=== PATIENT | female | born 1945 | race Caucasian/White ===

== ENCOUNTER → 2018-06-05 06:54 | Outpatient (CLI) | payer MEDICARE, SELFPAY ==
[2018-06-05 07:20] LABS: Absolute Lymphocyte Count 2.32 X10^3/ul (0.83-4.51); Basophil# 0.01 X10^3/uL; Basophil% 0.2 % (0-1); Eosinophil# 0.14 X10^3/uL; Eosinophils% 2.3 % (0-5); Hematocrit 41.7 % (37-47); Hemoglobin 14.3 g/dl (12.0-15.0); Lymphocyte # 2.32 X10^3/ul (4.0); Lymphocyte % 38.7 % (19-41); Mean Corp Hgb Conc 34.3 g/gl (32-36); Mean Corpuscular Hgb 29.9 pg (27.0-32.0); Mean Corpuscular Volume 87.2 fL (81-99); Mean Platelet Vol. 10.9 fl (6.2-12.0); Monocyte# 0.51 X10^3/uL; Monocyte% 8.5 % (0-10); Neutrophil # 3.01 X10^3/uL (2.7-7.7); Neutrophil % 50.1 % (47-70); Platelet Count 195 K/mm3 (150-450); RBC Distribution Width CV 13.2 % (11.6-14.6); RBC Distribution Width SD 41.3 fl (35.1-43.9); Red Blood Count 4.78 M/mm3 (4.2-5.4)
[2018-06-05 07:22] LABS: POSITIVE COUNT NO; POSITIVE DIFFERENTIAL NO; POSITIVE MORPHOLOGY NO
[2018-06-05 07:47] LABS: ALB/GLOB Ratio 0.9 RATIO (0.9-2.4); AST(SGOT) 20 U/L (15-37); Alanine Aminotransfer ALT/SGPT 27 U/L (13-56); Albumin, Serum 3.4 g/dL (3.2-5.0); Alkaline Phosphatase 59 U/L (45-117); Anion Gap 5 (5-15); BUN 14 mg/dL (7-18); BUN/Creat Ratio 14.8 RATIO (10-20); Calcium,Total 8.2 mg/dL (8.5-10.1); Chloride 109 mmol/L (98-107); Cholesterol 187 mg/dL (200); Creatinine, Serum 0.94 mg/dL (0.55-1.02); EST Glomerular Filtration Rate 62 mL/min (>60); Est Glom Filt Rate - Afr Amer 74 mL/min (>60); Globulin 3.6 g/dL (2.2-4.2); Glucose 89 mg/dL (74-106); High Density Lipoprotein 39 mg/dL; Sodium Level 143 mmol/L (136-145); Triglycerides 178 mg/dL; Very Low Density Lipoprotein 36 mg/dL (5-40)
== END ==
PROVIDERS: Family Provider Family Medicine; PCP Family Medicine; Visit Provider Family Medicine
DX: I10 Essential (primary) hypertension (principal); R53.83 Other fatigue; E78.1 Pure hyperglyceridemia
CPT/HCPCS: 36415; 80053; 80061; 85025

== ENCOUNTER → 2018-07-04 15:26 | Outpatient (CLI) | payer MEDICARE, SELFPAY | PROVIDERS: Family Provider Family Medicine; PCP Family Medicine; Visit Provider Urology | DX: R31.0 Gross hematuria (principal); N39.0 Urinary tract infection, site not specified | CPT/HCPCS: 74178; Q9967 ==

== ENCOUNTER → 2018-08-12 10:06 | Outpatient (CLI) | payer MEDICARE, SELFPAY ==
--- NOTE | 2018-08-12 10:08 | BI_ITS ---
MAMMOGRAPHY - BILATERAL SCREENING REASON FOR EXAM: Female, 73 years old. Routine annual screening examination. PERTINENT HISTORY: Aunt with breast cancer. TECHNIQUE: Digital bilateral breast magdalena (3D mammographic acquisition) in the CC and MLO projections. 2-D mediolateral oblique (MLO) and craniocaudad (CC) views of both breasts were obtained. CAD: Full Field Digital Mammography with Computer Added Detection was performed. COMPARISON: Comparison is made with prior study dated August 07, 2016 and August 05, 2015. FINDINGS: Breast Composition: The breasts are heterogeneously dense, which may obscure small masses. There is a 5.5 mm x 6.5 mm well-defined nodule in the slightly upper lateral portion of the left breast. Correlation with ultrasound is recommended. There is a 1.5 cm x 1 cm spiculated nodule in the deep slightly upper lateral portion of the right breast. Correlation with ultrasound is recommended. Stable bilateral benign-appearing axillary lymph nodes. No other significant abnormalities are identified. BI/SCREENING MAMM (CAD), BILAT IMPRESSION: Suspicious nodule seen in both breasts as described. Correlation with ultrasound is recommended. ASSESSMENT CATEGORY: BIRADS Category 0: Incomplete. Need additional imaging evaluation. A letter regarding these results will be sent to the patient by the facility within 30 days. Approximately 10% of breast cancers are not detected by mammography. A normal mammogram should not delay biopsy of a clinically suspicious abnormality. [id number] Electronically Signed: Anthony Tomlinson MD at 11:36 EDT Tel [phone], Service support ,
--- NOTE | 2018-08-12 10:13 | BD_ITS ---
STUDY: DUAL ENERGY X-RAY ABSORPTIOMETRY / DXA REASON FOR EXAM: Female, 73 years old. The patient is postmenopausal. Loss of height. TECHNIQUE: Bone Mineral Density (BMD) measurements of lumbar spine and bilateral hips were obtained. COMPARISON: Comparison is made with prior examination of July 22, 2014. FINDINGS: Lumbar Spine (L1-L4): g/cm2 (0.861) / T-score (-2.5) / Z-score (-0.8) Findings are suggestive of osteopenia with a moderate fracture risk. Increase in thoracic kyphosis. Left Femur Total: g/cm2 (0.915) / T-score (-0.7) / Z-score (1.0) Left Femoral Neck: g/cm2 (0.781) / T-score (-1.8) / Z-score (0.0) Right Femur Total: g/cm2 (0.889) / T-score (-0.9) / Z-score (0.7) Right Femoral Neck: g/cm2 (0.774) / T-score (-1.9) / Z-score (0.0) The T-Scores on the most recent prior examination were: Lumbar Spine (L1-L4): There has been worsening of bone density since the previous examination. Left Femur Total: which represents an improvement of 1.8%. Right Femur Total: which represents an improvement of 2.7%. BD/Dexa Bone Density Study IMPRESSION: The patient is considered osteopenic as outlined below according to World Marshall Organization (WHO) criteria with a moderate fracture risk. There has been improvement of bone density since the previous examination. Reference Information: The T-score is the number of standard deviations above or below the standard which is normal for young adults at their peak bone mineral density. The World Health Organization (WHO) interprets the T-scores as follows: Above -1 Normal bone density Between -1 and -2.5 Osteopenia Equal to / or below -2.5 Osteoporosis As a practical clinical guideline, osteopenia may be graded as follows: Mild -1 through -1.5 Moderate -1.6 through -2.0 Severe -2.1 through -2.4 The Z-score is the number of standard deviations above or below age-matched controls. A Z-score of less than -1.5 would be considered abnormal. References: 1. NIH Osteoporosis and Related Bone Diseases http://www.osteo.org 2. International Society for Clinical Densitometry http://www.iscd.org 3. National Osteoporosis Foundation http://www.nof.org Electronically Signed: Anthony Tomlinson MD at 14:55 EDT Tel [phone], Service support ,
== END ==
PROVIDERS: Family Provider Family Medicine; PCP Family Medicine; Visit Provider Family Medicine
DX: Z12.31 Encounter for screening mammogram for malignant neoplasm of breast (principal); Z78.0 Asymptomatic menopausal state
CPT/HCPCS: 77063; 77067; 77080

== ENCOUNTER → 2018-08-18 13:26 | Outpatient (CLI) | payer MEDICARE, SELFPAY ==
--- NOTE | 2018-08-18 13:28 | US_ITS ---
STUDY: ULTRASOUND BREAST - RIGHT REASON FOR EXAM: Female, 73 years old. Abnormal screening mammogram. TECHNIQUE: Axial and longitudinal images of the RIGHT breast were performed with a high resolution ultrasound transducer. COMPARISON: Comparison is made with prior mammogram dated August 12, 2018 and prior ultrasound of the left breast dated August 05, 2015. FINDINGS: RIGHT Breast: There is a 1.6 cm x 0.8 cm x 1.2 cm hypoechoic irregular hypoechoic nodule with posterior acoustical shadowing. This is at the 9:00 position of the breast at 4 cm from the nipple. A biopsy is recommended. IMPRESSION: Suspicious nodule at the 9:00 position of the breast at 4 cm from the nipple as described. A biopsy is recommended. ASSESSMENT CATEGORY: BIRADS Category 4: Suspicious - Biopsy Should Be Considered. A letter regarding these results will be sent to the patient by the facility within 30 days. Electronically Signed: Anthony Tomlinson MD at 15:42 EDT Tel [phone], Service support , STUDY: ULTRASOUND BREAST - LEFT REASON FOR EXAM: Female, 73 years old. Abnormal mammogram. TECHNIQUE: Axial and longitudinal images of the LEFT breast were performed with a high resolution ultrasound transducer. COMPARISON: Comparison is made with prior mammogram dated August 12, 2018. FINDINGS: LEFT Breast: There is a 6 mm x 5 mm x 4 mm well-defined hypoechoic nodule at the 3:00 position of the breast at 2 cm from nipple. This as the appearance of a lymph node. US/Breast Limited Unilateral IMPRESSION: The mammographic finding most likely represents a small lymph node. ASSESSMENT CATEGORY: BIRADS Category 2: Benign. A letter regarding these results will be sent to the patient by the facility within 30 days. Electronically Signed: Anthony Tomlinson MD at 15:42 EDT Tel [phone], Service support ,
== END ==
PROVIDERS: Family Provider Family Medicine; PCP Family Medicine; Visit Provider Family Medicine
DX: R92.8 Other abnormal and inconclusive findings on diagnostic imaging of breast (principal)
CPT/HCPCS: 76642

== ENCOUNTER → 2018-09-02 15:30 | Outpatient (CLI) | payer MEDICARE, SELFPAY ==
--- NOTE | 2018-09-02 | IMM_PTH ---
PATIENT: POP ALLAN LOC: [facility] U#:[id number] AGE/SX: 80/F ROOM: RE09/02/[address]: Dr. Jack Yang MD : 1945 BED: DIS: SPEC #: [id number] RECD: 09/04/18 13:05 STATUS: MACKENZIE REQ #: [id number] AB: 09/02/18 00:[address]: Jack Yang DEPT: IMMUNOHISTOCHEMISTRY RECD BY: Annamaria Ly ENTERED: 09/04/18 13:08 SP TYPE: IMMUNO OTHR DR: Dr. Aleta Quinn DO Tissues: Right breast, NOS Procedures: CALPONIN-1 (add) CK5-6 (add) CK8 (add) E-CAD (add) HER2 KJ (add) KI-67 (add) P53 (add) ME (add) IN SITU HYBRIDIZATION P40 (add) ER (initial) PHYSICIAN & INSTITUTION [address] [address] SPECIMEN INFORMATION: Tissue Source: Right breast Clinical Info: Abnormal mammogram Specimen Number: [id number] CPT code: 73073, 37991 x6, 94047 x3 METHODOLOGY: Deparaffinized sections of prefer/formalin-fixed tissue or PAP/DQ stained slides are incubated with monoclonal/polyclonal antibodies/oligonucleotide probes. Localization is made via biotin free immunoperoxidase method. Appropriate controls are performed and reacted as expected. Results on target cell population are indicated in the following table: RESULTS: ANTIBODY / CLONE RESULT E-Cad (ECH-6) positive CK8 (25ctmuN81) positive CK5-6 (D5 & 1684) negative Ki-67 (30-9) positive, low P53 (DO-7) negative P40 (BC28) negative Calponin-1 (MA045C) negative MORPHOMETRIC ANALYSIS ER (clone 6F11) >95%, strong ME (clone 16/1E2) 77%, moderate Her-2Neu (clone CB11) 2+ The prognostic test for HER2 is performed on formalin-fixed paraffin embedded tissue. A 3+ (positive) staining pattern is defined as intense, homogeneous, complete, circumferential membranous staining in >10% of contiguous tumor cells. A similar weak (2+) staining pattern is interpreted as equivocal. RIKI follow-up testing is recommended for all equivocal cases. Positivity/negativity for ER/ME is reported if > or < 1% of the tumor cells are immuno- reactive, respectively. The ASCO/CAP criteria is used for scoring. Reference: Journal of Clinical Oncology, 2013; 31:1628-3767 & 2010; 16:8307-7479. Duration of fixation: 28 Hrs; Sample Adequate: Yes. These assays have not been validated on decalcified tissues. Results should be interpreted with caution given the likelihood of false negativity on decalcified specimens. These tests were developed and their performance characteristics determined by [facility]. They may not have been cleared or approved by the U.S. Food and Drug Administration. The FDA has determined that such clearance or approval is not necessary. INTERPRETATION: Right breast, ultrasound-guided needle core biopsy: Invasive ductal carcinoma, grade 2. Positive for estrogen receptors (favorable prognostic indicator). Positive for progesterone receptors (favorable prognostic indicator). Equivocal for overexpression of ILQ1auv. SJ:yovany 09/04/18 ADDENDUM ADDENDUM ADDENDUM ADDENDUM ADDENDUM ADDENDUM ADDENDUM ADDENDUM ADDENDUM ADDENDUM ADDENDUM ADDENDUM ADDENDUM ADDENDUM ADDENDUM ADDENDUM ADDENDUM ADDENDUM ADDENDUM ADDENDUM ADDENDUM ADDENDUM ADDENDUM 09/16/2018 10:17 ADDENDUM 09/16/2018 10:17 ADDENDUM 09/16/2018 10:17 ADDENDUM 09/16/2018 10:17 ADDENDUM 09/16/2018 10:17 IN SITU HYBRIDIZATION (RIKI) FOR HER2 Interpretation: Not Amplified HER2 : CEP-17 Ratio: 1.28 Average HER2 Signal: 2.45 Average CEP-17 Signal: 1.9 Number of Tumor Cells Scanned: 50 Interpretative Information: The INFORM HER2 Dual RIKI DNA Probe Cocktail assay is performed on formalin-fixed paraffin embedded tissue and determines HER2 gene status by detecting HER2 copies via silver in situ hybridization (SISH) and Chromosome 17 copies via chromogenic red in situ hybridization on tumor cells. A minimum of 20 cells representing > 10% of contiguous and homogeneous invasive tumor cells were analyzed. HER2 gene status is classified as Non-amplified (HER2/Chr17 ratio < 2.0) or Amplified (HER2/Chr17 ratio greater than or equal to 2.0). If the resulting HER2/Chr17 ratio falls within 1.8 - 2.2 (Borderline), retesting by FISH is recommended. Reference: Latosha AC, Khurram MEJIAS, Da DG, et al: Recommendations for Human Epidermal Growth Factor Receptor 2 Testing in Breast Cancer: [place] [employer] of Clinical Oncology / [employer] [place] [employer] Clinical Practice Guideline Update. J Clin Oncol 31:0516-0513, 2013. AM:yovany 09/16/18
--- NOTE | 2018-09-02 15:30 | BRBX_PTH ---
PATIENT: POP ALLAN LOC: [facility] U#:[id number] AGE/SX: 80/F ROOM: RE09/02/[address]: Dr. Jack Yang MD : 1945 BED: DIS: SPEC #: [id number] RECD: 09/02/18 16:15 STATUS: MACKENZIE DAVID #: [id number] AB: 09/02/18 15:[address]: Jack Yang DEPT: SURGICAL PATHOLOGY RECD BY: Lauro Moreno ENTERED: 09/03/18 08:24 SP TYPE: BREAST BX OTHR DR: Dr. Aleta Quinn DO Tissues: Right breast, NOS Procedures: Surgery Specimen Level IV HEADER OPERATION: Ultrasound-guided needle core biopsy right breast PRE-OP DIAGNOSIS: Abnormal mammogram R92.8 TISSUE SUBMITTED: Right breast biopsy FIXATION TIME: 28 hours MICROSCOPIC DIAGNOSIS Right breast, ultrasound-guided needle core biopsy: Invasive ductal carcinoma, nuclear grade 2 (0.9 cm in greatest length). See comment. NATHANIEL:yovany 09/04/18 COMMENT Immunohistochemistry ([id number]) supports the above diagnosis. ER/WV/Ywt8wgq studies are being performed on sections of tumor and the results from this study will be reported separately ([id number]). MICROSCOPIC DESCRIPTION Slides are reviewed. GROSS DESCRIPTION Received in fixative is one container labeled with the patient's name and designated right breast biopsy. The specimen consists of one elongated fragment of trevino-yellow fibroadipose tissue that measures 1.2 cm in length and 0.1 cm in diameter. The specimen is totally submitted in one cassette. / NATHANIEL:yovany 09/03/18 TC:0 CPT: 40303
== END ==
PROVIDERS: Family Provider Family Medicine; PCP Family Medicine; Referring Provider Surgery; Visit Provider Surgery
DX: C50.911 Malignant neoplasm of unspecified site of right female breast (principal); R92.8 Other abnormal and inconclusive findings on diagnostic imaging of breast
CPT/HCPCS: 88305; 88341; 88342; 88368

== ENCOUNTER → 2018-09-12 12:54 | Outpatient (CLI) | payer MEDICARE, SELFPAY ==
--- NOTE | 2018-09-12 12:56 | MRI_ITS ---
STUDY: BILATERAL BREAST MR WITHOUT AND WITH CONTRAST REASON FOR EXAM: Female, 73 years old. Abnormal mammogram. Bilateral breast masses. Recent diagnosis of right breast cancer. Evaluate. TECHNIQUE: Multi-sequence multi-echo imaging of both breasts was performed with a dedicated breast coil. T1-weighted and T2-weighted images were performed before the administration of contrast. T1-weighted images were also performed after the administration of 7 mL of Gadavist contrast intravenously without complications. COMPARISON: Mammogram studies dated 08/07/2016 and 08/12/2018. Bilateral breast ultrasound dated 08/18/2018 was also reviewed. FINDINGS: RIGHT BREAST: The breast tissue is heterogeneously dense with minimal background enhancement. There is a 15 mm abnormal enhancing spiculated mass in the lateral aspect of the right breast approximately 8 cm from the nipple. This does correlate to the area that was biopsied and shown to represent a malignancy. No other abnormal enhancing or abnormal morphologically appearing masses are seen in the right breast. The right axillary lymph nodes appear grossly unremarkable. LEFT BREAST: The breast tissue is heterogeneously dense with minimal background enhancement. There are no abnormal enhancing masses or areas of non-mass enhancement in the left breast. There is a 5 mm benign appearing mass seen laterally in the left breast that was seen on the ultrasound examination. This appears to represent a probable fibrocystic mass or fibroadenoma. There are no enlarged or abnormal lymph nodes. There is no abnormality in the visualized regions of the chest or liver. MRI/Breast w/o and/or W Cont Bilat IMPRESSION: There is a known malignancy in the right breast. Surgical consultation is recommended as well as radiation oncology and medical oncology consultation. Short-term six-month follow-up mammogram is recommended to document stability the postlumpectomy site. CATEGORY: BIRADS Category 6: Known Biopsy-Proven Malignancy - Appropriate Action Should Be Taken. A letter regarding these results will be sent to the patient by the facility within 30 days. Electronically Signed: Lauren Roque DO at 15:51 EDT This has been co-signed by: Cristopher Mariano MD at 15:52 EDT Service support ,
== END ==
PROVIDERS: Family Provider Family Medicine; PCP Family Medicine; Referring Provider Surgery; Visit Provider Surgery
DX: C50.919 Malignant neoplasm of unspecified site of unspecified female breast (principal); R92.8 Other abnormal and inconclusive findings on diagnostic imaging of breast
CPT/HCPCS: 77059; A9585; A4216; C8908

== ENCOUNTER 2018-09-18 08:45 | Day surgery (SDC) | payer MEDICARE, SELFPAY ==
[2018-09-12 13:22] LABS: Hematocrit 42.5 % (37-47); Hemoglobin 14.3 g/dl (12.0-15.0); Mean Corp Hgb Conc 33.6 g/gl (32-36); Mean Corpuscular Hgb 29.5 pg (27.0-32.0); Mean Corpuscular Volume 87.6 fL (81-99); Mean Platelet Vol. 10.6 fl (6.2-12.0); Platelet Count 218 K/mm3 (150-450); RBC Distribution Width CV 13.3 % (11.6-14.6); RBC Distribution Width SD 41.7 fl (35.1-43.9); Red Blood Count 4.85 M/mm3 (4.2-5.4); Scan Indicated on CBC? Y/N NO; White Blood Count 6.8 K/mm3 (4.4-11.0)
[2018-09-12 13:34] LABS: AST(SGOT) 19 U/L (15-37); Alanine Aminotransfer ALT/SGPT 30 U/L (13-56); Albumin, Serum 3.5 g/dL (3.2-5.0); Alkaline Phosphatase 71 U/L (45-117); Anion Gap 3 (5-15); BUN 15 mg/dL (7-18); BUN/Creat Ratio 14.9 RATIO (10-20); Calcium,Total 8.8 mg/dL (8.5-10.1); Chloride 106 mmol/L (98-107); Creatinine, Serum 1.01 mg/dL (0.55-1.02); EST Glomerular Filtration Rate 57 mL/min (>60); Est Glom Filt Rate - Afr Amer 69 mL/min (>60); Globulin 3.6 g/dL (2.2-4.2); Glucose 94 mg/dL (74-106); Potassium 3.8 mmol/L (3.5-5.1); Protein, Total 7.1 g/dL (6.4-8.2); Sodium Level 140 mmol/L (136-145)
--- NOTE | 2018-09-12 14:37 | RAD_ITS ---
STUDY: X-RAY CHEST REASON FOR EXAM: Female, 73 years old. Preoperative evaluation. History of breast cancer. TECHNIQUE: PA and lateral views of the chest. COMPARISON: Comparison is made with prior examination July 17, 2017. FINDINGS: Hyperinflation. Scattered calcified granulomas. The lungs are clear. There is no demonstrated pleural abnormality. Normal size heart. Normal mediastinum and viky. Normal visualized pulmonary arteries. There is atherosclerotic calcification of the aortic arch with tortuosity. Normal visualized thoracic spine. Normal visualized ribs, clavicles, and shoulders. There is no demonstrated abnormality of the visualized soft tissue structures of the upper abdomen. RAD/Chest PA and Lateral IMPRESSION: Hyperinflation. The lungs are clear. Electronically Signed: Anthony Tomlinson MD at 15:09 EDT Tel [phone], Service support ,
--- NOTE | 2018-09-12 14:40 | EKG12_ITS ---
Test Reason : PRE OP Blood Pressure : / mmHG Vent. Rate : 056 BPM Atrial Rate : 045 BPM P-R Int : 182 ms QRS Dur : 122 ms QT Int : 456 ms P-R-T Axes : 035 014 046 degrees QTc Int : 440 ms Marked sinus bradycardia with occasional Premature ventricular complexes Right bundle branch block Abnormal ECG Confirmed by CRISTELA WHITE ([id number]), medical transcription editor OTF AMADO ([id number]) on 09/16/2018 9:09:50 AM Referred By: Jack Yang Confirmed By:CRISTELA WHITE
--- NOTE | 2018-09-18 | AXNB_PTH ---
PATIENT: POP ALLAN [place]: [facility] [place][id number] AGE/SX: 73/F ROOM: RE09/18/[address]: Dr. Jack Yang MD : 1945 BED: DIS: 09/18/2018 SPEC #: [id number] RECD: 09/18/18 12:58 STATUS: MACKENZIE DAVID #: [id number] AB: 09/18/18 00:[address]: Jack Yang DEPT: SURGICAL PATHOLOGY RECD BY: Annamaria Ly ENTERED: 09/18/18 14:01 SP TYPE: AX NODE BX OTHR DR: Dr. Aleta Quinn, DO Tissues: A - Axillary lymph node, NOS B - Right breast, NOS Procedures: Frozen Section (charge) Surgery Specimen Level IV Surgery Specimen Level V HEADER OPERATION: Breast lumpectomy, sentinel node, NL, [place] PRE-OP DIAGNOSIS: Abnormal mammogram right breast TISSUE SUBMITTED: A - [place] lymph node sent at 1243, B - Right breast lumpectomy sent to mammogram, then pathology at 1311, wire comes out lateral, short suture - anterior, long suture - superior FROZEN SECTION DIAGNOSIS A. Right axillary sentinel lymph node, biopsy: Two out of two nodes negative for carcinoma. AM:yovany 09/18/18 MICROSCOPIC DIAGNOSIS A. Right axillary sentinel lymph node, biopsy: Two out of two nodes negative for metastatic carcinoma. B. Right breast, lumpectomy: Invasive ductal carcinoma. See cancer checklist below. AM:yovany 09/23/18 COMMENT INVASIVE BREAST CANCER SUMMARY: Procedure: Excision with wire guidance Specimen: Partial breast Specimen integrity: single intact specimen Specimen size: 6.5 x 6 x 3.8 cm Specimen laterality: Right breast Invasive tumor size: 1.5 x 1.2 x 1 cm Tumor focality: Single focus of invasive carcinoma Macroscopic and Microscopic extent of tumor: Skin: Not present Nipple: Not present Skeletal muscle: Not present Histologic type of invasive carcinoma: invasive ductal carcinoma Histologic Grade (Bonita grade): Glandular/tubular differentiation score: 2 Nuclear pleomorphism score: 2 Mitotic count score: 1 Overall grade: Grade 1 (total score of 5) Margins: Uninvolved by invasive carcinoma. Distance from closest (superior) margin - 8 mm Lymph-Vascular invasion: Not identified Dermal lymph-vascular invasion: Not applicable Perineural invasion: present Ductal carcinoma in situ (DCIS): Not present Lobular carcinoma in situ (LCIS): Not present Lymph nodes: Number of sentinel lymph nodes examined - 2 (by H&E and immunohistochemistry). Total number of lymph nodes examined (sentinel and nonsentinel) - 2 No evidence of macrometastases, micrometastases or isolated tumor cells. See specimen A. Microcalcifications: Present in both carcinoma and non-neoplastic tissue (focal). Treatment effect - no known presurgical therapy. Additional pathologic findings: Fibrocystic change. Intraductal hyperplasia with focal atypical intraductal hyperplasia. Changes of previous biopsy. Ancillary studies: Previously performed on same tumor ([id number] / [id number]). ER: >95%, strong WA: 77%, moderate Her2 richard: 2+ (IHC) Her2 by dual RIKI: Not amplified (1./1) PATHOLOGIC STAGE: pT1c N0(sn) Mx The above summary is in compliance with [employer] [place] [employer] (CAP) Cancer Protocols Checklist and [place] Joint Committee on Cancer (AJCC), Staging Manual, 8th Ed. Case has been reviewed in consultation with Dr. Sorenson who concurs with the above diagnosis. IDC:SJ MICROSCOPIC DESCRIPTION Slides are reviewed. GROSS DESCRIPTION A - Received fresh for frozen section consultation labeled with the patient's name is a specimen designated sentinel lymph node right breast. The specimen consists of an irregular fragment of trevino-yellow fibrofatty tissue measuring 4.5 x 2.5 x 1 cm. Dissection reveals two nodules ranging in size from 1.5 to 1.8 cm in greatest dimension. One nodule is submitted in its entirety in block #1 for frozen section consultation. The other nodule is bisected and submitted for frozen section consultation in block 2. / AM:yovany 09/19/18 B - Received fresh for OR consultation labeled with the patient's name is a specimen designated right breast lumpectomy. The specimen consists of a wire-guided lumpectomy that has been oriented measuring 6.5 x 6 x 3.8 cm and weighing 44.5 gm. The specimen is differentially inked as follows: anterior - yellow, posterior - black, superior - blue, inferior - green, medial - red and lateral - orange. Serial sections reveal a firm, spiculated white-trevino lesion in the center of the specimen measuring 1.5 x 1.2 x 1 cm and located 0.8 cm from its closest (superior) margin of resection. The size of the lesion and proximity to the closest margin is conveyed to the surgeon intraoperatively. The remainder of the uninvolved breast parenchyma is trevino-yellow and interrupted focally by white fibrous streaks. Rope Tier sections are submitted in ten cassettes as follows: 1 & 2 - perpendicular inked margins, 37 - mass, totally submitted, 8-10 - footwear sales representative sections of uninvolved breast parenchyma adjacent to and away from lesion. / AM:yovany 09/19/18 TC:0 CPT: 40294, 92600, 25555, 81660 ADDENDUM ADDENDUM ADDENDUM ADDENDUM ADDENDUM ADDENDUM ADDENDUM ADDENDUM 10/17/2018 10:14 ADDENDUM 10/17/2018 10:14 ADDENDUM 10/17/2018 10:14 ADDENDUM 10/17/2018 10:14 ADDENDUM 10/17/2018 10:14 An order for Oncotype testing was received from Dr. Browne. This necessitated case review, block and slide selection by pathologist at [facility]. Breast Cancer Recurrence Score = 16 Results of the complete Oncotype testing ([employer] report) are viewable in EMR under: Reports - Pathology - Lab Pathology Report, Scanned.
--- NOTE | 2018-09-18 | IMM_PTH ---
PATIENT: POP ALLAN LOC: [facility] [place] U#:[id number] AGE/SX: 73/F ROOM: RE09/18/[address]: Dr. Jack Yang MD : 1945 BED: DIS: 09/18/2018 SPEC #: [id number] RECD: 09/23/18 11:16 STATUS: MACKENZIE REKatey #: [id number] AB: 09/18/18 00:[address]: Jack Yang DEPT: IMMUNOHISTOCHEMISTRY RECD BY: Annamaria Ly ENTERED: 09/23/18 11:17 SP TYPE: IMMUNO OTHR DR: Dr. Aleta Quinn, DO Tissues: A - Axillary lymph node, NOS Procedures: CK7 (add) Pankeratin (add) CK7 (initial) PHYSICIAN & INSTITUTION [place] [address] SPECIMEN INFORMATION: Tissue Source: A - Right axillary sentinel lymph node biopsy Clinical Info: Abnormal mammogram right breast Specimen Number: [id number] A1 & A2 CPT code: 28208, 13249 x3 METHODOLOGY: Deparaffinized sections of prefer/formalin-fixed tissue or PAP/DQ stained slides are incubated with monoclonal/polyclonal antibodies/oligonucleotide probes. Localization is made via biotin free immunoperoxidase method. Appropriate controls are performed and reacted as expected. Results on target cell population are indicated in the following table: RESULTS: ANTIBODY / CLONE RESULT Block A1 CK7 (OV-TL12/30) negative AE1-3 (AE1/AE3/PCK26) negative Block A2 CK7 (OV-TL12/30) negative AE1-3 (AE1/AE3/PCK26) negative These tests were developed and their performance characteristics determined by [facility]. They may not have been cleared or approved by the U.S. Food and Drug Administration. The FDA has determined that such clearance or approval is not necessary. INTERPRETATION: A. Right axillary sentinel lymph node, biopsy: Two out of two lymph nodes negative for carcinoma. AM:yovany 09/23/18
[2018-09-18 09:11] VITALS: BP 110/75; PULSE 60; RESP 14; TEMP 37.1; O2SAT 96; BMI 29.6
--- NOTE | 2018-09-18 09:25 | NM_ITS ---
PROCEDURE: NUCLEAR MEDICINE Injection [place] Node - RIGHT breast(s). REASON FOR EXAM: Female, 73 years old. Right breast cancer. TECHNIQUE: [place] node localization using radionuclide methods of the RIGHT breast(s) was performed following subcutaneous administration of 1.07 mCi of of sulfur colloid Tc-99m. FINDINGS: 1.07 mCi of technetium labeled sulfur colloid were injected in 4 equal aliquots in the lower lateral aspect of the right breast. NM/Lymph Node Injection Only IMPRESSION: Subcutaneous injection of 1.07 mCi of technetium sulfur colloid for sentinel node imaging. Electronically Signed: Anthony Tomlinson MD at 9:47 EDT Tel [phone], Service support ,
--- NOTE | 2018-09-18 12:10 | PCM.OPRPT ---
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 Wire localized outer mid right breast lumpectomy with right axillary blue dye and radioactive tracer sentinel lymph node biopsy Description of Surgical Findings:: Timeout and informed consent was obtained. 73-year-old female was taken to the stereotactic suite. She was placed on the table. The right breast was placed in a lateral medial view. The marking clip in question was rapidly identified. Stereotactic images were obtained. The breast was subsequently prepped with Betadine. 1% lidocaine was used for local anesthetic. 1 cc was used. The Kopan's needle was advanced to depth +15 mm. The wire was displaced. Follow-up CC and mediolateral views demonstrated excellent localization. Sterile dressings were applied. She was taken to the operating room for planned definitive resection. No apparent complication. Patient was taken to the operating room. She was placed on the table. She underwent general anesthesia. The right arm was carefully wrapped with soft roll and placed at right angles to the table. The right periareolar breast was prepped with alcohol. 2 cc of isosulfan blue dye was injected retroareolar Raymond. Massage was performed for 5 minutes. Then the right breast and axilla were sterilely prepped draped. The neoprobe was used there was a high count located at the tumor site. There was minimal if any in the entire axilla. At my otherwise appropriate position I made a transverse incision in the right axilla immediately identified to be tracking tie. I dissected down to blue lymph nodes. I dissected them free hemostasis attained electrocautery and hemoclips were indicated. I then performed neoprobe inspection of the 2 lymph nodes removed and there was a very small amount of nuclear tracer identified within those lymph nodes. Placed the pullback in the axilla and again essentially got 0 count. It appeared that the nuclear medicine component of this procedure failed with no tracking. The lymph nodes were sent for analysis. The axilla was inspected there was no visible or palpable disease. That wound was closed with deep layer of interrupted 3-0 Vicryl in a running septic or 4-0 Monocryl subdermal stitch. The breast was now inspected. A curvilinear incision made in the outer mid right breast at the site of the previous wire localization. Electrocautery dissection performed down to the chest wall and circumferentially around guided by the wire localization. The specimen was removed. A short suture was placed anteriorly a long suture superiorly and the wire exited laterally. The cavity was inspected was hemostatic for small hemoclips were placed at 4 corners. The jovany-incisional areas anesthetized with 0.5% Marcaine as was the axilla total 30 cc was used. The breast was closed with deep layer of interrupted 3-0 Vicryl and then a running septic or 4-0 Monocryl. Steri-Strips Telfa OpSite dressing pressure dressing applied. Sponge instrument and needle counts were reported to the surgeon be correct. Blood loss was minimal. No apparent complications. Specimens [place] lymph nodes x2 both reported negative. Right breast mass reported to be with adequate surgical margin. Blood loss minimal Jack Yang M.D., F.A.C.S. Type of Anesthesia:: General
--- NOTE | 2018-09-18 12:18 | PCM.DC.BS ---
Discharge Diet: No Restrictions Discharge Activity: May Not Drive - for 2-3 days or while taking narcotic pain meds. May shower in (days): 1 Lifting Restrictions: 10 pounds for 1 week. Call your doctor if your incision/area has: Continuous Slow Oozing, Sudden Increased Bleeding Call your doctor if you observe: Fever of 101 or Higher Suture Line Care: Avoid Pulling/Pushing, Avoid Pinching/Bending Remove Dressing in (days):: 1 - Remove bulky dressing tomorrow. May leave any opsite dressing for 3-4 days. Keep dressing in place until your follow-up appointment. Additional Dressing/Incision Instructions:: Remove bulky dressing tomorrow. May leave any opsite dressing for 3-4 days. Keep dressing in place until your follow-up appointment. Allergies/Adverse Reactions: Allergies No Known Allergies Allergy (Verified 09/18/18 09:06) Medications to take at Discharge Alendronate Sodium 70 mg PO GILBERT 05/29/17 Calcium Carbonate [Calcium] 500 mg PO DAILY 05/29/17 Cholecalciferol (Vitamin D3) [Vitamin D3] 5,000 unit PO DAILY 05/29/17 Multivitamin [Multiple Vitamins] 1 ea PO DAILY 05/29/17 [place]-3 Fatty Acids/Fish Oil [Fish Oil 1,000 mg Capsule] 1 ea PO DAILY 05/29/17 ascorbic acid (vitamin C) 500 mg tablet 500 mg PO DAILY 08/08/18 aspirin 81 mg tablet,delayed release 81 mg PO DAILY 08/08/18 cranberry 500 mg capsule 500 mg PO DAILY cap 08/08/18 hydrochlorothiazide 12.5 mg tablet 12.5 mg PO DAILY 08/08/18 metoprolol tartrate 25 mg tablet 25 mg PO BID 08/08/18 potassium chloride ER 10 mEq capsule,extended release 10 meq PO DAILY #90 cap 08/25/18 rivaroxaban 20 mg tablet 20 mg PO DAILY #90 tab 08/29/18 Sennosides/Docusate Sodium [Senna-Docusate Sodium Tablet] 1 each PO QHS 09/11/18 Hydrocodone Bitart/Apap 5-325 [[place] 5MG-325MG] 1 tablet PO Q6H PRN PRN 3 Days #8 tablet 09/18/18 The following prescriptions were given: Hydrocodone Bitart/Apap 5-325 [[place] 5MG-325MG] 1 tablet PO Q6H PRN PRN 3 Days #8 tablet PRN Reason: Pain Primary Care Physician: Aleta Quinn DO [Primary Care Provider] - Please Follow Up With: Jack Yang MD When: [phone] Appt. approximately one week please
[2018-09-18] MEDS: Isosulfan Blue 1% 5 ML Vial (12:27)
--- NOTE | 2018-09-18 12:29 | BI_ITS ---
SURGICAL BREAST SPECIMEN RADIOGRAPH CLINICAL: Document presence of tissue clip marker in biopsy specimen. FINDINGS: Specimen shows presence of tissue clip marker. Electronically Signed: Anthony Tomlinson MD at 13:36 EDT Tel [phone], Service support , BI/Breast Biopsy Specimen
[2018-09-18] MEDS: Bupivacaine Mpf 0.5% 30 ML VIAL (13:15)
[2018-09-18 13:58] VITALS: BP 110/75; BP 162/80; PULSE 83; RESP 10; TEMP 36.6; O2SAT 93
[2018-09-18 14:00] VITALS: BP 110/75; BP 163/85; PULSE 83; RESP 16; O2SAT 99
[2018-09-18 14:15] VITALS: BP 110/75; BP 159/84; PULSE 67; RESP 16; O2SAT 100
[2018-09-18 14:20] VITALS: BP 110/75; BP 174/92; PULSE 74; RESP 16; TEMP 36.2; O2SAT 100
[2018-09-18 15:40] VITALS: BP 110/75; BP 174/77; PULSE 69; RESP 16; TEMP 36.5; O2SAT 95
== END 2018-09-18 15:50 | disposition home or self-care (01) ==
LOC: SDC 08:45 → AC 08:46
PROVIDERS: Family Provider Family Medicine; PCP Family Medicine; Referring Provider Surgery; Visit Provider Surgery
PROC: (CPT 19301; principal; 2018-09-18 11:45)
DX: C50.411 Malignant neoplasm of upper-outer quadrant of right female breast (principal); I48.91 Unspecified atrial fibrillation; I10 Essential (primary) hypertension; L40.9 Psoriasis, unspecified; M81.0 Age-related osteoporosis without current pathological fracture; I27.21 Secondary pulmonary arterial hypertension; Z79.01 Long term (current) use of anticoagulants; I34.0 Nonrheumatic mitral (valve) insufficiency; Z87.891 Personal history of nicotine dependence
CPT/HCPCS: 19301; 38525; 19281; 36415; 38792; 71046; 76098; 80053; 85027; 88305; 88307; 88331; 88341; 88342; 93005; A9541; J7120; J2405; Q9968

== ENCOUNTER → 2018-10-08 12:05 | Outpatient (CLI) | payer MEDICARE, SELFPAY ==
[2018-10-02 10:03] VITALS: BMI 29.2
--- NOTE | 2018-10-08 12:06 | MRI_ITS ---
STUDY: MRI ABDOMEN WITH AND WITHOUT CONTRAST REASON FOR EXAM: Female, [address] scan showing a liver abnormality. TECHNIQUE: Standardized fat and water weighted pulse sequences were obtained in all 3 orthogonal planes post contrast administration. 8 ml of Gadavist contrast material was administered intravenously for the contrast portion of the examination. COMPARISON: CT of the abdomen and pelvis dated July 04, 2018. FINDINGS: The visualized lung bases are unremarkable. The visualized portions of the heart are within normal limits. There is a mass within the left lobe of liver. This has heterogeneous peripheral enhancement after intravenous menstruation contrast. This mass measures approximately 4.2 x 3.2 x 2.5 cm in size. This mass exhibits restricted diffusion. There are smaller cysts within the right lobe of liver. One is located in segment 8. The smaller subcapsular cyst is located probably segment 5. As well as a subcapsular location of the right lobe liver. There are multiple gallstones. Normal spleen. Normal pancreas. Normal bilateral adrenal glands. Normal right kidney. Normal left kidney. Normal visualized stomach. There is no evidence for dilated bowel or ascites. Normal colon. The appendix is visualized and appears normal. Normal abdominal aorta. The IVC is slitlike suggesting hypovolemia and/or dehydration. Normal retroperitoneum. There appears to be a loculated collection within the right breast. This is incompletely imaged on the current study and measures approximately 5.1 cm in greatest dimension. Normal abdominal wall. Normal osseous structures. MRI/MRI Abd WITH and W/O Contrast IMPRESSION: 1. Left lobe liver mass has enhancement similar to that expected of a hemangioma. However, this mass exhibits restricted diffusion and neoplastic etiologies cannot be excluded. Suggest continued follow-up of this lesion. 2. Small hepatic cysts. 3. Loculated collection in the right breast presumably related to recent biopsy. Electronically Signed: Anabel Ross MD at 6:54 EST , Service support ,
== END ==
PROVIDERS: Family Provider Family Medicine; PCP Family Medicine; Referring Provider Internal Medicine Hematology & Oncology; Visit Provider Internal Medicine Hematology & Oncology
DX: R93.89 Abnormal findings on diagnostic imaging of other specified body structures (principal)
CPT/HCPCS: 74183; A9585

== ENCOUNTER → 2019-03-11 08:21 | Outpatient (CLI) | payer MEDICARE, SELFPAY ==
[2018-10-20 11:07] VITALS: BMI 28.8
[2019-02-25 13:05] VITALS: BMI 29.1
--- NOTE | 2019-03-11 08:26 | ECHOD_ITS ---
Reason For Study: PULMONARY HYPERTENSION Procedure This was a 2D Doppler, Color Flow transthoracic echocardiogram. Exam performed in department. Left Ventricle Normal size and thickness. The estimated ejection fraction is 65 %. Stage 2 diastolic dysfunction. No regional wall motion abnormalities noted. Right Ventricle Moderately dilated right ventricle. Normal systolic function. Atria The left atrium is mildly enlarged. Normal right atrium. Normal atrial septum. Mitral Valve The mitral valve is structurally normal. No prolapse or stenosis seen. Mild (1+) mitral valve insufficiency. Tricuspid Valve Normal tricuspid valve. Trivial tricuspid valve insufficiency. Right ventricular systolic pressure estimated to be 40 mmHg. Mild pulmonary hypertension. Aortic Valve Trisinus/trileaflet aortic valve. Pulmonic Valve Normal pulmonic valve. Great Vessels Normal aortic root. Normal arch. Normal inferior vena cava. Pericardium/Pleural No pericardial effusion. MMode/2D Measurements & Calculations LVIDd: 4.5 cm IVSd: 0.95 cm Ao root diam: 2.9 cm LVIDs: 2.8 cm LVPWd: 0.92 cm RVDd: 3.9 cm FS: 38.2 % LAV(MOD-bp): 57.9 ml LVAd ap4: 23.3 cm2 SV(MOD-sp4): 39.9 ml LAV(MOD-bp) Indexed: 32.5 ml/m2 EDV(MOD-sp4): 63.4 ml LAV(MOD-sp2): 56.8 ml EDV(sp4-el): 65.8 ml LAV(MOD-sp4): 57.5 ml LVAs ap4: 12.7 cm2 ESV(MOD-sp4): 23.5 ml ESV(sp4-el): 22.2 ml EF(MOD-sp4): 62.9 % EF(sp4-el): 66.3 % SV(sp4-el): 43.6 ml LA A4 area: 20.5 cm2 LA dimension(2D): 4.5 cm RA A4 area: 19.4 cm2 Time Measurements MV dec time: 0.20 sec Doppler Measurements & Calculations MV E max talib: 121.4 cm/sec Lat Peak E' Talib: 8.9 cm/sec Med Peak E' Talib: 8.5 cm/sec MV A max talib: 68.6 cm/sec E/E' lat: 13.6 E/E' med: 14.3 MV E/A: 1.8 Ao V2 max: 167.5 cm/sec LV V1 max: 107.7 cm/sec PA V2 max: 132.8 cm/sec Ao max P.2 mmHg LV V1 max P.6 mmHg TR max talib: 288.4 cm/sec TR max P.3 mmHg Interpretation Summary The estimated ejection fraction is 65 %. Moderately dilated right ventricle. The left atrium is mildly enlarged. Mild (1+) mitral valve insufficiency. Trivial tricuspid valve insufficiency. Right ventricular systolic pressure estimated to be 40 mmHg. Mild pulmonary hypertension. Stage 2 diastolic dysfunction. Compared to echo report dated 05/30/2017, no appreciable changes noted. Pt appears to be in NSR. Ordering Physician: Rojas Henry Referring Physician: DANYELL GELLER Performed By: Christine Aguilar RDCS
== END ==
PROVIDERS: Family Provider Family Medicine; PCP Family Medicine; Referring Provider Internal Medicine Cardiovascular Disease; Visit Provider Internal Medicine Cardiovascular Disease
DX: I27.21 Secondary pulmonary arterial hypertension (principal)
CPT/HCPCS: 93306

== ENCOUNTER → 2019-03-18 09:27 | Outpatient (CLI) | payer MEDICARE, SELFPAY ==
[2018-10-20 11:07] VITALS: BMI 28.8
[2019-02-25 13:05] VITALS: BMI 29.1
--- NOTE | 2019-03-18 09:32 | STEWCON_ITS ---
Reason For Study: CHEST PAIN Stress Results Protocol: Cole Protocol WITH DEFINITY Maximum Predicted HR: 146 bpm Target HR: 124 bpm % Maximum Predicted HR: 89 % DurationHeart Rate Stage (mm:ss) (bpm) BP Comment BASELINE 61 152/821.5 CC DEFINITY STAGE 1 3:00 110 178/90 STAGE 2 3:00 130 200/921 CC DEFINITY RECOVERY 73 130/84 Stress Duration: 6:00 mm:ss Maximum Stress HR: 130 bpm Baseline Echocardiogram Findings The estimated ejection fraction is 65 %. Stress Echo Wall motion Data Resting WM Intermediate WM Stress WM Resting Wall Motion Wall Motion Stress No regional wall motion No regional wall motion abnormalities noted. abnormalities noted. EKG Data Normal intervals are noted. The baseline ECG displays normal sinus rhythm. The patient exercised according to the regular Cole protocol for a total duration of 6:01. The maximum heart rate attained was 130 beats per minute. This was 93% of maximum predicted heart rate. The patient exercised into stage 3 of the Cole protocol. During stress, there were no ST or T wave changes noted to suggest ischemia. No clinical angina was noted. Interpretation Summary The estimated ejection fraction is 65 %. Normal, adequate, treadmill echocardiogram. Negative for ischemia by EKG and echocardiographic criteria. No anginal symptoms noted. Rare PVCs noted. Hypertensive blood pressure response to exercise. Final LVEF of 75%. Test terminated due to target heart rate and dyspnea. Average exercise capacity for age. Decreased sensitivity due to poor echo windows requiring Definity agent. No complications. The study was technically difficult. Contrast injection was performed. Ordering Physician: Rojas Henry MD Referring Physician: Rojas Henry Performed By: Joanne Medina, ROSALIECS, RVT
== END ==
PROVIDERS: Family Provider Family Medicine; PCP Family Medicine; Referring Provider Internal Medicine Cardiovascular Disease; Visit Provider Internal Medicine Cardiovascular Disease
DX: I48.91 Unspecified atrial fibrillation (principal); I27.21 Secondary pulmonary arterial hypertension; I34.0 Nonrheumatic mitral (valve) insufficiency; R07.9 Chest pain, unspecified
CPT/HCPCS: 93017; 93350; Q9957; A4216; C8928

== ENCOUNTER → 2019-03-25 14:43 | Outpatient (CLI) | payer MEDICARE, SELFPAY ==
[2018-10-20 11:07] VITALS: BMI 28.8
[2019-02-25 13:05] VITALS: BMI 29.1
[2019-03-25 17:00] LABS: Absolute Lymphocyte Count 2.48 X10^3/ul (0.83-4.51); Absolute Neutrophil Count 3.4 X10^3/uL (2.0-7.7); Basophil# 0.01 X10^3/uL; Basophil% 0.2 % (0-1); Eosinophil# 0.17 X10^3/uL; Eosinophils% 2.6 % (0-5); Hematocrit 45.5 % (37-47); Hemoglobin 15.1 g/dl (12.0-15.0); Lymphocyte # 2.48 X10^3/ul (4.0); Lymphocyte % 37.5 % (19-41); Mean Corp Hgb Conc 33.2 g/gl (32-36); Mean Corpuscular Hgb 28.5 pg (27.0-32.0); Mean Corpuscular Volume 85.8 fL (81-99); Mean Platelet Vol. 12.1 fl (6.2-12.0); Monocyte# 0.58 X10^3/uL; Monocyte% 8.8 % (0-10); Neutrophil # 3.35 X10^3/uL (2.7-7.7); Neutrophil % 50.6 % (47-70); POSITIVE COUNT NO; POSITIVE DIFFERENTIAL NO; POSITIVE MORPHOLOGY NO; Platelet Count 239 K/mm3 (150-450); RBC Distribution Width CV 13.5 % (11.6-14.6); White Blood Count 6.6 K/mm3 (4.4-11.0)
[2019-03-25 17:34] LABS: Vitamin D,25 Hydroxy 31.9 ng/mL (29.95-100.01)
[2019-03-25 17:36] LABS: AST(SGOT) 24 U/L (15-37); Alanine Aminotransfer ALT/SGPT 35 U/L (13-56); Albumin, Serum 3.8 g/dL (3.2-5.0); Alkaline Phosphatase 74 U/L (45-117); Anion Gap 4 (5-15); BUN 15 mg/dL (7-18); Calcium,Total 9.2 mg/dL (8.5-10.1); Chloride 108 mmol/L (98-107); Creatinine, Serum 0.94 mg/dL (0.55-1.02); EST Glomerular Filtration Rate 62 mL/min (>60); Est Glom Filt Rate - Afr Amer 75 mL/min (>60); Globulin 3.8 g/dL (2.2-4.2); Glucose 84 mg/dL (74-106); Potassium 3.9 mmol/L (3.5-5.1); Protein, Total 7.6 g/dL (6.4-8.2); Sodium Level 141 mmol/L (136-145); Thyroid Stim Hormone (TSH) 1.49 uIU/mL (0.358-3.74)
== END ==
PROVIDERS: Visit Provider Family Medicine Geriatric Medicine
DX: E55.9 Vitamin D deficiency, unspecified (principal); R53.83 Other fatigue
CPT/HCPCS: 36415; 80053; 82306; 84443; 85025

== ENCOUNTER → 2019-09-04 14:19 | Outpatient (CLI) | payer MEDICARE, SELFPAY ==
[2018-10-20 11:07] VITALS: BMI 28.8
[2019-02-25 13:05] VITALS: BMI 29.1
[2019-06-03 14:57] VITALS: BMI 29.5
--- NOTE | 2019-09-04 14:21 | BI_ITS ---
MAMMOGRAPHY - BILATERAL SCREENING REASON FOR EXAM: Female, 74 years old. Routine annual screening examination. PERTINENT HISTORY: Personal history of breast cancer. Prior right lumpectomy. Aunts with breast cancer. TECHNIQUE: Digital bilateral breast param (3D mammographic acquisition) in the CC and MLO projections. 2-D mediolateral oblique (MLO) and craniocaudad (CC) views of both breasts were obtained. CAD: Full Field Digital Mammography with Computer Added Detection was performed. COMPARISON: Comparison is made with prior examination dated August 12, 2018 and September 18, 2018. FINDINGS: Breast Composition: The breasts are heterogeneously dense, which may obscure small masses. Since prior study, the patient underwent a lumpectomy with removal of the spiculated nodular density in the deep slightly lateral aspect of the right breast. Surgical clips are also seen in the right axillary region. Stable 5.5 mm x 6.5 mm well-defined nodule in the slightly upper lateral portion of the left breast this may represent a small lymph node. No other significant abnormalities are identified. BI/SCREEN MAMM (CAD) W/PARAM BILAT IMPRESSION: Status post lumpectomy of the left breast as described. No suspicious abnormality is seen at this time. The patient is status post right lumpectomy. Yearly follow-up mammogram recommended. (A) ASSESSMENT CATEGORY: BIRADS Category 2: Benign. A letter regarding these results will be sent to the patient by the facility within 30 days. Approximately 10% of breast cancers are not detected by mammography. A normal mammogram should not delay biopsy of a clinically suspicious abnormality. [id number] Electronically Signed: Anthony Tomlinson, at 8:40 EDT , Service support ,
== END ==
PROVIDERS: Family Provider Family Medicine; PCP Family Medicine; Referring Provider Internal Medicine Hematology & Oncology; Visit Provider Internal Medicine Hematology & Oncology
DX: C50.911 Malignant neoplasm of unspecified site of right female breast (principal); R92.8 Other abnormal and inconclusive findings on diagnostic imaging of breast; Z12.31 Encounter for screening mammogram for malignant neoplasm of breast
CPT/HCPCS: 77063; 77067

== ENCOUNTER → 2019-09-23 11:11 | Outpatient (CLI) | payer MEDICARE, SELFPAY ==
[2018-10-20 11:07] VITALS: BMI 28.8
[2019-09-14 14:40] VITALS: BMI 28.7
[2019-09-23 13:13] LABS: Absolute Lymphocyte Count 1.93 X10^3/uL (0.83-4.51); Absolute Neutrophil Count 3.6 X10^3/uL (2.0-7.7); Basophil# 0.02 X10^3/uL; Basophil% 0.3 % (0-1); Eosinophil# 0.07 X10^3/uL; Eosinophils% 1.1 % (0-5); Hematocrit 44.4 % (37-47); Hemoglobin 14.6 g/dL (12.0-15.0); Lymphocyte # 1.93 X10^3/ul (4.0); Lymphocyte % 30.6 % (19-41); Mean Corp Hgb Conc 32.9 g/dL (32-36); Mean Corpuscular Hgb 29.2 pg (27.0-32.0); Mean Corpuscular Volume 88.8 fL (81-99); Mean Platelet Vol. 11.7 fl (6.2-12.0); Monocyte# 0.64 X10^3/uL; Monocyte% 10.2 % (0-10); NRBC Flagged by Analyzer 0 % (0-5); Neutrophil # 3.62 X10^3/uL (2.7-7.7); Neutrophil % 57.5 % (47-70); Platelet Count 210 K/mm3 (150-450); RBC Distribution Width CV 12.8 % (11.6-14.6); RBC Distribution Width SD 41.4 fl (35.1-43.9); White Blood Count 6.3 K/mm3 (4.4-11.0)
[2019-09-23 13:35] LABS: Vitamin D,25 Hydroxy 44.6 ng/mL (29.95-100.01)
[2019-09-23 13:51] LABS: ALB/GLOB Ratio 0.9 RATIO (0.9-2.4); AST(SGOT) 20 U/L (15-37); Alanine Aminotransfer ALT/SGPT 28 U/L (13-56); Albumin, Serum 3.4 g/dL (3.2-5.0); Alkaline Phosphatase 60 U/L (45-117); Anion Gap 7 (5-15); BUN 14 mg/dL (7-18); BUN/Creat Ratio 13.7 RATIO (10-20); Calcium,Total 8.7 mg/dL (8.5-10.1); Chloride 107 mmol/L (98-107); Creatinine, Serum 1.02 mg/dL (0.55-1.02); EST Glomerular Filtration Rate 56 mL/min (>60); Est Glom Filt Rate - Afr Amer 68 mL/min (>60); Globulin 3.6 g/dL (2.2-4.2); Glucose 91 mg/dL (74-106); Potassium 3.6 mmol/L (3.5-5.1); Sodium Level 144 mmol/L (136-145)
== END ==
PROVIDERS: Family Provider Family Medicine; PCP Family Medicine; Visit Provider Family Medicine Geriatric Medicine
DX: E55.9 Vitamin D deficiency, unspecified (principal); R53.83 Other fatigue
CPT/HCPCS: 36415; 80053; 82306; 84443; 85025

== ENCOUNTER → 2020-03-30 | Outpatient (CLI) | payer MEDICARE, SELFPAY ==
[2018-10-20 11:07] VITALS: BMI 28.8
[2020-03-14 13:43] VITALS: BMI 29.6
[2020-03-30 12:23] LABS: Absolute Lymphocyte Count 2.23 X10^3/uL (0.83-4.51); Absolute Neutrophil Count 3.7 X10^3/uL (2.0-7.7); Basophil# 0.01 X10^3/uL; Basophil% 0.2 % (0-1); Eosinophil# 0.07 X10^3/uL; Eosinophils% 1.1 % (0-5); Hematocrit 42.7 % (37-47); Hemoglobin 14.1 g/dL (12.0-15.0); Lymphocyte # 2.23 X10^3/ul (4.0); Mean Corpuscular Hgb 29.1 pg (27.0-32.0); Mean Platelet Vol. 11.7 fl (6.2-12.0); Monocyte# 0.53 X10^3/uL; Monocyte% 8.1 % (0-10); NRBC Flagged by Analyzer 0 % (0-5); Neutrophil % 56.4 % (47-70); Platelet Count 211 K/mm3 (150-450); RBC Distribution Width CV 13.2 % (11.6-14.6); RBC Distribution Width SD 42.3 fl (35.1-43.9); Red Blood Count 4.85 M/mm3 (4.2-5.4); White Blood Count 6.6 K/mm3 (4.4-11.0)
[2020-03-30 12:44] LABS: AST(SGOT) 24 U/L (15-37); Alanine Aminotransfer ALT/SGPT 35 U/L (13-56); Albumin, Serum 3.5 g/dL (3.2-5.0); Alkaline Phosphatase 58 U/L (45-117); Anion Gap 7 (5-15); BUN 14 mg/dL (7-18); BUN/Creat Ratio 14.2 RATIO (10-20); Chloride 107 mmol/L (98-107); Creatinine, Serum 0.98 mg/dL (0.55-1.02); EST Glomerular Filtration Rate 58 mL/min (>60); Est Glom Filt Rate - Afr Amer 71 mL/min (>60); Globulin 3.5 g/dL (2.2-4.2); Glucose 86 mg/dL (74-106); Sodium Level 143 mmol/L (136-145); Thyroid Stim Hormone (TSH) 1.31 uIU/mL (0.358-3.74)
[2020-03-30 13:13] LABS: Vitamin D,25 Hydroxy 42.6 ng/mL
== END | disposition home or self-care (01) ==
LOC: POLAB3 10:23
PROVIDERS: PCP Family Medicine Geriatric Medicine; Visit Provider Family Medicine Geriatric Medicine
DX: E55.9 Vitamin D deficiency, unspecified (principal); R53.83 Other fatigue
CPT/HCPCS: 36415; 80053; 82306; 84443; 85025

== ENCOUNTER → 2020-09-06 | Outpatient (CLI) | payer MEDICARE, SELFPAY ==
[2018-10-20 11:07] VITALS: BMI 28.8
[2020-03-14 13:43] VITALS: BMI 29.6
[2020-06-27 13:59] VITALS: BMI 29.6
--- NOTE | 2020-09-06 10:30 | BI_ITS ---
MAMMOGRAPHY - BILATERAL SCREENING REASON FOR EXAM: Female, 75 years old. Routine annual screening examination. PERTINENT HISTORY: Personal history of breast cancer. Prior right lumpectomy. Aunt with breast cancer. TECHNIQUE: Digital bilateral breast param (3D mammographic acquisition) in the CC and MLO projections. 2-D mediolateral oblique (MLO) and craniocaudad (CC) views of both breasts were obtained. CAD: Full Field Digital Mammography with Computer Added Detection was performed. COMPARISON: Comparison is made with prior study dated 09/04/2019 and 09/18/2018. FINDINGS: Breast Composition: The breasts are heterogeneously dense, which may obscure small masses. The patient is status post right lumpectomy with resultant postoperative deformity in the central slightly lateral portion of the right breast. Surgical clips are seen in the axillary region. Stable 5.5 mm x 6.5 mm well-defined nodule in the slightly upper lateral portion of the left breast. This most likely represents a small lymph node. No other significant abnormalities are identified. There has been no significant change since the prior study. BI/SCREEN MAMM (CAD) W/PARAM BILAT IMPRESSION: Stable bilateral screening mammogram. Yearly follow-up mammogram recommended. (A) ASSESSMENT CATEGORY: BIRADS Category 2: Benign. A letter regarding these results will be sent to the patient by the facility within 30 days. Approximately 10% of breast cancers are not detected by mammography. A normal mammogram should not delay biopsy of a clinically suspicious abnormality. [id number] Electronically Signed: Anthony Tomlinson, at 12:15 EDT , Service support ,
--- NOTE | 2020-09-06 10:34 | BD_ITS ---
STUDY: DUAL ENERGY X-RAY ABSORPTIOMETRY / DXA REASON FOR EXAM: Female, 75 years old. 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 COMPARISON: Comparison is made with prior study dated 08/12/2018. FINDINGS: Lumbar Spine (L1-L4): g/cm2 (1.050) / T-score (-1.2) / Z-score (0.5) Findings are suggestive of osteopenia with a low fracture risk. Left Femur Total: g/cm2 (0.933) / T-score (-0.6) / Z-score (1.2) Left Femoral Neck: g/cm2 (0.832) / T-score (-1.5) / Z-score (0.5) Right Femur Total: g/cm2 (0.869) / T-score (-1.1) / Z-score (0.7) Right Femoral Neck: g/cm2 (0.786) / T-score (-1.8) / Z-score (0.2) The T-Scores on the most recent prior examination were: Lumbar Spine (L1-L4): There has been worsening of bone density since the previous examination. Left Femur Total: which represents an improvement of 2%. Right Femur Total: which represents a worsening of 2.2. BD/Dexa Bone Density Study IMPRESSION: The patient is considered osteopenic as outlined below according to World Marshall Organization (WHO) criteria with a moderate fracture risk. There has been worsening of bone density since the previous examination. Reference Information: The T-score is the number of standard deviations above or below the standard which is normal for young adults at their peak bone mineral density. The World Health Organization (WHO) interprets the T-scores as follows: Above -1 Normal bone density Between -1 and -2.5 Osteopenia Equal to / or below -2.5 Osteoporosis As a practical clinical guideline, osteopenia may be graded as follows: Mild -1 through -1.5 Moderate -1.6 through -2.0 Severe -2.1 through -2.4 The Z-score is the number of standard deviations above or below age-matched controls. A Z-score of less than -1.5 would be considered abnormal. References: 1. NIH Osteoporosis and Related Bone Diseases www osteo.org 2. International Society for Clinical Densitometry www iscd.org 3. National Osteoporosis Foundation www nof.org Electronically Signed: Anthony Tomlinson, at 15:49 EDT , Service support ,
== END | disposition home or self-care (01) ==
LOC: OPBD 10:30
PROVIDERS: PCP Family Medicine Geriatric Medicine; Referring Provider Internal Medicine Hematology & Oncology; Visit Provider Internal Medicine Hematology & Oncology
DX: M81.0 Age-related osteoporosis without current pathological fracture (principal); Z78.0 Asymptomatic menopausal state; Z12.31 Encounter for screening mammogram for malignant neoplasm of breast; C50.911 Malignant neoplasm of unspecified site of right female breast
CPT/HCPCS: 77063; 77067; 77080

== ENCOUNTER → 2020-09-28 10:35 | Outpatient (CLI) | payer MEDICARE, SELFPAY ==
[2018-10-20 11:07] VITALS: BMI 28.8
[2020-09-26 13:09] VITALS: BMI 29.8
[2020-09-28 12:34] LABS: Absolute Lymphocyte Count 2.53 X10^3/uL (0.83-4.51); Absolute Neutrophil Count 3.8 X10^3/uL (2.0-7.7); Basophil# 0.02 X10^3/uL; Basophil% 0.3 % (0-1); Eosinophils% 1.4 % (0-5); Hematocrit 44.1 % (37-47); Hemoglobin 14.7 g/dL (12.0-15.0); Lymphocyte # 2.53 X10^3/ul (4.0); Lymphocyte % 36.1 % (19-41); Mean Corp Hgb Conc 33.3 g/dL (32-36); Mean Corpuscular Hgb 29.2 pg (27.0-32.0); Mean Corpuscular Volume 87.5 fL (81-99); Mean Platelet Vol. 11.3 fl (6.2-12.0); Monocyte# 0.57 X10^3/uL; Monocyte% 8.1 % (0-10); NRBC Flagged by Analyzer 0 % (0-5); Neutrophil # 3.76 X10^3/uL (2.7-7.7); Neutrophil % 53.8 % (47-70); Platelet Count 231 K/mm3 (150-450); RBC Distribution Width CV 13.7 % (11.6-14.6); RBC Distribution Width SD 43.9 fl (35.1-43.9); Red Blood Count 5.04 M/mm3 (4.2-5.4)
[2020-09-28 12:40] LABS: Vitamin D,25 Hydroxy 45.5 ng/mL
[2020-09-28 12:56] LABS: ALB/GLOB Ratio 0.9 RATIO (0.9-2.4); AST(SGOT) 20 U/L (15-37); Alanine Aminotransfer ALT/SGPT 30 U/L (13-56); Albumin, Serum 3.5 g/dL (3.2-5.0); Alkaline Phosphatase 61 U/L (45-117); Anion Gap 7 (5-15); BUN 19 mg/dL (7-18); BUN/Creat Ratio 20.1 RATIO (10-20); Chloride 107 mmol/L (98-107); Creatinine, Serum 0.94 mg/dL (0.55-1.02); EST Glomerular Filtration Rate 61 mL/min (>60); Est Glom Filt Rate - Afr Amer 74 mL/min (>60); Globulin 3.7 g/dL (2.2-4.2); Glucose 81 mg/dL (74-106); Potassium 3.8 mmol/L (3.5-5.1); Protein, Total 7.2 g/dL (6.4-8.2); Sodium Level 140 mmol/L (136-145); Thyroid Stim Hormone (TSH) 1.45 uIU/mL (0.358-3.74)
== END ==
PROVIDERS: PCP Family Medicine; Visit Provider Family Medicine Geriatric Medicine
DX: E55.9 Vitamin D deficiency, unspecified (principal); R53.83 Other fatigue
CPT/HCPCS: 36415; 80053; 82306; 84443; 85025

== ENCOUNTER → 2021-04-05 11:47 | Outpatient (CLI) | payer MEDICARE, SELFPAY ==
[2018-10-20 11:07] VITALS: BMI 28.8
[2021-04-05 12:46] LABS: Absolute Lymphocyte Count 2.61 X10^3/uL (0.83-4.51); Absolute Neutrophil Count 4.2 X10^3/uL (2.0-7.7); Basophil# 0.02 X10^3/uL; Basophil% 0.3 % (0-1); Eosinophil# 0.08 X10^3/uL; Eosinophils% 1.1 % (0-5); Hematocrit 43.7 % (37-47); Hemoglobin 14.6 g/dL (12.0-15.0); Lymphocyte # 2.61 X10^3/ul (0.83-4.51); Lymphocyte % 34.3 % (19-41); Mean Corp Hgb Conc 33.4 g/dL (32-36); Mean Corpuscular Hgb 29.3 pg (27.0-32.0); Mean Corpuscular Volume 87.6 fL (81-99); Mean Platelet Vol. 11.6 fl (6.2-12.0); Monocyte# 0.72 X10^3/uL; Monocyte% 9.5 % (0-10); NRBC Flagged by Analyzer 0 % (0-5); Neutrophil # 4.15 X10^3/uL (2.7-7.7); Neutrophil % 54.5 % (47-70); Platelet Count 235 K/mm3 (150-450); RBC Distribution Width CV 13.4 % (11.6-14.6); RBC Distribution Width SD 42.6 fl (35.1-43.9); Red Blood Count 4.99 M/mm3 (4.2-5.4); White Blood Count 7.6 K/mm3 (4.4-11.0)
[2021-04-05 13:04] LABS: Vitamin D,25 Hydroxy 48.1 ng/mL
[2021-04-05 13:25] LABS: AST(SGOT) 28 U/L (15-37); Alanine Aminotransfer ALT/SGPT 33 U/L (13-56); Albumin, Serum 3.6 g/dL (3.2-5.0); Alkaline Phosphatase 54 U/L (45-117); Anion Gap 5 (5-15); BUN 12 mg/dL (7-18); BUN/Creat Ratio 11.3 RATIO (10-20); Calcium,Total 9.1 mg/dL (8.5-10.1); Chloride 110 mmol/L (98-107); Cholesterol 154 mg/dL (200); Creatinine, Serum 1.06 mg/dL (0.55-1.02); EST Glomerular Filtration Rate 53 mL/min (>60); Est Glom Filt Rate - Afr Amer 65 mL/min (>60); Globulin 3.6 g/dL (2.2-4.2); Glucose 88 mg/dL (74-106); High Density Lipoprotein 47 mg/dL; Protein, Total 7.2 g/dL (6.4-8.2); Sodium Level 141 mmol/L (136-145); Thyroid Stim Hormone (TSH) 1.49 uIU/mL (0.358-3.74); Triglycerides 165 mg/dL; Very Low Density Lipoprotein 33 mg/dL (5-40)
== END ==
PROVIDERS: PCP Family Medicine; Visit Provider Family Medicine Geriatric Medicine
DX: E55.9 Vitamin D deficiency, unspecified (principal); R53.83 Other fatigue; E78.5 Hyperlipidemia, unspecified
CPT/HCPCS: 36415; 80053; 80061; 82306; 84443; 85025

== ENCOUNTER → 2021-07-17 13:50 | Outpatient (CLI) | payer MEDICARE, SELFPAY ==
[2018-10-20 11:07] VITALS: BMI 28.8
--- NOTE | 2021-07-17 13:52 | ECHOD_ITS ---
Reason For Study: AFIB, TR Procedure This was a 2D Doppler, Color Flow transthoracic echocardiogram. The study was technically difficult. Exam performed in department. Left Ventricle Normal LV size. Left ventricular systolic function is normal. The estimated ejection fraction is 65 %. Unable to assess diastolic dysfunction. No regional wall motion abnormalities noted. Right Ventricle Normal RV size. Normal systolic function. Atria The left atrium is moderately enlarged. Normal right atrium. No doppler evidence for ASD. Mitral Valve There is no mitral annular calcification. Normal mitral valve. Mild-Moderate (1-2+) mitral valve insufficiency. Tricuspid Valve Normal tricuspid valve. Mild to moderate (1-2+) tricuspid valve insufficiency. Right ventricular systolic pressure estimated to be 28 mmHg. Aortic Valve The aortic valve is not well visualized. Pulmonic Valve The pulmonic valve is not well visualized. Great Vessels The aortic root is not well visualized. Pericardium/Pleural No pericardial effusion. MMode/2D Measurements & Calculations LVIDd: 3.8 cm IVSd: 1.1 cm LAV(MOD-bp): 67.2 ml LVIDs: 2.4 cm LVPWd: 1.2 cm LAV(MOD-bp) Indexed: 37.3 ml/m2 RVDd: 3.3 cm FS: 36.9 % LAV(MOD-sp2): 63.6 ml LAV(MOD-sp4): 71.9 ml LA dimension(2D): 4.2 cm LA A4 area: 23.4 cm2 RA A4 area: 15.1 cm2 Doppler Measurements & Calculations MV E max laura: 124.0 cm/sec Ao V2 max: 125.7 cm/sec LV V1 max: 78.5 cm/sec Ao max P.3 mmHg LV V1 max P.5 mmHg PA V2 max: 108.3 cm/sec TR max laura: 241.8 cm/sec TR max P.0 mmHg ECHO/Echo Complete Interpretation Summary The study was technically difficult. Left ventricular systolic function is normal. The estimated ejection fraction is 65 %. The left atrium is moderately enlarged. Mild-Moderate (1-2+) mitral valve insufficiency. Mild to moderate (1-2+) tricuspid valve insufficiency. Right ventricular systolic pressure estimated to be 28 mmHg. Unable to assess diastolic dysfunction. Ordering Physician: Alex Pardo Referring Physician: Glen Negron Chi Performed By: Africa Robb, RDCS, RVT
== END ==
PROVIDERS: PCP Family Medicine Geriatric Medicine; Referring Provider Internal Medicine Cardiovascular Disease; Visit Provider Internal Medicine Cardiovascular Disease
DX: I27.21 Secondary pulmonary arterial hypertension (principal); I34.0 Nonrheumatic mitral (valve) insufficiency; I36.1 Nonrheumatic tricuspid (valve) insufficiency; I48.0 Paroxysmal atrial fibrillation; E78.2 Mixed hyperlipidemia; I10 Essential (primary) hypertension
CPT/HCPCS: 93306

== ENCOUNTER → 2021-09-12 10:52 | Outpatient (CLI) | payer MEDICARE, SELFPAY ==
[2018-10-20 11:07] VITALS: BMI 28.8
--- NOTE | 2021-09-12 10:53 | BI_ITS ---
MAMMOGRAPHY - BILATERAL SCREENING REASON FOR EXAM: Female, 76 years old. Routine annual screening examination. PERTINENT HISTORY: Personal history of breast cancer. Prior right lumpectomy. Aunt with breast cancer. TECHNIQUE: Digital bilateral breast param (3D mammographic acquisition) in the CC and MLO projections. 2-D mediolateral oblique (MLO) and craniocaudad (CC) views of both breasts were obtained. CAD: Full Field Digital Mammography with Computer Added Detection was performed. COMPARISON: Comparison is made with prior study 09/06/2020 and 09/04/2019. FINDINGS: Breast Composition: The breasts are heterogeneously dense, which may obscure small masses. There are no dominant masses or suspicious calcifications. The patient is status post lumpectomy in the upper outer quadrant of the right breast. There is evidence of a post lumpectomy architectural distortion. A tissue clip marker is also seen in the deep upper lateral portion of the right breast. Surgical clips are also seen in the right axillary region. Stable 5.5 mm x 6 mm well-defined nodule in the slightly upper lateral portion of the left breast suggestive of a small lymph node. No other significant abnormalities are identified. There has been no significant change since the prior study. BI/SCRN MAMM (CAD)W/PARAM BILAT IMPRESSION: Stable bilateral screening mammogram. Yearly follow-up mammogram recommended. (A) ASSESSMENT CATEGORY: BIRADS Category 2: Benign. A letter regarding these results will be sent to the patient by the facility within 30 days. Approximately 10% of breast cancers are not detected by mammography. A normal mammogram should not delay biopsy of a clinically suspicious abnormality. [id number] Electronically Signed: Anthony Tomlinson MD at 9:24 EDT , Service support ,
== END ==
PROVIDERS: PCP Family Medicine Geriatric Medicine; Referring Provider Internal Medicine Hematology & Oncology; Visit Provider Internal Medicine Hematology & Oncology
DX: Z12.31 Encounter for screening mammogram for malignant neoplasm of breast (principal)
CPT/HCPCS: 77063; 77067

== ENCOUNTER → 2021-10-03 10:10 | Outpatient (CLI) | payer MEDICARE, SELFPAY ==
[2018-10-20 11:07] VITALS: BMI 28.8
[2021-10-03 12:37] LABS: Absolute Lymphocyte Count 2.88 X10^3/uL (0.83-4.51); Absolute Neutrophil Count 3.8 X10^3/uL (2.0-7.7); Basophil# 0.02 X10^3/uL; Basophil% 0.3 % (0-1); Eosinophil# 0.08 X10^3/uL; Eosinophils% 1.1 % (0-5); Hematocrit 45.7 % (37-47); Lymphocyte # 2.88 X10^3/ul (0.83-4.51); Lymphocyte % 38.7 % (19-41); Mean Corp Hgb Conc 32.8 g/dL (32-36); Mean Corpuscular Volume 88.2 fL (81-99); Mean Platelet Vol. 11.5 fl (6.2-12.0); Monocyte# 0.61 X10^3/uL; Monocyte% 8.2 % (0-10); NRBC Flagged by Analyzer 0 % (0-5); Neutrophil # 3.83 X10^3/uL (2.7-7.7); Neutrophil % 51.4 % (47-70); Platelet Count 262 K/mm3 (150-450); RBC Distribution Width CV 13.1 % (11.6-14.6); RBC Distribution Width SD 42.8 fl (35.1-43.9); Red Blood Count 5.18 M/mm3 (4.2-5.4); White Blood Count 7.4 K/mm3 (4.4-11.0)
[2021-10-03 12:47] LABS: Vitamin D,25 Hydroxy 65.9 ng/mL
[2021-10-03 12:50] LABS: ALB/GLOB Ratio 0.9 RATIO (0.9-2.4); AST(SGOT) 21 U/L (15-37); Alanine Aminotransfer ALT/SGPT 35 U/L (13-56); Albumin, Serum 3.4 g/dL (3.2-5.0); Alkaline Phosphatase 71 U/L (45-117); Anion Gap 8 (5-15); BUN 10 mg/dL (7-18); BUN/Creat Ratio 9.3 RATIO (10-20); Calcium,Total 9.2 mg/dL (8.5-10.1); Chloride 108 mmol/L (98-107); Cholesterol 216 mg/dL (200); Creatinine, Serum 1.07 mg/dL (0.55-1.02); EST Glomerular Filtration Rate 53 mL/min (>60); Est Glom Filt Rate - Afr Amer 64 mL/min (>60); Globulin 3.9 g/dL (2.2-4.2); Glucose 90 mg/dL (74-106); High Density Lipoprotein 46 mg/dL; Potassium 3.9 mmol/L (3.5-5.1); Protein, Total 7.3 g/dL (6.4-8.2); Sodium Level 144 mmol/L (136-145); Thyroid Stim Hormone (TSH) 2.02 uIU/mL (0.358-3.74); Triglycerides 166 mg/dL; Very Low Density Lipoprotein 33 mg/dL (5-40)
== END ==
PROVIDERS: PCP Family Medicine Geriatric Medicine; Visit Provider Family Medicine Geriatric Medicine
DX: E55.9 Vitamin D deficiency, unspecified (principal); E78.5 Hyperlipidemia, unspecified; R53.83 Other fatigue
CPT/HCPCS: 36415; 80053; 80061; 82306; 84443; 85025

== ENCOUNTER → 2022-04-04 | Outpatient (CLI) | payer MEDICARE, SELFPAY ==
[2018-10-20 11:07] VITALS: BMI 28.8
[2022-04-04 08:58] LABS: AST(SGOT) 27 U/L (15-37); Alanine Aminotransfer ALT/SGPT 36 U/L (13-56); Albumin, Serum 3.6 g/dL (3.2-5.0); Alkaline Phosphatase 62 U/L (45-117); Bilirubin, Direct 0.15 mg/dL (0.00-0.30); Cholesterol 161 mg/dL (200); Globulin 3.8 g/dL (2.2-4.2); High Density Lipoprotein 44 mg/dL; Protein, Total 7.4 g/dL (6.4-8.2); Triglycerides 123 mg/dL; Very Low Density Lipoprotein 25 mg/dL (5-40)
== END | disposition home or self-care (01) ==
LOC: LAB 07:42
PROVIDERS: PCP Family Medicine Geriatric Medicine; Referring Provider Nurse Practitioner Gerontology; Visit Provider Nurse Practitioner Gerontology
DX: E78.2 Mixed hyperlipidemia (principal)
CPT/HCPCS: 36415; 80061; 80076

== ENCOUNTER → 2022-04-10 | Outpatient (CLI) | payer MEDICARE, SELFPAY ==
[2018-10-20 11:07] VITALS: BMI 28.8
[2022-04-10 12:30] LABS: Absolute Lymphocyte Count 2.17 X10^3/uL (0.83-4.51); Absolute Neutrophil Count 3.2 X10^3/uL (2.0-7.7); Basophil# 0.01 X10^3/uL; Basophil% 0.2 % (0-1); Eosinophils% 1.6 % (0-5); Hematocrit 41.9 % (37-47); Lymphocyte # 2.17 X10^3/ul (0.83-4.51); Lymphocyte % 35.5 % (19-41); Mean Corp Hgb Conc 33.4 g/dL (32-36); Mean Corpuscular Hgb 29.7 pg (27.0-32.0); Mean Corpuscular Volume 88.8 fL (81-99); Mean Platelet Vol. 11.6 fl (6.2-12.0); Monocyte# 0.56 X10^3/uL; Monocyte% 9.2 % (0-10); NRBC Flagged by Analyzer 0 % (0-5); Neutrophil # 3.24 X10^3/uL (2.7-7.7); Platelet Count 232 K/mm3 (150-450); RBC Distribution Width CV 12.9 % (11.6-14.6); RBC Distribution Width SD 42.5 fl (35.1-43.9); Red Blood Count 4.72 M/mm3 (4.2-5.4); White Blood Count 6.1 K/mm3 (4.4-11.0)
[2022-04-10 13:17] LABS: AST(SGOT) 25 U/L (15-37); Alanine Aminotransfer ALT/SGPT 38 U/L (13-56); Albumin, Serum 3.3 g/dL (3.2-5.0); Alkaline Phosphatase 60 U/L (45-117); Anion Gap 3 (5-15); BUN 11 mg/dL (7-18); BUN/Creat Ratio 10.9 RATIO (10-20); Calcium,Total 9.3 mg/dL (8.5-10.1); Chloride 110 mmol/L (98-107); Creatinine, Serum 1.01 mg/dL (0.55-1.02); EST Glomerular Filtration Rate 56 mL/min (>60); Est Glom Filt Rate - Afr Amer 68 mL/min (>60); Globulin 3.4 g/dL (2.2-4.2); Glucose 100 mg/dL (74-106); Potassium 3.8 mmol/L (3.5-5.1); Protein, Total 6.7 g/dL (6.4-8.2); Sodium Level 142 mmol/L (136-145); Thyroid Stim Hormone (TSH) 1.78 uIU/mL (0.358-3.74)
== END | disposition home or self-care (01) ==
LOC: POLAB3 11:47
PROVIDERS: PCP Family Medicine Geriatric Medicine; Visit Provider Family Medicine Geriatric Medicine
DX: R53.83 Other fatigue (principal); E55.9 Vitamin D deficiency, unspecified
CPT/HCPCS: 36415; 80053; 82306; 84443; 85025

== ENCOUNTER 2022-09-13 12:54 | Outpatient (CLI) | payer MEDICARE, SELFPAY ==
[2018-10-20 11:07] VITALS: BMI 28.8
--- NOTE | 2022-09-13 13:03 | BD_ITS ---
STUDY: DUAL ENERGY X-RAY ABSORPTIOMETRY / DXA REASON FOR EXAM: Female, 77 years old. SCREENING TECHNIQUE: Bone Mineral Density (BMD) measurements of lumbar spine and bilateral hips were obtained. COMPARISON: Comparison is made with prior study 09/06/2020. FINDINGS: Lumbar Spine (L1-L4): g/cm2 (0.955) / T-score (-0.8) / Z-score (1.7) Findings are suggestive of normal bone density with a low fracture risk. Left Femur Total: g/cm2 (0.853) / T-score (-0.7) / Z-score (1.2) Left Femoral Neck: g/cm2 (0.571) / T-score (-2.5) / Z-score (-0.3) Right Femur Total: g/cm2 (0.843) / T-score (-0.8) / Z-score (1.1) Right Femoral Neck: g/cm2 (0.582) / T-score (-2.4) / Z-score (-0.2) The T-Scores on the most recent prior examination were: Lumbar Spine (L1-L4): There has been improvement of bone density since the previous examination. Left Femur Total: which represents a worsening of 1.8%. Right Femur Total: which represents an improvement of 4.5%. BD/Dexa Bone Density Study IMPRESSION: The patient is considered osteopenic as outlined below according to World Marshall Organization (WHO) criteria with a high fracture risk. There has been improvement of bone density since the previous examination. Reference Information: The T-score is the number of standard deviations above or below the standard which is normal for young adults at their peak bone mineral density. The World Health Organization (WHO) interprets the T-scores as follows: Above -1 Normal bone density Between -1 and -2.5 Osteopenia Equal to / or below -2.5 Osteoporosis As a practical clinical guideline, osteopenia may be graded as follows: Mild -1 through -1.5 Moderate -1.6 through -2.0 Severe -2.1 through -2.4 The Z-score is the number of standard deviations above or below age-matched controls. A Z-score of less than -1.5 would be considered abnormal. References: 1. NIH Osteoporosis and Related Bone Diseases www osteo.org 2. International Society for Clinical Densitometry www iscd.org 3. National Osteoporosis Foundation www nof.org Electronically Signed: Anthony Tomlinson MD at 13:05 EDT ,
--- NOTE | 2022-09-13 13:17 | BI_ITS ---
MAMMOGRAPHY - BILATERAL SCREENING REASON FOR EXAM: Female, 77 years old. Routine annual screening examination. PERTINENT HISTORY: Personal history of breast cancer. Prior right lumpectomy. Aunts with breast cancer. TECHNIQUE: Digital bilateral breast param (3D mammographic acquisition) in the CC and MLO projections. 2-D mediolateral oblique (MLO) and craniocaudad (CC) views of both breasts were obtained. CAD: Full Field Digital Mammography with Computer Added Detection was performed. COMPARISON: Comparison is made with prior study dated 09/12/2021 and 09/06/2020. FINDINGS: Breast Composition: The breasts are heterogeneously dense, which may obscure small masses. There are no dominant masses or suspicious calcifications. Once again, the patient is status post lumpectomy in the upper outer quadrant of the right breast. Postoperative scarring is once again seen. A tissue clip marker is once again seen in the deep upper lateral portion of the right breast. Surgical clips are seen in the right axilla. No other significant abnormalities are identified. There has been no significant change since the prior study. BI/SCRN MAMM (CAD)W/PARAM BILAT IMPRESSION: Stable bilateral screening mammogram. Yearly follow-up mammogram recommended. (A) ASSESSMENT CATEGORY: BIRADS Category 2: Benign. A letter regarding these results will be sent to the patient by the facility within 30 days. Approximately 10% of breast cancers are not detected by mammography. A normal mammogram should not delay biopsy of a clinically suspicious abnormality. [id number] Electronically Signed: Anthony Tomlinson MD at 14:24 EDT ,
== END 2022-09-13 23:59 | disposition home or self-care (01) ==
LOC: OPBD 12:54
PROVIDERS: PCP Family Medicine Geriatric Medicine; Visit Provider Internal Medicine Hematology & Oncology
DX: Z12.31 Encounter for screening mammogram for malignant neoplasm of breast (principal); Z85.3 Personal history of malignant neoplasm of breast; Z13.820 Encounter for screening for osteoporosis; M85.861 Other specified disorders of bone density and structure, right lower leg; M85.862 Other specified disorders of bone density and structure, left lower leg
CPT/HCPCS: 77063; 77067; 77080

== ENCOUNTER → 2022-10-23 | Outpatient (CLI) | payer MEDICARE, SELFPAY ==
[2018-10-20 11:07] VITALS: BMI 28.8
[2022-10-23 13:14] LABS: Absolute Lymphocyte Count 2.63 X10^3/uL (0.83-4.51); Absolute Neutrophil Count 4.1 X10^3/uL (2.0-7.7); Basophil# 0.03 X10^3/uL; Basophil% 0.4 % (0-1); Eosinophil# 0.12 X10^3/uL; Eosinophils% 1.6 % (0-5); Hematocrit 42.8 % (37-47); Hemoglobin 14.4 g/dL (12.0-15.0); Lymphocyte # 2.63 X10^3/ul (0.83-4.51); Lymphocyte % 34.1 % (19-41); Mean Corp Hgb Conc 33.6 g/dL (32-36); Mean Corpuscular Hgb 29.7 pg (27.0-32.0); Mean Corpuscular Volume 88.2 fL (81-99); Mean Platelet Vol. 11.1 fl (6.2-12.0); Monocyte# 0.82 X10^3/uL; Monocyte% 10.6 % (0-10); NRBC Flagged by Analyzer 0 % (0-5); Platelet Count 234 K/mm3 (150-450); RBC Distribution Width SD 42.5 fl (35.1-43.9); Red Blood Count 4.85 M/mm3 (4.2-5.4); White Blood Count 7.7 K/mm3 (4.4-11.0)
[2022-10-23 13:28] LABS: Vitamin D,25 Hydroxy 77.1 ng/mL
[2022-10-23 13:38] LABS: ALB/GLOB Ratio 0.9 RATIO (0.9-2.4); AST(SGOT) 22 U/L (15-37); Alanine Aminotransfer ALT/SGPT 33 U/L (13-56); Albumin, Serum 3.5 g/dL (3.2-5.0); Alkaline Phosphatase 61 U/L (45-117); Anion Gap 3 (5-15); BUN 13 mg/dL (7-18); BUN/Creat Ratio 14.2 RATIO (10-20); Calcium,Total 9.3 mg/dL (8.5-10.1); Chloride 109 mmol/L (98-107); Cholesterol 153 mg/dL (200); Creatinine, Serum 0.91 mg/dL (0.55-1.02); EST Glomerular Filtration Rate 63 mL/min (>60); Est Glom Filt Rate - Afr Amer 76 mL/min (>60); Globulin 3.8 g/dL (2.2-4.2); Glucose 92 mg/dL (74-106); High Density Lipoprotein 44 mg/dL; Potassium 3.8 mmol/L (3.5-5.1); Protein, Total 7.3 g/dL (6.4-8.2); Sodium Level 141 mmol/L (136-145); Thyroid Stim Hormone (TSH) 2.11 uIU/mL (0.358-3.74); Triglycerides 177 mg/dL; Very Low Density Lipoprotein 35 mg/dL (5-40)
== END | disposition home or self-care (01) ==
LOC: POLAB3 10:06
PROVIDERS: PCP Family Medicine Geriatric Medicine; Visit Provider Family Medicine Geriatric Medicine
DX: E78.5 Hyperlipidemia, unspecified (principal); E55.9 Vitamin D deficiency, unspecified; R53.83 Other fatigue
CPT/HCPCS: 36415; 80053; 80061; 82306; 84443; 85025

== ENCOUNTER → 2022-10-30 | Outpatient (CLI) | payer MEDICARE, SELFPAY ==
[2018-10-20 11:07] VITALS: BMI 28.8
--- NOTE | 2022-10-30 12:48 | US_ITS ---
EXAM: US renal. HISTORY: UTI TECHNIQUE: US Kidney(s) complete (eg, kidneys and bladder) COMPARISON: None. LIMITATIONS: None. RIGHT KIDNEY Size: 10 cm in length Echogenicity: Normal. Parenchymal thickness: Borderline cortical thinning. Hydronephrosis: None. Calculi: None. Cysts/masses: None. LEFT KIDNEY Size: 10.1 cm in length Echogenicity: Normal. Parenchymal thickness: Normal. Hydronephrosis: None. Calculi: None. Cysts/masses: None. BLADDER: Mild wall thickening could be secondary to incomplete distention. Bilateral ureteral jets are identified. OTHER: Fatty infiltration of the liver. CONCLUSION: No hydronephrosis. Electronically Signed: Rodolfo Gutierrez MD at 2:06 EST , US/Kidney and Bladder IMPRESSION: undefined
== END | disposition home or self-care (01) ==
LOC: US 12:46
PROVIDERS: PCP Family Medicine Geriatric Medicine; Visit Provider Urology
DX: N39.0 Urinary tract infection, site not specified (principal)
CPT/HCPCS: 76770

== ENCOUNTER → 2023-01-01 | Outpatient (CLI) | payer MEDICARE, SELFPAY ==
[2018-10-20 11:07] VITALS: BMI 28.8
--- NOTE | 2023-01-01 09:57 | ECHOD_ITS ---
Reason For Study: AFIB Procedure This was a 2D Doppler, Color Flow transthoracic echocardiogram. The exam was of adequate technical quality. Exam performed in department. Left Ventricle Normal LV size. Left ventricular systolic function is normal. The estimated ejection fraction is 65 %. Stage 3 diastolic dysfunction. No regional wall motion abnormalities noted. Right Ventricle Normal RV size. Normal systolic function. Atria The left atrium is moderately enlarged. Normal right atrium. No doppler evidence for ASD. Mitral Valve There is no mitral annular calcification. Mild focal mitral valve calcification of the anterior leaflet. Mild-Moderate (1-2+) mitral valve insufficiency. Tricuspid Valve Normal tricuspid valve. Mild to moderate (1-2+) tricuspid valve insufficiency. Right ventricular systolic pressure estimated to be 48 mmHg. Aortic Valve Trisinus/trileaflet aortic valve. Normal aortic valve. Trivial aortic valve insufficiency. Pulmonic Valve The pulmonic valve is not well visualized. Trivial pulmonic valve insufficiency. Great Vessels Normal sized aortic root. Pericardium/Pleural No pericardial effusion. MMode/2D Measurements & Calculations LVIDd: 4.4 cm IVSd: 1.2 cm Ao root diam: 3.2 cm LVIDs: 2.5 cm LVPWd: 1.4 cm RVDd: 2.7 cm FS: 44.6 % LAV(MOD-sp4): 83.2 ml LVAd ap4: 18.9 cm2 SV(MOD-sp4): 32.4 ml LVLd ap4: 5.9 cm EDV(MOD-sp4): 47.5 ml EDV(sp4-el): 50.9 ml LVAs ap4: 8.6 cm2 LVLs ap4: 4.5 cm ESV(MOD-sp4): 15.1 ml ESV(sp4-el): 14.1 ml EF(MOD-sp4): 68.1 % EF(sp4-el): 72.3 % SV(sp4-el): 36.8 ml LA A4 area: 26.1 cm2 LA dimension(2D): 5.2 cm RA A4 area: 14.2 cm2 Time Measurements MV dec time: 0.17 sec Doppler Measurements & Calculations MV E max talib: 107.7 cm/sec Lat Peak E' Talib: 9.4 cm/sec Med Peak E' Talib: 6.9 cm/sec MV A max talib: 46.7 cm/sec E/E' lat: 11.5 E/E' med: 15.5 MV E/A: 2.3 MV V2 max: 132.8 cm/sec Ao V2 max: 162.2 cm/sec MV max P.1 mmHg MV dec slope: 691.5 cm/sec2 Ao max P.5 mmHg MV V2 mean: 61.4 cm/sec Ao V2 mean: 108.4 cm/sec MV mean P.9 mmHg Ao mean P.5 mmHg MV V2 VTI: 40.3 cm Ao V2 VTI: 37.0 cm AV (velocity ratio): 0.72 LV V1 max: 113.4 cm/sec MR max talib: 534.9 cm/sec PA V2 max: 134.8 cm/sec LV V1 max P.2 mmHg MR max P.4 mmHg PA V2 mean: 92.6 cm/sec LV V1 mean P.1 mmHg LV V1 mean: 82.8 cm/sec LV V1 VTI: 26.8 cm TR max talib: 334.6 cm/sec TR max P.9 mmHg ECHO/Echo Complete Interpretation Summary Left ventricular systolic function is normal. The estimated ejection fraction is 65 %. The left atrium is moderately enlarged. Mild focal mitral valve calcification of the anterior leaflet. Mild-Moderate (1-2+) mitral valve insufficiency. Mild to moderate (1-2+) tricuspid valve insufficiency. Trivial aortic valve insufficiency. Trivial pulmonic valve insufficiency. Right ventricular systolic pressure estimated to be 48 mmHg. Stage 3 diastolic dysfunction. Ordering Physician: Maty Harrington Referring Physician: Glen Negron Chi Performed By: Kirsty Malave RCS
== END | disposition home or self-care (01) ==
PROVIDERS: PCP Family Medicine Geriatric Medicine; Visit Provider Physician Assistant Medical
DX: I36.1 Nonrheumatic tricuspid (valve) insufficiency (principal); I48.92 Unspecified atrial flutter
CPT/HCPCS: 93306

== ENCOUNTER → 2023-04-22 | Outpatient (CLI) | payer MEDICARE, SELFPAY ==
[2018-10-20 11:07] VITALS: BMI 28.8
[2023-04-22 12:34] LABS: Absolute Lymphocyte Count 2.76 X10^3/uL (0.83-4.51); Absolute Neutrophil Count 4.9 X10^3/uL (2.0-7.7); Basophil# 0.04 X10^3/uL; Basophil% 0.5 % (0-1); Eosinophil# 0.09 X10^3/uL; Eosinophils% 1.1 % (0-5); Hematocrit 46.3 % (37-47); Hemoglobin 15.1 g/dL (12.0-15.0); Lymphocyte # 2.76 X10^3/ul (0.83-4.51); Lymphocyte % 32.6 % (19-41); Mean Corp Hgb Conc 32.6 g/dL (32-36); Mean Corpuscular Volume 88.9 fL (81-99); Mean Platelet Vol. 10.3 fl (6.2-12.0); Monocyte# 0.69 X10^3/uL; Monocyte% 8.1 % (0-10); NRBC Flagged by Analyzer 0 % (0-5); Neutrophil # 4.85 X10^3/uL (2.7-7.7); Neutrophil % 57.2 % (47-70); Platelet Count 252 K/mm3 (150-450); RBC Distribution Width CV 13.2 % (11.6-14.6); RBC Distribution Width SD 42.6 fl (35.1-43.9); Red Blood Count 5.21 M/mm3 (4.2-5.4); White Blood Count 8.5 K/mm3 (4.4-11.0)
[2023-04-22 13:15] LABS: Vitamin D,25 Hydroxy 82.4 ng/mL
[2023-04-22 13:41] LABS: ALB/GLOB Ratio 0.9 RATIO (0.9-2.4); AST(SGOT) 26 U/L (15-37); Alanine Aminotransfer ALT/SGPT 29 U/L (13-56); Albumin, Serum 3.6 g/dL (3.2-5.0); Alkaline Phosphatase 68 U/L (45-117); Anion Gap 8 (5-15); BUN 12 mg/dL (7-18); BUN/Creat Ratio 12.1 RATIO (10-20); Calcium,Total 9.8 mg/dL (8.5-10.1); Chloride 107 mmol/L (98-107); Cholesterol 157 mg/dL (200); Creatinine, Serum 0.99 mg/dL (0.55-1.02); EST Glomerular Filtration Rate 57 mL/min (>60); Est Glom Filt Rate - Afr Amer 69 mL/min (>60); Globulin 4.1 g/dL (2.2-4.2); Glucose 84 mg/dL (74-106); High Density Lipoprotein 45 mg/dL; Potassium 4.1 mmol/L (3.5-5.1); Protein, Total 7.7 g/dL (6.4-8.2); Sodium Level 142 mmol/L (136-145); Thyroid Stim Hormone (TSH) 1.77 uIU/mL (0.358-3.74); Triglycerides 157 mg/dL; Very Low Density Lipoprotein 31 mg/dL (5-40)
== END | disposition home or self-care (01) ==
LOC: LAB 11:58
PROVIDERS: PCP Family Medicine Geriatric Medicine; Referring Provider Family Medicine Geriatric Medicine; Visit Provider Family Medicine Geriatric Medicine
DX: I10 Essential (primary) hypertension (principal); E55.9 Vitamin D deficiency, unspecified
CPT/HCPCS: 36415; 80053; 80061; 82306; 84443; 85025

== ENCOUNTER 2023-05-06 07:05 | Emergency (ER) | payer MEDICARE, SELFPAY ==
[2018-10-20 11:07] VITALS: BMI 28.8
[2023-05-06 07:06] VITALS: BP 194/107; PULSE 63; RESP 18; TEMP 36; O2SAT 100; BMI 30.1
--- NOTE | 2023-05-06 07:14 | ED.VIS.LOWEX ---
HPI History of Present Illness Chief Complaint: Lower Extremity Injury Informant: patient and family Narrative Narrative: Patient presents with a minor injury to the right lower leg. She has a who is on hospice and the nurse had called her and told her she was coming in 10 minutes and so she was in a hurry to try to clean up and make the bed, and in doing so she rushed around it and accidentally hit her right lower leg above the ankle against the side of the frame of the bed. She states it swelled right away and looked purple. She takes Xarelto for atrial fibrillation. She has been able to walk on it without any significant discomfort or difficulty and denies any other injury or bleeding out of the skin. [facility] Medical History Atrial fibrillation with rapid ventricular response (05/29/17) Breast cancer (~08/2018) Breast cancer, right Chronic anticoagulation COVID-19 virus detected Essential hypertension Left ureteral calculus Mixed hyperlipidemia Non-rheumatic tricuspid valve insufficiency Nonrheumatic mitral (valve) insufficiency Osteopenia Osteopenia due to cancer therapy Osteoporosis Paroxysmal atrial fibrillation Psoriasis Pyelonephritis due to Escherichia coli Right bundle branch block Secondary pulmonary arterial hypertension Home Medications multivitamin 1 ea PO DAILY SUPPLEMENT 05/29/17 [History Last Taken 05/27/17] sennosides 8.6 mg-docusate sodium 50 mg tablet 1 ea PO QHS 09/11/18 [History Last Taken Unknown] aspirin 81 mg tablet,delayed release 81 mg PO DAILY 09/26/20 [History Last Taken Unknown] metoprolol tartrate 25 mg tablet 25 mg PO BID 09/26/20 [History Last Taken Unknown] magnesium oxide 250 mg PO DAILY 12/26/20 [History Last Taken Unknown] calcium citrate 200 mg (950 mg) tablet 600 mg PO DAILY 04/05/22 [History Last Taken Unknown] cholecalciferol (vitamin D3) 25 mcg (1,000 unit) capsule 5,000 unit PO DAILY 04/05/22 [History Last Taken Unknown] cranberry concentrate-ascorbic acid 12,600 mg-20 mg capsule cap PO 04/05/22 [History Last Taken Unknown] omega-3 fatty acids 1,000 mg capsule 2,000 mg PO DAILY 04/05/22 [History Last Taken Unknown] potassium gluconate 595 mg (99 mg) tablet 595 mg PO DAILY 04/05/22 [History Last Taken Unknown] pravastatin 20 mg tablet 20 mg PO QHS #90 tabs 10/22/22 [Rx Last Taken Unknown] anastrozole 1 mg tablet 1 mg PO DAILY #90 tabs 11/14/22 [Rx Last Taken Unknown] ascorbate calcium (vitamin C) 500 mg tablet 500 mg PO DAILY 11/14/22 [History Last Taken Unknown] rivaroxaban 20 mg tablet (Xarelto) 20 mg PO DAILY #90 tabs 12/10/22 [Rx Last Taken Unknown] amlodipine 5 mg tablet 5 mg PO DAILY #90 tabs 01/02/23 [Rx Last Taken Unknown] Allergy/AdvReac Type Severity Reaction Status Date / Time chlorhexidine AdvReac Mild rash Verified 05/06/23 07:06 [From [facility]] Family History Mother CAD (coronary artery disease) coronary stents Myocardial infarction age 81 Hypertension CVA (cerebral vascular accident) Brother Seizures Sister Seizures Daughter Thyroid disorder Father No problems noted. Aunt Breast cancer Aunt Breast cancer Surgical History History of total abdominal hysterectomy History of tubal ligation History of vein stripping Social History Smoking Status: Former smoker how long ago did patient quit smokin second hand exposure: No alcohol intake: never substance use type: does not use caffeine: Yes what type of physical activity do you participate in: none frequency: does not exercise seatbelt use: always ROS ROS ED Constitutional Constitutional ED: Denies chills or fever(s) Musculoskeletal Musculoskeletal: Reports extremity pain; Denies neck pain Integumentary Reports as per HPI; Denies Abrasions, rash or wounds Neurologic Neurologic: Denies paresthesias or weakness EXAM Physical Exam Const Vital Signs: 05/06/23 07:06 Temperature 96.8 F L Temperature Source Temporal Pulse Rate 63 Respiratory Rate 18 Blood Pressure 194/107 H Blood Pressure Mean 136 Pulse Ox 100 Oxygen Delivery Method Room Air Positive well nourished and well developed General Appearance ED: well developed and NAD Neck full ROM and supple Back/Spine normal ROM and normal to inspection Extremity full ROM Extremity Narrative: 4 cm proximally acute hematoma lateral aspect of the right lower leg above the lateral malleolus and not involving it. It is mildly tender. There is no surrounding bony tenderness in the fibula or the tibia. Furthermore, with axial loading of the lower leg there is no pain, with forced inversion of the foot there is no pain, and with placing lateral force on the ankle mortise there is no pain. Neuro oriented x3, no focal motor deficits and no sensory deficits noted Sensorium / Orientation: alert Psych mental status grossly normal and thought process normal Skin no wounds Rashes: no rashes MDM MDM MDM Narrative Medical decision making narrative: I reassured this patient, I offered an x-ray, but I do not think she needs it. She declines and states I did not think it was broken, I was worried about a blood clot. I reassured her, there is no reason for her to have a DVT here, penetrating trauma can cause a DVT in a subacute fashion, but DVT formation acutely and blunt trauma does not generally occur. She was given an ice pack and some Tylenol and discharged, and we discussed reasons to return and she is comfortable with that plan. Discharge Plan Triage Chief Complaint: Lower Extremity Injury ED Provider: Gorge García Dx/Rx/DC Orders Clinical Impression: Traumatic hematoma of right lower leg, Anticoagulated Instructions: ED Hematoma Prescriptions: No Action cholecalciferol (vitamin D3) 1,000 unit capsule 25 mcg (1,000 unit) capsule 5,000 unit PO DAILY potassium gluconate 595 mg (99 mg) tablet 595 mg PO DAILY cranberry conc-ascorbic acid 12,600-20 mg capsule PO calcium citrate 200 mg (950 mg) tablet 600 mg PO DAILY omega-3 fatty acids 1,000 mg capsule 2,000 mg PO DAILY ascorbate calcium (vitamin C) 500 mg tablet 500 mg PO DAILY anastrozole 1 mg tablet 1 mg PO DAILY Qty: 90 1RF multivitamin 1 EACH tablet 1 ea PO DAILY sennosides-docusate sodium 1 EACH tablet 1 ea PO QHS aspirin 81 MG tablet,delayed release (DR/EC) 81 mg PO DAILY metoprolol tartrate 25 MG tablet 25 mg PO BID magnesium oxide 250 MG tablet 250 mg PO DAILY pravastatin 20 mg tablet 20 mg PO QHS Qty: 90 3RF Xarelto 20 mg tablet 20 mg PO DAILY Qty: 90 3RF Label Comments: will stop 2 days prior amlodipine 5 mg tablet 5 mg PO DAILY Qty: 90 3RF Primary Care Provider: Glen Negron Chi Referrals: Glen Negron Chi, MD [Primary Care Provider] - As Needed Disposition Disposition: Home, Self Care
[2023-05-06] MEDS: Acetaminophen 500 MG Tablet 1000 MG PO (07:30)
== END 2023-05-06 07:33 | disposition home or self-care (01) ==
PROVIDERS: Emergency Provider Emergency Medicine; PCP Family Medicine Geriatric Medicine; Visit Provider Emergency Medicine
DX: S80.11XA Contusion of right lower leg, initial encounter (principal); I48.0 Paroxysmal atrial fibrillation; E78.2 Mixed hyperlipidemia; I10 Essential (primary) hypertension; Z87.891 Personal history of nicotine dependence; Z79.01 Long term (current) use of anticoagulants; W22.03XA Walked into furniture, initial encounter
CPT/HCPCS: 99282

== ENCOUNTER → 2023-05-13 | Outpatient (CLI) | payer MEDICARE, SELFPAY ==
[2018-10-20 11:07] VITALS: BMI 28.8
--- NOTE | 2023-05-13 13:02 | VDLE_ITS ---
Reason For Study: Right leg edema RIGHT LEFT CFV is compressible, spontaneous, phasic, CFV is compressible, spontaneous, phasic, competent and demonstrates normal competent, and demonstrates normal augmentation. augmentation. FV is compressible, spontaneous, phasic, competent and demonstrates normal augmentation. POP V is compressible, spontaneous, phasic, competent and demonstrates normal augmentation. T/P Trunk is compressible. PTV is compressible. RT PerV is compressible. GSV is absent. Procedure This is a venous duplex using B-mode, color flow and spectral Doppler. Exam performed in department. A preliminary report was called and/or faxed to Dr. Negron. VL/Venous Duplex US, Unilateral Interpretation Summary Deep veins of the right lower extremity are patent and compressible segmentally . There is no evidence of right lower extremity deep vein thrombosis. Valvular competence neema ears intact within the proximal deep venous system on the right . The right great saphenous vein i s absent. The left common femoral vein is patent and compressible . Ordering Physician: Glen Negron Chi Referring Physician: Glen Negron Chi Performed By: Rand Jin RVT
== END | disposition home or self-care (01) ==
LOC: CVS 12:57
PROVIDERS: PCP Family Medicine Geriatric Medicine; Referring Provider Family Medicine Geriatric Medicine; Visit Provider Family Medicine Geriatric Medicine
DX: M79.89 Other specified soft tissue disorders (principal)
CPT/HCPCS: 93971

== ENCOUNTER → 2023-06-07 | Outpatient (CLI) | payer MEDICARE, SELFPAY ==
[2018-10-20 11:07] VITALS: BMI 28.8
--- NOTE | 2023-06-07 11:18 | CT_ITS ---
STUDY: CT BRAIN WITHOUT CONTRAST REASON FOR EXAM: Female, 78 years old. CLOSED HEAD INJURY, INITIAL ENCOUNTER FALL, YESTERDAY, BRUISE TO LT EYE RADIATION DOSAGE (If Supplied By Facility): CTDIvol = ( 44.99 ) mGy, DLP = ( 745.49 ) mGycm TECHNIQUE: Transaxial CT imaging of the brain was performed without administration of intravenous contrast material. Individualized dose optimization techniques were used for this CT. COMPARISON: None. FINDINGS: Normal soft tissue structures. Normal calvarium. No visualized skull fracture or subdural hematoma or midline shift. There is moderate cerebral atrophy with widening of the extra-axial spaces and ventricular dilatation. There are areas of decreased attenuation within the white matter tracts of the supratentorial brain, consistent with microvascular disease changes. Normal basal ganglia and thalami. Normal brainstem. Normal cerebellum. There is no intracranial hemorrhage. There are no findings of an acute ischemic infarction. Normal visualized paranasal sinuses. CT/Brain/Head without Contrast IMPRESSION: Chronic involutional changes of the brain. Electronically Signed: Berlin Montez MD at 12:43 EDT ,
== END | disposition home or self-care (01) ==
LOC: CT 11:16
PROVIDERS: PCP Family Medicine Geriatric Medicine; Referring Provider Family Medicine Geriatric Medicine; Visit Provider Family Medicine Geriatric Medicine
DX: S09.90XA Unspecified injury of head, initial encounter (principal); X58.XXXA Exposure to other specified factors, initial encounter
CPT/HCPCS: 70450

== ENCOUNTER → 2023-09-16 | Outpatient (CLI) | payer MEDICARE, SELFPAY ==
[2018-10-20 11:07] VITALS: BMI 28.8
--- NOTE | 2023-09-16 09:42 | BI_ITS ---
MAMMOGRAPHY - BILATERAL SCREENING REASON FOR EXAM: Female, 78 years old. Routine annual screening examination. PERTINENT HISTORY: Personal history of breast cancer. Prior right lumpectomy. Aunt with breast cancer. TECHNIQUE: Digital bilateral breast param (3D mammographic acquisition) in the CC and MLO projections. 2-D mediolateral oblique (MLO) and craniocaudad (CC) views of both breasts were obtained. CAD: Full Field Digital Mammography with Computer Added Detection was performed. COMPARISON: Comparison is made with prior study September 13, 2022 and September 12, 2020 FINDINGS: Breast Composition: The breasts are heterogeneously dense, which may obscure small masses. There are no dominant masses or suspicious calcifications. The patient is status post lumpectomy in the upper outer quadrant of the right breast. Scarring. A tissue clip marker is also seen in the deep slightly upper lateral aspect of the right breast. Surgical clips are also seen in the right axilla. No other significant abnormalities are identified. There has been no significant change since the prior study. BI/SCRN MAMM (CAD)W/PARAM BILAT IMPRESSION: Stable bilateral screening mammogram. Yearly follow-up mammogram recommended. (A) ASSESSMENT CATEGORY: BIRADS Category 2: Benign. A letter regarding these results will be sent to the patient by the facility within 30 days. Approximately 10% of breast cancers are not detected by mammography. A normal mammogram should not delay biopsy of a clinically suspicious abnormality. [id number] Electronically Signed: Anthony Tomlinson MD at 11:07 EDT ,
== END | disposition home or self-care (01) ==
LOC: OPBI 09:41
PROVIDERS: PCP Family Medicine Geriatric Medicine; Referring Provider Internal Medicine Hematology & Oncology; Visit Provider Internal Medicine Hematology & Oncology
DX: Z12.31 Encounter for screening mammogram for malignant neoplasm of breast (principal); Z85.3 Personal history of malignant neoplasm of breast
CPT/HCPCS: 77063; 77067

== ENCOUNTER → 2023-10-24 | Outpatient (CLI) | payer MEDICARE, SELFPAY ==
[2018-10-20 11:07] VITALS: BMI 28.8
[2023-10-24 11:21] LABS: Absolute Lymphocyte Count 1.77 X10^3/uL (0.83-4.51); Absolute Neutrophil Count 4.2 X10^3/uL (2.0-7.7); Basophil# 0.03 X10^3/uL; Basophil% 0.4 % (0-1); Eosinophil# 0.07 X10^3/uL; Hematocrit 43.9 % (37-47); Hemoglobin 14.4 g/dL (12.0-15.0); Lymphocyte # 1.77 X10^3/ul (0.83-4.51); Lymphocyte % 26.5 % (19-41); Mean Corp Hgb Conc 32.8 g/dL (32-36); Mean Corpuscular Hgb 29.4 pg (27.0-32.0); Mean Corpuscular Volume 89.8 fL (81-99); Mean Platelet Vol. 11.1 fl (6.2-12.0); Monocyte# 0.59 X10^3/uL; Monocyte% 8.8 % (0-10); NRBC Flagged by Analyzer 0 % (0-5); Neutrophil % 62.9 % (47-70); Platelet Count 236 K/mm3 (150-450); RBC Distribution Width CV 13.3 % (11.6-14.6); RBC Distribution Width SD 43.7 fl (35.1-43.9); Red Blood Count 4.89 M/mm3 (4.2-5.4); White Blood Count 6.7 K/mm3 (4.4-11.0)
[2023-10-24 11:37] LABS: Vitamin D,25 Hydroxy 73.7 ng/mL
[2023-10-24 11:44] LABS: ALB/GLOB Ratio 0.9 RATIO (0.9-2.4); AST(SGOT) 26 U/L (15-37); Alanine Aminotransfer ALT/SGPT 34 U/L (13-56); Albumin, Serum 3.3 g/dL (3.2-5.0); Alkaline Phosphatase 61 U/L (45-117); Anion Gap 5 (5-15); BUN 13 mg/dL (7-18); BUN/Creat Ratio 14.1 RATIO (10-20); Calcium,Total 8.6 mg/dL (8.5-10.1); Chloride 109 mmol/L (98-107); Cholesterol 160 mg/dL (200); Creatinine, Serum 0.92 mg/dL (0.55-1.02); EST Glomerular Filtration Rate 62 mL/min (>60); Est Glom Filt Rate - Afr Amer 75 mL/min (>60); Globulin 3.6 g/dL (2.2-4.2); Glucose 104 mg/dL (74-106); High Density Lipoprotein 44 mg/dL; Potassium 4.2 mmol/L (3.5-5.1); Protein, Total 6.9 g/dL (6.4-8.2); Sodium Level 142 mmol/L (136-145); Thyroid Stim Hormone (TSH) 1.34 uIU/mL (0.358-3.74); Triglycerides 146 mg/dL; Very Low Density Lipoprotein 29 mg/dL (5-40)
== END | disposition home or self-care (01) ==
LOC: POLAB3 09:41
PROVIDERS: PCP Family Medicine Geriatric Medicine; Visit Provider Family Medicine Geriatric Medicine
DX: I10 Essential (primary) hypertension (principal); E78.5 Hyperlipidemia, unspecified; E55.9 Vitamin D deficiency, unspecified
CPT/HCPCS: 36415; 80053; 80061; 82306; 84443; 85025

== ENCOUNTER → 2024-02-26 | Outpatient (CLI) | payer MEDICARE, SELFPAY ==
[2018-10-20 11:07] VITALS: BMI 28.8
[2024-02-26 10:10] LABS: Anion Gap 3 (5-15); BUN 12 mg/dL (7-18); BUN/Creat Ratio 13.3 RATIO (10-20); Calcium,Total 8.8 mg/dL (8.5-10.1); Chloride 106 mmol/L (98-107); EST Glomerular Filtration Rate 64 mL/min (>60); Est Glom Filt Rate - Afr Amer 77 mL/min (>60); Glucose 114 mg/dL (74-106); Potassium 3.4 mmol/L (3.5-5.1); Sodium Level 141 mmol/L (136-145)
== END | disposition home or self-care (01) ==
LOC: LAB 09:05
PROVIDERS: PCP Family Medicine Geriatric Medicine; Referring Provider Physician Assistant Medical; Visit Provider Physician Assistant Medical
DX: I10 Essential (primary) hypertension (principal)
CPT/HCPCS: 36415; 80048

== ENCOUNTER → 2024-03-27 | Outpatient (CLI) | payer MEDICARE, SELFPAY ==
[2018-10-20 11:07] VITALS: BMI 28.8
--- NOTE | 2024-03-27 12:20 | RAD_ITS ---
INDICATION: ROTATOR CUFF SYN/ OSTEOARTHRITIS OF SHOULDER shoulder pain starting today, nki EXAMINATION/TECHNIQUE: X-RAY - LEFT XR Shoulder Min 2 Views 4 VIEWS COMPARISON: None. FINDINGS: BONES: No fracture demonstrated. Degenerative changes at the acromioclavicular joint. JOINTS: No dislocation. SOFT TISSUES: Unremarkable. Cardiomegaly. RAD/Shoulder min 2 Views IMPRESSION: Degenerative changes mainly at the AC joint. No evidence of fracture. Cardiomegaly. Electronically Signed: Verena Ellis MD at 8:11 EDT ,
[2024-03-27 13:25] LABS: Absolute Lymphocyte Count 1.54 X10^3/uL (0.83-4.51); Absolute Neutrophil Count 11.3 X10^3/uL (2.0-7.7); Basophil# 0.02 X10^3/uL; Basophil% 0.1 % (0-1); Eosinophil# 0.04 X10^3/uL; Eosinophils% 0.3 % (0-5); Hematocrit 47.1 % (37-47); Hemoglobin 15.6 g/dL (12.0-15.0); Lymphocyte # 1.54 X10^3/ul (0.83-4.51); Mean Corp Hgb Conc 33.1 g/dL (32-36); Mean Corpuscular Hgb 29.9 pg (27.0-32.0); Mean Corpuscular Volume 90.4 fL (81-99); Mean Platelet Vol. 10.9 fl (6.2-12.0); Monocyte% 7.8 % (0-10); NRBC Flagged by Analyzer 0 % (0-5); Neutrophil % 80.4 % (47-70); Platelet Count 242 K/mm3 (150-450); RBC Distribution Width SD 42.9 fl (35.1-43.9); Red Blood Count 5.21 M/mm3 (4.2-5.4); White Blood Count 14.1 K/mm3 (4.4-11.0)
[2024-03-27 13:48] LABS: ALB/GLOB Ratio 0.9 RATIO (0.9-2.4); AST(SGOT) 27 U/L (15-37); Alanine Aminotransfer ALT/SGPT 30 U/L (13-56); Albumin, Serum 3.5 g/dL (3.2-5.0); Alkaline Phosphatase 72 U/L (45-117); Anion Gap 4 (5-15); BUN 15 mg/dL (7-18); BUN/Creat Ratio 14.6 RATIO (10-20); Calcium,Total 9.3 mg/dL (8.5-10.1); Chloride 107 mmol/L (98-107); Creatinine, Serum 1.03 mg/dL (0.55-1.02); EST Glomerular Filtration Rate 55 mL/min (>60); Est Glom Filt Rate - Afr Amer 66 mL/min (>60); Globulin 3.9 g/dL (2.2-4.2); Glucose 120 mg/dL (74-106); Potassium 3.4 mmol/L (3.5-5.1); Protein, Total 7.4 g/dL (6.4-8.2); Sodium Level 142 mmol/L (136-145); Troponin-I HS 6 pg/mL (3.0-54.0)
[2024-03-29 08:07] LABS: Myoglobin, Serum 51 ng/mL (25-58)
== END | disposition home or self-care (01) ==
LOC: RAD 11:52
PROVIDERS: PCP Family Medicine Geriatric Medicine; Referring Provider Family Medicine Geriatric Medicine; Visit Provider Family Medicine Geriatric Medicine
DX: M75.102 Unspecified rotator cuff tear or rupture of left shoulder, not specified as traumatic (principal); M19.012 Primary osteoarthritis, left shoulder; I10 Essential (primary) hypertension; R06.02 Shortness of breath; R07.9 Chest pain, unspecified
CPT/HCPCS: 36415; 73030; 80053; 83874; 84484; 85025

== ENCOUNTER → 2024-04-29 | Outpatient (CLI) | payer MEDICARE, SELFPAY ==
[2018-10-20 11:07] VITALS: BMI 28.8
[2024-04-29 10:53] LABS: Absolute Lymphocyte Count 1.66 X10^3/uL (0.83-4.51); Absolute Neutrophil Count 4.7 X10^3/uL (2.0-7.7); Basophil# 0.01 X10^3/uL; Basophil% 0.1 % (0-1); Eosinophil# 0.07 X10^3/uL; Hematocrit 47.1 % (37-47); Hemoglobin 15.4 g/dL (12.0-15.0); Lymphocyte # 1.66 X10^3/ul (0.83-4.51); Lymphocyte % 23.6 % (19-41); Mean Corp Hgb Conc 32.7 g/dL (32-36); Mean Corpuscular Hgb 29.3 pg (27.0-32.0); Mean Corpuscular Volume 89.7 fL (81-99); Mean Platelet Vol. 10.9 fl (6.2-12.0); Monocyte# 0.55 X10^3/uL; Monocyte% 7.8 % (0-10); NRBC Flagged by Analyzer 0 % (0-5); Neutrophil # 4.71 X10^3/uL (2.7-7.7); Neutrophil % 67.2 % (47-70); Platelet Count 228 K/mm3 (150-450); RBC Distribution Width CV 12.9 % (11.6-14.6); RBC Distribution Width SD 42.4 fl (35.1-43.9); Red Blood Count 5.25 M/mm3 (4.2-5.4)
[2024-04-29 11:46] LABS: Vitamin D,25 Hydroxy 60.4 ng/mL
[2024-04-29 12:58] LABS: ALB/GLOB Ratio 0.9 RATIO (0.9-2.4); AST(SGOT) 28 U/L (15-37); Alanine Aminotransfer ALT/SGPT 29 U/L (13-56); Albumin, Serum 3.4 g/dL (3.2-5.0); Alkaline Phosphatase 66 U/L (45-117); Anion Gap 7 (5-15); BUN 11 mg/dL (7-18); BUN/Creat Ratio 11.7 RATIO (10-20); Calcium,Total 9.2 mg/dL (8.5-10.1); Chloride 108 mmol/L (98-107); Cholesterol 146 mg/dL (200); Creatinine, Serum 0.94 mg/dL (0.55-1.02); EST Glomerular Filtration Rate 61 mL/min (>60); Est Glom Filt Rate - Afr Amer 74 mL/min (>60); Globulin 3.9 g/dL (2.2-4.2); Glucose 103 mg/dL (74-106); High Density Lipoprotein 47 mg/dL; Potassium 3.7 mmol/L (3.5-5.1); Protein, Total 7.3 g/dL (6.4-8.2); Sodium Level 142 mmol/L (136-145); Thyroid Stim Hormone (TSH) 2.01 uIU/mL (0.358-3.74); Triglycerides 168 mg/dL; Very Low Density Lipoprotein 34 mg/dL (5-40)
== END | disposition home or self-care (01) ==
LOC: LAB 09:48
PROVIDERS: PCP Family Medicine Geriatric Medicine; Referring Provider Family Medicine Geriatric Medicine; Visit Provider Family Medicine Geriatric Medicine
DX: I10 Essential (primary) hypertension (principal); E78.5 Hyperlipidemia, unspecified; E55.9 Vitamin D deficiency, unspecified
CPT/HCPCS: 36415; 80053; 80061; 82306; 84443; 85025

== ENCOUNTER → 2024-09-08 | Outpatient (CLI) | payer MEDICARE, SELFPAY ==
[2018-10-20 11:07] VITALS: BMI 28.8
--- OUTSIDE RECORDS SUMMARY | 2024-09-08 16:33 | XMS RPT_ITS | CCD ---
Author Organization [facility] Care Team Providers Care Melon Packer Name Role Phone Lizette Handy Unavailable Unavailable Lizette Handy Unavailable Unavailable Roof GUINEA PIG BREEDERRocky Unavailable Unavailable Primary Care Provider UnavailJhonatan Wayne Chi Primary Care Provider [phone] JHONATAN MADERA [facility] Primary Care Unavailable Medications Current Medications Medication Drug Class(es) Dates Sig (Normalized) Sig (Original) anastrozole 1 mg oral tablet (6 sources) Aromatase Inhibitor take 1 tablet by mouth once daily anastrozole (ARIMIDEX) 1 mg tablet Take 1 mg by mouth once daily. Active Comment on above: Take 1 mg by mouth o nce daily. Calcium Carbonate / vitamin D3 (12 sources) CALCIUM CARBONATE/VITAMIN D3 (CALCIUM 500 + D ORAL) Take by mouth. Active CALCIUM CARBONAT E/VITAMIN D3 (VITAMIN D-3 ORAL) Take by mouth. Active CALCIUM CARBONAT E/VITAMIN D3 (CALCIUM 500 + D ORAL) Take by mouth. 0 Active CALCIUM CARBONAT E/VITAMIN D3 (VITAMIN D-3 ORAL) Take by mouth. 0 Active Comment on above: Take by mouth. cephalexin 500 mg oral capsule (4 sources) Cephalosporin Antibacterial Start: 4 End: 4 take 1 capsule by mouth three times daily cephALEXin (KEFLEX) 500 mg capsule Indications: Urinary frequency Take 1 capsule by mouth three times a day for 7 days. 21 capsule 08/18/2024 08/25/2024 Active Start: 07-27-2023 End: 08-03-2023 take 1 capsule by mouth twice daily cephALEXin (KEFLEX) 500 mg capsule Take 1 capsule by mouth twice daily for 7 days. 14 capsule 0 07/27/2023 08/03/2023 Active Comment on above: Take 1 capsule by [facility] twice daily for 7 days. cranberry preparation 500 mg oral capsule (6 sources) Non-Standardized Food Allergenic Extract, Non-Standardized Plant Allergenic Extract Cranberry 500 mg cap Take by mouth. Active Cranberry 500 mg cap Take by mouth. 0 Active Comment on above: Take by mouth. doxycycline monohydrate 100 mg oral tablet (1 source) Tetracycline-cla ss Drug Start: 05-27-2023 End: 06-01-2023 take 1 tablet by mouth twice daily doxycycline monohydrate 100 mg tablet Take 1 tablet by mouth twice daily for 5 days. 10 tablet 0 05/27/2023 06/01/2023 Active Comment on above: Take 1 tablet by [facility] twice daily for 5 days. MULTIVITAMIN ORAL (6 sources) MULTIVITAMIN ORA L Take by mouth. Active MULTIVITAMIN ORA L Take by mouth. 0 Active Comment on above: Take by mouth. nitrofurantoin, macrocrystals 25 mg / nitrofurantoin, monohydrate 75 mg oral capsule (1 source) Nitrofuran Antibacterial Start: End: take 1 capsule by mouth twice daily at mealtime nitrofurantoin monohydrate and macrocrystal (MACROBID) 100 mg capsule Take 1 capsule by mouth twice daily with meals for 7 days. 14 capsule 0 03/10/2023 03/17/2023 Active Comment on above: Take 1 capsule by [facility] twice daily with meals for 7 days. phenazopyridine hydrochloride 200 mg oral tablet (1 source) Start: End: take 1 tablet by mouth three times daily phenazopyridine (PYRIDIUM) 200 mg tablet TO BE TAKEN DIRECTED BY MOUTH ONE(1) TABLET THREE TIMES DAILY X 2 DAYS 6 tablet 0 08/08/2017 03/10/2023 Discontinued (Discontinued by another Health Care Provider) Comment on above: TO BE TAKEN DIREC DIDIER BY MOUTH ONE(1) TABLET THREE TIMES DAILY X 2 DAYS Potassium Chloride (6 sources) take 1 capsule by mouth once daily POTASSIUM CHLORIDE ORAL Take 1 capsule by mouth once daily. Active take 1 capsule by mouth once anitha ly POTASSIUM CHLORIDE ORAL Take 1 capsule by mouth once daily. 0 Active Comment on above: Take 1 capsule by [facility] once daily. rivaroxaban 20 mg oral tablet (6 sources) Factor Xa Inhibitor take 1 tablet by mouth once daily at dinner rivaroxaban (XARELTO) 20 mg tablet Take 20 mg by mouth daily with dinner. Active Comment on above: Take 20 mg by mouth daily with dinner. Completed/Discontinued Medications Medication Drug Class(es) Dates Sig (Normalized) Sig (Original) alendronic acid 70 mg oral tablet (20 sources) Bisphosphonate Start: 08-06-2011 End: 03-10-2023 ALENDRONATE SODIUM 70 MG TABS ALENDRONATE SODIUM [id number] Rocky Medina NP Start: 09-28-2010 take 1 tablet by homer th every week FOSAMAX 5 MG TABS one tablet by mouth once weekly ALENDRONATE SODIUM [id number] Mattie Herzog MD Comment on above: Take by mouth. aspirin 81 mg delayed release oral tablet (8 sources) Nonsteroidal Anti-inflammatory Drug Start: 07-30-2017 take 1 tablet by mouth once daily ASPIRIN EC 81 MG TBEC One tablet by mouth daily ASPIRIN [id number] Rojas Henry MD Comment on above: Take 81 mg by mouth once daily. calcium (12 sources) Phosphate Binder, Calcium Start: 07-24-2011 take 2 tablets by mouth once daily CHELATED CALCIUM TABS Two tablets by mouth daily CALCIUM TABS [id number] Mattie Herzog MD Start: 07-24-2011 End: 02-23-2016 take 2 tablets by mouth once daily CHELATED CALCIUM TABS Two tablets by mouth daily CALCIUM TABS [id number] Iza Orantes LPN Start: 03-29-2011 take 1 tablet by homer th once daily CHELATED CALCIUM TABS One tablet by mouth daily CALCIUM TABS [id number] Mattie Herzog MD Start: 09-28-2010 CHELATED CALCI UM TABS CALCIUM TABS [id number] Gold Layton MS,PA-C calcium carbonate 500 mg chewing gum (3 sources) Start: 07-29-2017 take 1 tablet by mouth once daily CALCIUM CARBONATE TABS 500mg One tablet by mouth daily CALCIUM CARBONATE TABS [id number] oRcky Medina GUINEA PIG BREEDER CALCIUM CITRATE-VITAMIN D (6 sources) Vitamin D Start: 03-29-2011 take 1 tablet by mouth once daily CITRACAL MAXIMUM 315-250 MG-UNIT TABS One tablet by mouth daily CALCIUM CITRATE-VITAMIN D [id number] Mattie Herzog MD Start: 03-29-2011 End: 05-09-2012 take 1 tablet by mouth once daily CITRACAL MAXIMUM 315-250 MG-UNIT TABS One tablet by mouth daily CALCIUM CITRATE-VITAMIN D 51578975243 Mattie Herzog MD cholecalciferol (12 sources) Vitamin D Start: 07-24-2011 take 2 tablets by mouth once daily, then take 3 tablets by mouth RA VITAMIN D-3 CAPS Two tablets by mouth daily CHOLECALCIFEROL CAPS [id number] Mattie Herzog MD Start: 07-24-2011 End: 07-29-2017 take 2 tablets by mouth once daily, then take 3 tablets by mouth RA VITAMIN D-3 CAPS Two tablets by mouth daily CHOLECALCIFEROL CAPS [id number] Rocky Medina NP Start: 03-29-2011 take 1 tablet by homer once daily, then take 3 tablets by mouth RA VITAMIN D-3 CAPS One tablet by mouth daily CHOLECALCIFEROL CAPS [id number] Mattie Herzog MD Start: 09-28-2010 RA VITAMIN D-3 CAPS CHOLECALCIFEROL CAPS [id number] Gold Layton MS,PA-C ciprofloxacin 500 mg oral tablet (15 sources) Quinolone Antimicrobial Start: 09-25-2012 End: 10-02-2012 take 1 tablet by mouth twice daily CIPROFLOXACIN HCL 500 MG TABS One tablet by mouth twice daily CIPROFLOXACIN HCL [id number] Mattie Herzog MD Start: 03-07-2012 End: 03-14-2012 take 1 tablet by mouth twice daily CIPROFLOXACIN HCL 500 MG TABS One tablet by mouth twice daily CIPROFLOXACIN HCL 02675220813 Mattie Herzog MD Start: 07-24-2011 End: 07-31-2011 take 1 tablet by mouth twice daily CIPROFLOXACIN HCL 500 MG TABS One tablet by mouth twice daily CIPROFLOXACIN HCL [id number] Mattie Herzog MD Start: 09-28-2010 End: 03-29-2011 take 1 tablet by mouth twice daily CIPRO 250 MG TABS One tablet by mouth twice daily CIPROFLOXACIN HCL 52075110596 Gold Layton MS,PA-C ergocalciferol 47453 unt oral tablet (9 sources) Provitamin D2 Compound Start: 07-29-2017 take 1 tablet by mouth once daily VITAMIN D (ERGOCALCIFEROL) 73095 UNIT CAPS One tablet by mouth daily ERGOCALCIFEROL [id number] Rocky Medina GUINEA PIG BREEDER Start: 03-30-2011 End: 03-07-2012 take 1 tablet by mouth every week ERGOCALCIFEROL 14169 UNIT CAPS One tablet by mouth once a week ERGOCALCIFEROL 60234679895 Mattie Herzog MD fish oil (12 sources) Start: 09-13-2014 take 1 tablet by homer th once daily [facility] FISH OIL 1000 MG CAPS One tablet by mouth daily OMEGA-3 FATTY ACIDS [id number] Mattie Herzog MD Start: 09-13-2014 End: 02-23-2016 take 1 tablet by mouth once daily [facility] FISH OIL 1000 MG CAPS One tablet by mouth daily OMEGA-3 FATTY ACIDS [id number] Iza Orantes LPN Start: 03-07-2012 take 1 tablet by homer th once daily FISH OIL 1000 MG CAPS One tablet by mouth daily OMEGA-3 FATTY ACIDS 62491476626 Mattie Herzog MD Start: 03-07-2012 End: 05-13-2013 take 1 tablet by mouth once daily FISH OIL 1000 MG CAPS One tablet by mouth daily OMEGA-3 FATTY ACIDS 95001867405 Mattie Herzog MD hydroCHLOROthiazide 12.5 mg oral capsule (18 sources) Thiazide Diuretic Start: 02-23-2016 End: 07-29-2017 take 1 capsule by mouth once daily HYDROCHLOROTHIAZIDE 12.5 MG CAPS 1 po daily HYDROCHLOROTHIAZIDE 02222012032 Rocky Medina GUINEA PIG BREEDER Start: 05-13-2013 End: 02-23-2016 take 1 tablet by mouth once daily HYDROCHLOROTHIAZIDE 12.5 MG TABS One tablet by mouth daily HYDROCHLOROTHIAZIDE 43290854916 Aleta Quinn, HYDROCHLOROTHIAZ IVY ORAL Take by mouth. Active HYDROCHLOROTHIAZ IYV ORAL Take by mouth. 0 Active Comment on above: Take by mouth. lisinopril 2.5 mg oral tablet (5 sources) Angiotensin Converting Enzyme Inhibitor Start: 7 End: 7 take 1 tablet by mouth once daily LISINOPRIL 2.5 MG TABS One tablet by mouth daily LISINOPRIL [id number] Rojas Henry MD magnesium oxide 400 mg oral tablet (2 sources) Start: 7 take 1 tablet by mouth once daily MAGNESIUM OXIDE 400 MG TABS One tablet by mouth daily MAGNESIUM OXIDE [id number] Rojas Henry MD metoprolol tartrate 50 mg oral tablet (11 sources) beta-Adrenergic [place] Start: 7 take 1 tablet by mouth twice daily METOPROLOL TARTRATE 50 MG TABS One tablet by mouth twice daily METOPROLOL TARTRATE 92250477815 Rocky Medina NP Start: 07-29-2017 take 1 tablet by homer th twice daily METOPROLOL TARTRATE 25 MG TABS One tablet by mouth twice daily METOPROLOL TARTRATE [id number] Rojas Henry MD take 1 tablet by homer th once daily in the evening metoprolol succinate ER (TOPROL XL) 25 mg 24 hr tablet Take 25 mg by mouth once daily. 1 po am and 1 po pm Active Comment on above: Take 25 mg by mouth once daily. 1 po am and 1 po pm MULTIPLE VITAMIN (5 sources) Start: 03-07-2012 End: 07-30-2017 take 1 tablet by mouth once daily MULTIVITAMINS CAPS One tablet by mouth daily MULTIPLE VITAMIN [id number] Rojas Henry MD Start: 03-07-2012 take 1 tablet by homer th once daily MULTIVITAMINS CAPS One tablet by mouth daily MULTIPLE VITAMIN 08223723386 Mattie Herzog MD [id number] ETHYL ESTERS (6 sources) Start: 03-29-2011 End: 07-24-2011 take 4 tablets by mouth once daily LOVAZA 1 GM CAPS four tablets by mouth daily [id number] ETHYL ESTERS [id number] Mattie Herzog MD Start: 03-29-2011 take 4 tablets by mo [facility] once daily LOVAZA 1 GM CAPS four tablets by mouth daily [id number] ETHYL ESTERS [id number] Mattie Herzog MD OMEGA-3 FATTY ACIDS CPDR (3 sources) Start: 07-29-2017 take 1 tablet by mouth once daily OMEGA 3 CPDR One tablet by mouth daily OMEGA-3 FATTY ACIDS CPDR [id number] Rocky Medina GUINEA PIG BREEDER potassium gluconate 2.5 meq oral tablet (2 sources) Start: 07-30-2017 take 1 tablet by mouth once daily POTASSIUM GLUCONATE 595 (99 K) MG TABS One tablet by mouth daily POTASSIUM GLUCONATE 50247494470 Rojas Henry MD predniSONE 20 mg oral tablet (6 sources) Corticosteroid Start: 05-13-2013 End: 08-11-2013 PREDNISONE 20 MG TABS use as directed PREDNISONE [id number] Mattie Herzog MD ZOSTER VACCINE LIVE (6 sources) Start: 08-11-2013 End: 02-23-2016 ZOSTAVAX 70010 UNT/0.65ML SUSR one dose SC once DX: hx of chicken pox ZOSTER VACCINE LIVE [id number] Iza Orantes LPN Start: 08-11-2013 ZOSTAVAX 13880 UNT/0.65ML SUSR one dose SC once DX: hx of chicken pox ZOSTER VACCINE LIVE [id number] Mattie Herzog MD Problems Active Problems Problem Classification Problem Date Documented Da te Episodic/Chronic Cardiac dysrhythmias (3 sources) Paroxysmal atrial fibrillation; Translations: [Paroxysmal atrial fibrillation] Onset: 07-29-2017 07-29-2017 Chronic Conduction disorders (2 sources) Right bundle branch block; Translations: [Unspecified right bundle-branch block] Onset: 07-30-2017 07-30-2017 Chronic Disorders of lipid metabolism (3 sources) Hypertriglyceridemi a; Translations: [Pure hyperglyceridemia] 03-29-2011 Chronic Essential hypertension (3 sources) Benign essential hypertension; Translations: [Essential (primary) hypertension] Onset: 05-13-2013 05-13-2013 Chronic Genitourinary symptoms and ill-defined conditions (8 sources) History of urinary tract infection; Translations: [Increased frequency of urination] Onset: 02-23-2016 Resolved: 07-30-2017 02-23-2016 Episodic Heart valve disorders (2 sources) Nonrheumatic mitral (valve) insufficiency; Translations: [Nonrheumatic mitral (valve) insufficiency] Onset: 07-30-2017 07-30-2017 Chronic Nutritional deficiencies (3 sources) Vitamin D deficiency; Translations: [Vitamin D deficiency, unspecified] Onset: 03-29-2011 03-29-2011 Chronic Other inflammatory condition of skin (3 sources) Psoriasis; Translations: [Psoriasis, unspecified] Onset: 03-29-2011 03-29-2011 Chronic Other inflammatory condition of skin (1 source) Erythema; Translations: [Erythematous condition, unspecified] 05-27-2023 Episodic Other nutritional; endocrine; and metabolic disorders (3 sources) Overweight; Translations: [Overweight] Onset: 05-09-2012 05-09-2012 Chronic Pulmonary heart disease (2 sources) Other secondary pulmonary hypertension; Translations: [Other secondary pulmonary hypertension] Onset: 07-30-2017 07-30-2017 Chronic Past or Other Problems Problem Classification Problem Date Documented Date Episodic/Chronic Conditions associated with dizziness or vertigo (3 sources) Benign paroxysmal vertigo, unspecified ear; Translations: [Benign paroxysmal vertigo, unspecified ear] Onset: 3 05-13-2013 Episodic Malaise and fatigue (3 sources) Fatigue; Translations: [Other fatigue] Onset: 6 02-23-2016 Episodic Other bone disease and musculoskeletal deformities (3 sources) Osteopenia; Translations: [Other specified disorders of bone density and structure, unspecified site] Onset: 1 03-29-2011 Episodic Other circulatory disease (2 sources) Electrocardiogram abnormal; Translations: [Abnormal electrocardiogram [ECG] [EKG]] Onset: 7 07-30-2017 Episodic Other skin disorders (5 sources) Disorder of nail; Translations: [Nail disorder, unspecified] Onset: 5 Resolved: 7 07-30-2017 Episodic Unclassified (5 sources) General examination of patient ; Translations: [Encounter for other general examination] Onset: 2 Resolved: 7 05-09-2012 Unclassified (5 sources) Specialized medical examination ; Translations: [Encounter for screening, unspecified] Onset: 1 Resolved: 7 03-29-2011 Unclassified (5 sources) Screening mammography ; Translations: [Encounter for other screening for malignant neoplasm of breast] Onset: 1 Resolved: 7 07-30-2017 Urinary tract infections (15 sources) Urinary tract infectious disease; Translations: [Urinary tract infection, site not specified] Onset: 0 Resolved: 4 03-07-2012 Episodic Results Test Name Value Interpretation Reference Range Facility [facility]ARY PIN[facility] ([id number]) 1945 F Date Time Provider Department 08/19/24 REED GRANADOS [facility] During your visit today, we recorded the following information about you: Reed Granados APRN.CNP 08/19/2024 2:06 PM Signed Please inform patient that no significant bacterial infection was noted on urine culture. If symptoms progressively are improving continue antibiotics. Follow-up with PCP for reevaluation. Reed Granados APRN.Azra Victoria MA 08/19/2024 3:10 PM Signed Unable to reach patient. Left VM to return call to office. Please read below and advise. GERMÁN Talavera Sherrie, RN 08/20/2024 2:03 PM Signed Patient returned call and given provider's message below and patient verbalized understanding. Brooklynn Henson RN Allergies As of Date: 08/19/2024 (No Known Allergies) Date Reviewed: 08/18/2024 Reviewed by: Ro Luz LPN - Fully Assessed Reason for Visit: Results [95] Prescriptions as of 08/20/2024 - cephALEXin (KEFLEX) 500 mg capsule Take 1 capsule by mouth three times a day for 7 days. - anastrozole (ARIMIDEX) 1 mg tablet Take 1 mg by mouth once daily. - aspirin, enteric coated (ASPIRIN, ENTERIC COATED) 81 mg EC tablet Take 81 mg by mouth once daily. - Cranberry 500 mg cap Take by mouth. - rivaroxaban (XARELTO) 20 mg tablet Take 20 mg by mouth daily with dinner. - CALCIUM CARBONATE/VITAMIN D3 (VITAMIN D-3 ORAL) Take by mouth. - metoprolol succinate ER (TOPROL XL) 25 mg 24 hr tablet Take 25 mg by mouth once daily. 1 po am and 1 po pm - POTASSIUM CHLORIDE ORAL Take 1 capsule by mouth once daily. - HYDROCHLOROTHIAZIDE ORAL Take by mouth. - CALCIUM CARBONATE/VITAMIN D3 (CALCIUM 500 + D ORAL) Take by mouth. - MULTIVITAMIN ORAL Take by mouth. Problem List As Of Date: 08/19/2024 (None) Encounter Status:Closed by LAUREN HENSON on 08/20/24 Normal [facility] Bacteria Ur Culton 4 Bacteria identified Cx Nom (U) ORGANISM ID: 1 10,000 -<50,000 CFU/ml Mixed microbiota No further workup. Mixed microbiota can be due to???urine???contaminat ion with skin bacteria at time of collection or presence of a long-term urinary catheter. If a new culture is needed, please consider re-education of the patient on proper midstream collection technique or straight catheterization for???urine???collectio n. Normal [facility] Comment on above: Performed By: #### 6 30-4 #### [facility] CLIA [id number] [address] [place] [address] OF [facility] CNOVon 08-18-2024 CNOV Office Visit (UCWSTR ) MARY PINEDA ([id number]) 1945 F Date Time Provider Department 08/18/24 11:30 AM LAINEY ZEPEDA [facility] During your visit today, we recorded the following information about you: Temperature Pulse Respiration Blood pressure 98.1 degrees 64/minute 18/minute 142/84 Weight 76 kg Lainey Zepeda APRN.COMMERCIAL SERVICE TECHNICIAN 08/18/2024 12:58 PM Addendum Subjective HPI Mary Pineda is a 79 year old female who presents with possible UTI. Review of Systems Constitutional: Negative for chills and fever. Respiratory: Negative. Cardiovascular: Negative. Gastrointestinal: Negative for abdominal pain, nausea and vomiting. Genitourinary: Positive for dysuria, frequency and urgency. Musculoskeletal: Negative for back pain. BP 142/84 Pulse 64 Temp 36.7 ?C (98.1 ?F) (Tympanic) Resp 18 Wt 76 kg (167 lb 8.8 oz) SpO2 96% History reviewed. No pertinent past medical history. No past surgical history on file. ALLERGIES Patient has no known allergies. MEDICATIONS - anastrozole (ARIMIDEX) 1 mg tablet Take 1 mg by mouth once daily. - aspirin, enteric coated (ASPIRIN, ENTERIC COATED) 81 mg EC tablet Take 81 mg by mouth once daily. - Cranberry 500 mg cap Take by mouth. - rivaroxaban (XARELTO) 20 mg tablet Take 20 mg by mouth daily with dinner. - CALCIUM CARBONATE/VITAMIN D3 (VITAMIN D-3 ORAL) Take by mouth. - metoprolol succinate ER (TOPROL XL) 25 mg 24 hr tablet Take 25 mg by mouth once daily. 1 po am and 1 po pm - POTASSIUM CHLORIDE ORAL Take 1 capsule by mouth once daily. - HYDROCHLOROTHIAZIDE ORAL Take by mouth. - CALCIUM CARBONATE/VITAMIN D3 (CALCIUM 500 + D ORAL) Take by mouth. - MULTIVITAMIN ORAL Take by mouth. No family history on file. Social History Tobacco Use - Smoking status: Former Current packs/day: 0.00 Average packs/day: 1 pack/day for 16.0 years (16.0 ttl pk-yrs) Types: Cigarettes Start date: 11/19/1969 Quit date: 11/19/1985 Years since quittin.7 - Smokeless tobacco: Never Objective Physical Exam Vitals and nursing note reviewed. Constitutional: General: She is not in acute distress. Appearance: Normal appearance. She is not ill-appearing. Cardiovascular: Rate and Rhythm: Normal rate and regular rhythm. Heart sounds: Normal heart sounds. Pulmonary: Effort: Pulmonary effort is normal. No respiratory distress. Breath sounds: Normal breath sounds. No wheezing or rales. Abdominal: General: There is no distension. Palpations: Abdomen is soft. There is no mass. Tenderness: There is no abdominal tenderness. There is no right CVA tenderness, left CVA tenderness or guarding. Skin: General: Skin is warm and dry. Neurological: Mental Status: She is alert. Patient sees Dr. Madera for PCP- no labs in system. Patient states she has had no concerns regarding kidney function in recent labwork ordered by Dr. Madera. ASSESSMENT/PLAN: 1. Urinary frequency - ICD9: 788.41, ICD10: R35.0 acute - UA positive for dieudonne esterase, hematuria, proteinuria, and nitrates and trace ketones- patient has been taking AZO. - Send urine for culture - Begin treatment with cephalexin for 7 days - Patient education for prevention given - UA DIP, URINE (POC) - URINE CULTURE - CEPHALEXIN 500 MG CAPSULE - Follow-up with your PCP in 3-5 days if symptoms have not improved or sooner if symptoms worsen - Discussed red flags and need for immediate medical evaluation if any occur. - Discussed supportive care treatment with fluids, rest and analgesia. - Discussed expected course of illness Lainey Zepeda APRN.Lainey Davidson APRN.CNP 08/18/2024 11:51 AM Signed ASSESSMENT/PLAN: 1. Urinary frequency - ICD9: 788.41, ICD10: R35.0 acute - UA positive for dieudonne esterase, hematuria, proteinuria, and nitrates and trace ketones- patient has been taking AZO. - Send urine for culture - Begin treatment with cephalexin for 7 days - Patient education for prevention given - UA DIP, URINE (POC) - URINE CULTURE - CEPHALEXIN 500 MG CAPSULE - Follow-up with your PCP in 3-5 days if symptoms have not improved or sooner if symptoms worsen - Discussed red flags and need for immediate medical evaluation if any occur. - Discussed supportive care treatment with fluids, rest and analgesia. - Discussed expected course of illness Lainey Zepeda APRN.COMMERCIAL SERVICE TECHNICIAN [facility] PATIENT INFO BLADDER INFECTION OVERVIEW Bladder infections are one of the most common infections, causing symptoms of burning with urination and needing to urinate frequently. A bladder infection is a type of urinary tract infection (UTI). Bladder infections are more common is women than men. Most women have an uncomplicated bladder infection that is easily treated with a short course of antibiotics. In men, bladder infections may also affect the prostate gland, and a longer course of (more content not included)... Normal [facility] UA DIP, URINE (POC)on 2023 BILIRUBIN UA (POCT) Moderate Abnormal Negative [facility] CLARITY UA (POCT) [facility] COLOR UA (POCT) Red [facility] GLUCOSE UA (POCT) Negative Negative mg/dL [facility] Hemoglobin Ql (U) Large Abnormal Negative [facility] Interpretation and review of laboratory results Abnormal [facility] KETONE UA (POCT) Trace Negative mg/dL [facility] LEUKOCYTES UA (POCT) Trace Abnormal Negative [facility] NITRITE UA (POCT) Positive Abnormal Negative [facility] PH UA (POCT) 7.0 4.5 - 8.0 [facility] Protein Ql (U) >=300 Abnormal Negative mg/dL [facility] SPECIFIC GRAVITY UA (POCT) 1.025 1.005 - 1.030 [facility] UROBILINOGEN UA (POCT) 1.0 Normal E.U./dL [facility] Location:[address], [place], [place], [id number] [place] [address] POINT OF CARE [facility] UA DIP, URINE (POC)on 2022 BILIRUBIN UA (POCT) Large Abnormal Negative [facility] CLARITY UA (POCT) Cloudy [facility] COLOR UA (POCT) Red [facility] GLUCOSE UA (POCT) Negative Negative mg/dL [facility] Hemoglobin Ql (U) Large Abnormal Negative [facility] KETONE UA (POCT) 15 mg/dL Abnormal Negative mg/dL [facility] LEUKOCYTES UA (POCT) Large Abnormal Negative [facility] NITRITE UA (POCT) Positive Abnormal Negative [facility] PH UA (POCT) 5.0 4.5 - 8.0 [facility] Protein Ql (U) >=300 Abnormal Negative mg/dL [facility] SPECIFIC GRAVITY UA (POCT) 1.020 1.005 - 1.030 [facility] UROBILINOGEN UA (POCT) 2.0 E.U./dL Abnormal Normal E.U./dL [facility] UA DIP, URINE (POC)on 2022 BILIRUBIN UA (POCT) Negative Negative [facility] CLARITY UA (POCT) Cloudy [facility] COLOR UA (POCT) Yellow [facility] GLUCOSE UA (POCT) Negative Negative mg/dL [facility] HEMOGLOBIN/BLOOD UA (POCT) Trace-lysed Abnormal Negative [facility] KETONE UA (POCT) Trace Negative mg/dL [facility] LEUKOCYTES UA (POCT) Moderate Abnormal Negative [facility] NITRITE UA (POCT) Negative Negative [facility] PH UA (POCT) 5.5 4.5 - 8.0 [facility] Protein Ql (U) Negative Negative mg/dL [facility] SPECIFIC GRAVITY UA (POCT) 1.020 1.005 - 1.030 [facility] UROBILINOGEN UA (POCT) 0.2 E.U./dL Normal E.U./dL [facility] Office Visiton 07-30-2017 Documentation of current medications (procedure) Done Invalid Interpretation Code [facility] Work Phone: [phone] Fall risk assessment No Invalid Interpretation Code [facility] Work Phone: [phone] Tobacco use CPHS Former smoker Invalid Interpretation Code [facility] Work Phone: [phone] Replaced Document: Sammiosiel Villarreal Observationson 07-30-2017 BUN (urea nitrogen) Sinus Rhythm -Right bundle branch block. ABNORMAL Invalid Interpretation Code [facility] Work Phone: [phone] GE use only - for [employer] import when terms are not otherwise specified 439 ms Invalid Interpretation Code [facility] Work Phone: [phone] P wave axis, electrocardiogram 52 deg Invalid Interpretation Code [facility] Work Phone: [phone] MS interval, electrocardiogram 166 ms Invalid Interpretation Code [facility] Work Phone: [phone] Pulse (Heart Rate) 64 /min Invalid Interpretation Code [facility] Work Phone: [phone] QRS axis, electrocardiogram 11 deg Invalid Interpretation Code [facility] Work Phone: [phone] QRS duration, electrocardiogram 128 ms Invalid Interpretation Code [facility] Work Phone: [phone] QT interval, electrocardiogram new path ms Invalid Interpretation Code [facility] Work Phone: [phone] T wave axis, electrocardiogram 58 deg Invalid Interpretation Code [facility] Phone: [phone] Clinical 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 Left ventricular Ejection fraction 65 % Invalid Interpretation Code [facility] Phone: [phone] Lab Report: Cytology, Body F luid / CSFon 05-02-2016 GE use only - for [employer] import when terms are not otherwise specified SEE PATHOLOGY REPORT Invalid Interpretation Code [facility] Phone: [phone] Office Visit: Est PCPon 04-0 blood in urine (hemoglobin) by dipstick 2+ Invalid Interpretation Code [facility] Phone: [phone] Documentation of current medications (procedure) Done Invalid Interpretation Code [facility] Phone: [phone] specific gravity, urine 1.030 Invalid Interpretation Code [facility] Phone: [phone] Tobacco use CPHS Former smoker Invalid Interpretation Code [facility] Work Phone: [phone] Urine, appearance cloudy Invalid Interpretation Code [facility] Work Phone: [phone] Urine, bilirubin presence Negative Invalid Interpretation Code [facility] Work Phone: [phone] Urine, color yellow Invalid Interpretation Code [facility] Work Phone: [phone] Urine, glucose presence Negative Invalid Interpretation Code [facility] Work Phone: [phone] Urine, ketones presence Negative Invalid Interpretation Code [facility] Phone: [phone] Urine, leukocyte esterase presence 2+ Invalid Interpretation Code [facility] Work Phone: [phone] Urine, nitrite presence Negative Invalid Interpretation Code [facility] Phone: [phone] Urine, pH 6.0 [pH] Invalid Interpretation Code [facility] Work Phone: [phone] Urine, protein Negative Invalid Interpretation Code [facility] Work Phone: [phone] Urine, urobilinogen presence Negative Invalid Interpretation Code [facility] Work Phone: [phone] Lab Report: CBC-Complete Blo od Cnt No Diffon 08-29-2015 Erythrocytes (RBC) 5.06 10*6/uL Invalid Interpretation Code 4.2-5.4 [facility] Work Phone: [phone] Hematocrit (HCT) 44.1 % Invalid Interpretation Code 37-47 [facility] Work Phone: [phone] Hemoglobin (HGB) 15.3 g/dL High 12.0-15.0 [facility] Work Phone: [phone] MCH 30.2 pg Invalid Interpretation Code 27.0-32.0 [facility] Work Phone: [phone] MCHC 34.7 G/GL Invalid Interpretation Code 32-36 [facility] Phone: [phone] MCV 87.2 fL Invalid Interpretation Code 81-99 [facility] Work Phone: [phone] Platelets 206 10*3/mm3 Invalid Interpretation Code 150-450 [facility] Work Phone: [phone] PMV by Kamron 11.0 fL Invalid Interpretation Code 6.2-12.0 [facility] Work Phone: [phone] RDW-CA 13.3 % Invalid Interpretation Code 11.6-14.6 [facility] Phone: [phone] red blood cell distribution width, size density 41.4 fL Invalid Interpretation Code 35.1-43.9 [facility] Work Phone: [phone] WBC (Leukocytes) 6.1 10*3/uL Invalid Interpretation Code 4.4-11.0 [facility] Work Phone: [phone] Lab Report: Comprehensive Me tabolic Profilon 08-29-2015 Alanine aminotransferase (ALT) 31 U/L Invalid Interpretation Code 12-78 [facility] Work Phone: [phone] Albumin 3.5 g/dL Invalid Interpretation Code 3.4-5.0 [facility] Work Phone: [phone] Albumin/Globulin Ratio 1.1 {ratio} Invalid Interpretation Code 0.9-2.4 [facility] Work Phone: [phone] Alkaline phosphatase (ALP) 78 U/L Invalid Interpretation Code 50-136 [facility] Work Phone: [phone] Anion gap 5 mmol/L Invalid Interpretation Code 5-15 [facility] Work Phone: [phone] Aspartate aminotransferase (AST) 20 U/L Invalid Interpretation Code 15-37 [facility] Work Phone: [phone] Bilirubin (total) 0.40 mg/dL Invalid Interpretation Code 0.20-1.00 [facility] Work Phone: [phone] BUN/Creatinine Ratio 10.1 RATIO Invalid Interpretation Code 10-20 [facility] Work Phone: [phone] Calcium 8.9 mg/dL Invalid Interpretation Code 8.5-10.1 [facility] Work Phone: [phone] Chloride 107 mmol/L Invalid Interpretation Code 98-107 [facility] Work Phone: [phone] CO2 30.0 mmol/L Invalid Interpretation Code 21.0-32.0 [facility] Work Phone: [phone] Creatinine 0.89 mg/dL Invalid Interpretation Code 0.55-1.20 [facility] Work Phone: [phone] eGFR (non-black) 66 mL/min/{1.73_m2} Invalid Interpretation Code >60 [facility] Work Phone: [phone] eGFR (non-black) 80 mL/min/{1.73_m2} Invalid Interpretation Code >60 [facility] Work Phone: [phone] Globulin 3.3 g/dL Invalid Interpretation Code 2.3-3.5 [facility] Work Phone: [phone] Glucose 90 mg/dL Invalid Interpretation Code 70-110 [facility] Work Phone: [phone] Potassium 4.0 mmol/L Invalid Interpretation Code 3.5-5.1 [facility] Work Phone: [phone] Protein 6.8 g/dL Invalid Interpretation Code 6.4-8.2 [facility] Work Phone: [phone] Sodium 142 mmol/L Invalid Interpretation Code 136-145 [facility] Work Phone: [phone] Urea nitrogen 9 mg/dL Invalid Interpretation Code 7-18 [facility] Work Phone: [phone] Lab Report: Lipid Profileon 08-29-2015 Cholesterol 177 mg/dL Invalid Interpretation Code 200 [facility] Work Phone: [phone] HDL Cholesterol 39 mg/dL Low [facility] Work Phone: [phone] LDL Cholesterol 94 mg/dL Invalid Interpretation Code 0-130 [facility] Work Phone: [phone] Triglyceride 222 mg/dL High [facility] Work Phone: [phone] very low density lipoproteins 44 mg/dL High 5-40 [facility] Work Phone: [phone] Lab Report: Urinalysis, Rout ine (Dipstick)on 08-29-2015 Nitrite Urine Negative Invalid Interpretation Code Negative [facility] Phone: [phone] Occult Blood, urine 25 High Negative [facility] [employer] [facility] Work Phone: [phone] Urine, clarity Sl. Cloudy Invalid Interpretation Code Clear [facility] Work Phone: [phone] Urine, glucose presence Normal mg/dl Invalid Interpretation Code Normal [facility] Work Phone: [phone] urobilinogen, urine, by dipstick Normal mg/dl Invalid Interpretation Code Normal [facility] Phone: [phone] Office Visiton 07-22-2014 Breast Mammogram screening Normal Bilateral Invalid Interpretation Code [facility] Phone: [phone] Lab Report: VITDon 4 vitamin D 25-hydroxy, serum [id number] ng/mL Normal Units converted. See lab report for original value. [facility] Work Phone: [phone] Office Visiton 05-09-2012 General categories [Interpretation] of Cervical or vaginal smear or scraping by Cyto stain Normal Invalid Interpretation Code [facility] Phone: [phone] Office Visiton 11-18-2007 Colonoscopy (procedure) Colonoscopy (procedure) Invalid Interpretation Code [facility] Phone: Vital Signs Date Time Vital Sign Value Performing Clinician Facility 08-18-2024 11:41-0400 Body temperature 98.1 [degF] Lainey Praisler-Wood 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 SERVICE TECHNICIAN Work Phone: [facility] 08-18-2024 11:41-0400 Body weight 76 kg Lainey Praisler-Wood 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 SERVICE TECHNICIAN Work Phone: [facility] 08-18-2024 11:41-0400 Diastolic blood pressure 84 mm[Hg] Lainey Praisler-Wood 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 SERVICE TECHNICIAN Work Phone: [facility] 08-18-2024 11:41-0400 Heart rate 64 /min Lainey Praisler-Wood 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 SERVICE TECHNICIAN Work Phone: [facility] 08-18-2024 11:41-0400 Respiratory rate 18 /min Lainey Praisler-Wood 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 SERVICE TECHNICIAN Work Phone: [facility] 08-18-2024 11:41-0400 SaO2% (BldA) [Mass fraction] 96 % Lainey Praisler-Wood 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 SERVICE TECHNICIAN Work Phone: [facility] 08-18-2024 11:41-0400 Systolic blood pressure 142 mm[Hg] Lainey Praisler-Wood 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 SERVICE TECHNICIAN Work Phone: [facility] 07-27-2023 09:34-0400 Body temperature 98.01 [degF] Parul Elizabeth 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 SERVICE TECHNICIAN Work Phone: [facility] 07-27-2023 09:34-0400 Body weight 73.03 kg Parul Elizabeth 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 SERVICE TECHNICIAN Work Phone: [facility] 07-27-2023 09:34-0400 Diastolic blood pressure 80 mm[Hg] Parul Elizabeth 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 SERVICE TECHNICIAN Work Phone: [facility] 07-27-2023 09:34-0400 Heart rate 65 /min Parul Elizabeth 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 SERVICE TECHNICIAN Work Phone: [facility] 07-27-2023 09:34-0400 Respiratory rate 19 /min Parul Elizabeth 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 SERVICE TECHNICIAN Work Phone: [facility] 07-27-2023 09:34-0400 SaO2% (BldA) [Mass fraction] 98 % Parul Elizabeth 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 SERVICE TECHNICIAN Work Phone: [facility] 07-27-2023 09:34-0400 Systolic blood pressure 138 mm[Hg] Parul Elizabeth 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 SERVICE TECHNICIAN Work Phone: [facility] 05-27-2023 15:38-0400 Body temperature 98.01 [degF] Chantale Cahva 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 SERVICE TECHNICIAN Work Phone: [facility] 05-27-2023 15:38-0400 Body weight 76.66 kg Chantale Chava 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 SERVICE TECHNICIAN Work Phone: [facility] 05-27-2023 15:38-0400 Diastolic blood pressure 78 mm[Hg] Chantale Chava 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 SERVICE TECHNICIAN Work Phone: [facility] 05-27-2023 15:38-0400 Heart rate 67 /min Chantale Chava 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 SERVICE TECHNICIAN Work Phone: [facility] 05-27-2023 15:38-0400 Respiratory rate 20 /min Chantale Chava 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 SERVICE TECHNICIAN Work Phone: [facility] 05-27-2023 15:38-0400 SaO2% (BldA) [Mass fraction] 96 % Chantale Chava 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 SERVICE TECHNICIAN Work Phone: [facility] 05-27-2023 15:38-0400 Systolic blood pressure 142 mm[Hg] Chantale Chava 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 SERVICE TECHNICIAN Work Phone: [facility] 03-10-2023 09:05-0400 Body temperature 97.7 [degF] Abril Older 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 SERVICE TECHNICIAN Work Phone: [facility] 03-10-2023 09:05-0400 Body weight 77.75 kg Abril Older 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 SERVICE TECHNICIAN Work Phone: [facility] 04-23-2023 09:05-0400 Diastolic blood pressure 88 mm[Hg] Abril Older 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 SERVICE TECHNICIAN Work Phone: [facility] 03-10-2023 09:05-0400 Heart rate 60 /min Abril Older 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 SERVICE TECHNICIAN Work Phone: [facility] 03-10-2023 09:05-0400 Respiratory rate 21 /min Abril Older 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 SERVICE TECHNICIAN Work Phone: [facility] 03-10-2023 09:05-0400 SaO2% (BldA) [Mass fraction] 97 % Abril Older 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 SERVICE TECHNICIAN Work Phone: [facility] 03-10-2023 09:05-0400 Systolic blood pressure 140 mm[Hg] Abril Older 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 SERVICE TECHNICIAN Work Phone: [facility] 07-30-2017 12:34-0400 BMI (Body Mass Index) 28.87 kg/m2 [facility] Work Phone: 07-30-2017 12:34-0400 BP Diastolic 78 mm[Hg] Lizette Ole [facility] Work Phone: 07-30-2017 12:34-0400 BP Systolic 124 mm[Hg] [facility] Work Phone: 07-30-2017 12:34-0400 Height 160.02 cm Lizette Handy [facility] Work Phone: 07-30-2017 12:34-0400 Pulse (Heart Rate) 60 /min Lizette Ole [facility] Work Phone: 07-30-2017 12:34-0400 Respiratory Rate 18 /min [facility] Work Phone: 07-30-2017 12:34-0400 Weight 73.94 kg Lizettepolly Handy [facility] Work Phone: 02-23-2016 10:45-0400 BMI (Body Mass Index) 29.4 kg/m2 Rocky Medina NP [facility] Work Phone: 02-23-2016 10:45-0400 Body Temperature 98.6 [degF] Rocky Medina [employer] [facility] Work Phone: 02-23-2016 10:45-0400 BP Diastolic 82 mm[Hg] Rocky Medina [employer] [facility] Work Phone: 02-23-2016 10:45-0400 BP Systolic 138 mm[Hg] Rocky Medina [employer] [facility] Work Phone: 02-23-2016 10:45-0400 BSA (Body Surface Area) 1.79 m2 Rocky Medina [employer] [facility] Work Phone: 02-23-2016 10:45-0400 Pulse (Heart Rate) 64 /min Rocky Medina [employer] [facility] Work Phone: 02-23-2016 10:45-0400 Respiratory Rate 16 /min Rocky Medina [employer] [facility] Work Phone: 02-23-2016 10:45-0400 Weight 75.3 kg Rocky Medina [employer] [facility] Work Phone: 07-24-2011 09:50-0400 BP Diastolic 86 mm[Hg] Rocky Medina [employer] [facility] Work Phone: 07-24-2011 09:50-0400 BP Systolic 125 mm[Hg] Rocky Medina [employer] [facility] Work Phone: 09-28-2010 12:37-0500 Height 160.02 cm Rocky Medina [employer] [facility] Work Phone: Encounters Encounter Date Encounter Type Care Provider Facility Start: 08-19-2024 End: 08-20-2024 Telephone encounter Reed Granados APRN.COMMERCIAL SERVICE TECHNICIAN Work Phone: [facility] Comment on above: Results Start: 08-18-2024 End: 08-18-2024 ambulatory JHONATAN CHI SANTY Facility:[facility] Start: 08-18-2024 End: 08-18-2024 Patient encounter procedure Lainey Zepeda APRN.COMMERCIAL SERVICE TECHNICIAN Work Phone: [facility] Comment on above: Urinary frequency (P rimary Dx) Start: 07-28-2023 Telephone encounter Lainey Napoles 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 SERVICE TECHNICIAN Work Phone: [facility] Comment on above: Results Start: 07-27-2023 End: 07-27-2023 Patient encounter procedure Parul Elizabeth 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 SERVICE TECHNICIAN Work Phone: [facility] Comment on above: Dysuria (Primary Dx) Start: 05-27-2023 End: 05-27-2023 Patient encounter procedure Chantale Altmank 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 SERVICE TECHNICIAN Work Phone: [facility] Comment on above: Redness of skin (Ayde sarah Dx) Start: 03-10-2023 End: 03-10-2023 Patient encounter procedure Abril Jackman 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 SERVICE TECHNICIAN Work Phone: [facility] Comment on above: Urinary frequency (P rimary Dx) Procedures Date Procedure Procedure Detail Performing Clinician Start: 08-18-2024 Urnls dip stick/tabl et rgnt auto w/o microscopy Jennifer Deutsch 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 SERVICE TECHNICIAN Work Phone: Start: 07-27-2023 Urnls dip stick/tabl et rgnt auto w/o microscopy Lainey Zepeda 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 SERVICE TECHNICIAN Work Phone: Start: 03-10-2023 Urnls dip stick/tabl et rgnt auto w/o microscopy Parul Smithgs 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 SERVICE TECHNICIAN Work Phone: Start: 07-30-2017 End: 07-30-2017 DJN Rojas Henry MD Work Phone: Start: 07-30-2017 End: 07-30-2017 Follow Up Appt 6 months Rojas Henry MD Work Phone: Start: 02-23-2016 End: 07-25-2017 *CBC with Differential Aleta Quinn DO Work Phone: Start: 02-23-2016 End: 07-25-2017 *CMP Complete Metabolic Panel Aleta Quinn DO Work Phone: Start: 02-23-2016 End: 07-25-2017 25-Hydroxyvitamin D2+25-Hydroxyvitamin D3 [Mass/volume] in Serum or Plasma Aleta Quinn DO Work Phone: Start: 02-23-2016 End: 07-25-2017 DEXA scan Aleta Quinn DO Work Phone: Start: 02-23-2016 End: 07-25-2017 Lipid panel [AGGREGATE] Aleta Quinn DO Work Phone: Start: 02-23-2016 End: 07-25-2017 Mammogram, screening Aleta Quinn DO Work Phone: Start: 02-23-2016 End: 02-23-2016 Urinalysis nonauto w/o scope Aleta Quinn DO Work Phone: Start: 07-22-2015 End: 08-29-2015 *CMP Complete Metabolic Panel Mattie Herzog MD Start: 07-22-2015 End: 08-29-2015 *UA - Urinalysis w/o Micro Mattie Herzog MD Start: 07-22-2015 End: 08-29-2015 CBC W Auto Differential panel - Blood Mattie Herzog MD Start: 07-22-2015 End: 08-31-2015 Lipid panel [AGGREGATE] Mattie Herzog MD Start: 07-22-2015 End: 07-25-2017 Mammogram, Screening, both breasts Mattie Herzog MD Start: 09-13-2014 End: 09-13-2014 *BMP Mattie Herzog MD Start: 03-22-2014 End: 03-22-2014 25-Hydroxyvitamin D2+25-Hydroxyvitamin D3 [Mass/volume] in Serum or Plasma Mattie Herzog MD Start: 03-22-2014 End: 07-30-2014 Bone density scan Mattie Herzog MD Start: 03-22-2014 End: 03-22-2014 Lipid panel [AGGREGATE] Mattie Herzog MD Start: 03-22-2014 End: 07-29-2014 Mammogram, Screening, both breasts Mattie Herzog MD Start: 08-11-2013 End: 08-11-2013 *BMP Mattie Herzog MD Start: 05-13-2013 End: 07-22-2013 Mammogram, Screening, both breasts Mattie Herzog MD Start: 04-03-2013 End: 05-13-2013 *CMP Complete Metabolic Panel Mattie Herzog MD Start: 04-03-2013 End: 05-13-2013 *UA - Urinalysis w/o Micro Mattie Herzog MD Start: 04-03-2013 End: 05-13-2013 CBC W Auto Differential panel - Blood Mattie Herzog MD Start: 04-03-2013 End: 05-13-2013 Lipid panel [AGGREGATE] Mattie Herzog MD Start: 05-09-2012 End: 07-18-2012 Mammogram, Screening, both breasts Mattie Herzog MD Start: 03-07-2012 End: 05-12-2012 *CMP Complete Metabolic Panel Mattie Herzog MD Start: 03-07-2012 End: 05-12-2012 25-Hydroxyvitamin D2+25-Hydroxyvitamin D3 [Mass/volume] in Serum or Plasma Mattie Herzog MD Start: 03-07-2012 End: 03-12-2012 Follow Up Appt 2 months Mattie Herzog MD Start: 03-07-2012 End: 05-12-2012 Lipid panel [AGGREGATE] Mattie Herzog MD Start: 07-24-2011 End: 07-26-2011 Assay of vitamin D Mattie Herzog MD Start: 07-24-2011 End: 07-24-2011 Follow-up visit Mattie Herzog MD Start: 07-24-2011 End: 07-24-2011 Urinalysis nonauto w/o scope Mattie Herzog MD Start: 03-29-2011 End: 03-30-2011 Assay of vitamin D Mattie Herzog MD Start: 03-29-2011 End: 07-26-2011 Bone density scan Mattie Herzog MD Start: 03-29-2011 End: 03-29-2011 Complete cbc, automated Mattie Herzog MD Start: 03-29-2011 End: 03-29-2011 Comprehen metabolic panel Mattie Kessler Start: 03-29-2011 End: 03-12-2012 Follow Up Appt 1 year Mattie Herzog MD Start: 03-29-2011 End: 03-29-2011 Follow-up visit Mattie Herzog MD Start: 03-29-2011 End: 03-29-2011 Lipid panel Mattie Herzog MD Start: 03-29-2011 End: 07-26-2011 Mammogram, Screening, both breasts Mattie Herzog MD Start: 03-29-2011 End: 03-29-2011 Urinalysis, nonauto w/scope Mattie Herzog MD Plan of Treatment Date Care Activity Detail Author Start: 07-19-2024 Covid-19 Vaccine ( season) Covid-19 Vaccine ( season) [facility] Start: 07-19-2024 Influenza vaccination Influenza Vacc ine (#1) [facility] Start: 11-18-2023 Advance Directive Discussion Advance Directive Discussion [facility] Start: 07-19-2023 Influenza vaccination INFLUENZA (#1) [facility] Start: 01-20-2023 COVID-19 VACCINE (6 - Pfizer series) COVID-19 VACCINE (6 - Pfizer series) [facility] Start: 11-18-2022 ADVANCE DIRECTIVE DISCUSSION ADVANCE DIRECTIVE DISCUSSION [facility] Start: 11-18-2022 DEPRESSION ASSESSMENT DEPRESSION ASS ESSMENT [facility] Start: 2019 RSV Vaccine (1 - 1-d ose 75+ series) RSV Vaccine (1 - 1-dose 75+ series) [facility] Start: 03-03-2018 End: 03-03-2018 Appointment Appointment [facility] Work Phone: Start: 07-30-2017 End: 07-30-2017 Appointment Appointment [facility] Work Phone: Start: 07-30-2017 End: 07-30-2017 ANDREW MORALES [facility] Work Phone: Start: 07-30-2017 End: 07-30-2017 Follow Up Appt 6 months Follow Up Appt 6 months [employer] [facility] Work Phone: Start: 09-09-2016 Pneumococcal Vaccine : 65+ (2 of 2 - PPSV23 or PCV20) Pneumococcal Vaccine: 65+ (2 of 2 - PPSV23 or PCV20) [facility] Start: 02-23-2016 End: 07-25-2017 *CBC with Differential *CBC with Differential [facility] Work Phone: Start: 02-23-2016 End: 07-25-2017 *CMP Complete Metabolic Panel *CMP Complete Metabolic Panel [facility] Work Phone: Start: 02-23-2016 End: 07-25-2017 25-Hydroxyvitamin D2+25-Hydroxyvitamin D3 [Mass/volume] in Serum or Plasma *Vitamin D (Calciferol) [facility] Work Phone: Start: 02-23-2016 End: 07-25-2017 DEXA scan DEXA scan [facility] Work Phone: Start: 02-23-2016 End: 07-25-2017 Lipid panel [AGGREGATE] *Lipid Profile [facility] Work Phone: Start: 02-23-2016 End: 07-25-2017 Mammogram, screening Mammogram, Screening, both breasts [facility] Work Phone: Start: 07-22-2015 End: 08-29-2015 *CMP Complete Metabolic Panel *CMP Complete Metabolic Panel [facility] Work Phone: Start: 07-22-2015 End: 08-29-2015 *UA - Urinalysis w/o Micro *UA - Urinalysis w/o Micro [facility] Work Phone: Start: 07-22-2015 End: 08-29-2015 CBC W Auto Differential panel - Blood *CBC without Diff [facility] Work Phone: Start: 07-22-2015 End: 08-31-2015 Lipid panel [AGGREGATE] *Lipid Profile [facility] [facility] Work Phone: Start: 07-22-2015 End: 07-25-2017 Mammogram, Screening, both breasts Mammogram, Screening, both breasts [facility] Work Phone: Start: 09-13-2014 End: 09-13-2014 *BMP *BMP [facility] Work Phone: Start: 03-22-2014 End: 03-22-2014 25-Hydroxyvitamin D2+25-Hydroxyvitamin D3 [Mass/volume] in Serum or Plasma *Vitamin D (Calciferol) [facility] Work Phone: Start: 03-22-2014 End: 03-22-2014 Bone density scan Bone Density Study [facility] Work Phone: Start: 03-22-2014 End: 03-22-2014 Lipid panel [AGGREGATE] *Lipid Profile [employer] Work Phone: Start: 03-22-2014 End: 07-29-2014 Mammogram, Screening, both breasts Mammogram, Screening, both breasts [facility] Work Phone: Start: 08-11-2013 End: 08-11-2013 *BMP *BMP [facility] Work Phone: Start: 05-13-2013 End: 07-22-2013 Mammogram, Screening, both breasts Mammogram, Screening, both breasts [facility] Work Phone: Start: 04-03-2013 End: 05-13-2013 *CMP Complete Metabolic Panel *CMP Complete Metabolic Panel [facility] Work Phone: Start: 04-03-2013 End: 05-13-2013 *UA - Urinalysis w/o Micro *UA - Urinalysis w/o Micro [facility] Work Phone: Start: 04-03-2013 End: 05-13-2013 CBC W Auto Differential panel - Blood *CBC without Diff [facility] Work Phone: Start: 04-03-2013 End: 05-13-2013 Lipid panel [AGGREGATE] *Lipid Profile [facility] Work Phone: Start: 05-09-2012 End: 07-18-2012 Mammogram, Screening, both breasts Mammogram, Screening, both breasts [facility] Work Phone: Start: 03-07-2012 End: 05-12-2012 *CMP Complete Metabolic Panel *CMP Complete Metabolic Panel [facility] Work Phone: Start: 03-07-2012 End: 05-12-2012 25-Hydroxyvitamin D2+25-Hydroxyvitamin D3 [Mass/volume] in Serum or Plasma *Vitamin D (Calciferol) [facility] Work Phone: Start: 03-07-2012 End: 03-12-2012 Follow Up Appt 2 months Follow Up Appt 2 months [facility] Work Phone: Start: 03-07-2012 End: 05-12-2012 Lipid panel [AGGREGATE] *Lipid Profile [facility] Work Phone: Start: 07-24-2011 End: 07-26-2011 Assay of vitamin D *Vitamin D (Calciferol) [facility] Work Phone: Start: 07-24-2011 End: 07-24-2011 Follow-up visit Follow Up as needed [facility] Work Phone: Start: 07-24-2011 End: 07-24-2011 Urinalysis nonauto w/o scope UA Dipstick (Office) [facility] Work Phone: Start: 03-29-2011 End: 03-30-2011 Assay of vitamin D *Vitamin D (Calciferol) [facility] [employer] [facility] [employer] Work Phone: Start: 03-29-2011 End: 07-26-2011 Bone density scan Bone Density Study [facility] Work Phone: Start: 03-29-2011 End: 03-29-2011 Complete cbc, automated *CBC without Diff [facility] Work Phone: Start: 03-29-2011 End: 03-29-2011 Comprehen metabolic panel *CMP Complete Metabolic Panel [facility] Phone: Start: 03-29-2011 End: 03-12-2012 Follow Up Appt 1 year Follow Up Appt 1 year [facility] Work Phone: Start: 03-29-2011 End: 03-29-2011 Follow-up visit Follow Up as needed [facility] Phone: Start: 03-29-2011 End: 03-29-2011 Lipid panel *Lipid Profile [facility] Phone: Start: 03-29-2011 End: 07-26-2011 Mammogram, Screening, both breasts Mammogram, Screening, both breasts [facility] Phone: Start: 03-29-2011 End: 03-29-2011 Urinalysis, nonauto w/scope *Urinalysis [facility] Phone: Start: 2009 BONE DENSITY BONE DENSITY [facility] Start: 2009 PNEUMOCOCCAL: 65+ (1 - PCV) PNEUMOCOCCAL: 65+ (1 - PCV) [facility] Start: 2009 Screening for osteoporosis Bone Density Screening [facility] Start: 1994 SHINGRIX VACCINE (1 of 2) SHINGRIX VACCINE (1 of 2) [facility] Start: 1989 DIABETES SCREEN DIABETES SCREEN [facility] Start: 1989 Diabetes Screening Diabetes Screenin g [facility] Start: 1963 Urine microalbumin profile [facility] Start: 1962 Anxiety Screening Anxiety Screening [facility] Start: 1962 Depression Screening Depression Scre ening [facility] Start: 1962 HEPATITIS C SCREENING HEPATITIS C SC HAILEY [facility] Bacteria identified in Urine by Culture URINE CULTURE Microbiology Routine Urinary frequency Ordered: 03/10/2023 [facility] Work Phone: Comment on above: Ordered: 03/10/2023 Bacteria identified in Urine by Culture URINE CULTURE Microbiology Routine Dysuria Ordered: 07/27/2023 [facility] Work Phone: Comment on above: Ordered: 07/27/2023 Bacteria identified in Urine by Culture URINE CULTURE Microbiology Routine Urinary frequency 08/18/2024 11:54 AM EDT [facility] Work Phone: Immunizations Immunization Date Immunization Notes Care Provider Kj davis 09-09-2023 influenza virus vacc ine, unspecified formulation Lainey Zepeda 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 SERVICE 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 Work Phone: [facility] 09-17-2016 influenza, high dose seasonal, preservative-free Abril Older 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 SERVICE TECHNICIAN Work Phone: [facility] Payers Date Payer Category Payer Medicare [employer]NA MEDICARE [employer] GOLD PLUS [id number] 2023-Present [phone] [id number] [place] [id number] HMO [id number] 2023 Private Health Insurance [id number] Social History Date Type Detail Facility Start: 03-10-2023 End: 08-18-2024 Tobacco smoking status NHIS Ex-smoker [facility] Start: 11-19-1969 End: 11-19-1985 History of tobacco use Current smoker [facility] Start: 11-19-1969 End: 11-19-1985 History of tobacco use Cigarette Smoker [facility] Start: 10-26-2020 End: 03-10-2023 Cigarettes smoked current (pack per day) - Reported 1 [facility] Start: 03-10-2023 End: 08-18-2024 Tobacco use and exposure Smokeless tobacco non-user [facility] Start: 03-10-2023 End: 08-18-2024 Alcohol intake Not Asked [facility] Start: 1945 Sex Assigned At Not on file [facility] Start: 10-26-2020 End: 05-27-2023 Tobacco use panel [facility] National Score (1-10 0), lower number is lower risk Not on file [facility] Clinical Notes 03-10-2023 to 08-20-2024 Telephone Encounter - Lauren Henson RN - 08/20/2024 2:03 PM EDTTelephone Encounter - Lauren Henson RN - 08/20/2024 2:03 PM EDTPatient Parul Herron APRN.CNP - 07/27/2023 9:32 AM EDT Note Date & Type Note Facility 08-20-2024 Telephone encounter Note Patient returned call and given provider's message below and patient verbalized understanding. Brooklynn Henson RN [facility] 08-20-2024 Miscellaneous Notes Patient returned call and given provider's message below and patient verbalized understanding. Brooklynn Henson RN Unable to reach patient. Left VM to return call to office. Please read below and advise. Azra Donaldson MA Please inform patient that no significant bacterial infection was noted on urine culture. If symptoms progressively are improving continue antibiotics. Follow-up with PCP for reevaluation. Reed Granados APRN.CNP documented in this encounter [facility] 08-19-2024 Telephone encounter Note Unable to reach patient. Left VM to return call to office. Please read below and advise. Azra Donaldson MA [facility] 08-19-2024 Telephone encounter Note Please inform patient that no significant bacterial infection was noted on urine culture. If symptoms progressively are improving continue antibiotics. Follow-up with PCP for reevaluation. Reed Granados APRN.CNP [facility] Work Phone: 08-18-2024 Instructions Lainey Zepeda APRN.CNP - 08/18/2024 11:51 AM EDT ASSESSMENT/PLAN: 1. Urinary frequency - ICD9: 788.41, ICD10: R35.0 acute - UA positive for dieudonne esterase, hematuria, proteinuria, and nitrates and trace ketones- patient has been taking AZO. - Send urine for culture - Begin treatment with cephalexin for 7 days - Patient education for prevention given - UA DIP, URINE (POC) - URINE CULTURE - CEPHALEXIN 500 MG CAPSULE - Follow-up with your PCP in 3-5 days if symptoms have not improved or sooner if symptoms worsen - Discussed red flags and need for immediate medical evaluation if any occur. - Discussed supportive care treatment with fluids, rest and analgesia. - Discussed expected course of illness Lainey Zepeda APRN.CNP [facility] PATIENT INFO BLADDER INFECTION OVERVIEW Bladder infections are one of the most common infections, causing symptoms of burning with urination and needing to urinate frequently. A bladder infection is a type of urinary tract infection (UTI). Bladder infections are more common is women than men. Most women have an uncomplicated bladder infection that is easily treated with a short course of antibiotics. In men, bladder infections may also affect the prostate gland, and a longer course of treatment may be needed. BLADDER INFECTION CAUSES The urinary tract includes the kidneys (which filter urine), ureters (the tube that carries urine from the kidneys to the bladder), the bladder (which stores urine), and urethra (the tube that carries urine out of the bladder). Bacteria do not normally live in these areas. However, bacteria normally live close to the urethra in women and men who are not circumcised. Bladder infections occur when bacteria travel up the urethra into the bladder. Factors that increase the risk of developing a bladder infection include: Vaginal sex Use of spermicides History of past bladder infections Diabetes In men, not being circumcised or having anal sex increase the risk of bladder infections. BLADDER INFECTION SYMPTOMS The typical symptoms of a bladder infection include: Pain or burning when urinating Frequent need to urinate Urgent need to urinate Blood in the urine Fever, back pain, nausea, or vomiting are not common symptoms of a bladder infection, but can occur in people with a kidney infection (pyelonephritis). If you have these symptoms, you should call your doctor or nurse immediately. Is it a bladder infection or something else? -- Burning with urination can also occur in people with vaginitis (eg, yeast infection) or urethritis (inflammation of the urethra). For this reason, it is important to call your healthcare provider before assuming you have a bladder infection. BLADDER INFECTION DIAGNOSIS Simple bladder infections are usually diagnosed based upon your symptoms alone. However, most patients, especially those who have bladder infection symptoms for the first time, should see a healthcare provider for urine testing. Urine culture -- A urine culture is a test that uses a sample of urine to try and grow bacteria in a laboratory. It usually requires about 48 hours to get results. However, a urine culture is not always required to diagnose a bladder infection. Urine culture is often recommended if: You have never had a bladder infection before You have symptoms that are not typical for bladder infection You have had resistant bladder infections before You have frequent bladder infections You do not begin to feel better within 24 to 48 hours after starting antibiotics You are BLADDER INFECTION TREATMENT Bladder infection -- In young, healthy adolescents and adults with a bladder infection, the usual treatment includes a three to seven day course of antibiotics. The typical drugs chosen are: trimethoprim-sulfamethoxazole (Bactrim ), nitrofurantoin (Macrobid ), ciprofloxacin (Cipro ) or levofloxacin (Levaquin ). In men, the infection may involve your prostate gland and treatment is usually given for at least 7 days. Your symptoms should begin to resolve within one day after starting treatment. It is important to take the full course of antibiotics to completely eliminate the infection. If your symptoms persist for more than two or three days after starting treatment, call your healthcare provider. If needed, you can take a prescription medication that numbs the bladder and urethra (phenazopyridine [Pyridium ]) to reduce the burning pain of some UTIs. A similar medication is available without a prescription (eg, Uristat). Both medications change the color of the urine (usually blue or orange) and can interfere with laboratory testing. You should not take these medications for more than 48 hours due to the risk of side effects. These medications do not treat the infection and must be taken along with an antibiotic. Some providers recommend drinking more fluids while treating bladder infections to help flush bacteria from the bladder. Others believe that drinking more fluids may dilute the antibiotic in the bladder and make the medication less effective. No studies have been performed to address this issue. There are also no good studies on the effectiveness of cranberry juice for treating a bladder infection; we do not recommend using cranberry juice to treat bladder infections. Follow-up care -- Follow-up testing is not needed in healthy, young men or women with a bladder infection if symptoms resolve. women are usually asked to have a repeat urine culture one to two weeks after treatment has ended to make sure the bacteria are no longer in the urine. RECURRENT BLADDER INFECTIONS Bladder infections versus other causes -- Some adults, especially women, develop bladder infections frequently. In this case, it is important to confirm that your symptoms (eg, pain or burning, frequency, and urgency) are caused by a bladder infection. Symptoms are usually similar from one infection to another. The best way to confirm an infection is to have a urine culture. If your urine culture is negative for infection, other causes of pain, burning, and frequency should be investigated. There is no reason to take antibiotics if your urine culture is negative. Need for further testing -- If you continue to develop bladder infections, you may require further testing. If you continue to notice blood in your urine after your bladder infection has cleared, you should have further testing. Preventing recurrent UTIs -- Women with recurrent urinary tract infections may be advised to take steps to prevent bladder infections, including one or more of the following: Changes in control -- Women who develop frequent bladder infections and use spermicides, particularly those who also use a diaphragm, may be encouraged to use an alternate method of control. Cranberry products -- Taking cranberry juice or cranberry tablets has been promoted as one way to help prevent frequent bladder infections. However, this has not been proven. Drinking more fluid and urinating after intercourse -- Although studies have not proven that drinking more fluids or urinating soon after intercourse can prevent infection, some healthcare providers recommend these measures since they are not harmful. Drinking more fluid may help to wash out bacteria that enter the bladder. Postmenopausal women -- Postmenopausal women who develop recurrent bladder infections may benefit from using vaginal estrogen. Vaginal estrogen is available in a flexible ring that is worn in the vagina for three months (eg, Estring ), a small tablet (Vagifem ), or a cream (eg, Premarin or Estrace ). Vaginal estrogen is discussed in more detail in a separate topic review. Antibiotics -- A preventive antibiotic treatment may be recommended if you repeatedly develop bladder infections and have not responded to other preventive measures. Antibiotics are highly effective in preventing recurrent bladder infections and can be taken in several different ways. Preventive antibiotic -- You can take a low dose of an antibiotic once per day or three times per week for six months to several years. Antibiotics following intercourse -- In women who develop urinary tract infections after sex, taking a single low dose antibiotic after intercourse can help to prevent bladder infections. Self-treatment -- A plan to begin antibiotics at the first sign of a bladder infection may be recommended in some situations. Before starting this regimen, it is important that you have had testing (urine cultures) to confirm that your symptoms are caused by a bladder infection; some people have symptoms of a bladder infection but do not actually have an infection. documented in this encounter [facility] 08-18-2024 Note HNO ID: [id number] Author: LAINEY ZEPEDA APRN.CASSANDRA Service: ? Author Type: Nurse Practitioner Type: Progress Notes Filed: 08/18/2024 12:58 Note Text: Subjective HPI Mary Pineda is a 79 year old female who presents with possible UTI. Review of Systems Constitutional: Negative for chills and fever. Respiratory: Negative. Cardiovascular: Negative. Gastrointestinal: Negative for abdominal pain, nausea and vomiting. Genitourinary: Positive for dysuria, frequency and urgency. Musculoskeletal: Negative for back pain. BP 142/84 Pulse 64 Temp 36.7 ?C (98.1 ?F) (Tympanic) Resp 18 Wt 76 kg (167 lb 8.8 oz) SpO2 96% History reviewed. No pertinent past medical history. No past surgical history on file. ALLERGIES Patient has no known allergies. MEDICATIONS - anastrozole (ARIMIDEX) 1 mg tablet Take 1 mg by mouth once daily. - aspirin, enteric coated (ASPIRIN, ENTERIC COATED) 81 mg EC tablet Take 81 mg by mouth once daily. - Cranberry 500 mg cap Take by mouth. - rivaroxaban (XARELTO) 20 mg tablet Take 20 mg by mouth daily with dinner. - CALCIUM CARBONATE/VITAMIN D3 (VITAMIN D-3 ORAL) Take by mouth. - metoprolol succinate ER (TOPROL XL) 25 mg 24 hr tablet Take 25 mg by mouth once daily. 1 po am and 1 po pm - POTASSIUM CHLORIDE ORAL Take 1 capsule by mouth once daily. - HYDROCHLOROTHIAZIDE ORAL Take by mouth. - CALCIUM CARBONATE/VITAMIN D3 (CALCIUM 500 + D ORAL) Take by mouth. - MULTIVITAMIN ORAL Take by mouth. No family history on file. Social History Tobacco Use - Smoking status: Former Current packs/day: 0.00 Average packs/day: 1 pack/day for 16.0 years (16.0 ttl pk-yrs) Types: Cigarettes Start date: 11/19/1969 Quit date: 11/19/1985 Years since quittin.7 - Smokeless tobacco: Never Objective Physical Exam Vitals and nursing note reviewed. Constitutional: General: She is not in acute distress. Appearance: Normal appearance. She is not ill-appearing. Cardiovascular: Rate and Rhythm: Normal rate and regular rhythm. Heart sounds: Normal heart sounds. Pulmonary: Effort: Pulmonary effort is normal. No respiratory distress. Breath sounds: Normal breath sounds. No wheezing or rales. Abdominal: General: There is no distension. Palpations: Abdomen is soft. There is no mass. Tenderness: There is no abdominal tenderness. There is no right CVA tenderness, left CVA tenderness or guarding. Skin: General: Skin is warm and dry. Neurological: Mental Status: She is alert. Patient sees Dr. Madera for PCP- no labs in system. Patient states she has had no concerns regarding kidney function in recent labwork ordered by Dr. Madera. ASSESSMENT/PLAN: 1. Urinary frequency - ICD9: 788.41, ICD10: R35.0 acute - UA positive for dieudonne esterase, hematuria, proteinuria, and nitrates and trace ketones- patient has been taking AZO. - Send urine for culture - Begin treatment with cephalexin for 7 days - Patient education for prevention given - UA DIP, URINE (POC) - URINE CULTURE - CEPHALEXIN 500 MG CAPSULE - Follow-up with your PCP in 3-5 days if symptoms have not improved or sooner if symptoms worsen - Discussed red flags and need for immediate medical evaluation if any occur. - Discussed supportive care treatment with fluids, rest and analgesia. - Discussed expected course of illness Lainey Zepeda APRN.[facility] 08-18-2024 History of Present illness Narrative Subjective HPI Mary Pineda is a 79 year old female who presents with possible UTI. Review of Systems Constitutional: Negative for chills and fever. Respiratory: Negative. Cardiovascular: Negative. Gastrointestinal: Negative for abdominal pain, nausea and vomiting. Genitourinary: Positive for dysuria, frequency and urgency. Musculoskeletal: Negative for back pain. BP 142/84 Pulse 64 Temp 36.7 C (98.1 F) (Tympanic) Resp 18 Wt 76 kg (167 lb 8.8 oz) SpO2 96% History reviewed. No pertinent past medical history. No past surgical history on file. ALLERGIES Patient has no known allergies. MEDICATIONS anastrozole (ARIMIDEX) 1 mg tablet Take 1 mg by mouth once daily. aspirin, enteric coated (ASPIRIN, ENTERIC COATED) 81 mg EC tablet Take 81 mg by mouth once daily. Cranberry 500 mg cap Take by mouth. rivaroxaban (XARELTO) 20 mg tablet Take 20 mg by mouth daily with dinner. CALCIUM CARBONATE/VITAMIN D3 (VITAMIN D-3 ORAL) Take by mouth. metoprolol succinate ER (TOPROL XL) 25 mg 24 hr tablet Take 25 mg by mouth once daily. 1 po am and 1 po pm POTASSIUM CHLORIDE ORAL Take 1 capsule by mouth once daily. HYDROCHLOROTHIAZIDE ORAL Take by mouth. CALCIUM CARBONATE/VITAMIN D3 (CALCIUM 500 + D ORAL) Take by mouth. MULTIVITAMIN ORAL Take by mouth. No family history on file. Social History Tobacco Use Smoking status: Former Current packs/day: 0.00 Average packs/day: 1 pack/day for 16.0 years (16.0 ttl pk-yrs) Types: Cigarettes Start date: 11/19/1969 Quit date: 11/19/1985 Years since quittin.7 Smokeless tobacco: Never Objective Physical Exam Vitals and nursing note reviewed. Constitutional: General: She is not in acute distress. Appearance: Normal appearance. She is not ill-appearing. Cardiovascular: Rate and Rhythm: Normal rate and regular rhythm. Heart sounds: Normal heart sounds. Pulmonary: Effort: Pulmonary effort is normal. No respiratory distress. Breath sounds: Normal breath sounds. No wheezing or rales. Abdominal: General: There is no distension. Palpations: Abdomen is soft. There is no mass. Tenderness: There is no abdominal tenderness. There is no right CVA tenderness, left CVA tenderness or guarding. Skin: General: Skin is warm and dry. Neurological: Mental Status: She is alert. Patient sees Dr. Madera for PCP- no labs in system. Patient states she has had no concerns regarding kidney function in recent labwork ordered by Dr. Madera. ASSESSMENT/PLAN: 1. Urinary frequency - ICD9: 788.41, ICD10: R35.0 acute - UA positive for dieudonne esterase, hematuria, proteinuria, and nitrates and trace ketones- patient has been taking AZO. - Send urine for culture - Begin treatment with cephalexin for 7 days - Patient education for prevention given - UA DIP, URINE (POC) - URINE CULTURE - CEPHALEXIN 500 MG CAPSULE - Follow-up with your PCP in 3-5 days if symptoms have not improved or sooner if symptoms worsen - Discussed red flags and need for immediate medical evaluation if any occur. - Discussed supportive care treatment with fluids, rest and analgesia. - Discussed expected course of illness Lainey Zepeda APRN.CASSANDRA documented in this encounter [facility] 07-28-2023 Miscellaneous Notes Patient given results and verbalized understanding of instructions given. Eveline Nunes ----- Message from Lainey Zepeda APRN.CASSANDRA sent at 07/28/2023 1:20 PM EDT ----- Urine culture did not show clear evidence of infection. She may continue to take antibiotic if it has been helpful. Recommend follow up with PCP to ensure hematuria has resolved. Lainey Zepeda CNP documented in this encounter [facility] 07-27-2023 History of Present illness Narrative This note was created using [employer]. Subjective Mary Pineda is a 78 year old female. 78 year old female with PMH HTN, right breast CA, afib (on Xarelto) presents with complaints of UTI Acute onset this morning. +dysuria +urinary frequency +urgency +hematuria Denies vaginal bleeding or vaginal discharge. Denies fever or chills Denies abdominal pain Denies back pain that is worse than her baseline. Denies using homeopathic or OTC medications [employer]. The history is provided by the patient. No venetian blind tape cutter was used. UTI This is a new problem. The current episode started 3 to 5 hours ago. The problem occurs every urination. The problem has been gradually worsening. The quality of the pain is described as burning. The pain is at a severity of 5/10. There has been no fever. She is Not sexually active. Associated symptoms include chills, frequency, hematuria and urgency. Pertinent negatives include no sweats, no nausea, no vomiting, no discharge, no hesitancy, no possible and no flank pain. She has tried nothing for the symptoms. Her past medical history does not include kidney stones, single kidney, urological procedure, recurrent UTIs, urinary stasis or catheterization. No past medical history on file. No past surgical history on file. ALLERGIES Patient has no known allergies. MEDICATIONS anastrozole (ARIMIDEX) 1 mg tablet Take 1 mg by mouth once daily. aspirin, enteric coated (ASPIRIN, ENTERIC COATED) 81 mg EC tablet Take 81 mg by mouth once daily. Cranberry 500 mg cap Take by mouth. rivaroxaban (XARELTO) 20 mg tablet Take 20 mg by mouth daily with dinner. CALCIUM CARBONATE/VITAMIN D3 (VITAMIN D-3 ORAL) Take by mouth. metoprolol succinate ER (TOPROL XL) 25 mg 24 hr tablet Take 25 mg by mouth once daily. 1 po am and 1 po pm POTASSIUM CHLORIDE ORAL Take 1 capsule by mouth once daily. HYDROCHLOROTHIAZIDE ORAL Take by mouth. CALCIUM CARBONATE/VITAMIN D3 (CALCIUM 500 + D ORAL) Take by mouth. MULTIVITAMIN ORAL Take by mouth. No family history on file. Social History Tobacco Use Smoking status: Former Packs/day: 1.00 Years: 16.00 Additional pack years: 0.00 Total pack years: 16.00 Types: Cigarettes Quit date: 11/19/1985 Years since quittin.7 Smokeless tobacco: Never Review of Systems Constitutional: Positive for chills. Eyes: Negative for pain, discharge and itching. Respiratory: Negative for apnea, choking and chest tightness. Cardiovascular: Negative for chest pain, palpitations and leg swelling. Gastrointestinal: Negative for abdominal pain, diarrhea, nausea and vomiting. Genitourinary: Positive for dysuria, frequency, hematuria and urgency. Negative for flank pain and hesitancy. Musculoskeletal: Positive for back pain (chronic, denies worsening). Skin: Negative for color change, pallor, rash and wound. Allergic/Immunologic: Negative for environmental allergies, food allergies and immunocompromised state. Hematological: Negative for adenopathy. Does not bruise/bleed easily. Psychiatric/Behavioral: Negative for agitation and behavioral problems. Objective BP 138/80 Pulse 65 Temp 36.7 C (98 F) Resp 19 Wt 73 kg (161 lb) SpO2 98% Physical Exam Vitals and nursing note reviewed. Constitutional: General: She is not in acute distress. Appearance: Normal appearance. She is normal weight. She is not ill-appearing, toxic-appearing or diaphoretic. HENT: Head: Normocephalic and atraumatic. Right Ear: Ear canal and external ear normal. Left Ear: Ear canal and external ear normal. Nose: Nose normal. No congestion or rhinorrhea. Mouth/Throat: Mouth: Mucous membranes are moist. Pharynx: No oropharyngeal exudate or posterior oropharyngeal erythema. Eyes: General: Right eye: No discharge. Left eye: No discharge. Extraocular Movements: Extraocular movements intact. Conjunctiva/sclera: Conjunctivae normal. Pupils: Pupils are equal, round, and reactive to light. Cardiovascular: Rate and Rhythm: Normal rate and regular rhythm. Pulses: Normal pulses. Heart sounds: Normal heart sounds. No murmur heard. No friction rub. Pulmonary: Effort: Pulmonary effort is normal. No respiratory distress. Breath sounds: Normal breath sounds. No stridor. No wheezing, rhonchi or rales. Chest: Chest wall: No tenderness. Abdominal: General: Abdomen is flat. There is no distension. Palpations: Abdomen is soft. There is no mass. Tenderness: There is no abdominal tenderness. There is no right CVA tenderness, left CVA tenderness, guarding or rebound. Hernia: No hernia is present. Musculoskeletal: General: No swelling, tenderness, deformity or signs of injury. Normal range of motion. Cervical back: Normal range of motion and neck supple. No rigidity. Right lower leg: No edema. Left lower leg: No edema. Lymphadenopathy: Cervical: No cervical adenopathy. Skin: General: Skin is warm and dry. Coloration: Skin is not jaundiced or pale. Findings: No bruising, erythema, lesion or rash. Neurological: General: No focal deficit present. Mental Status: She is alert and oriented to person, place, and time. Cranial Nerves: No cranial nerve deficit. Sensory: No sensory deficit. Motor: No weakness. Coordination: Coordination normal. Gait: Gait normal. Psychiatric: Mood and Affect: Mood normal. Behavior: Behavior normal. Thought Content: Thought content normal. Judgment: Judgment normal. Assessment and Plan ASSESSMENT/PLAN: 1. Dysuria - ICD9: 788.1, ICD10: R30.0 Acute onset this morning +david blood Patient is on Xarelto, I always pee blood with infections Hemodynamically stable and non toxic otherwise acute - UA positive for dieudonne esterase, hematuria, proteinuria, and nitrates - Send urine for culture - Begin treatment with Keflex - Patient education for prevention given - UA DIP, URINE (POC) - URINE CULTURE Parul Elizabeth APRN.CASSANDRA documented in this encounter [facility] 05-27-2023 History of Present illness Narrative Images from the original note were not included. Subjective The history is provided by the patient. No venetian blind tape cutter was used. HPI Mary Pineda is a 78 year old female who presents today for CC of swelling and redness of lower right leg. This started 3 weeks ago with bruising when she ran into the corner of a bed. She was seen by her pcp and r/o blood clot, at that time she was placed on keflex and doxycycline. She denies any fever. BP 142/78 Pulse 67 Temp 36.7 C (98 F) Resp 20 Wt 76.7 kg (169 lb) SpO2 96% Social History Tobacco Use Smoking status: Former Packs/day: 1.00 Years: 16.00 Total pack years: 16.00 Types: Cigarettes Quit date: 11/19/1985 Years since quittin.5 Smokeless tobacco: Never No past medical history on file. I have confirmed and edited as necessary, the [facility] Review of Systems Constitutional: Negative for chills and fever. Musculoskeletal: Negative for joint pain and myalgias. Skin: Negative for itching and rash. Redness and swelling of skin All other systems reviewed and are negative. Objective Physical Exam Vitals and nursing note reviewed. Pulmonary: Effort: Pulmonary effort is normal. Skin: General: Skin is warm and dry. Findings: Erythema present. Comments: Area marked, red, swelling, tender to touch Neurological: Mental Status: She is alert and oriented to person, place, and time. Psychiatric: Mood and Affect: Affect normal. ASSESSMENT/PLAN: 1. Redness of skin - ICD9: 695.9, ICD10: L53.9 Appears to be infection, possible abscess Start doxycycline as ordered, discuss sun sensitivity Advise need to have recheck in 1-2 days with pcp, possible referral to gen surgeon for I & D Patient will call PCP Diagnosis and treatment plan were discussed and questions were answered to the patient's satisfaction. Pt acknowledged understanding of concepts and follow up plan. Specific signs and symptoms that would indicate the need for higher level of care were discussed in detail warranting prompt ER evaluation. Chantale Larsen APRN.CASSANDRA documented in this encounter [facility] 05-27-2023 Instructions Chantale Larsen APRN.CNP - 05/27/2023 4:07 PM EDT Warm compresses to area Need to see PCP in next 24-48 hours To ER for further treatment or medication documented in this encounter [facility] 03-10-2023 History of Present illness Narrative CC: Patient presents with: UTI: Frequency, burning, pressure x 1 week HPI Mary Pineda is a 77 year old female who presents with complaint of possible UTI. These symptoms have been present for 7 days. Associated symptoms: burning, urgency, frequency, and pressure Denies: backpain, hematuria, fever, and chills Treatments: increasing her fluids The ROS was otherwise negative. PMH, Medications, labs, allergies, and recent past visits with PCP were reviewed and updated as able. PHYSICAL EXAM: BP 140/88 Pulse 60 Temp 36.5 C (97.7 F) Resp 21 Wt 77.7 kg (171 lb 6.4 oz) SpO2 97% General: Well appearing and alert CV: Regular rate and rhythm without obvious murmur Lungs: clear to auscultation bilaterally Back: no CVA tenderness Abdomen: soft, nontender, nondistended ASSESSMENT/PLAN: 1. Urinary frequency - ICD9: 788.41, ICD10: R35.0 - UA DIP, URINE (POC) positive for trace ketone, trace blood, moderate leuks - send URINE CULTURE - start treatment with Macrobid - follow-up with PCP in 2-3 days if no improvement or sooner if worsening Prescription instructions reviewed with patient as applicable. Potential red flag symptoms discussed with the patient. Reviewed appropriate action plan to take if red flag symptoms occur. Patient agreeable to treatment plan. Abril Jackman APRN.CNP documented in this encounter [facility] 03-10-2023 Instructions Abril Jackman APRN.CNP - 03/10/2023 9:17 AM EDT URINARY TRACT INFECTION GENERAL INFORMATION: A urinary tract infection (UTI) is an infection of the bladder or kidneys. A bladder infection, called cystitis, is the more common type. If the infection travels up to the kidneys, it is called pyelonephritis. This can be more serious. UTIs are a common problem in women. Having sexual relations can leave a woman more susceptible to developing a UTI, but it is not sexually transmitted like gonorrhea. Some women have a problem with recurrent UTIs. INSTRUCTIONS: 1. Take antibiotic exactly as directed. Be sure to take all the medication prescribed, even if your symptoms disappear. If you stop treatment early, the infection may not be fully treated and the symptoms could come back again. 2. Get plenty of rest. You may take acetaminophen for fever and aches. 3. Drink 6 to 8 glasses of fluids, especially water, every day. This helps wash out germs from your urinary tract. Cranberry juice or other sources of vitamin C are also good for you. 4. Urinate often, as soon as you feel the urge. Empty your bladder completely. Urinate before and after you have sex. 5. Always wipe from front to back after going to the bathroom. This pushes germs away from your bladder, rather than towards it. 6. Showers are better than baths, and you should wash the genital area daily. Avoid bubble bath or bath oils if you do take a bath. 7. Wear underwear and pantyhose with a cotton crotch. CALL OFFICE IF: 1. You have a temperature over 102F (38.8C) after 48 hours on medication. 2. You notice blood in your urine. 3. Your symptoms don't improve in 2 days. 4. You develop nausea, vomiting, diarrhea, or a rash. 5. You develop new or unexplained symptoms. These may be related to the medication you are taking. 6. Your symptoms return after you finish treatment. documented in this encounter [facility] Evaluation note Diagnosis Ur[facility]- [facility] Redness of skin- Primary Unspecified erythematous condition [facility] Dysuria- Primary [facility] Urinary frequency- Primary documented in this encounter [facility] Summary Purpose Family History No Family History Records Found Advance Directives No Advanced Directives Records Found Additional Source Comments Source Comments (unrecognize d section and content) In the event this informatio n is protected by the Federal Confidentiality of Alcohol and Drug Abuse Patient Records regulations: The Federal rules restrict any use of the information to criminally investigate or prosecute any alcohol or drug abuse patient.[facility] the event this information is protected by the Federal Confidentiality of Alcohol and Drug Abuse Patient Records regulations: The Federal rules restrict any use of the information to criminally investigate or prosecute any alcohol or drug abuse patient.[facility] the event this information is protected by the Federal Confidentiality of Alcohol and Drug Abuse Patient Records regulations: The Federal rules restrict any use of the information to criminally investigate or prosecute any alcohol or drug abuse patient.[facility] the event this information is protected by the Federal Confidentiality of Alcohol and Drug Abuse Patient Records regulations: The Federal rules restrict any use of the information to criminally investigate or prosecute any alcohol or drug abuse patient.[facility] the event this information is protected by the Federal Confidentiality of Alcohol and Drug Abuse Patient Records regulations: The Federal rules restrict any use of the information to criminally investigate or prosecute any alcohol or drug abuse patient.[facility] the event this information is protected by the Federal Confidentiality of Alcohol and Drug Abuse Patient Records regulations: The Federal rules restrict any use of the information to criminally investigate or prosecute any alcohol or drug abuse patient.[facility] Reason for Visit (unrecogniz ed section and content) Reason Comments UTI Frequency, burning, pressure x 1 week Reason Comments Trauma Bruised right pat x 3 weeks Reason Comments UTI Hematuria, painful u rination started this morning Reason Comments Results Reason Comments Urinary Frequency Frequency, urgency a nd burning x 1 day Care Teams (unrecognized sec tion and content) Melon Packer Relationship Specialty Start Date End Date Jhonatan Madera Chi [address] [place] [address] PCP - General Gerontology 08/18/24 Melon Packer Relationship Specialty Start Date End Date Jhonatan Madera Chi [address] [place] [address] PCP - General Gerontology 08/18/24 INFORMATION SOURCE (unrecogn ized section and content) DATE CREATED AUTHOR 08/22/2024 [facility] FOR RECORDS PERTAINING TO PATIENTS WHO ARE OR HAVE BEEN ENROLLED IN A CHEMICAL DEPENDENCY/SUBSTANCEABUSE PROGRAM, SOME INFORMATION MAY BE OMITTED. This clinical summary was aggregated from multiple sources. Caution should be exercised in using it in the provision of clinical care. This summary normalizes information from multiple sources, and as a consequence, information in this document may materially change the coding, format and clinical context of patient data. In addition, data may be omitted in some cases. CLINICAL DECISIONS SHOULD BE BASED ON THE PRIMARY CLINICAL RECORDS. [facility] [employer] [facility]. provides no warranty or guarantee of the accuracy or completeness of information in this document.
[2024-09-08 17:23] LABS: Color, Urine Red (Yellow); Glucose, Dipstick Normal (Normal); Ketone-Dipstick Negative (Negative); Leukocyte Esterase-Dipstick 500 /ul (Negative); Nitrite-Dipstick Negative (Negative); Occult Blood-Urine 250 /ul (Negative); Protein-Dipstick 500 mg/dl (Negative); Urine Bilirubin Dipstick Negative (Negative); Urine Clarity Turbid (Clear); Urine Urobilinogen Normal (Normal); Urine pH 6.5 (5.0 - 8.0)
== END | disposition home or self-care (01) ==
LOC: LAB 15:01
PROVIDERS: PCP Family Medicine Geriatric Medicine; Referring Provider Family Medicine Geriatric Medicine; Visit Provider Family Medicine Geriatric Medicine
DX: N39.0 Urinary tract infection, site not specified (principal)
CPT/HCPCS: 81002; 87086; 87088

== ENCOUNTER → 2024-09-17 | Outpatient (CLI) | payer MEDICARE, SELFPAY ==
[2018-10-20 11:07] VITALS: BMI 28.8
--- NOTE | 2024-09-17 09:52 | BD_ITS ---
STUDY: DUAL ENERGY X-RAY ABSORPTIOMETRY / DXA REASON FOR EXAM: Female, 79 years old. OSTEOPENIA TECHNIQUE: Bone Mineral Density (BMD) measurements of lumbar spine and bilateral hips were obtained. COMPARISON: Comparison is made with prior study September 13, 2022. FINDINGS: Lumbar Spine (L1-L4): g/cm2 (0.982) / T-score (-0.6) / Z-score (2.1) Findings are suggestive of normal bone density with a low fracture risk. Left Femur Total: g/cm2 (0.842) / T-score (-0.8) / Z-score (1.3) Left Femoral Neck: g/cm2 (0.572) / T-score (-2.5) / Z-score (-0.2) Right Femur Total: g/cm2 (0.851) / T-score (-0.7) / Z-score (1.3) Right Femoral Neck: g/cm2 (0.596) / T-score (-2.3) / Z-score (0.0) The T-Scores on the most recent prior examination were: Lumbar Spine (L1-L4): There has been improvement of bone density since the previous examination. Left Femur Total: which represents a worsening of 1.3%. Right Femur Total: which represents an improvement of 1.1%. BD/Dexa Bone Density Study IMPRESSION: The patient is considered osteopenic as outlined below according to World Marshall Organization (WHO) criteria with a high fracture risk. There has been improvement of bone density since the previous examination. Reference Information: The T-score is the number of standard deviations above or below the standard which is normal for young adults at their peak bone mineral density. The World Health Organization (WHO) interprets the T-scores as follows: Above -1 Normal bone density Between -1 and -2.5 Osteopenia Equal to / or below -2.5 Osteoporosis As a practical clinical guideline, osteopenia may be graded as follows: Mild -1 through -1.5 Moderate -1.6 through -2.0 Severe -2.1 through -2.4 The Z-score is the number of standard deviations above or below age-matched controls. A Z-score of less than -1.5 would be considered abnormal. References: 1. NIH Osteoporosis and Related Bone Diseases www osteo.org 2. International Society for Clinical Densitometry www iscd.org 3. National Osteoporosis Foundation www nof.org Electronically Signed: Anthony Tomlinson MD at 12:58 EST ,
--- NOTE | 2024-09-17 09:52 | BI_ITS ---
MAMMOGRAPHY - BILATERAL SCREENING REASON FOR EXAM: Female, 79 years old. Routine annual screening examination. PERTINENT HISTORY: Personal history of breast cancer. History of prior right lumpectomy. Aunts with breast cancer. TECHNIQUE: Digital bilateral breast param (3D mammographic acquisition) in the CC and MLO projections. 2-D mediolateral oblique (MLO) and craniocaudad (CC) views of both breasts were obtained. CAD: Full Field Digital Mammography with Computer Added Detection was performed. COMPARISON: Comparison is made with prior study dated September 16, 2023 and September 13, 2022. FINDINGS: Breast Composition: The breasts are heterogeneously dense, which may obscure small masses. There are no dominant masses or suspicious calcifications. Once again, the patient is status post lumpectomy in the upper outer quadrant of the right breast. Postoperative scarring is seen. A tissue clip marker seen in the slightly upper lateral aspect of right breast. Surgical clips are seen in the right axilla. No other significant abnormalities are identified. There has been no significant change since the prior study. BI/SCRN MAMM (CAD)W/PARAM BILAT IMPRESSION: Stable bilateral screening mammogram. Yearly follow-up mammogram recommended. (A) ASSESSMENT CATEGORY: BIRADS Category 2: Benign. A letter regarding these results will be sent to the patient by the facility within 30 days. Approximately 10% of breast cancers are not detected by mammography. A normal mammogram should not delay biopsy of a clinically suspicious abnormality. [id number] Electronically Signed: Anthony Tomlinson MD at 11:00 EDT ,
== END | disposition home or self-care (01) ==
LOC: OPBD 09:52
PROVIDERS: PCP Family Medicine Geriatric Medicine; Referring Provider Internal Medicine Hematology & Oncology; Visit Provider Internal Medicine Hematology & Oncology
DX: Z12.31 Encounter for screening mammogram for malignant neoplasm of breast (principal); Z78.0 Asymptomatic menopausal state; Z85.3 Personal history of malignant neoplasm of breast
CPT/HCPCS: 77063; 77067; 77080

== ENCOUNTER → 2024-10-26 | Outpatient (CLI) | payer MEDICARE, SELFPAY ==
[2018-10-20 11:07] VITALS: BMI 28.8
[2024-10-26 10:58] LABS: Absolute Lymphocyte Count 2.02 X10^3/uL (0.83-4.51); Absolute Neutrophil Count 3.5 X10^3/uL (2.0-7.7); Basophil# 0.02 X10^3/uL; Basophil% 0.3 % (0-1); Eosinophil# 0.06 X10^3/uL; Hematocrit 45.4 % (37-47); Hemoglobin 15.1 g/dL (12.0-15.0); Lymphocyte # 2.02 X10^3/ul (0.83-4.51); Lymphocyte % 32.6 % (19-41); Mean Corp Hgb Conc 33.3 g/dL (32-36); Mean Corpuscular Hgb 29.4 pg (27.0-32.0); Mean Corpuscular Volume 88.5 fL (81-99); Monocyte# 0.58 X10^3/uL; Monocyte% 9.4 % (0-10); NRBC Flagged by Analyzer 0 % (0-5); Neutrophil % 56.4 % (47-70); Platelet Count 226 K/mm3 (150-450); RBC Distribution Width CV 13.3 % (11.6-14.6); Red Blood Count 5.13 M/mm3 (4.2-5.4); White Blood Count 6.2 K/mm3 (4.4-11.0)
[2024-10-26 11:24] LABS: Vitamin D,25 Hydroxy 60.6 ng/mL
[2024-10-26 11:25] LABS: AST(SGOT) 21 U/L (15-37); Alanine Aminotransfer ALT/SGPT 28 U/L (13-56); Albumin, Serum 3.3 g/dL (3.2-5.0); Alkaline Phosphatase 69 U/L (45-117); Anion Gap 4 (5-15); BUN 17 mg/dL (7-18); BUN/Creat Ratio 17.6 RATIO (10-20); Calcium,Total 9.1 mg/dL (8.5-10.1); Chloride 109 mmol/L (98-107); Creatinine, Serum 0.97 mg/dL (0.55-1.02); EST Glomerular Filtration Rate 59 mL/min (>60); Est Glom Filt Rate - Afr Amer 71 mL/min (>60); Globulin 3.4 g/dL (2.2-4.2); Glucose 115 mg/dL (74-106); Potassium 3.4 mmol/L (3.5-5.1); Protein, Total 6.7 g/dL (6.4-8.2); Sodium Level 142 mmol/L (136-145)
[2024-10-26 11:39] LABS: Cholesterol 142 mg/dL (200); High Density Lipoprotein 39 mg/dL; Triglycerides 246 mg/dL; Very Low Density Lipoprotein 49 mg/dL (5-40)
[2024-10-26 18:33] LABS: Xtra CC BBK (Onc ONLY) EXTRA TUBE
== END | disposition home or self-care (01) ==
LOC: POLAB3 10:30
PROVIDERS: Internal Medicine Hematology & Oncology; PCP Family Medicine Geriatric Medicine; Visit Provider Family Medicine Geriatric Medicine
DX: I10 Essential (primary) hypertension (principal); E78.5 Hyperlipidemia, unspecified; E55.9 Vitamin D deficiency, unspecified
CPT/HCPCS: 36415; 80053; 80061; 82306; 84443; 85025

== ENCOUNTER → 2025-04-30 | Outpatient (CLI) | payer MEDICARE, SELFPAY ==
[2018-10-20 11:07] VITALS: BMI 28.8
--- NOTE | 2025-04-30 11:20 | VDLE_ITS ---
Reason For Study Reason For Study: other specified soft tissue disorder, left foot/leg swelling RIGHT LEFT CFV is compressible, spontaneous, phasic, competent GSV is normal. and demonstrates normal augmentation. CFV is compressible, spontaneous, phasic, competent, Procedure and demonstrates normal augmentation. This is a venous duplex using B-mode, color flow and FV is compressible, spontaneous, phasic, competent spectral Doppler. and demonstrates normal augmentation. Exam performed in department. POP V is compressible, spontaneous, phasic, competent A preliminary report was called and/or faxed to and demonstrates normal augmentation. Jamil @[phone] @ 12:00pm. T/P Trunk is compressible. PTV is compressible. LT PerV is compressible. VL/Venous Duplex US, Unilateral Interpretation Summary Deep veins of the left lower extremity are patent and compressible segmentally. There is no evidence of left lower extremity deep vein thrombosis. Valvular competence appears intact within the p roximal deep venous system on the left . The left great saphenous vein appears patent and compressible segmentally. The right common femoral vein is patent and compressible . Ordering Physician: Glen Negron Chi Referring Physician: Glen Negron Chi Performed By: Africa Robb, KALPESH, RVT
[2025-04-30 13:58] LABS: Cholesterol 137 mg/dL (<=200); High Density Lipoprotein 38 mg/dL; Low Density Lipoprotein Calc. 67 mg/dL; Triglycerides 163 mg/dL; Very Low Density Lipoprotein 33 mg/dL (5-40); Vitamin D,25 Hydroxy 69.4 ng/mL (30-100); cholesterol:hdl ratio screen 3.64
== END | disposition home or self-care (01) ==
LOC: CVS 11:18
PROVIDERS: PCP Family Medicine Geriatric Medicine; Referring Provider Family Medicine Geriatric Medicine; Visit Provider Family Medicine Geriatric Medicine
DX: L03.116 Cellulitis of left lower limb (principal); M79.89 Other specified soft tissue disorders; I10 Essential (primary) hypertension; E55.9 Vitamin D deficiency, unspecified; E78.5 Hyperlipidemia, unspecified
CPT/HCPCS: 36415; 80061; 82306; 84443; 93971

== ENCOUNTER → 2025-09-20 | Outpatient (CLI) | payer MEDICARE, SELFPAY ==
[2018-10-20 11:07] VITALS: BMI 28.8
--- NOTE | 2025-09-20 09:58 | BI_ITS ---
EXAM: BI/SCRN MAMM (CAD)W/PARAM BILAT
== END | disposition home or self-care (01) ==
PROVIDERS: PCP Family Medicine Geriatric Medicine; Referring Provider Internal Medicine Hematology & Oncology; Visit Provider Internal Medicine Hematology & Oncology
DX: Z12.31 Encounter for screening mammogram for malignant neoplasm of breast (principal)
CPT/HCPCS: 77063; 77067

== ENCOUNTER → 2025-10-26 | Outpatient (CLI) | payer MEDICARE, SELFPAY ==
[2018-10-20 11:07] VITALS: BMI 28.8
[2025-10-26 12:17] LABS: Hematocrit 46.3 % (37-47); Hemoglobin 15.6 g/dL (12.0-15.0); Immature Granulocytes Count 0.040 X10^3/uL (0.0-0.0); Mean Corp Hgb Conc 33.7 g/dL (32-36); Mean Corpuscular Volume 88.0 fL (81-99); Mean Platelet Vol. 11.1 fl (6.2-12.0); NRBC Flagged by Analyzer 0 % (0-5); Platelet Count 215 K/mm3 (150-450); RBC Distribution Width CV 13.2 % (11.6-14.6); RBC Distribution Width SD 42.6 fl (35.1-43.9); Red Blood Count 5.26 M/mm3 (4.2-5.4); White Blood Count 10.3 K/mm3 (4.4-11.0)
[2025-10-26 13:21] LABS: AST(SGOT) 29 U/L (<=31); Alanine Aminotransfer ALT/SGPT 29 U/L (<=34); Albumin, Serum 4.3 g/dL (3.4-4.8); Alkaline Phosphatase 74 U/L (35-104); Anion Gap 10 (5-15); BUN 12 mg/dL (4-19); BUN/Creat Ratio 14.0 RATIO (10-20); Calcium,Total 9.8 mg/dL (7.6-11.0); Carbon Dioxide 28.5 mmol/L (21.0-32.0); Chloride 106 mmol/L (98-108); Cholesterol 154 mg/dL (<=200); Globulin 3.3 g/dL (2.2-4.2); Glucose 85 mg/dL (70-99); Low Density Lipoprotein Calc. 79 mg/dL; Potassium 4.2 mmol/L (3.3-5.1); Triglycerides 194 mg/dL; Very Low Density Lipoprotein 39 mg/dL (5-40); Vitamin D,25 Hydroxy 88.7 ng/mL (30-100); cholesterol:hdl ratio screen 3.62
--- OUTSIDE RECORDS SUMMARY | 2025-10-26 14:39 | XMS RPT_ITS | CCD ---
Author Organization [facility] Care Team Providers Care Ceramic Tiler Name Role Phone Lizette Handy Unavailable Unavailable Lizette Handy Unavailable Unavailable Roof PUMPER HELPER, Rocky Cardoza Unavailable Dr. Aleta Quinn Referring Provider Kenn PUMPER HELPER, PUMPER HELPER-C Karyna Attending Provider Dr. Glen Negron Chi Primary Care Provider 1([facility])[phone] Jamil, Dr. Glen Valencia Referring Provider 1([facility])[phone] Glen Negron Chi Primary Care Provider 1([facility])[phone] Jamil, Dr. Glen Valencia Referring Provider [phone] Sarabjit PUMPER HELPER, PUMPER HELPER-Leela Wayne Attending Provider NISA Jacob Attending Provider Dr. Alex Pardo Attending Provider [phone] Unavailable Primary Care Provider UnavailDr. Glen Wayne Chi Primary Care Provider 1([facility])[phone] Jamil, Dr. Glen Valencia Referring Provider NISA Jacob Attending Provider Dr. Louis Browne Attending Provider Jamil, Dr. Glen Valencia Primary Care Provider Jamil, Dr. Glen Valencia Referring Provider Dr. Louis Browne Attending Provider Jamil, Dr. Glen Valencia Primary Care Provider Jamil, Dr. Glen Valencia Referring Provider 1([facility])[phone] NISA Jacob Attending Provider Jamil, Glen Chi Primary Care Provider JAMIL, GLEN CHI Primary Care Unavailable JAMIL, GLEN CHI Primary Care Unavailable PEDRO ARNDT Attending Unavailable PEDRO ARNDT Referring Unavailable JAMIL, GLEN CHI Primary Care Unavailable JAMIL NGUYỄN, DR TANG Primary Care Physician Cheyenne PETTY, Dr. River Family Provider Cheyenne PETTY, Dr. River Referring Provider Hollie NGUYỄN, Dr. Myres Attending Provider Jamil NGUYỄN, Dr. Glen Valencia Primary Care Provider Jamil NGUYỄN, Dr. Glen Valencia Attending Provider Jamli NGUYỄN, Dr. Glen Valencia Referring Provider JAMIL NGUYỄN, DR TANG Primary Care Unavailable ISHMAEL PAK DO Attending Unavailable Mindy NGUYỄN, Dr. Adams Attending Provider Sarabjit PUMPER HELPER, Rosana Attending Unavailable Jamil, Glen Chi Referring Unavailable Jamil, Glen Chi Primary Care Unavailable Jamil, Glen Chi Primary Care Unavailable Jamil, Glen Chi Referring Unavailable Bryan Guillen Attending Unavailable Jamil, Glen Chi Primary Care Unavailable Jamil, Glen Chi Referring Unavailable Jamil, Glen Chi Attending Unavailable Jamil, Glen Chi Primary Care Unavailable Louis Browne Referring Unavailable Louis Browne Attending Unavailable Jamil, Glen Chi Attending Unavailable Jamil, Glen Chi Primary Care Unavailable Jamil, Glen Chi Primary Care Unavailable Louis Browne Attending Unavailable Aleta Quinn Referring Unavailable Allergies Allergy Classification Reported Allergen(s) Allergy Type Date of Onset Reaction(s) Facility (16 sources) Chlorhexidine; Translations: [CHLORHEXIDINE] Drug Allergy 09-14-2019 Rash [facility] (1 source) Chlorhexidine Drug Allergy 05-18-2025 [facility] Repository Medications Current Medications Medication Drug Class(es) Dates Sig (Normalized) Sig (Original) Calcium Carbonate / vitamin D3 (18 sources) CALCIUM CARBONATE/VITAMIN D3 (CALCIUM 500 + D ORAL) Take by mouth. Active CALCIUM CARBONAT E/VITAMIN D3 (VITAMIN D-3 ORAL) Take by mouth. Active CALCIUM CARBONAT E/VITAMIN D3 (CALCIUM 500 + D ORAL) Take by mouth. 0 Active CALCIUM CARBONAT E/VITAMIN D3 (VITAMIN D-3 ORAL) Take by mouth. 0 Active Comment on above: Take by mouth. calcium citrate 950 mg oral tablet (12 sources) Start: 2 take 1 tablet by mouth once daily Calcium Citrate 200 mg (950 mg) tablet Active 600 mg PO DAILY April 05, 2022 12:00am cephalexin 500 mg oral capsule (4 sources) [...] Comment on above: Take 1 capsule by mo [facility] twice daily for 7 days. cholecalciferol 0.025 mg oral capsule (20 sources) Vitamin D Start: 04-05-20 22 take 1 capsule by mouth once daily Cholecalciferol (Vitamin D3) 25 mcg (1,000 unit) capsule Active 5000 U PO DAILY April 05, 2022 1:42pm Start: 04-05-2022 take 5 capsules by m out once daily cholecalciferol (vitamin D3) 1,000 unit capsule Active 5000 UNIT PO DAILY April 05, 2022 1:42pm Start: 02-23-2019 End: 04-05-2022 take 1 capsule by mouth once daily Cholecalciferol (Vitamin D3) 1,000 unit capsule Discontinued 1000 U PO DAILY February 23, 2019 12:00am April 05, 2022 1:44pm Start: 05-29-2017 End: 02-23-2019 take 1 capsule by mouth once daily Cholecalciferol (Vitamin D3) 5,000 UNIT capsule Discontinued 5000 U PO DAILY May 29, 2017 12:00am February 23, 2019 2:23pm SUPPLEMENT Start: 07-24-2011 take 2 tablets by mo ut once daily, then take 3 tablets by mouth RA VITAMIN D-3 CAPS Two tablets by mouth daily CHOLECALCIFEROL CAPS [id number] Mattie Herzog MD Start: 07-24-2011 End: 07-29-2017 take 2 tablets by mouth once daily, then take 3 tablets by mouth RA VITAMIN D-3 CAPS Two tablets by mouth daily CHOLECALCIFEROL CAPS [id number] Rocky Cardoza Adam MANNING Start: 03-29-2011 take 1 tablet by homer th once daily, then take 3 tablets by mouth RA VITAMIN D-3 CAPS One tablet by mouth daily CHOLECALCIFEROL CAPS [id number] Mattie Herzog MD Start: 09-28-2010 RA VITAMIN D-3 CAPS CHOLECALCIFEROL CAPS [id number] Gold Layton MS,PA-C Cranberry Conc-Ascorbic Acid (10 sources) Start: 04-05-2022 Cranberry Conc -Ascorbic Acid Active CAP PO April 05, 2022 1:40pm Start: 04-05-2022 End: 02-19-2024 Cranberry Conc-Ascorbic Acid Discontinued 1 CAP PO April 05, 2022 12:00am February 19, 2024 2:52pm Start: 04-05-2022 Cranberry Conc -Ascorbic Acid Active CAP PO April 04, 2022 11:00pm Start: 04-05-2022 Cranberry Conc -Ascorbic Acid Active CAP PO April 05, 2022 12:00am doxycycline hyclate 100 mg oral capsule (2 sources) Tetracycline-class Drug Start: 04-28-2025 End: 05-05-2025 doxycycline hyclate 100 mg oral capsule Dose : 100 mg = 1 cap(s), Oral, BID, X 7 day(s), # 14 cap(s), 0 Refill(s), 05/05/25 8:00:00 AM EDT Start Date: 04/28/25 Stop Date: 05/05/25 Status: Ordered Quantity: 14.0 Unit: cap(s) Repeat number: 1 Start: 05-27-2023 End: 06-01-2023 take 1 tablet by mouth twice daily doxycycline monohydrate 100 mg tablet Take 1 tablet by mouth twice daily for 5 days. 10 tablet 0 05/27/2023 06/01/2023 Active Comment on above: Take 1 tablet by homer th twice daily for 5 days. hydroCHLOROthiazide 25 mg oral tablet (20 sources) Thiazide Diuretic Start: End: take 1 tablet by mouth once daily Hydrochlorothiazide 25 mg tablet Active 25 mg PO DAILY 90 April 21, 2024 4:59pm Start: 05-29-2017 End: 05-31-2017 take 1 tablet by mouth once daily Hydrochlorothiazide 12.5 MG tablet Discontinued 12.5 mg PO DAILY May 29, 2017 12:00am May 31, 2017 11:54am BLOOD PRESSURE Start: 02-23-2016 End: 07-29-2017 take 1 capsule by mouth once daily HYDROCHLOROTHIAZIDE 12.5 MG CAPS 1 po daily HYDROCHLOROTHIAZIDE [id number] Rocky Medina NP Start: 05-13-2013 End: 02-23-2016 take 1 tablet by mouth once daily HYDROCHLOROTHIAZIDE 12.5 MG TABS One tablet by mouth daily HYDROCHLOROTHIAZIDE [id number] Aleta Quinn, HYDROCHLOROTHIAZ IVY ORAL Take by mouth. Active HYDROCHLOROTHIAZ IVY ORAL Take by mouth. 0 Active Comment on above: Take by mouth. magnesium oxide 250 mg oral tablet (20 sources) Start: 12-26-2020 take 1 tablet by mouth once daily Magnesium Oxide 250 MG tablet Active 250 mg PO DAILY December 26, 2020 1:00am Start: 03-01-2018 End: 08-04-2018 take 1 tablet by mouth once daily Magnesium Oxide 400 mg tablet Discontinued 400 mg PO daily March 01, 2018 12:00am August 04, 2018 9:48am Start: 07-30-2017 take 1 tablet by homer th once daily MAGNESIUM OXIDE 400 MG TABS One tablet by mouth daily MAGNESIUM OXIDE [id number] Rojas Henry MD metoprolol tartrate 25 mg oral tablet (20 sources) beta-Adrenergic [place] Start: 09-26-2020 take 1 tablet by mouth twice daily Metoprolol Tartrate 25 MG tablet Active 25 mg PO TWICE A DAY September 26, 2020 1:00am Start: 08-04-2018 End: 08-08-2018 take 1 tablet by mouth twice daily Metoprolol Tartrate 50 mg tablet Discontinued 50 mg PO TWICE A DAY August 04, 2018 12:00am August 08, 2018 10:13am Start: 03-01-2018 End: 08-04-2018 take 1 tablet by mouth twice daily Metoprolol Tartrate 25 mg tablet Discontinued 25 mg PO TWICE A DAY March 01, 2018 12:00am August 04, 2018 9:48am Start: 07-29-2017 take 1 tablet by homer th twice daily METOPROLOL TARTRATE 25 MG TABS One tablet by mouth twice daily METOPROLOL TARTRATE [id number] Rojas Henry MD Start: 05-31-2017 End: 03-01-2018 take 1 tablet by mouth twice daily Metoprolol Tartrate 50 MG tablet Discontinued 50 mg PO TWICE A DAY 60 0 May 31, 2017 12:00am March 01, 2018 12:19pm take 1 tablet by homer th once daily in the evening metoprolol succinate ER (TOPROL XL) 25 mg 24 hr tablet Take 25 mg by mouth once daily. 1 po am and 1 po pm Active Comment on above: Take 25 mg by mouth once daily. 1 po am and 1 po pm Multivitamin 1 EACH tablet (2 sources) Start: 05-29-2017 Multivitamin 1 EACH tablet Active 1 NMA PO DAILY May 29, 2017 12:00am SUPPLEMENT Start: 05-29-2017 Multivitamin 1 EACH tablet Active 1 NMA PO DAILY May 29, 2017 12:00am MULTIVITAMIN ORAL (9 sources) MULTIVITAMIN ORA L Take by mouth. Active MULTIVITAMIN ORA L Take by mouth. 0 Active Comment on above: Take by mouth. Multivitamin preparation (10 sources) Start: 05-29-2017 Multivitamin Active 1 EACH PO DAILY May 29, 2017 2:29pm Start: 05-29-2017 Multivitamin A ctive 1 EACH PO DAILY May 28, 2017 11:00pm Start: 05-29-2017 Multivitamin A ctive 1 EACH PO DAILY May 29, 2017 12:00am nitrofurantoin, macrocrystals 25 mg / nitrofurantoin, monohydrate 75 mg oral capsule (1 source) Nitrofuran Antibacterial Start: 03-10-2023 End: 03-17-2023 take 1 capsule by mouth twice daily at mealtime nitrofurantoin monohydrate and macrocrystal (MACROBID) 100 mg capsule Take 1 capsule by mouth twice daily with meals for 7 days. 14 capsule 0 03/10/2023 03/17/2023 Active Comment on above: Take 1 capsule by mo uth twice daily with meals for 7 days. [place]-3 Fatty Acids (10 sources) Start: 04-05-2022 take 2000 mg by mouth once daily Columbia-3 Fatty Acids Active 2000 MG PO DAILY April 05, 2022 1:43pm Start: 04-05-2022 take 2000 mg by mouth once anitha ly [place]-3 Fatty Acids Active 2000 MG PO DAILY April 04, 2022 11:00pm Start: 04-05-2022 take 2000 mg by mouth once anitha ly [place]-3 Fatty Acids Active 2000 MG PO DAILY April 05, 2022 12:00am Columbia-3 Fatty Acids 1,000 mg capsule (2 sources) Start: 04-05-2022 take 1 capsule by mouth once daily [place]-3 Fatty Acids 1,000 mg capsule Active 2000 mg PO DAILY April 05, 2022 12:00am phenazopyridine hydrochloride 200 mg oral tablet (1 source) Start: 08-08-2017 End: 03-10-2023 take 1 tablet by mouth three times daily phenazopyridine (PYRIDIUM) 200 mg tablet TO BE TAKEN DIRECTED BY MOUTH ONE(1) TABLET THREE TIMES DAILY X 2 DAYS 6 tablet 0 08/08/2017 03/10/2023 Discontinued (Discontinued by another Health Care Provider) Comment on above: TO BE TAKEN DIREC DIDIER BY MOUTH ONE(1) TABLET THREE TIMES DAILY X 2 DAYS potassium chloride 10 meq extended release oral capsule (20 sources) Start: 02-26-2024 take 1 capsule by mouth once daily Potassium Chloride 10 mEq capsule, extended release Active 10 meq PO DAILY 90 3 February 26, 2024 12:00am Start: 08-08-2018 End: 04-05-2022 take 1 capsule by mouth once daily Potassium Chloride 10 mEq capsule, extended release Discontinued 10 meq PO DAILY 90 3 August 25, 2018 8:51am April 05, 2022 1:39pm Start: 06-02-2017 End: 03-01-2018 take 1 tablet by mouth once daily Potassium Chloride 20 MEQ tablet Discontinued 20 meq PO DAILY 5 0 June 02, 2017 12:00am March 01, 2018 12:19pm take 1 capsule by mo uth once daily POTASSIUM CHLORIDE ORAL Take 1 capsule by mouth once daily. Active take 1 capsule by mo uth once daily POTASSIUM CHLORIDE ORAL Take 1 capsule by mouth once daily. 0 Active Comment on above: Take 1 capsule by mo [facility] once daily. Completed/Discontinued Medications Medication Drug Class(es) Dates Sig (Normalized) Sig (Original) acetaminophen 325 mg / HYDROcodone bitartrate 5 mg oral tablet (12 sources) Opioid Agonist Start: 09-18-2018 End: 09-21-2018 Hydrocodone-Acetamino phen 1 TABLET tablet Discontinued 1 {tbl} PO EVERY 6 HOURS NEEDED as needed for Pain 8 3 September 18, 2018 12:00am September 20, 2018 12:00am September 21, 2018 12:14am Postoperative pain Other acute postprocedural pain Start: 09-18-2018 End: 09-21-2018 take 1 tablet by mouth every six hours as needed Hydrocodone-Acetaminophen Discontinued 1 TABLET PO EVERY 6 HOURS NEEDED 8 September 18, 2018 12:00am September 21, 2018 12:14am alendronic acid 70 mg oral tablet (20 sources) Bisphosphonate Start: 08-06-2011 End: 03-10-2023 ALENDRONATE SODIUM 70 MG TABS ALENDRONATE SODIUM [id number] Rocky Medina PUMPER HELPER Start: 09-28-2010 take 1 tablet by homer every week FOSAMAX 5 MG TABS one tablet by mouth once weekly ALENDRONATE SODIUM [id number] Mattie Herzog MD Comment on above: Take by mouth. amLODIPine 5 mg oral tablet (20 sources) Dihydropyridine Calcium Channel [place] Start: 01-02-20 End: 04-27-20 take 1 tablet by mouth once daily Amlodipine 5 mg tablet Discontinued 5 mg PO DAILY 90 January 02, 2023 5:52pm April 27, 2025 1:58pm Start: 07-05-2021 End: 01-02-2023 take 1 tablet by mouth once daily Amlodipine 2.5 mg tablet Discontinued 2.5 mg PO DAILY 90 June 25, 2022 8:23am January 02, 2023 5:52pm anastrozole 1 mg oral tablet (20 sources) Aromatase Inhibitor Start: 09-22-2020 End: 02-19-2024 Anastrozole 1 mg tablet Discontinued 0 .ROUTE .COMPLEX 90 July 29, 2023 8:25am February 19, 2024 2:52pm TAKE 1 TABLET EVERY DAY Start: 10-16-2018 End: 10-15-2019 take 1 tablet by mouth once daily Anastrozole 1 MG tablet Discontinued 1 mg PO DAILY 30 30 0 October 23, 2018 1:00am November 21, 2018 1:00am November 22, 2018 1:07am 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 ascorbic acid 500 mg oral tablet (12 sources) Vitamin C Start: 8 End: 2 take 1 tablet by mouth once daily Ascorbic Acid (Vitamin C) 500 mg tablet Discontinued 500 mg PO DAILY August 08, 2018 12:00am April 05, 2022 1:43pm aspirin 81 mg delayed release oral tablet (20 sources) Nonsteroidal Anti-inflammatory Drug Start: 7 End: 4 take 1 tablet by mouth once daily Aspirin 81 MG tablet,delayed release (DR/EC) Discontinued 81 mg PO DAILY September 26, 2020 1:00am February 19, 2024 2:52pm Comment on above: Take 81 mg by mouth once daily. calcium (12 sources) Phosphate Binder, Calcium Start: 1 take 2 tablets by mouth once daily CHELATED CALCIUM TABS Two tablets by mouth daily CALCIUM TABS [id number] Mattie Herzog MD Start: 07-24-2011 End: 02-23-2016 take 2 tablets by mouth once daily CHELATED CALCIUM TABS Two tablets by mouth daily CALCIUM TABS [id number] Iza Orantes LPN Start: 03-29-2011 take 1 tablet by homer th once daily CHELATED CALCIUM TABS One tablet by mouth daily CALCIUM TABS [id number] Mattie Herzog MD Start: 09-28-2010 CHELATED CALCI UM TABS CALCIUM TABS [id number] Gold Layton MS,PA-C calcium ascorbate 500 mg oral tablet (8 sources) Start: 11-14-2022 End: 05-18-2025 take 1 tablet by mouth once daily Ascorbate Calcium (Vitamin C) 500 mg tablet Discontinued 500 mg PO DAILY November 14, 2022 1:00am May 18, 2025 10:34am calcium carbonate 500 mg chewing gum (15 sources) Start: 07-29-2017 take 1 tablet by mouth once daily CALCIUM CARBONATE TABS 500mg One tablet by mouth daily CALCIUM CARBONATE TABS [id number] Rocky Cardoza Adam MANNING Start: 05-29-2017 End: 04-05-2022 take 1 tablet by mouth once daily Calcium Carbonate 500 MG tablet Discontinued 500 mg PO DAILY May 29, 2017 12:00am April 05, 2022 1:42pm SUPPLEMENT CALCIUM CITRATE-VITAMIN D (6 sources) Vitamin D Start: 03-29-2011 take 1 tablet by mouth once daily CITRACAL MAXIMUM 315-250 MG-UNIT TABS One tablet by mouth daily CALCIUM CITRATE-VITAMIN D [id number] Mattie Herzog MD Start: 03-29-2011 End: 05-09-2012 take 1 tablet by mouth once daily CITRACAL MAXIMUM 315-250 MG-UNIT TABS One tablet by mouth daily CALCIUM CITRATE-VITAMIN D [id number] Mattie Herzog MD ciprofloxacin 500 mg oral tablet (20 sources) Quinolone Antimicrobial Start: 05-31-2017 End: 03-01-2018 take 1 tablet by mouth twice daily Ciprofloxacin Hcl 500 MG tablet Discontinued 500 mg PO TWICE A DAY May 31, 2017 12:00am March 01, 2018 12:18pm Start: 09-25-2012 End: 10-02-2012 take 1 tablet by mouth twice daily CIPROFLOXACIN HCL 500 MG TABS One tablet by mouth twice daily CIPROFLOXACIN HCL [id number] Mattie Herzog MD Start: 03-07-2012 End: 03-14-2012 take 1 tablet by mouth twice daily CIPROFLOXACIN HCL 500 MG TABS One tablet by mouth twice daily CIPROFLOXACIN HCL [id number] Mattie Herzog MD Start: 07-24-2011 End: 07-31-2011 take 1 tablet by mouth twice daily CIPROFLOXACIN HCL 500 MG TABS One tablet by mouth twice daily CIPROFLOXACIN HCL [id number] Mattie Herzog MD Start: 09-28-2010 End: 03-29-2011 take 1 tablet by mouth twice daily CIPRO 250 MG TABS One tablet by mouth twice daily CIPROFLOXACIN HCL [id number] Gold Layton MS,PA-C Cranberry Conc-Ascorbic Acid 12,600-20 mg capsule (2 sources) Start: 04-05-2022 End: 02-19-2024 Cranberry Conc-Ascorbic Acid 12,600-20 mg capsule Discontinued 1 NMA PO April 05, 2022 12:00am February 19, 2024 2:52pm Cranberry (20 sources) Non-Standardized Food Allergenic Extract, Non-Standardized Plant Allergenic Extract Start: 08-08-2018 End: 04-05-2022 take 500 mg by mouth once daily Cranberry Discontinued 500 MG PO DAILY August 08, 2018 10:14am April 05, 2022 1:43pm Start: 08-08-2018 End: 04-05-2022 take 1 capsule by mouth once daily Cranberry 500 mg capsule Discontinued 500 mg PO DAILY August 08, 2018 12:00am April 05, 2022 1:43pm Start: 08-08-2018 End: 04-05-2022 take 500 mg by mouth once daily Cranberry Discontinued 500 MG PO DAILY August 07, 2018 11:00pm April 05, 2022 12:43pm Start: 08-08-2018 End: 04-05-2022 take 500 mg by mouth once daily Cranberry Discontinued 500 MG PO DAILY August 08, 2018 12:00am April 05, 2022 1:43pm Cranberry 500 mg cap Take by mouth. Active Cranberry 500 mg cap Take by mouth. 0 Active Comment on above: Take by mouth. docusate sodium 50 mg / sennosides, jail 8.6 mg oral tablet (12 sources) Start: 09-11-2018 End: 02-19-2024 Sennosides-Docusate Sodium 1 EACH tablet Discontinued 1 NMA PO AT BEDTIME September 11, 2018 12:00am February 19, 2024 2:52pm Start: 09-11-2018 End: 02-19-2024 Sennosides-Docusate Sodium D iscontinued 1 EACH PO AT BEDTIME September 11, 2018 12:00am February 19, 2024 2:52pm ergocalciferol 53070 unt oral tablet (9 sources) Provitamin D2 Compound Start: 07-29-2017 take 1 tablet by mouth once daily VITAMIN D (ERGOCALCIFEROL) 16908 UNIT CAPS One tablet by mouth daily ERGOCALCIFEROL [id number] Rocky Medina PUMPER HELPER Start: 03-30-2011 End: 03-07-2012 take 1 tablet by mouth every week ERGOCALCIFEROL 96584 UNIT CAPS One tablet by mouth once a week ERGOCALCIFEROL [id number] Mattie Herzog MD fish oil (12 sources) Start: 09-13-2014 take 1 tablet by homer th once daily [facility] FISH OIL 1000 MG CAPS One tablet by mouth daily OMEGA-3 FATTY ACIDS [id number] Mattie Herzog MD Start: 09-13-2014 End: 02-23-2016 take 1 tablet by mouth once daily [facility] FISH OIL 1000 MG CAPS One tablet by mouth daily OMEGA-3 FATTY ACIDS [id number] Iza Orantes LPN Start: 03-07-2012 take 1 tablet by homer th once daily FISH OIL 1000 MG CAPS One tablet by mouth daily OMEGA-3 FATTY ACIDS [id number] Mattie Herzog MD Start: 03-07-2012 End: 05-13-2013 take 1 tablet by mouth once daily FISH OIL 1000 MG CAPS One tablet by mouth daily OMEGA-3 FATTY ACIDS [id number] Mattie Herzog MD furosemide 40 mg oral tablet (12 sources) Loop Diuretic Start: 06-02-2017 End: 03-01-2018 take 1 tablet by mouth once daily Furosemide 40 MG tablet Discontinued 40 mg PO DAILY 5 0 June 02, 2017 12:00am March 01, 2018 12:18pm lisinopril 2.5 mg oral tablet (20 sources) Angiotensin Converting Enzyme Inhibitor Start: 08-04-2018 End: 08-08-2018 take 1 tablet by mouth once daily Lisinopril 2.5 mg tablet Discontinued 2.5 mg PO DAILY August 04, 2018 12:00am August 08, 2018 10:13am Start: 05-31-2017 End: 03-01-2018 take 1 tablet by mouth once daily Lisinopril 2.5 MG tablet Discontinued 2.5 mg PO DAILY 30 0 May 31, 2017 12:00am March 01, 2018 12:19pm MULTIPLE VITAMIN (5 sources) Start: 03-07-2012 End: 07-30-2017 take 1 tablet by mouth once daily MULTIVITAMINS CAPS One tablet by mouth daily MULTIPLE VITAMIN [id number] Rojas Henry MD Start: 03-07-2012 [facility] MULTIVITAMINS CAPS One tablet by mouth daily MULTIPLE VITAMIN [id number] Mattie Herzog MD [id number] ETHYL ESTERS (6 sources) Start: 03-29-2011 End: 07-24-2011 take 4 tablets by mouth once daily LOVAZA 1 GM CAPS four tablets by mouth daily [id number] ETHYL ESTERS [id number] Mattie Herzog MD Start: 03-29-2011 take 4 tablets by mo [facility] once daily LOVAZA 1 GM CAPS four tablets by mouth daily [id number] ETHYL ESTERS [id number] Mattie Herzog MD OMEGA-3 FATTY ACIDS CPDR (3 sources) Start: 07-29-2017 take 1 tablet by mouth once daily OMEGA 3 CPDR One tablet by mouth daily OMEGA-3 FATTY ACIDS CPDR [id number] Rocky Medina NP [place]-3 Fatty Acids-Fish Oil (10 sources) Start: 05-29-2017 End: 04-05-2022 Columbia-3 Fatty Acids-Fish Oil Discontinued 1 EACH PO DAILY May 29, 2017 3:34pm April 05, 2022 1:43pm Start: 05-29-2017 End: 04-05-2022 Columbia-3 Fatty Acids-Fish Oil Discontinued 1 EACH PO DAILY May 28, 2017 11:00pm April 05, 2022 12:43pm Start: 05-29-2017 End: 04-05-2022 Columbia-3 Fatty Acids-Fish Oil Discontinued 1 EACH PO DAILY May 29, 2017 12:00am April 05, 2022 1:43pm [place]-3 Fatty Acids-Fish Oil 1 EACH capsule (2 sources) Start: 05-29-2017 End: 04-05-2022 [place]-3 Fatty Acids-Fish Oil 1 EACH capsule Discontinued 1 NMA PO DAILY May 29, 2017 12:00am April 05, 2022 1:43pm SUPPLEMENT Start: 05-29-2017 End: 04-05-2022 Columbia-3 Fatty Acids-Fish Oil 1 EACH capsule Discontinued 1 NMA PO DAILY May 29, 2017 12:00am April 05, 2022 1:43pm potassium gluconate 2.5 meq oral tablet (20 sources) Start: 04-05-2022 End: 02-26-2024 take 1 tablet by mouth once daily Potassium Gluconate 595 mg (99 mg) tablet Discontinued 595 mg PO DAILY April 05, 2022 12:00am February 26, 2024 1:10pm Start: 03-01-2018 End: 08-04-2018 take 1 tablet by mouth once daily Potassium Gluconate 595 mg (99 mg) tablet Discontinued 10 meq PO daily March 01, 2018 12:00am August 04, 2018 9:48am Start: 07-30-2017 take 1 tablet by homer th once daily POTASSIUM GLUCONATE 595 (99 K) MG TABS One tablet by mouth daily POTASSIUM GLUCONATE [id number] Rojas Henry MD pravastatin sodium 20 mg oral tablet (20 sources) HMG-CoA Reductase Inhibitor Start: 12-28-2021 End: 08-12-2024 take 1 tablet by mouth at bedtime Pravastatin 20 mg tablet Discontinued 20 mg PO AT BEDTIME 90 October 24, 2023 9:08am August 12, 2024 11:53am Start: 09-22-2020 End: 07-05-2021 take 1 tablet by mouth at bedtime Pravastatin 40 mg tablet Discontinued 40 mg PO AT BEDTIME 90 September 22, 2020 12:16pm July 05, 2021 11:40am predniSONE 20 mg oral tablet (6 sources) Corticosteroid Start: 05-13-2013 End: 08-11-2013 PREDNISONE 20 MG TABS use as directed PREDNISONE [id number] Mattie Herzog MD rivaroxaban 20 mg oral tablet (20 sources) Factor Xa Inhibitor Start: 08-08-2018 End: 05-18-2025 take 1 tablet by mouth once daily at dinner Rivaroxaban (Xarelto) 20 mg tablet Discontinued 20 mg PO daily 10 November 05, 2024 1:00am December 10, 2024 3:15pm must administer with evening meal Comment on above: Take 20 mg by mouth daily with dinner. ZOSTER VACCINE LIVE (6 sources) Start: 08-11-2013 End: 02-23-2016 ZOSTAVAX 03437 UNT/0.65ML SUSR one dose SC once DX: hx of chicken pox ZOSTER VACCINE LIVE [id number] Iza Orantes PSYCHIATRIC ASSISTANT Start: 08-11-2013 ZOSTAVAX 55686 UNT/0.65ML SUSR one dose SC once DX: hx of chicken pox ZOSTER VACCINE LIVE [id number] Mattie Herzog MD Problems Active Problems Problem Classification Problem Date Documented Da te Episodic/Chronic Administrative/social admission (18 sources) Education and/or schooling finding; Translations: [Problems related to education and literacy, unspecified] 09-26-2020 Episodic Calculus of urinary tract (12 sources) Ureteric stone; Translations: [Calculus of ureter] 02-25-2019 Episodic Cancer of breast (20 sources) Malignant tumor of breast ; Translations: [Malignant neoplasm of unspecified site of right female breast] Onset: 10-26-2024 04-05-2021 Chronic Cardiac dysrhythmias (20 sources) Paroxysmal atrial fibrillation; Translations: [Paroxysmal atrial fibrillation] Onset: 05-29-2017 07-29-2017 Chronic Comment on above: d/t sepsis 05/2017 Conduction disorders (14 sources) Right bundle branch block; Translations: [Unspecified right bundle-branch block] Onset: 07-30-2017 07-30-2017 Chronic Disorders of lipid metabolism (20 sources) Hypertriglyceridemia ; Translations: [Mixed hyperlipidemia] 03-29-2011 Chronic Essential hypertension (20 sources) Benign essential hypertension; Translations: [Essential hypertension] Onset: 05-13-2013 05-13-2013 Chronic Genitourinary symptoms and ill-defined conditions (8 sources) History of urinary tract infection; Translations: [Increased frequency of urination] Onset: 02-23-2016 Resolved: 07-30-2017 02-23-2016 Episodic Heart valve disorders (20 sources) Nonrheumatic mitral (valve) insufficiency; Translations: [Tricuspid incompetence, non-rheumatic ] Onset: 07-30-2017 07-30-2017 Chronic Comment on above: Mild (1+) per echo mild-mod (1-2+) per echo 05/30/2017 Maintenance chemotherapy; radiotherapy (1 source) Encounter for antineoplastic chemotherapy; Translations: [Encounter for antineoplastic chemotherapy] Onset: 04-27-2025 Chronic Nutritional deficiencies (3 sources) Vitamin D deficiency; Translations: [Vitamin D deficiency, unspecified] Onset: 03-29-2011 03-29-2011 Chronic Other aftercare (12 sources) Long-term current use of anticoagulant; Translations: [MCC (current) use of anticoagulants] 02-25-2019 Episodic Other aftercare (7 sources) Drug therapy finding; Translations: [MCC (current) use of anticoagulants] 05-06-2023 Episodic Other bone disease and musculoskeletal deformities (20 sources) Osteopenia; Translations: [Other specified disorders of bone density and structure, unspecified site] Onset: 03-29-2011 03-29-2011 Episodic Other hematologic conditions (2 sources) Erythrocytosis; Translations: [Secondary polycythemia] 10-26-2024 Episodic Other inflammatory condition of skin (3 sources) Psoriasis; Translations: [Psoriasis, unspecified] Onset: 03-29-2011 03-29-2011 Chronic Other inflammatory condition of skin (1 source) Erythema; Translations: [Erythematous condition, unspecified] 05-27-2023 Episodic Other liver diseases (12 sources) Lesion of liver; Translations: [Liver disease, unspecified] 02-25-2019 Chronic Comment on above: Radiologic, first no 2016 Other nutritional; endocrine; and metabolic disorders (3 sources) Overweight; Translations: [Overweight] Onset: 05-09-2012 05-09-2012 Chronic Other screening for suspected conditions (not mental disorders or infectious disease) (4 sources) Patient encounter status; Translations: [Encounter for other screening for malignant neoplasm of breast] Onset: 10-26-2024 10-26-2024 Episodic Pulmonary heart disease (14 sources) Other secondary pulmonary hypertension; Translations: [Pulmonary arterial hypertension] Onset: 07-30-2017 07-30-2017 Chronic Residual codes; unclassified (12 sources) Edema of foot; Translations: [Localized edema] 12-28-2021 Episodic Residual codes; unclassified (1 source) Localized edema; Translations: [Edema] Episodic Residual codes; unclassified (6 sources) Pain; Translations: [Pain, unspecified] 04-25-2025 Episodic Residual codes; unclassified (1 source) Pain, unspecified; Translations: [Pain] Onset: 04-25-2025 Episodic Residual codes; unclassified (2 sources) Estrogen receptor positive tumor; Translations: [Estrogen receptor positive status [ER+]] 04-27-2025 Episodic Superficial injury; contusion (7 sources) Hematoma of right lower leg; Translations: [Contusion of right lower leg, initial encounter] 05-06-2023 Episodic Urinary tract infections (20 sources) Urinary tract infectious disease; Translations: [Pyelonephritis] Onset: 09-28-2010 Resolved: 09-13-2014 03-07-2012 Episodic Comment on above: had been in the offi ce, Cx came back postive and Rx sent in.pt not feeling well so went to ER, admitted for infectinCt scan done. question of stone. on my review no clear stone, only minimal hydrono intervention needed, feeling better on antibiotics. Past or Other Problems Problem Classification Problem Date Documented Date Episodic/Chronic Cancer of breast (3 sources) History of malignant neoplasm of breast; Translations: [Personal history of malignant neoplasm of breast] Onset: 4 10-26-2024 Episodic Conditions associated with dizziness or vertigo (3 sources) Benign paroxysmal vertigo, unspecified ear; Translations: [Benign paroxysmal vertigo, unspecified ear] Onset: 3 05-13-2013 Episodic Malaise and fatigue (3 sources) Fatigue; Translations: [Other fatigue] Onset: 6 02-23-2016 Episodic Other bone disease and musculoskeletal deformities (13 sources) Other specified disorders of bone density and structure, unspecified site; Translations: [Disorder of bone and cartilage, unspecified] Onset: 4 11-14-2022 Episodic Other circulatory disease (2 sources) Electrocardiogram abnormal; Translations: [Abnormal electrocardiogram [ECG] [EKG]] Onset: 7 07-30-2017 Episodic Other hematologic conditions (1 source) Secondary polycythemia; Translations: [Secondary polycythemia] Onset: 4 Episodic Other skin disorders (5 sources) Disorder of nail; Translations: [Nail disorder, unspecified] Onset: 5 Resolved: 7 07-30-2017 Episodic Residual codes; unclassified (1 source) Estrogen receptor positive status [ER+]; Translations: [Estrogen receptor positive status [ER+]] Onset: 4 Episodic Skin and subcutaneous tissue infections (3 sources) Cellulitis; Translations: [Cellulitis, unspecified] Onset: 5 Episodic Unclassified (5 sources) General examination of patient ; Translations: [Encounter for other general examination] Onset: 2 Resolved: 7 05-09-2012 Unclassified (5 sources) Specialized medical examination ; Translations: [Encounter for screening, unspecified] Onset: 1 Resolved: 7 03-29-2011 Unclassified (5 sources) Screening mammography ; Translations: [Encounter for other screening for malignant neoplasm of breast] Onset: 1 Resolved: 7 07-30-2017 Results Test Name Value Interpretation Reference Range Facility SCRN MAMM (CAD)W/PARAM BILATo n 09-20-2025 SCRN MAMM (CAD)W/PARAM BILAT [facility] Imaging Services [address] [place] [address] [id number] SCRN MAMM (CAD)W/PARAM BILAT MR#: [id number] Acct: [id number] Name: POP PINEDA Rep #: [id number] : 1945 F 80 From: Lauren Eden PCP: Dr. 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 She had a lumpectomy. TECHNIQUE: Procedure Code: [id number] Modality: MG Procedure: SCRN MAMM (CAD)W/PARAM BILAT COMPARISON: Prior exam(s) dated 09/17/2024 and 09/16/2023. FINDINGS: TISSUE DENSITY: There are scattered areas of fibroglandular density. Bilateral Breast Mammographic Findings: No significant masses, calcifications or other abnormalities are identified. Partially obscured stable isodense masses are seen in both breasts. Benign round calcifications and vascular calcifications are seen in both breasts. Subtle architectural distortion is seen in the right breast from her prior lumpectomy. This is a stable finding. A radiopaque clip is seen in the superior outer, far posterior aspect of the right breast. The biopsy site appears stable. Surgical clips are seen in the axillary region. There is no mammographic abnormality in the right breast to suggest new or recurrent malignancy. BI/SCRN MAMM (CAD)W/PARAM BILAT IMPRESSION: Benign screening mammogram. OVERALL FINAL ASSESSMENT BI-RADS 2: BENIGN RECOMMENDATION: Routine annual follow-up in 1 Year Additional Recommendation none A letter with findings and recommendations will be mailed to the patient. Reading Location: [id number] CC: SHIVANI Whipple; Dr. Glen Negron MD Swine Extension Field Specialist: Signed Normal [facility] Cardiology Visit Reporton Cardiology Visit Report [facility] Heart [place] [id number] [place] [address] OFFICE VISIT Date of Service: 05/18/25 MR#: [id number] Acct: [id number] Name: POP PINEDA Rep #: [id number] : 1945 Provider: Dr. Bryan jimenez MD Age/Sex: 79/F Location: [facility] Status: Signed HPI HPI History of Present Illness Details: Patient is 79-year-old white female in today for monitoring of her cardiovascular status. Patient carries a history of paroxysmal atrial fibrillation that is persistent. ECG done in office today shows atrial fibrillation with a heart rate of 67 bpm borderline low voltage QRS and a right bundle branch block. The patient denies any syncope or near syncope reports that her activities are about the same as they were 6 months ago. She denies any significant PND orthopnea. The patient does report that occasionally she will be sitting down and have discomfort along her lower sternal area that last for 1 minute and resolve spontaneously. She denies any shortness of breath diaphoresis or lightheadedness with these events they occur sporadically. The patient is able to do her actives of daily living without any assistance she actually takes care of most of the housework herself. Patient denies any signs of progression of her mitral regurgitation which was documented at 1???2+ on echocardiogram December 2022. Her blood pressure is well-controlled at 124/76 and her lipids are well-controlled as of April 30, 2025. 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: No Accompanied by: Self Is patient in pain?: No Allergies chlorhexidine (From [employer]) Adverse Reaction (Mild, Verified 05/18/25 10:33) rash Medications ???Medication ???Instructions ???Recorded ???Confirmed ???Type multivitamin 1 ea PO DAILY SUPPLEMENT 05/29/17 05/18/25 History metoprolol tartrate 25 mg tablet 25 mg PO BID 09/26/20 05/18/25 His tory magnesium oxide 250 mg PO DAILY 12/26/20 05/18/25 History calcium citrate 600 mg PO DAILY 04/05/22 05/18/25 History cholecalciferol (vitamin D3) 25 5,000 unit PO DAILY 04/05/2205/18 History mcg (1,000 unit) capsule omega-3 fatty acids 1,000 mg 2,000 mg PO DAILY 04/05/22 5 History capsule potassium chloride 10 mEq 10 meq PO DAILY #90 caps 02/26/24 05/18/25 Rx capsule,extended release hydrochlorothiazide 25 mg tablet 25 mg PO DAILY #90 tabs 04/21/24 0 05/18/25 Rx pravastatin 20 mg tablet 20 mg PO QHS #90 tabs 08/12/2412/12 Rx rivaroxaban 20 mg tablet (Xarelto) 20 mg PO QDAY #30 tabs 12/10/24 05/18/25 Rx Ejection fraction %: 65 Have you fallen in the past year?: No PFSH Medical History History of breast cancer Screening for breast cancer Polycythemia Mixed hyperlipidemia Paroxysmal atrial fibrillation Essential hypertension Osteopenia due to cancer therapy COVID-19 virus detected Osteopenia Breast cancer, right Breast cancer ( 08/2018) Chronic anticoagulation Atrial fibrillation with rapid ventricular response (05/29/17) Psoriasis Right bundle branch block Secondary pulmonary arterial hypertension Nonrheumatic mitral (valve) insufficiency Non-rheumatic tricuspid valve insufficiency Osteoporosis Left ureteral calculus Pyelonephritis due to Escherichia coli Surgical History History of tubal ligation History of vein stripping History of total abdominal hysterectomy Family History Mother CAD (coronary artery disease) coronary stents Myocardial infarction age 81 Hypertension CVA (cerebral vascular accident) Brother Seizures Sister Seizures Daughter Thyroid disorder Father No problems noted. Aunt Breast cancer Aunt Breast cancer Social History Smoking Status: Former smoker how long ago did patient quit smokin second hand exposure: No alcohol intake: never substance use type: does not use caffeine: Yes what type of physical activity do you participate in: none frequency: does not exercise seatbelt use: always ROS Const Const: Positive for fatigue; Negative for weakness ENT ENT: Negative for dizziness or balance problems Cardio Chest Pain: Yes Palpitations: No Edema: Bilateral Muscle aches with walking: None Resp Respiratory: Po (more content not included)... Normal [facility] Calculated very low density lipoprotein (VLDL) cholesterol measurementOrdered By: Glen Negron on 04-30-2025 Calculated very low density lipoprotein (VLDL) cholesterol measurement 33 mg/dL 5-40 [facility] LDL calc ser/plasOrdered By: Glen Negron on 04-30-2025 Cholesterol in LDL [Mass/Vol] 67 mg/dL [facility] Comment on above: Takpukyshm=343-789 m g/dL & Higher Fflk=190 mg/dL or greater Lipid Profileon 04-30-2025 CHOL:HDL 3.64 Normal [facility] Comment on above: Performed By: #### L 501.9553, L506.1001, L500.4100 #### [facility] Laboratory [facility] [place], [address] Cholesterol [Mass/Vol] 137 mg/dL Normal <=[address] [facility] Comment on above: Result Comment: Chol esterol level, Desirable <200 mg/dL Borderline high cholesterol 200-239 mg/dL High cholesterol >=240 mg/dL Recommendations of the NCEP Adult Treatment Panel for the following risk-cutoff thresholds for the [place] population. Performed By: #### L 501.9520, L506.1001, L500.4100 #### [facility] Laboratory [address] [place], [address] Cholesterol in HDL [Mass/Vol] 38 mg/dL Low [facility] Comment on above: Result Comment: Svitlana onal Cholesterol Education Program (NCEP) guidelines: <40 mg/dL: Low HDL-cholesterol (major risk factor for CHD) >= 60 mg/dL: High HDL-cholesterol (negative risk factor for CHD) HDL-cholesterol is affected by a number of factors, e.g. smoking, exercise, hormones, sex and age. Performed By: #### L 501.9520, L506.1001, L500.4100 #### [facility] [address] [place], [address] Cholesterol in LDL [Mass/Vol] 67 mg/dL Normal [facility] Comment on above: Result Comment: Bord iqqlfu=289-108 mg/dL Higher Fdea=614 mg/dL or greater Performed By: #### L 501.9520, L506.1001, L500.4100 #### [facility] Laboratory [address] [place], [address] Cholesterol in VLDL [Mass/Vol] 33 mg/dL Normal 5-40 [facility] Comment on above: Performed By: #### L 501.9520, L506.1001, L500.4100 #### [facility] [address] [place], [address] Triglyceride [Mass/Vol] 163 mg/dL Normal [facility] Comment on above: Result Comment: The drugs N-Acetylcysteine and Metamizole may falsely depress this assay. Normal range: <150 mg/dL Borderline High: 150-199 mg/dL High: 200-499 mg/dL Very High: >500 mg/dL Performed By: #### L 501.9520, L506.1001, L500.4100 #### [facility] [address] [place], [place], [address] Screening total cholesterol/ high density lipoprotein (HDL) cholesterol ratioOrdered By: Glen Negron on 04-30-2025 Cholesterol.total/Chol esterol in HDL [Mass ratio] 3.64 {ratio} [facility] Serum or plasma cholesterol in HDL measurement (mass/volume)Ordered By: Glen Negron on 04-30-2025 Cholesterol in HDL [Mass/Vol] 38 mg/dL Low >40 [facility] Comment on above: National Cholesterol Education Program (NCEP) guidelines:<40 mg/dL: Low HDL-cholesterol (major risk factor for CHD)>= 60 mg/dL: High HDL-cholesterol (negative risk factor for CHD)HDL-cholesterol is affected by a number of factors, e.g. smoking, exercise, hormones, sex and age. Serum or plasma cholesterol measurement (mass/volume)Ordered By: Glen Negron on 04-30-2025 Cholesterol [Mass/Vol] 137 mg/dL <[address] [facility] Comment on above: Cholesterol level, D esirable <200 mg/dLBorderline high cholesterol 200-239 mg/dLHigh cholesterol >=240 mg/dLRecommendations of the NCEP Adult Treatment Panel for the following risk-cutoff thresholds for the [place] population. TSH DL <= 0.005 mIU/L QnOrde red By: Glen Negron on 04-30-2025 TSH Qn 2.610 uIU/mL 0.300-4.200 [facility] Thyroid Stim Hormone (TSH)on 04-30-2025 TSH 2.610 uIU/mL Normal 0.300-4.200 [facility] Comment on above: Performed By: #### L 501.9520, L506.1001, L500.4100 #### [facility] Laboratory [address] [place], [place], [id number] Triglycerides measurementOrd ered By: Glen Negron on 04-30-2025 Triglyceride [Mass/Vol] 163 mg/dL <199 [facility] Comment on above: The drugs N-Acetylcy steine and Metamizole may falsely depress this assay. Normal range: <150 mg/dLBorderline High: 150-199 mg/dLHigh: 200-499 mg/dLVery High: >500 mg/dL Venous Duplex US, Unilateral on 04-30-2025 Venous Duplex US, Unilateral [facility] Cardiovascular Services [address] [place] [address] Venous Duplex US, Unilateral 04/30/25 1125 MR#: [id number] Acct: [id number] Name: POP PINEDA Rep #: [id number] : 1945 79 From: Car Magdaleno MD Attending Dr: Dr. Glen Negron MD Status: REG CLI Ordering Dr: Glen Negron MD Date: 04/30/25 Location: CVS Sex: F C Admitted: Reason For Study Reason For Study: other specified soft tissue disorder, left foot/leg swelling RIGHT LEFT CFV is compressible, spontaneous, phasic, competent GSV is normal. and demonstrates normal augmentation. CFV is compressible, spontaneous, phasic, competent, Procedure and demonstrates normal augmentation. This is a venous duplex using B-mode, color flow and FV is compressible, spontaneous, phasic, competent spectral Doppler. and demonstrates normal augmentation. Exam performed in department. POP V is compressible, spontaneous, phasic, competent A preliminary report was called and/or faxed to and demonstrates normal augmentation. Jamil @[phone] @ 12:00pm. T/P Trunk is compressible. PTV is compressible. LT PerV is compressible. VL/Venous Duplex US, Unilateral Interpretation Summary Deep veins of the left lower extremity are patent and compressible segmentally. There is no evidence of left lower extremity deep vein thrombosis. Valvular competence appears intact within the proximal deep venous system on the left . The left great saphenous vein appears patent and compressible segmentally. The right common femoral vein is patent and compressible . Ordering Physician: Glen Negron Chi Referring Physician: Glen Negron Chi Performed By: Africa Robb, KALPESH, RVT 04/30/251854 Date Car Magdaleno MD CC: Dr. Glen Negron MD Date Dictated: 04/30/251124 Date Transcribed: 04/30/251854 Swine Extension Field Specialist: Signed Normal [facility] Venous duplex ultrasound rep ortOrdered By: Car Magdaleno on 04-30-2025 US Vein [facility] Cardiovascular Services [address] [place] [address] Venous Duplex US, Unilateral 04/30/251124 MR#: [id number] Acct: [id number] Name: POP PINEDA Rep #:[id number] : 1945 79 From: Car Magdaleno MD Attending Dr: Dr. Glen Negron MD Status: REG CLI Ordering Dr: Glen Negron MD Date: Location: CVS Sex: F C Admitted: Reason For Study Reason For Study: other specified soft tissue disorder, left foot/leg swelling RIGHT LEFT CFV is compressible, spontaneous, phasic, competent GSV is normal. and demonstrates normal augmentation. CFV is compressible, spontaneous, phasic, competent, Procedure and demonstrates normal augmentation. This is a venous duplex using B-mode, color flow and FV is compressible, spontaneous, phasic, competent spectral Doppler. and demonstrates normal augmentation. Exam performed in department. POP V is compressible, spontaneous, phasic, competent A preliminary report was called and/or faxed to and demonstrates normal augmentation. Jamil @[phone] @ 12:00pm. T/P Trunk is compressible. PTV is compressible. LT PerV is compressible. VL/Venous Duplex US, Unilateral Interpretation Summary Deep veins of the left lower extremity are patent and compressible segmentally. There is no evidence of left lower extremity deep vein thrombosis. Valvular competence appears intact within the proximal deep venous system on the left . The left great saphenous vein appears patent and compressible segmentally. The right common femoral vein is patent and compressible . Ordering Physician: Glen Negron Chi Referring Physician: Glen Negron Chi Performed By: Africa Robb, RDCS, RVT 04/30/251854 Date _ Car Magdaleno MD CC: Dr. Glen Negron MD ~ Date Dictated: 04/30/251124 Date Transcribed: 04/30/251854 Swine Extension Field Specialist: Signed [facility] Other Phone: Vitamin D,25 Hydroxyon 04-30 Vitamin D 25-OH 69.4 ng/mL Normal 30-100 [facility] Comment on above: Result Comment: Nicole min D Status Deficiency: <20 ng/mL (50nmol/L) Insufficiency: 20-30 ng/mL (50-75 nmol/L) Sufficiency: 30-100 ng/mL (75-250 nmol/L) Toxicity: >100 ng/mL (>250 nmol/L) Performed By: #### L 501.9520, L506.1001, L500.4104 #### [facility] Laboratory [address] [place], [address] .Auto Diffon 04-28-2025 Basophil, Absolute 0.0 10 3/mcL Normal 0.0-0.3 [facility] Comment on above: Performed By: #### C BC, ADIFF, ANEU, MDW, BMP, GFR #### [address] [address] Basophils/100 WBC (Bld) 0.3 % Normal 0.0-2.5 [facility] Comment on above: Performed By: #### C BC, ADIFF, ANEU, MDW, BMP, GFR #### [address] [address] Eosinophil, Absolute 0.1 10 3/mcL Normal 0.0-0.7 [facility] Comment on above: Performed By: #### C BC, ADIFF, ANEU, MDW, BMP, GFR #### [address] [address] Eosinophils/100 WBC (Bld) 1.7 % Normal 0.0-6.0 [facility] Comment on above: Performed By: #### C BC, ADIFF, ANEU, MDW, BMP, GFR #### [address] [address] Lymphocyte, Absolute 2.6 10 3/mcL Normal 0.9-4.3 [facility] Comment on above: Performed By: #### C BC, ADIFF, ANEU, MDW, BMP, GFR #### [address] [address] Lymphocytes/100 WBC (Bld) 39.7 % Normal 20.0-40.0 [facility] Comment on above: Performed By: #### C BC, ADIFF, ANEU, MDW, BMP, GFR #### [address] [address] Monocyte, Absolute 0.6 10 3/mcL Normal 0.1-1.4 [facility] Comment on above: Performed By: #### C BC, ADIFF, ANEU, MDW, BMP, GFR #### [address] [address] Monocytes/100 WBC (Bld) 9.3 % Normal 2.0-13.0 [facility] Comment on above: Performed By: #### C SANDRA QUINTANA ANEU, W, BMP, GFR #### [address] [place], [place] [address] Neutrophils/100 WBC (Bld) 49.0 % Low 50.0-75.0 [facility] Comment on above: Performed By: #### C SANDRA QUINTANA ANEU, MDW, BMP, GFR #### [id number] [place], [place] [address] .GFRon 04-28-2025 Estimated Glomerular Filtration Rate 62 ml/min/1.73sqm Normal [facility] Comment on above: Result Comment: Stages of Chronic Kidney Disease (CKD) Stage Description eGFR(ml/min/1.73 sq.m.) CKD 1 Normal kidney function or >=90 normal kindney function with possible kidney damage (ex. Proteinuria) CKD 2 Kidney damage with mild loss 60-89 of kidney function CKD 3a Mild to moderate loss of kidney 45-59 function CKD 3b Moderate to severe loss of 30-44 of kindey function CKD 4 Severe loss of kidney function 15-29 CKD 5 Kidney failure <15 Note: (go live 2024) the eGFR calculation was updated to the 2020 CKD-EPI creatinine equation without a race factor to calculate the eGFR results. Performed By: #### C SANDRA QUITNANA ANEU, W, BMP, GFR #### [address] [address] .MDWon 04-28-2025 Monocyte Distribution Width 18.49 Normal 0.00-20.00 [facility] Comment on above: Result Comment: For ED adult patients suspected of sepsis, MDW<=20.0 does not rule out sepsis or risk of sepsis Performed By: #### C SANDRA QUINTANA ANEU, W, BMP, GFR #### [address] [address] .NEUABSon 04-28-2025 Neutrophil, Absolute 3.2 10 3/mcL Normal 2.3-8.1 [facility] Comment on above: Performed By: #### C BC, GREGG FLORES, MDW, BMP, GFR #### [address] [address] BMPon 04-28-2025 BUN/Creatinine Ratio 18 ratio Normal 7-27 [facility] Comment on above: Performed By: #### C BC, SANDRA, GREGG, MDW, BMP, GFR #### [place] [address] Calcium [Mass/Vol] 9.2 mg/dL Normal 8.4-10.2 [facility] Comment on above: Performed By: #### C BC, SANDAR, GREGG, MDW, BMP, GFR #### [place] [address] Chloride [Moles/Vol] 106 mmol/L Normal 98-107 [facility] Comment on above: Performed By: #### C BC, SANDRA, GREGG, MDW, BMP, GFR #### [place] [address] CO2 [Moles/Vol] 32 mmol/L High 23-31 [facility] Comment on above: Performed By: #### C BC, SANDRA, GREGG, MDW, BMP, GFR #### [place] [address] Creatinine [Mass/Vol] 0.93 mg/dL Normal 0.51-0.95 [facility] Comment on above: Performed By: #### C BC, SANDRA, GREGG, MDW, BMP, GFR #### [address] [address] Electrolyte Balance 5.0 mEq/L Normal 4.0-15.0 [facility] Comment on above: Performed By: #### C BC, SANDRA, GREGG, MDW, BMP, GFR #### [place] [address] Glucose [Mass/Vol] 107 mg/dL Normal 83-110 [facility] Comment on above: Performed By: #### C BC, SANDRA, GREGG, MDW, BMP, GFR #### [address] [address] Potassium [Moles/Vol] 3.6 mmol/L Normal 3.5-5.1 [facility] Comment on above: Performed By: #### C BC, ADIFF, ANEU, MDW, BMP, GFR #### [place] [address] Sodium [Moles/Vol] 143 mmol/L Normal 136-145 [facility] Comment on above: Performed By: #### C BC, ADIFF, ANEU, MDW, BMP, GFR #### [place] [address] Urea nitrogen [Mass/Vol] 17 mg/dL Normal 7-18 [facility] Comment on above: Performed By: #### C BC, ADIFF, ANEU, MDW, BMP, GFR #### [place] [address] CBCon 04-28-2025 Erythrocyte distribution width (RBC) [Ratio] 13.5 % Normal 11.5-15.5 [facility] Comment on above: Performed By: #### C BC, ADIFF, ANEU, MDW, BMP, GFR #### [place] [address] Hematocrit (Bld) [Volume fraction] 45.0 % Normal 34.0-46.0 [facility] Comment on above: Performed By: #### C BC, ADIFF, ANEU, MDW, BMP, GFR #### [address] [address] Hgb 15.5 G/dL Normal 12.0-16.0 [facility] Comment on above: Performed By: #### C BC, ADIFF, ANEU, MDW, BMP, GFR #### [address] [address] MCH (RBC) [Entitic mass] 30.3 pg Normal 27.0-33.0 [facility] Comment on above: Performed By: #### C BC, ADIFF, ANEU, MDW, BMP, GFR #### [place] [address] MCHC 34.5 G/dL Normal 32.0-36.0 [facility] Comment on above: Performed By: #### C BC, SANDRA, ANEU, MDW, BMP, GFR #### [address] [address] MCV (RBC) [Entitic vol] 87.6 fL Normal 80.0-99.0 [facility] Comment on above: Performed By: #### C BC, SANDRA, ANEU, MDW, BMP, GFR #### [place] [address] Platelet 187 10 3/mcL Normal 150-450 [facility] Comment on above: Performed By: #### C MARIANO, SANDRA, ANEU, MDW, BMP, GFR #### [place] [address] Platelet mean volume (Bld) [Entitic vol] 8.7 fL Normal 6.6-10.5 [facility] Comment on above: Performed By: #### C MARIANO, SANDRA, ANEU, MDW, BMP, GFR #### [place] [address] RBC 5.14 10 6/mcL Normal 4.10-5.30 [facility] Comment on above: Performed By: #### C MARIANO, SANDRA, ANEU, MDW, BMP, GFR #### [place] [address] WBC 6.6 10 3/mcL Normal 4.5-10.8 [facility] Comment on above: Performed By: #### C BC, SANDRA, ANEU, MDW, BMP, GFR #### [place] [address] LABORATORYOrdered By: SYSTEM SYSTEM on 04-28-2025 Basophils (Bld) [#/Vol] 0.0 103/mcL Normal 0.0 - 0.3 10^3/mcL AO Workflow SS Basophils/100 WBC (Bld) 0.3 % Normal 0.0 - 2.5 % AO Workflow SS Calcium [Mass/Vol] 9.2 mg/dL Normal 8.4 - 10. 2 mg/dL AO ADM SS Chloride [Moles/Vol] 106 mmol/L Normal 98 - 10 7 mmol/L AO ADM SS CO2 [Moles/Vol] 32 mmol/L High 23 - 31 mmol/L AO ADM SS Creatinine [Mass/Vol] 0.93 mg/dL Normal 0.51 - 0.95 mg/dL AO ADM SS Electrolyte Balance 5.0 mEq/L Normal 4.0 - 15 .0 mEq/L AO ADM SS Eosinophil, Absolute 0.1 103/mcL Normal 0.0 - 0 .7 10^3/mcL AO Workflow SS Eosinophils/100 WBC (Bld) 1.7 % Normal 0.0 - 6.0 % AO Workflow SS Erythrocyte distribution width (RBC) [Ratio] 13.5 % Normal 11.5 - 15.5 % AO Workflow SS Estimated Glomerular Filtration Rate 62 ml/min/1.73sqm Invalid Interpretation Code AO Chemistry S Comment on above: Interpretive Data: Stages of Chronic Kidney Disease (CKD) Stage Description eGFR(ml/min/1.73 sq.m.) CKD 1 Normal kidney function or >=90 normal kindney function with possible kidney damage (ex. Proteinuria) CKD 2 Kidney damage with mild loss 60-89 of kidney function CKD 3a Mild to moderate loss of kidney 45-59 function CKD 3b Moderate to severe loss of 30-44 of kindey function CKD 4 Severe loss of kidney function 15-29 CKD 5 Kidney failure <15 Note: (go live 2024) the eGFR calculation was updated to the 2020 CKD-EPI creatinine equation without a race factor to calculate the eGFR results. Glucose [Mass/Vol] 107 mg/dL Normal 83 - 110 mg/dL AO ADM SS Hematocrit (Bld) [Volume fraction] 45.0 % Normal 34.0 - 46.0 % AO Workflow SS Hemoglobin (Bld) [Mass/Vol] 15.5 G/dL Normal 12.0 - 16.0 G/dL AO Workflow SS Lymphocytes (Bld) [#/Vol] 2.6 103/mcL Normal 0.9 - 4.3 10^3/mcL AO Workflow SS Lymphocytes/100 WBC (Bld) 39.7 % Normal 20.0 - 40.0 % AO Workflow SS MCH (RBC) [Entitic mass] 30.3 pg Normal 27.0 - 33.0 pg AO Workflow SS MCHC 34.5 G/dL Normal 32.0 - 36.0 G/dL AO Workflow SS MCV (RBC) [Entitic vol] 87.6 fL Normal 80.0 - 99.0 fL AO Workflow SS Monocyte distribution width Auto (Bld) [Entitic vol] 18.49 1 Normal 0.00 - 20.00 AO Workflow SS Comment on above: Result Comment: For ED adult patients suspected of sepsis, MDW<=20.0 does not rule out sepsis or risk of sepsis Monocytes (Bld) [#/Vol] 0.6 103/mcL Normal 0.1 - 1.4 10^3/mcL AO Workflow SS Monocytes/100 WBC (Bld) 9.3 % Normal 2.0 - 13.0 % AO Workflow SS Neutrophils (Bld) [#/Vol] 3.2 103/mcL Normal 2.3 - 8.1 10^3/mcL AO Workflow SS Neutrophils/100 WBC (Bld) 49.0 % Low 50.0 - 75.0 % AO Workflow SS Platelet mean volume (Bld) [Entitic vol] 8.7 fL Normal 6.6 - 10.5 fL AO Workflow SS Platelets (Bld) [#/Vol] 187 103/mcL Normal 150 - 450 10^3/mcL AO Workflow SS Potassium [Moles/Vol] 3.6 mmol/L Normal 3.5 - 5.1 mmol/L AO ADM SS RBC (Bld) [#/Vol] 5.14 106/mcL Normal 4.10 - 5.3 0 10^6/mcL AO Workflow SS Sodium [Moles/Vol] 143 mmol/L Normal 136 - 145 mmol/L AO ADM SS Urea nitrogen [Mass/Vol] 17 mg/dL Normal 7 - 18 mg/dL AO ADM SS Urea nitrogen/Creatinine [Mass ratio] 18 ratio Normal 7 - 27 ratio AO ADM SS WBC (Bld) [#/Vol] 6.6 103/mcL Normal 4.5 - 10.8 10^3/mcL AO Workflow SS XR FOOT MINIMUM 3 VIEWS LEFT on 04-28-2025 XR FOOT MINIMUM 3 VIEWS LEFT ORIGINAL EXAMINATION: THREE XRAY VIEWS OF THE LEFT FOOT 04/28/2025 9:50 pm COMPARISON: None. HISTORY: ORDERING SYSTEM PROVIDED HISTORY: Reason for Exam: L foot pain, swelling and redness. states started last week, urgent care did xray. states worse today has pcp appointment Saturday. pain, redness FINDINGS: No acute fracture or dislocation. The visualized joint spaces are maintained. [id number] diffuse soft tissue swelling is noted throughout the foot most pronounced dorsally. Plantar calcaneal enthesopathy. IMPRESSION: No acute osseous abnormality. I have personally reviewed the images of this examination and agree with the resident's findings and interpretation. Interpreted by: Rojas Peacock Preliminary Report By: Henry Wiseman Electronically signed By Rojas Peacock Dictated Date: 04/28/2025 10:24:11 PM Prelim Date: 04/28/2025 10:28:45 PM Sign Date: 04/28/2025 10:36:28 PM Ordering Provider: ISHMAEL PAK [facility] Anion gap in Serum or Plasma Ordered By: Rosana Whipple on 04-27-2025 Anion gap [Moles/Vol] 12 mmol/L 04-01 [facility] BUN/creatinine ratioOrdered By: Rosana Whipple on 04-27-2025 Urea nitrogen/Creatinine [Mass ratio] 17.5 mg/mg 09-06 [facility] Basic Metabolic Profile (BMP )on 04-27-2025 BUN/CRE 17.5 RATIO Normal 09-06 [facility] Comment on above: Performed By: #### L 500.2500 #### [facility] [address] [place], [address] Calcium [Mass/Vol] 9.4 mg/dL Normal 7.6-11.0 [facility] Comment on above: Performed By: #### L 500.2500 #### [facility] [address] [place], [address] Chloride [Moles/Vol] 104 mmol/L Normal 98-108 [facility] Comment on above: Performed By: #### L 500.2500 #### [facility] [address] [place], [address] CO2 [Moles/Vol] 25.3 mmol/L Normal 21.0-32.0 [facility] Comment on above: Performed By: #### L 500.2500 #### [facility] [address] [place], [address] Creatinine [Mass/Vol] 0.89 mg/dL Normal 0.70-1.20 [facility] Comment on above: Performed By: #### L 500.2500 #### [facility] [address] [place], [address] ECRCL 51.30 ml/min Normal 50-250 [facility] Comment on above: Performed By: #### L 500.2500 #### [facility] [address] [place], [address] GAP 12 Normal 5-15 [facility] Comment on above: Performed By: #### L 500.2500 #### [facility] [address] [place], [address] GFR/1.73 sq M.predicted among non-blacks MDRD (S/P/Bld) [Vol rate/Area] 66 mL/min/{1.73_m2} Normal >60 [facility] Comment on above: Result Comment: mL/m in/1.73m2 CKD-EPI Creatinine Equation (2020) Performed By: #### L 500.2500 #### [facility] [address] [place], [address] Glucose [Mass/Vol] 89 mg/dL Normal 70-99 [facility] Comment on above: Performed By: #### L 500.2500 #### [facility] [address] [place], [address] Potassium [Moles/Vol] 3.8 mmol/L Normal 3.3-5.1 [facility] Comment on above: Performed By: #### L 500.2500 #### [facility] [address] [place], [address] Sodium [Moles/Vol] 141 mmol/L Normal 133-145 [facility] Comment on above: Performed By: #### L 500.2500 #### [facility] [address] [place], [place], [address] Urea nitrogen [Mass/Vol] 16 mg/dL Normal 4-19 [facility] Comment on above: Performed By: #### L 500.2500 #### [facility] [address] [place], [address] Carbon dioxide, total [Moles /volume] in Central venous bloodOrdered By: Rosana Whipple on 04-27-2025 CO2 [Moles/Vol] 25.3 mmol/L 21.0-32.0 [facility] Chloride assayOrdered By: Asa Whipple on 04-27-2025 Chloride [Moles/Vol] 104 mmol/L 98-108 [facility] Glomerular filtration rate ( GFR) estimation/1.73 sq m using serum, plasma, or whole bOrdered By: Rosana Whipple on 04-27-2025 GFR/1.73 sq M.predicted among non-blacks MDRD (S/P/Bld) [Vol rate/Area] 66 mL/min/{1.73_m2} >60 [facility] Comment on above: mL/min/1.73m2 CKD-EP I Creatinine Equation (2020) Potassium measurement (mass/ volume)Ordered By: Rosana Whipple on 04-27-2025 Potassium (Unsp spec) [Mass/Vol] 3.8 mmol/L 3.3-5.1 [facility] Serum creatinine measurement (mass/volume)Ordered By: Rosana Whipple on 04-27-2025 Creatinine [Mass/Vol] 0.89 mg/dL 0.70-1.20 [facility] Serum glucose measurement (m ass/volume)Ordered By: Rosana Whipple on 04-27-2025 Glucose [Mass/Vol] 89 mg/dL 70-99 [facility] Serum or plasma calcium graciela urement (mass/volume)Ordered By: Rosana Whipple on 04-27-2025 Calcium [Mass/Vol] 9.4 mg/dL 7.6-11.0 [facility] Serum or plasma urea nitroge n measurement (mass/volume)Ordered By: Rosana Whipple on 04-27-2025 Urea nitrogen [Mass/Vol] 16 mg/dL 4-19 [facility] Sodium levelOrdered By: Rosana Whipple on 04-27-2025 Sodium [Moles/Vol] 141 mmol/L 133-145 [facility] No Panel Informationon 04-26 IMPRESSION: Small amount soft tissue swelling over the ankle. Otherwise unremarkable Swine Extension Field Specialist: PSCB Transcribe Date/Time: Apr 26 2025 8:31A Dictated by : STU BERMAN DO This examination was interpreted and the report reviewed and electronically signed by: STU BERMAN DO on Apr 26 2025 8:32AM EST DIVISION OF RADIOLOGY Radiology Study observation (narrative) [facility] No Panel InformationOrdered By: Ccf Provider on 04-26-2025 [facility] XR ANKLE 3V AP/LAT/OBL LTon 04-26-2025 XR ANKLE 3V AP/LAT/OBL LT * * *Final Report* * * DATE OF EXAM: Apr 26 2025 8:29AM WOX 5298 - XR ANKLE 3V AP/LAT/OBL LT / PROCEDURE REASON: Pain * * * * Physician Interpretation * * * * LEFT Ankle and foot HISTORY: 79 years old Clinical information: Pain TECHNIQUE: Images: XR FOOT 3V AP/LAT/OBL LT, XR ANKLE 3V AP/LAT/OBL LT Comparison: None. RESULT: Findings: Ankle: Some soft tissue swelling over the ankle is noted. No fractures or dislocations are seen. Foot: Small anterior heel spur No fractures or dislocations are seen. IMPRESSION: Small amount soft tissue swelling over the ankle. Otherwise unremarkable Swine Extension Field Specialist: PSCB Transcribe Date/Time: Apr 26 2025 8:31A Dictated by : STU BERMAN DO This examination was interpreted and the report reviewed and electronically signed by: STU BERMAN DO on Apr 26 2025 8:32AM EST [id number] Normal [facility] XR Ankle - left AP and Later al and obliqueon 04-26-2025 * * *Final Report* * * DATE OF EXAM: Apr 26 2025 8:29AM WOX 5298 - XR ANKLE 3V AP/LAT/OBL LT / PROCEDURE REASON: Pain * * * * Physician Interpretation * * * * LEFT Ankle and foot HISTORY: 79 years old Clinical information: Pain TECHNIQUE: Images: XR FOOT 3V AP/LAT/OBL LT, XR ANKLE 3V AP/LAT/OBL LT Comparison: None. RESULT: Findings: Ankle: Some soft tissue swelling over the ankle is noted. No fractures or dislocations are seen. Foot: Small anterior heel spur No fractures or dislocations are seen. DIVISION OF RADIOLOGY Provider, [facility] - 04/26/2025 * * *Final Report* * * DATE OF EXAM: Apr 26 2025 8:29AM WOX 5298 - XR ANKLE 3V AP/LAT/OBL LT / PROCEDURE REASON: Pain * * * * Physician Interpretation * * * * LEFT Ankle and foot HISTORY: 79 years old Clinical information: Pain TECHNIQUE: Images: XR FOOT 3V AP/LAT/OBL LT, XR ANKLE 3V AP/LAT/OBL LT Comparison: None. RESULT: Findings: Ankle: Some soft tissue swelling over the ankle is noted. No fractures or dislocations are seen. Foot: Small anterior heel spur No fractures or dislocations are seen. IMPRESSION IMPRESSION: Small amount soft tissue swelling over the ankle. Otherwise unremarkable Swine Extension Field Specialist: HIEN Transcribe Date/Time: Apr 26 2025 8:31A Dictated by : STU BERMAN DO This examination was interpreted and the report reviewed and electronically signed by: STU BERMAN DO on Apr 26 2025 8:32AM [facility] XR FOOT 3V AP/LAT/OBL LTon 0 04-26-2025 XR FOOT 3V AP/LAT/OBL LT * * *Final Report* * * DATE OF EXAM: Apr 26 2025 8:29AM WOX 5336 - XR FOOT 3V AP/LAT/OBL LT / PROCEDURE REASON: Pain * * * * Physician Interpretation * * * * LEFT Ankle and foot HISTORY: 79 years old Clinical information: Pain TECHNIQUE: Images: XR FOOT 3V AP/LAT/OBL LT, XR ANKLE 3V AP/LAT/OBL LT Comparison: None. RESULT: Findings: Ankle: Some soft tissue swelling over the ankle is noted. No fractures or dislocations are seen. Foot: Small anterior heel spur No fractures or dislocations are seen. IMPRESSION: Small amount soft tissue swelling over the ankle. Otherwise unremarkable Swine Extension Field Specialist: HIEN Transcribe Date/Time: Apr 26 2025 8:31A Dictated by : STU BERMAN DO This examination was interpreted and the report reviewed and electronically signed by: STU BERMAN DO on Apr 26 2025 8:32AM EST [id number] Normal [facility] XR Foot - left AP and Latera l and obliqueon 04-26-2025 * * *Final Report* * * DATE OF EXAM: Apr 26 2025 8:29AM WOX 5336 - XR FOOT 3V AP/LAT/OBL LT / PROCEDURE REASON: Pain * * * * Physician Interpretation * * * * LEFT Ankle and foot HISTORY: 79 years old Clinical information: Pain TECHNIQUE: Images: XR FOOT 3V AP/LAT/OBL LT, XR ANKLE 3V AP/LAT/OBL LT Comparison: None. RESULT: Findings: Ankle: Some soft tissue swelling over the ankle is noted. No fractures or dislocations are seen. Foot: Small anterior heel spur No fractures or dislocations are seen. DIVISION OF RADIOLOGY Provider, [facility] - 04/26/2025 * * *Final Report* * * DATE OF EXAM: Apr 26 2025 8:29AM WOX 5336 - XR FOOT 3V AP/LAT/OBL LT / PROCEDURE REASON: Pain * * * * Physician Interpretation * * * * LEFT Ankle and foot HISTORY: 79 years old Clinical information: Pain TECHNIQUE: Images: XR FOOT 3V AP/LAT/OBL LT, XR ANKLE 3V AP/LAT/OBL LT Comparison: None. RESULT: Findings: Ankle: Some soft tissue swelling over the ankle is noted. No fractures or dislocations are seen. Foot: Small anterior heel spur No fractures or dislocations are seen. IMPRESSION IMPRESSION: Small amount soft tissue swelling over the ankle. Otherwise unremarkable Swine Extension Field Specialist: HIEN Transcribe Date/Time: Apr 26 2025 8:31A Dictated by : STU BERMAN DO This examination was interpreted and the report reviewed and electronically signed by: STU BERMAN DO on Apr 26 2025 8:32AM EST [facility] CNOVon 04-25-2025 CNOV Office Visit (UCWSTR ) POP PINEDA ([id number]) 1945 F Date Time Provider Department 04/25/25 8:15 AM [facility] AR[facility] During your visit today, we recorded the following information about you: Temperature Pulse Respiration Blood pressure 97.4 degrees 62/minute 20/minute 130/84 Weight 82.2 kg Pedro Arndt APRN.MARKETING DIRECTOR 04/25/2025 8:55 AM Signed [facility] Subjective Pop Pineda is a 79 year old female. Patient presents with: Edema: BLAIR swollen feet and some bruising x 3 days Patient came in with swelling of her left ankle and foot. Patient stated that symptoms started 3 days ago. Patient reports that right foot had some swelling yesterday but this has improved. Patient does not recall any injury to her ankle or feet and has never had these symptoms before. Patient does have a-fib and takes a blood thinner. Patient can bare weight on left foot and denies numbness, tingling or changes in sensation. Patient denies new medication, shortness of breath, or fluid retention concerns. The history is provided by the patient. No fashion intern was used. Edema Pertinent negatives include no chest pain, headaches, numbness or weakness. Review of Systems Constitutional: Negative. Respiratory: Negative for shortness of breath. Cardiovascular: Positive for leg swelling. Negative for chest pain. Neurological: Negative for weakness, numbness and headaches. No past medical history on file. No past surgical history on file. ALLERGIES Chlorhexidine MEDICATIONS pravastatin (PRAVACHOL) 20 mg tablet potassium chloride SR (MICRO-K) 10 mEq CR capsule anastrozole (ARIMIDEX) 1 mg tablet Take 1 [...] date: 11/19/1969 Quit date: 11/19/1985 Years since quittin.4 Smokeless tobacco: Never Objective BP 130/84 Pulse 62 Temp 36.3 ?C (97.4 ?F) Resp 20 Wt 82.2 kg (181 lb 3.5 oz) SpO2 95% Physical Exam HENT: Head: Normocephalic and atraumatic. Cardiovascular: Rate and Rhythm: Normal rate and regular rhythm. Heart sounds: Normal heart sounds. Pulmonary: Effort: Pulmonary effort is normal. Breath sounds: Normal breath sounds. Musculoskeletal: General: Swelling and tenderness present. Left ankle: Swelling and ecchymosis present. Tenderness present. Comments: +1 pitting edema around the left ankle Skin: General: Skin is warm and dry. Findings: Bruising present. Comments: Bruising along the left ankle and toes Neurological: Mental Status: She is alert and oriented to person, place, and time. Motor: No weakness. {ASSESSMENT/PLAN: 1. Pain - ICD9: 780.96, ICD10: R52 - Patient educated to return for x-ray tomorrow - Patient denied boot for her leg at this time - Patient educated to rest, ice, and elevate left leg - Patient educated to follow up if symptoms worsen - Will also follow up with PCP to get earlier appointment - Patient agreeable to care plan with no questions at this time - XR ANKLE GENERAL 3V AP/LAT/OBL LEFT - XR FOOT GENERAL 3V AP/LAT/OBL LEFT Jad Harkins History and Record Review External record(s) reviewed: no prior records. TEACHING PROVIDER (Physician/PA/CLINICAL LAB CLERK) NOTE OF PERSONAL INVOLVEMENT IN CARE: I have personally seen and examined the patient and performed the medical decision-making components. I have reviewed the Advanced Practice Registered Nurse (CLINICAL LAB CLERK) Student's documentation and verified the findings in the note as written. Any additions or changes are noted in bold/italics. Signature: Pedro Arndt Date: 04/25/2025 Time: 8:54 AM Procedures Allergies As of Date: 04/25/2025 Noted Allergy Reaction CHLORHEXIDINE 09/14/2019 2 - Rash Date Reviewed: 04/25/2025 Reviewed by: Ashley Cotter MA - Fully Assessed Reason for Visit: Edema [39] Cmt: BLAIR swollen feet and some bruising x 3 days Primary Visit Diagnosis:Pain [R52] Order(s):XR ANKLE GENERAL 3V AP/LAT/OBL LEFT [[id number]] Order #: [id number] FUTURE XR FOOT GENERAL 3V AP/LAT/OBL LEFT [[id number]] Order #: [id number] FUTURE Prescriptions as of 04/25/2025 - pravastatin (more content not included)... Normal [facility] CBC W/Diff, Automatedon 12-0 Absolute Lymph 2.02 X10 3/uL Normal 0.83-4.51 [facility] Comment on above: Order Comment: CC CM P AND CBC TO DR. NEGRON Performed By: #### L 500.4050, L100.0100 #### [facility] [address] [place], [address] Absolute Neut 3.5 X10 3/uL Normal 2.0-7.7 [facility] Comment on above: Order Comment: CC CM P AND CBC TO DR. NEGRON Performed By: #### L 500.4050, L100.0100 #### [facility] [address] [place], [address] Basophils/100 WBC (Bld) 0.3 % Normal 0-1 [facility] Comment on above: Order Comment: CC CM P AND CBC TO DR. NEGRON Performed By: #### L 500.4050, L100.0100 #### [facility] [address] [place], [address] Eosinophils/100 WBC (Bld) 1.0 % Normal 0-5 [facility] Comment on above: Order Comment: CC CM P AND CBC TO DR. NEGRON Performed By: #### L 500.4050, L100.0100 #### [facility] [address] [place], [address] Erythrocyte distribution width (RBC) [Ratio] 13.3 % Normal 11.6-14.6 [facility] Comment on above: Order Comment: CC CM P AND CBC TO DR. NEGRON Performed By: #### L 500.4050, L100.0100 #### [facility] [address] [place], [address] Hematocrit (Bld) [Volume fraction] 45.4 % Normal 37-47 [facility] Comment on above: Order Comment: CC CM P AND CBC TO DR. NEGRON Performed By: #### L 500.4050, L100.0100 #### [facility] [address] [place], [address] Hemoglobin (Bld) [Mass/Vol] 15.1 g/dL High 12.0-15.0 [facility] Comment on above: Order Comment: CC CM P AND CBC TO DR. NEGRON Performed By: #### L 500.4050, L100.0100 #### [facility] [address] [place], [address] IG% 0.300 Normal 0.0-0.9 [facility] Comment on above: Order Comment: CC CM P AND CBC TO DR. NEGRON Result Comment: IG% - Immature Granulocytes (promyelocytes, myelocytes and metamyelocytes) > 1% indicates that a LEFT SHIFT is Present. Performed By: #### L 500.4050, L100.0100 #### [facility] [address] [place], [address] Lymphocytes/100 WBC (Bld) 32.6 % Normal 19-41 [facility] Comment on above: Order Comment: CC CM P AND CBC TO DR. NEGRON Performed By: #### L 500.4050, L100.0100 #### [facility] [address] [place], [address] MCH (RBC) [Entitic mass] 29.4 pg Normal 27.0-32.0 [facility] Comment on above: Order Comment: CC CM P AND CBC TO DR. NEGRON Performed By: #### L 500.4050, L100.0100 #### [facility] [address] [place], [address] MCHC (RBC) [Mass/Vol] 33.3 g/dL Normal 32-36 [facility] Comment on above: Order Comment: CC CM P AND CBC TO DR. NEGRON Performed By: #### L 500.4050, L100.0100 #### [facility] [address] [place], [address] MCV (RBC) [Entitic vol] 88.5 fL Normal 81-99 [facility] Comment on above: Order Comment: CC CM P AND CBC TO DR. NEGRON Performed By: #### L 500.4050, L100.0100 #### [facility] [address] [place], [address] Monocytes/100 WBC (Bld) 9.4 % Normal 0-10 [facility] Comment on above: Order Comment: CC CM P AND CBC TO DR. NEGRON Performed By: #### L 500.4050, L100.0100 #### [facility] [address] [place], [address] Neutrophils/100 WBC (Bld) 56.4 % Normal 47-70 [facility] Comment on above: Order Comment: CC CM P AND CBC TO DR. NEGRON Performed By: #### L 500.4050, L100.0100 #### [facility] [address] [place], [address] Nucleated RBC (Bld) [#/Vol] 0 10*3/uL Normal 0-5 [facility] Comment on above: Order Comment: CC CM P AND CBC TO DR. NEGRON Performed By: #### L 500.4050, L100.0100 #### [facility] [address] [place], [address] Platelet mean volume (Bld) [Entitic vol] 11.0 fL Normal 6.2-12.0 [facility] Comment on above: Order Comment: CC CM P AND CBC TO DR. NEGRON Performed By: #### L 500.4050, L100.0100 #### [facility] [address] [place], [address] Platelets (Bld) [#/Vol] 226 10*3/uL Normal 150-450 [facility] Comment on above: Order Comment: CC CM P AND CBC TO DR. NEGRON Performed By: #### L 500.4050, L100.0100 #### [facility] [address] [place], [address] RBC (Bld) [#/Vol] 5.13 10*6/uL Normal 4.2-5.4 [facility] Comment on above: Order Comment: CC CM P AND CBC TO DR. NEGRON Performed By: #### L 500.4050, L100.0100 #### [facility] [address] [place], [address] RDW SD 43.0 fl Normal 35.1-43.9 [facility] Comment on above: Order Comment: CC CM P AND CBC TO DR. NEGRON Performed By: #### L 500.4050, L100.0100 #### [facility] [address] [place], [address] WBC (Bld) [#/Vol] 6.2 10*3/uL Normal 4.4-11.0 [facility] Comment on above: Order Comment: CC CM P AND CBC TO DR. NEGRON Performed By: #### L 500.4050, L100.0100 #### [facility] [address] [place], [address] Comprehensive Metabolic Prof ilon 10-26-2024 Albumin [Mass/Vol] 3.3 g/dL Normal 3.2-5.0 [facility] Comment on above: Order Comment: CC CM P ND CBC TO DR. NEGRON Performed By: #### L 500.4050, L100.0100 #### [facility] [address] [place], [address] Albumin/Globulin [Mass ratio] 1.0 {ratio} Normal 0.9-2.4 [facility] Comment on above: Order Comment: CC CM P ND CBC TO DR. NEGRON Performed By: #### L 500.4050, L100.0100 #### [facility] [address] [place], [address] ALK P 69 U/L Normal 45-117 [facility] Comment on above: Order Comment: CC CM P ND CBC TO DR. NEGRON Performed By: #### L 500.4050, L100.0100 #### [facility] [address] [place], [address] ALT [Catalytic activity/Vol] 28 U/L Normal 13-56 [facility] Comment on above: Order Comment: CC CM P ND CBC TO DR. NEGRON Performed By: #### L 500.4050, L100.0100 #### [facility] [address] [place], [address] AST [Catalytic activity/Vol] 21 U/L Normal 15-37 [facility] Comment on above: Order Comment: CC CM P ND CBC TO DR. NEGRON Performed By: #### L 500.4050, L100.0100 #### [facility] [address] [place], [address] Bilirubin [Mass/Vol] 0.60 mg/dL Normal 0.20-1.00 [facility] Comment on above: Order Comment: CC CM P ND CBC TO DR. NEGRON Result Comment: For patients on eltrombopag therapy, use of Dimension Sturdivant TBIL is not recommended. Performed By: #### L 500.4050, L100.0100 #### [facility] [address] [place], [address] BUN/CRE 17.6 RATIO Normal 10-20 [facility] Comment on above: Order Comment: CC CM P ND CBC TO DR. NEGRON Performed By: #### L 500.4050, L100.0100 #### [facility] [address] [place], [address] CA,Total 9.1 mg/dL Normal 8.5-10.1 [facility] Comment on above: Order Comment: CC CM P ND CBC TO DR. NEGRON Performed By: #### L 500.4050, L100.0100 #### [facility] [address] [place], [address] Chloride [Moles/Vol] 109 mmol/L High 98-107 [facility] Comment on above: Order Comment: CC CM P ND CBC TO DR. NEGRON Performed By: #### L 500.4050, L100.0100 #### [facility] [address] [place], [address] CO2 [Moles/Vol] 30.0 mmol/L Normal 21.0-32.0 [facility] Comment on above: Order Comment: CC CM P ND CBC TO DR. NEGRON Performed By: #### L 500.4050, L100.0100 #### [facility] [address] [place], [address] Creatinine [Mass/Vol] 0.97 mg/dL Normal 0.55-1.02 [facility] Comment on above: Order Comment: CC CM P ND CBC TO DR. NEGRON Result Comment: The validity of the calculated GFR GFRAA in patients over 70 years has not been determined. Clinical correlation is essential. Performed By: #### L 500.4050, L100.0100 #### [facility] [address] [place], [address] EST GFR - AA 71 mL/min Normal >60 [facility] Comment on above: Order Comment: CC CM P ND CBC TO DR. NEGRON Result Comment: Afri can Algerian GFR Calc Performed By: #### L 500.4050, L100.0100 #### [facility] [address] [place], [address] GAP 4 Low 5-15 [facility] Comment on above: Order Comment: CC CM P ND CBC TO DR. NEGRON Performed By: #### L 500.4050, L100.0100 #### [facility] [address] [place], [address] GFR/1.73 sq M.predicted among non-blacks MDRD (S/P/Bld) [Vol rate/Area] 59 mL/min/{1.73_m2} Low >60 [facility] Comment on above: Order Comment: CC CM P ND CBC TO DR. NEGRON Result Comment: Non- GFR Calc Performed By: #### L 500.4050, L100.0100 #### [facility] [address] [place], [address] Globulin (S) [Mass/Vol] 3.4 g/dL Normal 2.2-4.2 [facility] Comment on above: Order Comment: CC CM P ND CBC TO DR. NEGRON Performed By: #### L 500.4050, L100.0100 #### [facility] [address] [place], [address] Glucose [Mass/Vol] 115 mg/dL High 74-106 [facility] Comment on above: Order Comment: CC CM P ND CBC TO DR. NEGRON Result Comment: Fast ing Glucose result from 100 to 125 mg/dL suggests IMPAIRED HOMEOSTASIS per A.D.A. criteria. Performed By: #### L 500.4050, L100.0100 #### [facility] [address] [place], [address] Potassium [Moles/Vol] 3.4 mmol/L Low 3.5-5.1 [facility] Comment on above: Order Comment: CC CM P ND CBC TO DR. NEGRON Performed By: #### L 500.4050, L100.0100 #### [facility] [address] [place], [address] Sodium [Moles/Vol] 142 mmol/L Normal 136-145 [facility] Comment on above: Order Comment: CC CM P ND CBC TO DR. NEGRON Performed By: #### L 500.4050, L100.0100 #### [facility] [address] [place], [address] T PROT 6.7 g/dL Normal 6.4-8.2 [facility] Comment on above: Order Comment: CC CM P ND CBC TO DR. NEGRON Performed By: #### L 500.4050, L100.0100 #### [facility] [address] [place], [address] Urea nitrogen [Mass/Vol] 17 mg/dL Normal 7-18 [facility] Comment on above: Order Comment: CC CM P ND CBC TO DR. NEGRON Performed By: #### L 500.4050, L100.0100 #### [facility] [address] [place], [address] Lipid Profileon 10-26-2024 Cholesterol [Mass/Vol] 142 mg/dL Normal [address] [facility] Comment on above: Result Comment: <200 mg/dL Desirable 200-240 mg/dL Borderline >240 mg/dL High Risk Performed By: #### L 500.4100, L501.9520, L506.1000 ####[facility] [address] [place], [address] Cholesterol in HDL [Mass/Vol] 39 mg/dL Low [facility] Comment on above: Result Comment: The drugs N-Acetylcysteine and Metamizole may falsely depress this assay. Reference Range HDL <40 mg/dL Low HDL Cholesterol HDL >or= 60 mg/dL High HDL Cholesterol Performed By: #### L 500.4100, L501.9520, L506.1000 ####[facility] [address] [place], [address] Cholesterol in LDL [Mass/Vol] 54 mg/dL Normal 0-130 [facility] Comment on above: Performed By: #### L 500.4100, L501.9520, L506.1000 ####[facility] [address] [place], [address] Cholesterol in VLDL [Mass/Vol] 49 mg/dL High 5-40 [facility] Comment on above: Performed By: #### L 500.4100, L501.9520, L506.1000 ####[facility] [address] [place], [address] Triglyceride [Mass/Vol] 246 mg/dL High [facility] Comment on above: Result Comment: The drugs N-Acetylcysteine and Metamizole may falsely depress this assay. Serum Triglycerides Reference Interval Normal <150 mg/dL Borderline high 150 - 199 mg/dL High 200 - 499 mg/dL Very High > or = 500 mg/dL Performed By: #### L 500.4100, L501.9520, L506.1000 ####[facility] [address] [place], [address] Oncology Visit Reporton Oncology Visit Report [facility] [address] [place] [address] OFFICE VISIT Date of Service: 10/26/24 1526 MR#: [id number] Acct: [id number] Name: POP PINEDA Rep #: [id number] : 1945 From: Rosana Jose Age/Sex: 79/F Location: [facility] Status: Signed HPI Subjective Date of Service 10/26/24 Chief Complaint Breast cancer on treatment History of Present Illness Patient is a 79-year-old female who presented after an abnormal screening mammogram and a biopsy confirming an invasive ductal cancer. September 02, 2018:Right breast, ultrasound-guided needle core biopsy: Invasive ductal carcinoma, nuclear grade 2 (0.9 cm in greatest length). September 18, 2018 right breast partial mastectomy with sentinel lymph node biopsy: MICROSCOPIC DIAGNOSIS A. Right axillary sentinel lymph node, biopsy: Two out of two nodes negative for metastatic carcinoma. B. Right breast, lumpectomy: Invasive ductal carcinoma. See cancer checklist below. AM:yovany 09/23/18 COMMENT INVASIVE BREAST CANCER SUMMARY: Procedure: Excision with wire guidance Specimen: Partial breast Specimen integrity: single intact specimen Specimen size: 6.5 x 6 x 3.8 cm Specimen laterality: Right breast Invasive tumor size: 1.5 x 1.2 x 1 cm Tumor focality: Single focus of invasive carcinoma Macroscopic and Microscopic extent of tumor: Skin: Not present Nipple: Not present Skeletal muscle: Not present Histologic type of invasive carcinoma: invasive ductal carcinoma Histologic Grade (Winn grade): Glandular/tubular differentiation score: 2 Nuclear pleomorphism score: 2 Mitotic count score: 1 Overall grade: Grade 1 (total score of 5) Margins: Uninvolved by invasive carcinoma. Distance from closest (superior) margin 8 mm Lymph-Vascular invasion: Not identified Dermal lymph-vascular invasion: Not applicable Perineural invasion: present Ductal carcinoma in situ (DCIS): Not present Lobular carcinoma in situ (LCIS): Not present Lymph nodes: Number of sentinel lymph nodes examined 2 (by H E and immunohistochemistry). Total number of lymph nodes examined (sentinel and nonsentinel) - 2 No evidence of macrometastases, micrometastases or isolated tumor cells. See specimen A. Microcalcifications: Present in both carcinoma and non-neoplastic tissue (focal). Treatment effect - no known presurgical therapy. Additional pathologic findings: Fibrocystic change. Intraductal hyperplasia with focal atypical intraductal hyperplasia. Changes of previous biopsy. Ancillary studies: Previously performed on same tumor ([id number] / [id number]). ER: >95%, strong KY: 77%, moderate Her2 richard: 2+ (IHC) Her2 by dual RIKI: Not amplified (1.28/1) PATHOLOGIC STAGE: pT1c N0(sn) Mx Oncotype DX score of 16 (low risk) Treatment: September 18, 2018 right breast partial mastectomy with sentinel lymph node biopsy Arimidex September 2018-September 2023 Bone supportive therapy with Prolia September 2020, will switch to zoledronic acid end 2022 (high co-pay with denosumab) Interval History The patient is presenting to clinic for a routine 12 month follow up, to review today's labs and dexa scan from 09/17/24. She denies any concerns r/t today's visit. Specifically denies weight loss, headaches, CP, palpitations, cough, abd pain, bone/joint pain (aside from chronic bilat knee pain), swelling of her extremities. Does not perform BSE, but denies any palpable masses, skin abnormalities she may have noticed while dressing/bathing. Confirms she is taking calcium and vitamin D as advised. No jaw pain. [facility] Medical History (Updated 10/26/24 @ 16:15 by Rosana Whipple NP, PUMPER HELPER-C) History of breast cancer Screening for breast cancer Polycythemia Mixed hyperlipidemia Paroxysmal atrial fibrillation Essential hypertension Osteopenia due to cancer therapy COVID-19 virus detected Osteopenia Breast cancer, right Breast cancer ( 08/2018) Chronic anticoagulation Atrial fibrillation with rapid ventricular response (05/29/17) Psoriasis Right bundle branch block Secondary pulmonary arterial hypertension Nonrheumatic mitral (valve) insufficiency Non-rheumatic tricuspid valve insufficiency Osteoporosis Left ureteral calculus Pyelonephritis due to Escherichia coli Surgical History History of tubal ligation History of vein stripping History of total abdominal hysterectomy Family History Mother CAD (coronary artery disease) coronary stents Myocardial infarction age 81 Hypertension CVA (cerebral vascular accident) Brother Seizures Sister Seizures Daughter Thyroid disorder Father No problems noted. Aunt Breast cancer Aunt Breast cancer Social History ... Normal [facility] Thyroid Stim Hormone (TSH)on 10-26-2024 TSH 1.150 uIU/mL Normal 0.358-3.740 [facility] Comment on above: Performed By: #### L 500.4100, L501.9520, L506.1000 ####[facility] [address] [place], [place], [address] Vitamin D,25 Hydroxyon 10-26 Vitamin D 25-OH 60.6 ng/mL Normal [facility] Comment on above: Result Comment: Nicole min D 25(OH) Status Range Deficiency <20 ng/mL (50nmol/L) Insufficiency 20 - 30 ng/mL (50 - 75 nmol/L) Sufficiency 30 - 100 ng/mL (75 - 250 nmol/L) Toxicity >100 ng/mL (>250 nmol/L) Performed By: #### L 500.4100, L501.9520, L506.1000 ####[facility] [address] [place], [place], [address] CNPCrystal 08-19-2024 [facility]A ([id number]) 1945 F Date Time Provider Department 08/19/24 NIMA GRANADOS [facility] During your visit today, we recorded the following information about you: Nima Granados APRN.CNP 08/19/2024 2:06 PM Signed Please inform patient that no significant bacterial infection was noted on urine culture. If symptoms progressively are improving continue antibiotics. Follow-up with PCP for reevaluation. GIO Floyd Brittany L, MA 08/19/2024 3:10 PM Signed Unable to [...] Encounter Status:Closed by LAUREN HENSON on 08/20/24 [facility] Bacteria Ur Culton 4 Bacteria identified Cx Nom (U) ORGANISM ID: 1 10,000 -<50,000 CFU/ml Mixed microbiota No further workup. Mixed microbiota can be due to???urine???contamina tion with skin bacteria at time of collection or presence of a long-term urinary catheter. If a new culture is needed, please consider re-education of the patient on proper midstream collection technique or straight catheterization for???urine???collecti on. Normal [facility] Comment on above: Performed By: #### 6 30-4 #### [facility] CLIA [id number] [address] [id number] [place] [facility] CNOVon 08-18-2024 [facility] Office Visit ([facility] ) POP PINEDA ([id number]) 1945 F Date Time Provider Department 08/18/24 11:30 AM LAINEY ZEPEDA [facility] During your visit today, we recorded the following information about you: Temperature Pulse Respiration Blood pressure 98.1 degrees 64/minute 18/minute 142/84 Weight 76 kg Lainey Zepeda APRN.MARKETING DIRECTOR 08/18/2024 12:58 PM Addendum Subjective HPI Pop Pineda is a 79 year old female [...] Status: She is alert. Patient sees Dr. Negron for PCP- no labs in system. Patient states she has had no concerns regarding kidney function in recent labwork ordered by Dr. Negron. ASSESSMENT/PLAN: 1. Urinary frequency - ICD9: 788.41, [...] - Discussed expected course of illness Lainey Zepeda, ALONZO.MARKETING DIRECTOR [facility] PATIENT INFO BLADDER INFECTION OVERVIEW [...] course of (more content not included)... Normal [facility] UA DIP, URINE (POC)on 2023 BILIRUBIN UA (POCT) Moderate Abnormal Negative [facility] CLARITY UA (POCT) Clear [facility] COLOR UA (POCT) Red [facility] GLUCOSE UA (POCT) Negative Negative mg/dL [facility] Hemoglobin Ql (U) Large Abnormal Negative [facility] Interpretation and review of laboratory results Abnormal [facility] KETONE UA (POCT) Trace Negative mg/dL [facility] LEUKOCYTES UA (POCT) Trace Abnormal Negative [facility] NITRITE UA (POCT) Positive Abnormal Negative [facility] PH UA (POCT) 7.0 4.5 - 8.0 [facility] Protein Ql (U) >=300 Abnormal Negative mg/dL [facility] SPECIFIC GRAVITY UA (POCT) 1.025 1.005 - 1.030 [facility] UROBILINOGEN UA (POCT) 1.0 Christine l E.U./dL [facility] Location:[facility], [address] [place] [address], [place], [address] [facility] POINT OF CARE [facility] Basophil percentageOrdered B y: Maty Harrington on 02-26-2024 Chloride [Moles/Vol] 106 mmol/L 98-107 [facility] Glucose [Mass/Vol] 114 mg/dL 74-106 [facility] Comment on above: Fasting Glucose resu lt from 100 to 125 mg/dL suggests IMPAIRED HOMEOSTASIS per A.D.A. criteria. Potassium [Moles/Vol] 3.4 mmol/L 3.5-5.1 [facility] Sodium [Moles/Vol] 141 mmol/L 136-145 [facility] - Chemistry and C hemistry - challengeOrdered By: Maty Harrington on 02-26-2024 CO2 [Moles/Vol] 32.0 mmol/L 21.0-32.0 [facility] Urea nitrogen/Creatinine [Mass ratio] 13.3 mg/mg 10-20 [facility] No Panel InformationOrdered By: Maty Harrington on 02-26-2024 Estimated GFR (MDRD) Amer 77 mL/min >60 [facility] Comment on above: GFR Calc Estimated GFR (MDRD) Non-Af Amer 64 mL/min >60 [facility] Comment on above: Non- GFR Calc Serum or plasma calcium graciela urement (mass/volume)Ordered By: Maty Harrington on 02-26-2024 Calcium [Mass/Vol] 8.8 mg/dL 8.5-10.1 [facility] Serum or plasma creatinine m easurement (mass/volume)Ordered By: Maty Harrington on 02-26-2024 Creatinine [Mass/Vol] 0.90 mg/dL 0.55-1.02 [facility] Comment on above: The validity of the calculated GFR & GFRAA in patients over 70 years has not been determined. Clinical correlation is essential. Serum or plasma urea nitroge n measurement (mass/volume)Ordered By: Maty Harrington on 02-26-2024 Urea nitrogen [Mass/Vol] 12 mg/dL 7-18 [facility] Thin prep Papanicolaou smear with manual screeningOrdered By: Maty Harrington on 02-26-2024 Thin prep Papanicolaou smear with manual screening 3 5-15 [facility] Absolute lymphocyte countOrd ered By: Glen Negron on 10-24-2023 Lymphocytes Auto (Unsp spec) [#/Vol] 1.77 10*3/uL 0.83-4.51 [facility] Basophil percentageOrdered B y: Glen Negron on 10-24-2023 Basophils/100 WBC (Bld) 0.4 % 0-1 [facility] Bilirubin [Mass/Vol] 0.70 mg/dL 0.20-1.00 [facility] Comment on above: For patients on eltr ombopag therapy, use of Dimension Sturdivant TBIL is not recommended. Chloride [Moles/Vol] 109 mmol/L 98-107 [facility] Cholesterol [Mass/Vol] 160 mg/dL <[address] [facility] Comment on above: <200 mg/dL Desirable 200-240 mg/dL Borderline >240 mg/dL High Risk Eosinophils/100 WBC (Bld) 1.0 % 0-5 [facility] Glucose [Mass/Vol] 104 mg/dL 74-106 [facility] Comment on above: Fasting Glucose resu lt from 100 to 125 mg/dL suggests IMPAIRED HOMEOSTASIS per A.D.A. criteria. Neutrophils (Bld) [#/Vol] 4.2 10*3/uL 2.0-7.7 [facility] Neutrophils/100 WBC (Bld) 62.9 % 47-70 [facility] Potassium [Moles/Vol] 4.2 mmol/L 3.5-5.1 [facility] Protein [Mass/Vol] 6.9 g/dL 6.4-8.2 [facility] Sodium [Moles/Vol] 142 mmol/L 136-145 [facility] Triglyceride [Mass/Vol] 146 mg/dL <199 [facility] Comment on above: The drugs N-Acetylcy steine and Metamizole may falsely depress this assay.Serum Triglycerides Reference Interval Normal <150 mg/dL Borderline high 150 - 199 mg/dL High 200 - 499 mg/dL Very High > or = 500 mg/dL WBC (Bld) [#/Vol] 6.7 10*3/uL 4.4-11.0 [facility] Blood erythrocytes count (nu mber/volume)Ordered By: Glen Negron on 10-24-2023 RBC (Bld) [#/Vol] 4.89 10*6/uL 4.2-5.4 [facility] Blood hemoglobin measurement (mass/volume)Ordered By: Glen Negron on 10-24-2023 Hemoglobin (Bld) [Mass/Vol] 14.4 g/dL 12.0-15.0 [facility] Blood lymphocytes/100 leukoc ytesOrdered By: [facility] Jamil on 10-24-2023 Lymphocytes/100 WBC (Bld) 26.5 % 19-41 [facility] Blood monocytes/100 leukocyt esOrdered By: [facility] on 10-24-2023 Monocytes/100 WBC (Bld) 8.8 % 0-10 [facility] Blood platelet mean volumeOr dered By: [facility] on 10-24-2023 Platelet mean volume (Bld) [Entitic vol] 11.1 fL 6.2-12.0 [facility] Determination of erythrocyte mean corpuscular volume (MCV)Ordered By: Glen Negron on 10-24-2023 MCV (RBC) [Entitic vol] 89.8 fL 81-99 [facility] Hematocrit Auto (Bld) [Volum e fraction]Ordered By: [facility] on 10-24-2023 Hematocrit (Bld) [Volume fraction] 43.9 % 37-47 [facility] Laboratory - Chemistry and C hemistry - challengeOrdered By: [facility] 10-24-2023 ALP [Catalytic activity/Vol] 61 U/L 45-117 [facility] ALT [Catalytic activity/Vol] 34 U/L 13-56 [facility] CO2 [Moles/Vol] 28.0 mmol/L 21.0-32.0 [facility] Globulin (S) [Mass/Vol] 3.6 g/dL 2.2-4.2 [facility] Urea nitrogen/Creatinine [Mass ratio] 14.1 mg/mg 10-20 [facility] Laboratory - Hematology and Cell countsOrdered By: [facility] on 10-24-2023 Erythrocyte distribution width (RBC) [Entitic vol] 43.7 fL 35.1-43.9 [facility] Erythrocyte distribution width (RBC) [Ratio] 13.3 % 11.6-14.6 [facility] Immature granulocytes/100 WBC (Bld) 0.400 % 0.0-0.9 [facility] Comment on above: IG% - Immature Granu locytes (promyelocytes, myelocytes and metamyelocytes) > 1% indicates that a LEFT SHIFT is Present. MCH (RBC) [Entitic mass] 29.4 pg 27.0-32.0 [facility] Nucleated RBC/100 WBC (Bld) [Ratio] 0 % 0-5 [facility] MCHC Auto (RBC) [Mass/Vol]Or dered By: Glen Negron on 10-24-2023 MCHC (RBC) [Mass/Vol] 32.8 g/dL 32-36 [facility] No Panel InformationOrdered By: Glen Negron on 10-24-2023 Estimated GFR (MDRD) Amer 75 mL/min >60 [facility] Comment on above: GFR Calc Estimated GFR (MDRD) Non-Af Amer 62 mL/min >60 [facility] Comment on above: Non- GFR Calc Thyroid Stimulating Hormone (TSH) 1.34 uIU/mL 0.358-3.74 [facility] Vitamin D 25-Hydroxy 73.7 ng/mL [facility] Comment on above: Vitamin D 25(OH) Sta tus Range Deficiency <20 ng/mL (50nmol/L) Insufficiency 20 - 30 ng/mL (50 - 75 nmol/L) Sufficiency 30 - 100 ng/mL (75 - 250 nmol/L) Toxicity >100 ng/mL (>250 nmol/L) Platelets bldOrdered By: Glen Negron on 10-24-2023 Platelets (Bld) [#/Vol] 236 10*3/uL 150-450 [facility] Serum or plasma albumin graciela urement (mass/volume)Ordered By: Glen Negron on 10-24-2023 Albumin [Mass/Vol] 3.3 g/dL 3.2-5.0 [facility] Serum or plasma albumin/glob ulin mass ratioOrdered By: Glen Negron 10-24-2023 Albumin/Globulin [Mass ratio] 0.9 {ratio} 0.9-2.4 [facility] Serum or plasma calcium graciela urement (mass/volume)Ordered By: Glen Negron on 10-24-2023 Calcium [Mass/Vol] 8.6 mg/dL 8.5-10.1 [facility] Serum or plasma cholesterol in HDL measurement (mass/volume)Ordered By: Glen Negron on 10-24-2023 Cholesterol in HDL [Mass/Vol] 44 mg/dL >40 [facility] Comment on above: The drugs N-Acetylcy steine and Metamizole may falsely depress this assay. Reference Range HDL <40 mg/dL Low HDL Cholesterol HDL >or= 60 mg/dL High HDL Cholesterol Serum or plasma cholesterol in VLDL measurement (mass/volume)Ordered By: Glen Negron on 10-24-2023 Cholesterol in VLDL [Mass/Vol] 29 mg/dL 5-40 [facility] Serum or plasma creatinine m easurement (mass/volume)Ordered By: Glen Negron on 10-24-2023 Creatinine [Mass/Vol] 0.92 mg/dL 0.55-1.02 [facility] Comment on above: The validity of the calculated GFR & GFRAA in patients over 70 years has not been determined. Clinical correlation is essential. Serum or plasma low density lipoprotein (LDL) cholesterol measurement (mass/volume)Ordered By: Glen Negron on 10-24-2023 Cholesterol in LDL [Mass/Vol] 87 mg/dL 0-130 [facility] Serum or plasma urea nitroge n measurement (mass/volume)Ordered By: Glen Negron on 10-24-2023 Urea nitrogen [Mass/Vol] 13 mg/dL 7-18 [facility] Thin prep Papanicolaou smear with manual screeningOrdered By: Glen Negron on 10-24-2023 Thin prep Papanicolaou smear with manual screening 26 U/L 15-37 [facility] Thin prep Papanicolaou smear with manual screening 5 5-15 [facility] UA DIP, URINE (POC)on 2022 BILIRUBIN UA (POCT) Large Abnormal Negative [facility] CLARITY UA (POCT) Cloudy [facility] COLOR UA (POCT) Red [facility] GLUCOSE UA (POCT) Negative Negative mg/dL [facility] Hemoglobin Ql (U) Large Abnormal Negative [facility] KETONE UA (POCT) 15 mg/dL Abnormal Negative mg/dL [facility] LEUKOCYTES UA (POCT) Large Abnormal Negative [facility] NITRITE UA (POCT) Positive Abnormal Negative [facility] PH UA (POCT) 5.0 4.5 - 8.0 [facility] Protein Ql (U) >=300 Abnormal Negative mg/dL [facility] SPECIFIC GRAVITY UA (POCT) 1.020 1.005 - 1.030 [facility] UROBILINOGEN UA (POCT) 2.0 E.U./dL Abnormal Christine l E.U./dL [facility] Absolute lymphocyte countOrd ered By: Dr. Negron on 04-22-2023 Lymphocytes Auto (Unsp spec) [#/Vol] 2.76 10*3/uL 0.83-4.51 [facility] Basophil percentageOrdered B y: Dr. Negron on 04-22-2023 Basophils/100 WBC (Bld) 0.5 % 0-1 [facility] Bilirubin [Mass/Vol] 0.60 mg/dL 0.20-1.00 [facility] Comment on above: For patients on eltr ombopag therapy, use of Dimension [place] TBIL is not recommended. Chloride [Moles/Vol] 107 mmol/L 98-107 [facility] Cholesterol [Mass/Vol] 157 mg/dL <[address] [facility] Comment on above: <200 mg/dL Desirable 200-240 mg/dL Borderline >240 mg/dL High Risk Eosinophils/100 WBC (Bld) 1.1 % 0-5 [facility] Glucose [Mass/Vol] 84 mg/dL 74-106 [facility] Neutrophils (Bld) [#/Vol] 4.9 10*3/uL 2.0-7.7 [facility] Neutrophils/100 WBC (Bld) 57.2 % 47-70 [facility] Potassium [Moles/Vol] 4.1 mmol/L 3.5-5.1 [facility] Protein [Mass/Vol] 7.7 g/dL 6.4-8.2 [facility] Sodium [Moles/Vol] 142 mmol/L 136-145 [facility] Triglyceride [Mass/Vol] 157 mg/dL <199 [facility] Comment on above: The drugs N-Acetylcy steine and Metamizole may falsely depress this assay.Serum Triglycerides Reference Interval Normal <150 mg/dL Borderline high 150 - 199 mg/dL High 200 - 499 mg/dL Very High > or = 500 mg/dL WBC (Bld) [#/Vol] 8.5 10*3/uL 4.4-11.0 [facility] Blood erythrocytes count (nu mber/volume)Ordered By: Dr. Negron on 04-22-2023 RBC (Bld) [#/Vol] 5.21 10*6/uL 4.2-5.4 [facility] Blood hemoglobin measurement (mass/volume)Ordered By: Dr. Negron on 04-22-2023 Hemoglobin (Bld) [Mass/Vol] 15.1 g/dL 12.0-15.0 [facility] Blood lymphocytes/100 leukoc ytesOrdered By: Dr. Negron on 04-22-2023 Lymphocytes/100 WBC (Bld) 32.6 % 19-41 [facility] Blood monocytes/100 leukocyt esOrdered By: Dr. Negron on 04-22-2023 Monocytes/100 WBC (Bld) 8.1 % 0-10 [facility] Blood platelet mean volumeOr dered By: Dr. Negron on 04-22-2023 Platelet mean volume (Bld) [Entitic vol] 10.3 fL 6.2-12.0 [facility] Determination of erythrocyte mean corpuscular volume (MCV)Ordered By: Dr. Negron on 04-22-2023 MCV (RBC) [Entitic vol] 88.9 fL 81-99 [facility] Hematocrit Auto (Bld) [Volum e fraction]Ordered By: Dr. Negron on 04-22-2023 Hematocrit (Bld) [Volume fraction] 46.3 % 37-47 [facility] Laboratory - Chemistry and C hemistry - challengeOrdered By: Dr. Negron on 04-22-2023 ALP [Catalytic activity/Vol] 68 U/L 45-117 [facility] ALT [Catalytic activity/Vol] 29 U/L 13-56 [facility] CO2 [Moles/Vol] 27.0 mmol/L 21.0-32.0 [facility] Globulin (S) [Mass/Vol] 4.1 g/dL 2.2-4.2 [facility] Urea nitrogen/Creatinine [Mass ratio] 12.1 mg/mg 10-20 [facility] Laboratory - Hematology and Cell countsOrdered By: Dr. Negron on 04-22-2023 Erythrocyte distribution width (RBC) [Entitic vol] 42.6 fL 35.1-43.9 [facility] Erythrocyte distribution width (RBC) [Ratio] 13.2 % 11.6-14.6 [facility] Immature granulocytes/100 WBC (Bld) 0.500 % 0.0-0.9 [facility] Comment on above: IG% - Immature Granu locytes (promyelocytes, myelocytes and metamyelocytes) > 1% indicates that a LEFT SHIFT is Present. MCH (RBC) [Entitic mass] 29.0 pg 27.0-32.0 [facility] Nucleated RBC/100 WBC (Bld) [Ratio] 0 % 0-5 [facility] MCHC Auto (RBC) [Mass/Vol]Or dered By: Dr. Negron on 04-22-2023 MCHC (RBC) [Mass/Vol] 32.6 g/dL 32-36 [facility] No Panel InformationOrdered By: Dr. Negron on 04-22-2023 Estimated GFR (MDRD) Amer 69 mL/min >60 [facility] Comment on above: GFR Calc Estimated GFR (MDRD) Non-Af Amer 57 mL/min >60 [facility] Comment on above: Non- GFR Calc Thyroid Stimulating Hormone (TSH) 1.77 uIU/mL 0.358-3.74 [facility] Vitamin D 25-Hydroxy 82.4 ng/mL [facility] Comment on above: Vitamin D 25(OH) Sta tus Range Deficiency <20 ng/mL (50nmol/L) Insufficiency 20 - 30 ng/mL (50 - 75 nmol/L) Sufficiency 30 - 100 ng/mL (75 - 250 nmol/L) Toxicity >100 ng/mL (>250 nmol/L) Platelets bldOrdered By: Dr. Negron on 04-22-2023 Platelets (Bld) [#/Vol] 252 10*3/uL 150-450 [facility] Serum or plasma albumin graciela urement (mass/volume)Ordered By: Dr. Negron on 04-22-2023 Albumin [Mass/Vol] 3.6 g/dL 3.2-5.0 [facility] Serum or plasma albumin/glob ulin mass ratioOrdered By: Dr. Negron on 04-22-2023 Albumin/Globulin [Mass ratio] 0.9 {ratio} 0.9-2.4 [facility] Serum or plasma calcium graciela urement (mass/volume)Ordered By: Dr. Negron on 04-22-2023 Calcium [Mass/Vol] 9.8 mg/dL 8.5-10.1 [facility] Serum or plasma cholesterol in HDL measurement (mass/volume)Ordered By: Dr. Negron on 04-22-2023 Cholesterol in HDL [Mass/Vol] 45 mg/dL >40 [facility] Comment on above: The drugs N-Acetylcy steine and Metamizole may falsely depress this assay. Reference Range HDL <40 mg/dL Low HDL Cholesterol HDL >or= 60 mg/dL High HDL Cholesterol Serum or plasma cholesterol in VLDL measurement (mass/volume)Ordered By: Dr. Negron on 04-22-2023 Cholesterol in VLDL [Mass/Vol] 31 mg/dL 5-40 [facility] Serum or plasma creatinine m easurement (mass/volume)Ordered By: Dr. Negron on 04-22-2023 Creatinine [Mass/Vol] 0.99 mg/dL 0.55-1.02 [facility] Comment on above: The validity of the calculated GFR & GFRAA in patients over 70 years has not been determined. Clinical correlation is essential. Serum or plasma low density lipoprotein (LDL) cholesterol measurement (mass/volume)Ordered By: Dr. Negron on 04-22-2023 Cholesterol in LDL [Mass/Vol] 81 mg/dL 0-130 [facility] Serum or plasma urea nitroge n measurement (mass/volume)Ordered By: Dr. Negron on 04-22-2023 Urea nitrogen [Mass/Vol] 12 mg/dL 7-18 [facility] Thin prep Papanicolaou smear with manual screeningOrdered By: Dr. Negron on 04-22-2023 Thin prep Papanicolaou smear with manual screening 26 U/L 15-37 [facility] Thin prep Papanicolaou smear with manual screening 8 5-15 [facility] UA DIP, URINE (POC)on 2022 BILIRUBIN UA (POCT) Negative Negative [facility] CLARITY UA (POCT) Cloudy [facility] COLOR UA (POCT) Yellow [facility] GLUCOSE UA (POCT) Negative Negative mg/dL [facility] HEMOGLOBIN/BLOOD UA (POCT) Trace-lysed Abnormal Negative [facility] KETONE UA (POCT) Trace Negative mg/dL [facility] LEUKOCYTES UA (POCT) Moderate Abnormal Negative [facility] NITRITE UA (POCT) Negative Negative [facility] PH UA (POCT) 5.5 4.5 - 8.0 [facility] Protein Ql (U) Negative Negative mg/dL [facility] SPECIFIC GRAVITY UA (POCT) 1.020 1.005 - 1.030 [facility] UROBILINOGEN UA (POCT) 0.2 E.U./dL Christine l E.U./dL [facility] Absolute lymphocyte countOrd ered By: Dr. Negorn on 10-23-2022 Lymphocytes Auto (Unsp spec) [#/Vol] 2.63 10*3/uL 0.83-4.51 [facility] Basophil percentageOrdered B y: Dr. Negron on 10-23-2022 Basophils/100 WBC (Bld) 0.4 % 0-1 [facility] Bilirubin [Mass/Vol] 0.60 mg/dL 0.20-1.00 [facility] [place] Comment on above: For patients on eltr ombopag therapy, use of Dimension [place] TBIL is not recommended. Chloride [Moles/Vol] 109 mmol/L 98-107 [facility] Cholesterol [Mass/Vol] 153 mg/dL <[address] [facility] Comment on above: <200 mg/dL Desirable 200-240 mg/dL Borderline >240 mg/dL High Risk Eosinophils/100 WBC (Bld) 1.6 % 0-5 [facility] Glucose [Mass/Vol] 92 mg/dL 74-106 [facility] Neutrophils (Bld) [#/Vol] 4.1 10*3/uL 2.0-7.7 [facility] Neutrophils/100 WBC (Bld) 53.0 % 47-70 [facility] Potassium [Moles/Vol] 3.8 mmol/L 3.5-5.1 [facility] Protein [Mass/Vol] 7.3 g/dL 6.4-8.2 [facility] Sodium [Moles/Vol] 141 mmol/L 136-145 [facility] Triglyceride [Mass/Vol] 177 mg/dL <199 [facility] Comment on above: The drugs N-Acetylcy steine and Metamizole may falsely depress this assay.Serum Triglycerides Reference Interval Normal <150 mg/dL Borderline high 150 - 199 mg/dL High 200 - 499 mg/dL Very High > or = 500 mg/dL WBC (Bld) [#/Vol] 7.7 10*3/uL 4.4-11.0 [facility] Blood erythrocytes count (nu mber/volume)Ordered By: Dr. Negron on 10-23-2022 RBC (Bld) [#/Vol] 4.85 10*6/uL 4.2-5.4 [facility] Blood hemoglobin measurement (mass/volume)Ordered By: Dr. Negron on 10-23-2022 Hemoglobin (Bld) [Mass/Vol] 14.4 g/dL 12.0-15.0 [facility] Blood lymphocytes/100 leukoc ytesOrdered By: Dr. Negron on 10-23-2022 Lymphocytes/100 WBC (Bld) 34.1 % 19-41 [facility] Blood monocytes/100 leukocyt esOrdered By: Dr. Negron on 10-23-2022 Monocytes/100 WBC (Bld) 10.6 % 0-10 [facility] Blood platelet mean volumeOr dered By: Dr. Negron on 10-23-2022 Platelet mean volume (Bld) [Entitic vol] 11.1 fL 6.2-12.0 [facility] Determination of erythrocyte mean corpuscular volume (MCV)Ordered By: Dr. Negron on 10-23-2022 MCV (RBC) [Entitic vol] 88.2 fL 81-99 [facility] Hematocrit Auto (Bld) [Volum e fraction]Ordered By: Dr. Negron on 10-23-2022 Hematocrit (Bld) [Volume fraction] 42.8 % 37-47 [facility] Laboratory - Chemistry and C hemistry - challengeOrdered By: Dr. Negron on 10-23-2022 ALP [Catalytic activity/Vol] 61 U/L 45-117 [facility] ALT [Catalytic activity/Vol] 33 U/L 13-56 [facility] CO2 [Moles/Vol] 29.0 mmol/L 21.0-32.0 [facility] Globulin (S) [Mass/Vol] 3.8 g/dL 2.2-4.2 [facility] Urea nitrogen/Creatinine [Mass ratio] 14.2 mg/mg 10-20 [facility] Laboratory - Hematology and Cell countsOrdered By: Dr. Negron on 10-23-2022 Erythrocyte distribution width (RBC) [Entitic vol] 42.5 fL 35.1-43.9 [facility] Erythrocyte distribution width (RBC) [Ratio] 13.0 % 11.6-14.6 [facility] Immature granulocytes/100 WBC (Bld) 0.300 % 0.0-0.9 [facility] Comment on above: IG% - Immature Granu locytes (promyelocytes, myelocytes and metamyelocytes) > 1% indicates that a LEFT SHIFT is Present. MCH (RBC) [Entitic mass] 29.7 pg 27.0-32.0 [facility] Nucleated RBC/100 WBC (Bld) [Ratio] 0 % 0-5 [facility] MCHC Auto (RBC) [Mass/Vol]Or dered By: Dr. Negron on 10-23-2022 MCHC (RBC) [Mass/Vol] 33.6 g/dL 32-36 [facility] No Panel InformationOrdered By: Dr. Negron on 10-23-2022 Estimated GFR (MDRD) Amer 76 mL/min >60 [facility] Comment on above: GFR Calc Estimated GFR (MDRD) Non-Af Amer 63 mL/min >60 [facility] Comment on above: Non- GFR Calc Thyroid Stimulating Hormone (TSH) 2.11 uIU/mL 0.358-3.74 [facility] Vitamin D 25-Hydroxy 77.1 ng/mL [facility] Comment on above: Vitamin D 25(OH) Sta tus Range Deficiency <20 ng/mL (50nmol/L) Insufficiency 20 - 30 ng/mL (50 - 75 nmol/L) Sufficiency 30 - 100 ng/mL (75 - 250 nmol/L) Toxicity >100 ng/mL (>250 nmol/L) Platelets bldOrdered By: Dr. Negron on 10-23-2022 Platelets (Bld) [#/Vol] 234 10*3/uL 150-450 [facility] Serum or plasma albumin graciela urement (mass/volume)Ordered By: Dr. Negron on 10-23-2022 Albumin [Mass/Vol] 3.5 g/dL 3.2-5.0 [facility] Serum or plasma albumin/glob ulin mass ratioOrdered By: Dr. Negron on 10-23-2022 Albumin/Globulin [Mass ratio] 0.9 {ratio} 0.9-2.4 [facility] Serum or plasma calcium graciela urement (mass/volume)Ordered By: Dr. Negron on 10-23-2022 Calcium [Mass/Vol] 9.3 mg/dL 8.5-10.1 [facility] Serum or plasma cholesterol in HDL measurement (mass/volume)Ordered By: Dr. Negron on 10-23-2022 Cholesterol in HDL [Mass/Vol] 44 mg/dL >40 [facility] Comment on above: The drugs N-Acetylcy steine and Metamizole may falsely depress this assay. Reference Range HDL <40 mg/dL Low HDL Cholesterol HDL >or= 60 mg/dL High HDL Cholesterol Serum or plasma cholesterol in VLDL measurement (mass/volume)Ordered By: Dr. Negron on 10-23-2022 Cholesterol in VLDL [Mass/Vol] 35 mg/dL 5-40 [facility] Serum or plasma creatinine m easurement (mass/volume)Ordered By: Dr. Negron on 10-23-2022 Creatinine [Mass/Vol] 0.91 mg/dL 0.55-1.02 [facility] Comment on above: The validity of the calculated GFR & GFRAA in patients over 70 years has not been determined. Clinical correlation is essential. Serum or plasma low density lipoprotein (LDL) cholesterol measurement (mass/volume)Ordered By: Dr. Negron on 10-23-2022 Cholesterol in LDL [Mass/Vol] 74 mg/dL 0-130 [facility] Serum or plasma urea nitroge n measurement (mass/volume)Ordered By: Dr. Negron on 10-23-2022 Urea nitrogen [Mass/Vol] 13 mg/dL 7-18 [facility] Thin prep Papanicolaou smear with manual screeningOrdered By: Dr. Negron on 10-23-2022 Thin prep Papanicolaou smear with manual screening 22 U/L 15-37 [facility] Thin prep Papanicolaou smear with manual screening 3 5-15 [facility] Absolute lymphocyte counton 04-10-2022 Lymphocytes Auto (Unsp spec) [#/Vol] 2.17 10*3/uL 0.83-4.51 [facility] Work Phone: Basophil percentageon 2021 Basophils/100 WBC (Bld) 0.2 % 0-1 [facility] Work Phone: Bilirubin [Mass/Vol] 0.60 mg/dL 0.20-1.00 [facility] Work Phone: Comment on above: For patients on eltr ombopag therapy, use of Dimension [place] TBIL is not recommended. Chloride [Moles/Vol] 110 mmol/L 98-107 [facility] [place] Work Phone: Eosinophils/100 WBC (Bld) 1.6 % 0-5 [facility] Work Phone: Glucose [Mass/Vol] 100 mg/dL 74-106 [facility] Work Phone: Comment on above: Fasting Glucose resu lt from 100 to 125 mg/dL suggests IMPAIRED HOMEOSTASIS per A.D.A. criteria. Neutrophils (Bld) [#/Vol] 3.2 10*3/uL 2.0-7.7 [facility] Work Phone: Neutrophils/100 WBC (Bld) 53.0 % 47-70 [facility] Work Phone: Potassium [Moles/Vol] 3.8 mmol/L 3.5-5.1 [facility] Work Phone: Protein [Mass/Vol] 6.7 g/dL 6.4-8.2 [facility] Work Phone: Sodium [Moles/Vol] 142 mmol/L 136-145 [facility] Work Phone: WBC (Bld) [#/Vol] 6.1 10*3/uL 4.4-11.0 [facility] Work Phone: Blood erythrocytes count (nu mber/volume)on 04-10-2022 RBC (Bld) [#/Vol] 4.72 10*6/uL 4.2-5.4 [facility] Work Phone: [phone] Blood hemoglobin measurement (mass/volume)on 04-10-2022 Hemoglobin (Bld) [Mass/Vol] 14.0 g/dL 12.0-15.0 [facility] Work Phone: [phone] Blood lymphocytes/100 leukoc yteson 04-10-2022 Lymphocytes/100 WBC (Bld) 35.5 % 19-41 [facility] Work Phone: [phone] Blood monocytes/100 leukocyt eson 04-10-2022 Monocytes/100 WBC (Bld) 9.2 % 0-10 [facility] Work Phone: [phone] Blood platelet mean volumeon 04-10-2022 Platelet mean volume (Bld) [Entitic vol] 11.6 fL 6.2-12.0 [facility] Work Phone: [phone] Determination of erythrocyte mean corpuscular volume (MCV)on 04-10-2022 MCV (RBC) [Entitic vol] 88.8 fL 81-99 [facility] Work Phone: [phone] Hematocrit Auto (Bld) [Volum e fraction]on 04-10-2022 Hematocrit (Bld) [Volume fraction] 41.9 % 37-47 [facility] Work Phone: [phone] Laboratory - Chemistry and C hemistry - challengeon 04-10-2022 ALP [Catalytic activity/Vol] 60 U/L 45-117 [facility] Work Phone: [phone] ALT [Catalytic activity/Vol] 38 U/L 13-56 [facility] Work Phone: [phone] CO2 [Moles/Vol] 29.0 mmol/L 21.0-32.0 [facility] Work Phone: [phone] Globulin (S) [Mass/Vol] 3.4 g/dL 2.2-4.2 [facility] Work Phone: [phone] Urea nitrogen/Creatinine [Mass ratio] 10.9 mg/mg 10-20 [facility] Work Phone: [phone] Laboratory - Hematology and Cell countson 04-10-2022 Erythrocyte distribution width (RBC) [Entitic vol] 42.5 fL 35.1-43.9 [facility] Work Phone: [phone] Erythrocyte distribution width (RBC) [Ratio] 12.9 % 11.6-14.6 [facility] Work Phone: [phone] Immature granulocytes/100 WBC (Bld) 0.500 % 0.0-0.9 [facility] Work Phone: [phone] Comment on above: IG% - Immature Granu locytes (promyelocytes, myelocytes and metamyelocytes) > 1% indicates that a LEFT SHIFT is Present. MCH (RBC) [Entitic mass] 29.7 pg 27.0-32.0 [facility] Work Phone: [phone] Nucleated RBC/100 WBC (Bld) [Ratio] 0 % 0-5 [facility] Work Phone: [phone] MCHC Auto (RBC) [Mass/Vol]on 04-10-2022 MCHC (RBC) [Mass/Vol] 33.4 g/dL 32-36 [facility] Work Phone: [phone] Panel Informationon 04-10 Estimated GFR (MDRD) Amer 68 mL/min >60 [facility] Work Phone: [phone] Comment on above: GFR Calc Estimated GFR (MDRD) Non-Af Amer 56 mL/min >60 [facility] Work Phone: [phone] Comment on above: Non- GFR Calc Thyroid Stimulating Hormone (TSH) 1.78 uIU/mL 0.358-3.74 [facility] Work Phone: [phone] Vitamin D 25-Hydroxy 86.0 ng/mL [facility] Work Phone: [phone] Comment on above: Vitamin D 25(OH) Sta tus Range Deficiency <20 ng/mL (50nmol/L) Insufficiency 20 - 30 ng/mL (50 - 75 nmol/L) Sufficiency 30 - 100 ng/mL (75 - 250 nmol/L) Toxicity >100 ng/mL (>250 nmol/L) Platelets bldon 04-10-2022 Platelets (Bld) [#/Vol] 232 10*3/uL 150-450 [facility] Work Phone: Serum or plasma albumin graciela urement (mass/volume)on 04-10-2022 Albumin [Mass/Vol] 3.3 g/dL 3.2-5.0 [facility] Work Phone: [phone] Serum or plasma albumin/glob ulin mass ratioon 04-10-2022 Albumin/Globulin [Mass ratio] 1.0 {ratio} 0.9-2.4 [facility] Work Phone: [phone] Serum or plasma calcium graciela urement (mass/volume)on 04-10-2022 Calcium [Mass/Vol] 9.3 mg/dL 8.5-10.1 [facility] Work Phone: [phone] Serum or plasma creatinine m easurement (mass/volume)on 04-10-2022 Creatinine [Mass/Vol] 1.01 mg/dL 0.55-1.02 [facility] Work Phone: Comment on above: The validity of the calculated GFR & GFRAA in patients over 70 years has not been determined. Clinical correlation is essential. Serum or plasma urea nitroge n measurement (mass/volume)on 04-10-2022 Urea nitrogen [Mass/Vol] 11 mg/dL 7-18 [facility] Work Phone: [phone] Thin prep Papanicolaou smear with manual screeningon 04-10-2022 Thin prep Papanicolaou smear with manual screening 25 U/L 15-37 [facility] Work Phone: [phone] Thin prep Papanicolaou smear with manual screening 3 5-15 [facility] Work Phone: Basophil percentageon 2021 Bilirubin [Mass/Vol] 0.60 mg/dL 0.20-1.00 [facility] Work Phone: Comment on above: For patients on eltr ombopag therapy, use of Dimension [place] TBIL is not recommended. Cholesterol [Mass/Vol] 161 mg/dL <[address] [facility] Work Phone: [phone] Comment on above: <200 mg/dL Desirable 200-240 mg/dL Borderline >240 mg/dL High Risk Protein [Mass/Vol] 7.4 g/dL 6.4-8.2 [facility] Work Phone: [phone] Triglyceride [Mass/Vol] 123 mg/dL [facility] Work Phone: [phone] Comment on above: The drugs N-Acetylcy steine and Metamizole may falsely depress this assay.Serum Triglycerides Reference Interval Normal <150 mg/dL Borderline high 150 - 199 mg/dL High 200 - 499 mg/dL Very High > or = 500 mg/dL Direct bilirubinon Bilirubin.direct [Mass/Vol] 0.15 mg/dL 0.00-0.30 [facility] Work Phone: [phone] Laboratory - Chemistry and C hemistry - challengeon 04-04-2022 ALP [Catalytic activity/Vol] 62 U/L 45-117 [facility] Work Phone: [phone] ALT [Catalytic activity/Vol] 36 U/L 13-56 [facility] Work Phone: [phone] Globulin (S) [Mass/Vol] 3.8 g/dL 2.2-4.2 [facility] Work Phone: [phone] Serum or plasma albumin graciela urement (mass/volume)on 04-04-2022 Albumin [Mass/Vol] 3.6 g/dL 3.2-5.0 [facility] Work Phone: [phone] Serum or plasma cholesterol in HDL measurement (mass/volume)on 04-04-2022 Cholesterol in HDL [Mass/Vol] 44 mg/dL [facility] Work Phone: [phone] Comment on above: The drugs N-Acetylcy steine and Metamizole may falsely depress this assay. Reference Range HDL <40 mg/dL Low HDL Cholesterol HDL >or= 60 mg/dL High HDL Cholesterol Serum or plasma cholesterol in VLDL measurement (mass/volume)on 04-04-2022 Cholesterol in VLDL [Mass/Vol] 25 mg/dL 5-40 [facility] Work Phone: Serum or plasma low density lipoprotein (LDL) cholesterol measurement (mass/volume)on 04-04-2022 Cholesterol in LDL [Mass/Vol] 92 mg/dL 0-130 [facility] Work Phone: Thin prep Papanicolaou smear with manual screeningon 04-04-2022 Thin prep Papanicolaou smear with manual screening 27 U/L 15-37 [facility] Work Phone: Absolute lymphocyte counton 06-03-2019 Lymphocytes Auto (Unsp spec) [#/Vol] 2.17 10*3/uL 0.83-4.51 [facility] Absolute reticulocyte counto n 06-03-2019 Reticulocytes (Bld) [#/Vol] 0.00 10*3/uL 0-5 [facility] Basophil percentageon 2018 Bilirubin [Mass/Vol] 0.30 mg/dL 0.20-1.00 [facility] [place] Chloride [Moles/Vol] 105 mmol/L 98-107 [facility] [place] Glucose [Mass/Vol] 118 mg/dL 74-106 [facility] Comment on above: Fasting Glucose resu lt from 100 to 125 mg/dL suggests IMPAIRED HOMEOSTASIS per A.D.A. criteria.Please note revised GLUCOSE reference range effective 2017. Neutrophils (Bld) [#/Vol] 3.7 10*3/uL 2.0-7.7 [facility] Potassium [Moles/Vol] 3.9 mmol/L 3.5-5.1 [facility] Protein [Mass/Vol] 7.2 g/dL 6.4-8.2 [facility] Sodium [Moles/Vol] 139 mmol/L 136-145 [facility] WBC (Bld) [#/Vol] 6.6 10*3/uL 4.4-11.0 [facility] Blood erythrocytes count (nu mber/volume)on 06-03-2019 RBC (Bld) [#/Vol] 5.00 10*6/uL 4.2-5.4 [facility] Blood hemoglobin measurement (mass/volume)on 06-03-2019 Hemoglobin (Bld) [Mass/Vol] 14.6 g/dL 12.0-15.0 [facility] Blood lymphocytes/100 leukoc yteson 06-03-2019 Lymphocytes/100 WBC (Bld) 32.8 % 19-41 [facility] Blood monocytes/100 leukocyt eson 06-03-2019 Monocytes/100 WBC (Bld) 7.7 % 0-10 [facility] Blood platelet mean volumeon 06-03-2019 Platelet mean volume (Bld) [Entitic vol] 10.3 fL 6.2-12.0 [facility] Determination of erythrocyte mean corpuscular volume (MCV)on 06-03-2019 MCV (RBC) [Entitic vol] 87.8 fL 81-99 [facility] Eosinophils/100 WBC Auto (Bl d)on 06-03-2019 Eosinophils/100 WBC (Bld) 2.4 % 0-5 [facility] General Foods mix RAST testo n 06-03-2019 AST [Catalytic activity/Vol] 22 U/L 15-37 [facility] Hematocrit Auto (Bld) [Volum e fraction]on 06-03-2019 Hematocrit (Bld) [Volume fraction] 43.9 % 37-47 [facility] Laboratory - Chemistry and C hemistry - challengeon 06-03-2019 ALP [Catalytic activity/Vol] 75 U/L 45-117 [facility] ALT [Catalytic activity/Vol] 29 U/L 13-56 [facility] CO2 [Moles/Vol] 31.0 mmol/L 21.0-32.0 [facility] Globulin (S) [Mass/Vol] 3.6 g/dL 2.2-4.2 [facility] Urea nitrogen/Creatinine [Mass ratio] 13.7 mg/mg 10-20 [facility] Laboratory - Hematology and Cell countson 06-03-2019 Basophils/100 WBC (Unsp spec) 0.3 % 0-1 [facility] Erythrocyte distribution width (RBC) [Entitic vol] 40.8 fL 35.1-43.9 [facility] Erythrocyte distribution width (RBC) [Ratio] 12.7 % 11.6-14.6 [facility] Immature granulocytes/100 WBC (Bld) 0.300 % 0.0-0.9 [facility] Comment on above: IG% - Immature Granu locytes (promyelocytes, myelocytes and metamyelocytes) > 1% indicates that a LEFT SHIFT is Present. Neutrophils/100 WBC (Bld) 56.5 % 47-70 [facility] Nucleated RBC/100 WBC (Bld) [Ratio] 0 % 0-5 [facility] MCHC Auto (RBC) [Mass/Vol]on 06-03-2019 MCHC (RBC) [Mass/Vol] 33.3 g/dL 32-36 [facility] Mean corpuscular hemoglobin (MCH) determination (mass/erythrocyte)on 06-03-2019 MCH (RBC) [Entitic mass] 29.2 pg 27.0-32.0 [facility] No Panel Informationon 06-03 Estimated Creatinine Clearance Calc 39.42 ml/min [facility] Estimated GFR (MDRD) Amer 68 mL/min >60 [facility] Comment on above: GFR Calc Estimated GFR (MDRD) Non-Af Amer 56 mL/min >60 [facility] Comment on above: Non- GFR Calc Platelets bldon 06-03-2019 Platelets (Bld) [#/Vol] 226 10*3/uL 150-450 [facility] Serum or plasma albumin graciela urement (mass/volume)on 06-03-2019 Albumin [Mass/Vol] 3.6 g/dL 3.2-5.0 [facility] Serum or plasma albumin/glob ulin mass ratioon 06-03-2019 Albumin/Globulin [Mass ratio] 1.0 {ratio} 0.9-2.4 [facility] Serum or plasma calcium graciela urement (mass/volume)on 06-03-2019 Calcium [Mass/Vol] 9.2 mg/dL 8.5-10.1 [facility] Serum or plasma creatinine m easurement (mass/volume)on 06-03-2019 Creatinine [Mass/Vol] 1.02 mg/dL 0.55-1.02 [facility] Comment on above: The validity of the calculated GFR & GFRAA in patients over 70 years has not been determined. Clinical correlation is essential. Serum or plasma urea nitroge n measurement (mass/volume)on 06-03-2019 Urea nitrogen [Mass/Vol] 14 mg/dL 7-18 [facility] Thin prep Papanicolaou smear with manual screeningon 06-03-2019 Thin prep Papanicolaou smear with manual screening 22 U/L 15-37 [facility] Thin prep Papanicolaou smear with manual screening 3 5-15 [facility] Office Visiton 07-30-2017 Documentation of current medications (procedure) Done Invalid Interpretation Code [employer] Phone: [phone] Fall risk assessment No Invalid Interpretation Code [employer] Phone: [phone] Tobacco use CPHS Former smoker Invalid Interpretation Code [employer] Phone: [phone] Replaced Document: [employer] E CG Observationson 07-30-2017 BUN (urea nitrogen) Sinus Rhythm -Right bundle branch block. ABNORMAL Invalid Interpretation Code [employer] Phone: [phone] GE use only - for [employer] import when terms are not otherwise specified 439 ms Invalid Interpretation Code [employer] Phone: [phone] P wave axis, electrocardiogram 52 deg Invalid Interpretation Code [employer] Phone: [phone] [place] interval, electrocardiogram 166 ms Invalid Interpretation Code [employer] Phone: [phone] Pulse (Heart Rate) 64 /min Invalid Interpretation Code [employer] Phone: [phone] QRS axis, electrocardiogram 11 deg Invalid Interpretation Code [employer] Phone: [phone] QRS duration, electrocardiogram 128 ms Invalid Interpretation Code [employer] Phone: [phone] QT interval, electrocardiogram new path ms Invalid Interpretation Code [employer] Work Phone: [phone] T wave axis, electrocardiogram 58 deg Invalid Interpretation Code [employer] Phone: [phone] 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 Left ventricular Ejection fraction 65 % Invalid Interpretation Code [employer] Phone: [phone] Lab Report: Cytology, Body F luid / CSFon 05-02-2016 GE use only - for [employer] import when terms are not otherwise specified SEE PATHOLOGY REPORT Invalid Interpretation Code [employer] Phone: [phone] Office Visit: Est PCPon blood in urine (hemoglobin) by dipstick 2+ Invalid Interpretation Code [employer] Work Phone: [phone] Documentation of current medications (procedure) Done Invalid Interpretation Code [employer] Work Phone: [phone] specific gravity, urine 1.030 Invalid Interpretation Code [employer] Work Phone: [phone] Tobacco use CPHS Former smoker Invalid Interpretation Code [employer] Work Phone: [phone] Urine, appearance cloudy Invalid Interpretation Code [employer] Work Phone: [phone] Urine, bilirubin presence Negative Invalid Interpretation Code [employer] Work Phone: [phone] Urine, color yellow Invalid Interpretation Code [employer] Work Phone: [phone] Urine, glucose presence Negative Invalid Interpretation Code [employer] Work Phone: [phone] Urine, ketones presence Negative Invalid Interpretation Code [employer] Work Phone: [phone] Urine, leukocyte esterase presence 2+ Invalid Interpretation Code [employer] Work Phone: [phone] Urine, nitrite presence Negative Invalid Interpretation Code [employer] Work Phone: [phone] Urine, pH 6.0 [pH] Invalid Interpretation Code [employer] Work Phone: [phone] Urine, protein Negative Invalid Interpretation Code [employer] Work Phone: [phone] Urine, urobilinogen presence Negative Invalid Interpretation Code [employer] Work Phone: [phone] Lab Report: CBC-Complete Blo od Cnt No Diffon 08-29-2015 Erythrocytes (RBC) 5.06 10*6/uL Invalid Interpretation Code 4.2-5.4 [employer] Work Phone: [phone] Hematocrit (HCT) 44.1 % Invalid Interpretation Code 37-47 [employer] Phone: [phone] Hemoglobin (HGB) 15.3 g/dL High 12.0-15.0 [employer] Work Phone: [phone] MCH 30.2 pg Invalid Interpretation Code 27.0-32.0 [employer] Work Phone: [phone] MCHC 34.7 G/GL Invalid Interpretation Code 32-36 [employer] Work Phone: [phone] MCV 87.2 fL Invalid Interpretation Code 81-99 [employer] Work Phone: [phone] Platelets 206 10*3/mm3 Invalid Interpretation Code 150-450 [employer] Work Phone: [phone] PMV by Kamron 11.0 fL Invalid Interpretation Code 6.2-12.0 [employer] Work Phone: [phone] RDW-CA 13.3 % Invalid Interpretation Code 11.6-14.6 [employer] Work Phone: [phone] red blood cell distribution width, size density 41.4 fL Invalid Interpretation Code 35.1-43.9 [employer] Work Phone: [phone] WBC (Leukocytes) 6.1 10*3/uL Invalid Interpretation Code 4.4-11.0 [employer] Work Phone: [phone] Lab Report: [facility] 08-29-2015 Alanine aminotransferase (ALT) 31 U/L Invalid Interpretation Code 12-78 [employer] Work Phone: [phone] Albumin 3.5 g/dL Invalid Interpretation Code 3.4-5.0 [employer] Work Phone: [phone] Albumin/Globulin Ratio 1.1 {ratio} Invalid Interpretation Code 0.9-2.4 [employer] Work Phone: [phone] Alkaline phosphatase (ALP) 78 U/L Invalid Interpretation Code 50-136 [employer] Work Phone: [phone] Anion gap 5 mmol/L Invalid Interpretation Code 5-15 [employer] Work Phone: [phone] Aspartate aminotransferase (AST) 20 U/L Invalid Interpretation Code 15-37 [employer] Work Phone: [phone] Bilirubin (total) 0.40 mg/dL Invalid Interpretation Code 0.20-1.00 [employer] Work Phone: [phone] BUN/Creatinine Ratio 10.1 RATIO Invalid Interpretation Code 10-20 [employer] Work Phone: [phone] Calcium 8.9 mg/dL Invalid Interpretation Code 8.5-10.1 [employer] Work Phone: [phone] Chloride 107 mmol/L Invalid Interpretation Code 98-107 [employer] Work Phone: [phone] CO2 30.0 mmol/L Invalid Interpretation Code 21.0-32.0 [employer] Work Phone: [phone] Creatinine 0.89 mg/dL Invalid Interpretation Code 0.55-1.20 [employer] Work Phone: [phone] eGFR (non-black) 66 mL/min/{1.73_m2} Invalid Interpretation Code >60 [employer] Work Phone: [phone] eGFR (non-black) 80 mL/min/{1.73_m2} Invalid Interpretation Code >60 [employer] Work Phone: [phone] Globulin 3.3 g/dL Invalid Interpretation Code 2.3-3.5 [employer] Work Phone: [phone] Glucose 90 mg/dL Invalid Interpretation Code 70-110 [employer] Work Phone: [phone] Potassium 4.0 mmol/L Invalid Interpretation Code 3.5-5.1 [employer] Work Phone: [phone] Protein 6.8 g/dL Invalid Interpretation Code 6.4-8.2 [employer] Work Phone: [phone] Sodium 142 mmol/L Invalid Interpretation Code 136-145 [employer] Work Phone: [phone] Urea nitrogen 9 mg/dL Invalid Interpretation Code 7-18 [employer] Work Phone: [phone] Lab Report: Lipid Profileon 08-29-2015 Cholesterol 177 mg/dL Invalid Interpretation Code 200 [employer] Work Phone: [phone] HDL Cholesterol 39 mg/dL Low [employer] Work Phone: [phone] LDL Cholesterol 94 mg/dL Invalid Interpretation Code 0-130 [employer] Work Phone: [phone] Triglyceride 222 mg/dL High [employer] Work Phone: [phone] very low density lipoproteins 44 mg/dL High 5-40 [employer] Work Phone: [phone] Lab Report: Urinalysis, Rout ine (Dipstick)on 08-29-2015 Nitrite Urine Negative Invalid Interpretation Code Negative [facility] Phone: [phone] Occult Blood, urine 25 High Negative [facility] [employer] Work Phone: [phone] Urine, clarity Sl. Cloudy Invalid Interpretation Code Clear [employer] Phone: [phone] Urine, glucose presence Normal mg/dl Invalid Interpretation Code Normal [facility] Work Phone: [phone] urobilinogen, urine, by dipstick Normal mg/dl Invalid Interpretation Code Normal [employer] Phone: [phone] Office Visiton 07-22-2014 Breast Mammogram screening Normal Bilateral Invalid Interpretation Code [employer] Phone: [phone] Lab Report: [employer]Don 4 vitamin D 25-hydroxy, serum [id number] ng/mL Normal Units converted. See lab report for original value. [employer] Work Phone: [phone] Office Visiton 05-09-2012 General categories [Interpretation] of Cervical or vaginal smear or scraping by Cyto stain Normal Invalid Interpretation Code [employer] Phone: [phone] Office Visiton 11-18-2007 Colonoscopy (procedure) Colonoscopy (procedure) Invalid Interpretation Code [employer] Phone: [phone] Vital Signs Date Time Vital Sign Value Performing Clinician Facility 05-18-2025 10:33-0400 Body height 160.[address] Aleta Quinn DO Work Phone: [facility] 05-18-2025 10:33-0400 Body mass index (BMI) [Ratio] 31.6 kg/m2 Dr. Aleta Quinn DO Work Phone: [facility] 05-18-2025 10:33-0400 Body weight 81.[address] Aleta Quinn DO Work Phone: [facility] 05-18-2025 10:33-0400 Diastolic blood pressure 76 mm[Hg] Dr. Aleta Quinn DO Work Phone: [facility] 05-18-2025 10:33-0400 Heart rate 68 /min Dr. Aleta Quinn DO Work Phone: [facility] 05-18-2025 10:33-0400 Respiratory rate 18 /min Dr. Aleta Quinn DO Work Phone: [facility] 05-18-2025 10:33-0400 SaO2% (BldA) [Mass fraction] 95 % Dr. Aleta Quinn DO Work Phone: [facility] 05-18-2025 10:33-0400 Systolic blood pressure 124 mm[Hg] Dr. Aleta Quinn DO Work Phone: [facility] 04-27-2025 15:57-0400 Body temperature 96.8 [degF] Dr. Aleta Quinn DO Work Phone: [facility] 04-27-2025 15:57-0400 Diastolic blood pressure 80 mm[Hg] Dr. Aleta Quinn DO Work Phone: [facility] 04-27-2025 15:57-0400 Heart rate 70 /min Dr. Aleta Quinn DO Work Phone: [facility] 04-27-2025 15:57-0400 Respiratory rate 16 /min Dr. Aleta Quinn DO Work Phone: [facility] 04-27-2025 15:57-0400 SaO2% (BldA) [Mass fraction] 98 % Dr. Aleta Quinn DO Work Phone: [facility] 04-27-2025 15:57-0400 Systolic blood pressure 178 mm[Hg] Dr. Aleta Quinn DO Work Phone: [facility] 04-27-2025 14:09-0400 Body height 160.[address] Aleta Quinn DO Work Phone: [facility] 04-27-2025 14:09-0400 Body mass index (BMI) [Ratio] 32.2 kg/m2 Dr. Aleta Quinn DO Work Phone: [facility] 04-27-2025 14:09-0400 Body weight 82.[address] Aleta Quinn DO Work Phone: [facility] 04-25-2025 08:17-0400 Body temperature 97.39 [degF] Pedro Arndt APRN.MARKETING DIRECTOR Work Phone: [facility] 04-25-2025 08:17-0400 Body weight 82.2 kg Pedro Arndt APRN.MARKETING DIRECTOR Work Phone: [facility] 04-25-2025 08:17-0400 Diastolic blood pressure 84 mm[Hg] Pedro Arndt APRN.MARKETING DIRECTOR Work Phone: [facility] 04-25-2025 08:17-0400 Heart rate 62 /min Pedro Arndt APRN.MARKETING DIRECTOR Work Phone: [facility] 04-25-2025 08:17-0400 Respiratory rate 20 /min Pedro Arndt APRN.MARKETING DIRECTOR Work Phone: [facility] 04-25-2025 08:17-0400 SaO2% (BldA) [Mass fraction] 95 % Pedro Arndt APRN.MARKETING DIRECTOR Work Phone: [facility] 04-25-2025 08:17-0400 Systolic blood pressure 130 mm[Hg] Pedro Arndt APRN.MARKETING DIRECTOR Work Phone: [facility] 08-18-2024 11:41-0400 Body temperature 98.1 [degF] Lainey Boyce-Zacarias CLINICAL LAB CLERK.MARKETING DIRECTOR Work Phone: [facility] 08-18-2024 11:41-0400 Body weight 76 kg Lainey Prasandraler-Zacarias CLINICAL LAB CLERK.MARKETING DIRECTOR Work Phone: [facility] 08-18-2024 11:41-0400 Diastolic blood pressure 84 mm[Hg] Lainey Praisler-Zacarias CLINICAL LAB CLERK.MARKETING DIRECTOR Work Phone: [facility] 08-18-2024 11:41-0400 Heart rate 64 /min Lainey Stewartler-Zacarias CLINICAL LAB CLERK.MARKETING DIRECTOR Work Phone: [facility] 08-18-2024 11:41-0400 Respiratory rate 18 /min Lainey Duane CLINICAL LAB CLERK.MARKETING DIRECTOR Work Phone: [facility] 08-18-2024 11:41-0400 SaO2% (BldA) [Mass fraction] 96 % Lainey Boyce-Zacarias CLINICAL LAB CLERK.MARKETING DIRECTOR Work Phone: [facility] 08-18-2024 11:41-0400 Systolic blood pressure 142 mm[Hg] Lainey Duane CLINICAL LAB CLERK.MARKETING DIRECTOR Work Phone: [facility] 02-19-2024 08:12-0400 Body height 160.[address] Glen Negron Work Phone: [facility] 02-19-2024 08:12-0400 Body mass index (BMI) [Ratio] 29 kg/m2 Dr. Glen Negron Work Phone: [facility] 02-19-2024 08:12-0400 Body weight 74.[address] Glen Negron Work Phone: [facility] 02-19-2024 08:12-0400 Diastolic blood pressure 82 mm[Hg] Dr. Glen Negron Work Phone: [facility] 02-19-2024 08:12-0400 Heart rate 63 /min Dr. Glen Negron Work Phone: [facility] 02-19-2024 08:12-0400 Respiratory rate 18 /min Dr. Glen Negron Work Phone: [facility] 02-19-2024 08:12-0400 SaO2% (BldA) [Mass fraction] 96 % Dr. Glen Negron Work Phone: [facility] 02-19-2024 08:12-0400 Systolic blood pressure 150 mm[Hg] Dr. Glen Negron Work Phone: [facility] 11-15-2023 15:48-0500 Body temperature 97.1 [degF] Dr. Glen Negron Work Phone: [facility] 11-15-2023 15:48-0500 Diastolic blood pressure 59 mm[Hg] Dr. Glen Negron Work Phone: [facility] 11-15-2023 15:48-0500 Heart rate 52 /min Dr. Glen Negron Work Phone: [facility] 11-15-2023 15:48-0500 Respiratory rate 16 /min Dr. Glen Negron Work Phone: 2(804)298-345339 [place] [address] 11-15-2023 15:48-0500 SaO2% (BldA) [Mass fraction] 98 % Dr. Glen Negron Work Phone: 4(463)468-666739 [place] [address] 11-15-2023 15:48-0500 Systolic blood pressure 135 mm[Hg] Dr. Glen Negron Work Phone: 8(221)406-597739 [place] [address] 11-15-2023 15:12-0500 Body mass index (BMI) [Ratio] 28.8 kg/m2 Dr. Glen Negron Work Phone: 8(304)686-480739 [place] [address] 11-15-2023 15:12-0500 Body weight 73.[address] Glen Negron Work Phone: 6(830)477-583825 [place] [address] 09-23-2023 14:01-0500 Body height 160.[address] Glen Negron Work Phone: 6(269)128-773439 [place] [address] 09-23-2023 14:01-0500 Body mass index (BMI) [Ratio] 28.8 kg/m2 Dr. Glen Negron Work Phone: [facility] 09-23-2023 14:01-0500 Body temperature 97.9 [degF] Dr. Glen Negron Work Phone: 0(841)842-941139 [place] [address] 09-23-2023 14:01-0500 Body weight 73.[address] Glen Negron Work Phone: 9(372)597-720739 [place] [address] 09-23-2023 14:01-0500 Diastolic blood pressure 79 mm[Hg] Dr. Glen Negron Work Phone: 3(451)897-953639 [place] [address] 09-23-2023 14:01-0500 Heart rate 46 /min Dr. Glen Negron Work Phone: [facility] 09-23-2023 14:01-0500 Respiratory rate 18 /min Dr. Glen Negron Work Phone: [facility] 09-23-2023 14:01-0500 Systolic blood pressure 136 mm[Hg] Dr. Glen Negron Work Phone: [facility] 07-27-2023 09:34-0400 Body temperature 98.01 [degF] Parul Elizabeth CLINICAL LAB CLERK.MARKETING DIRECTOR Work Phone: [facility] 07-27-2023 09:34-0400 Body weight 73.03 kg Parul Elizabeth CLINICAL LAB CLERK.MARKETING DIRECTOR Work Phone: [facility] 07-27-2023 09:34-0400 Diastolic blood pressure 80 mm[Hg] Parul Elizabeth CLINICAL LAB CLERK.MARKETING DIRECTOR Work Phone: [facility] 07-27-2023 09:34-0400 Heart rate 65 /min Parul Elizabeth CLINICAL LAB CLERK.MARKETING DIRECTOR Work Phone: [facility] 07-27-2023 09:34-0400 Respiratory rate 19 /min Parul Elizabeth CLINICAL LAB CLERK.MARKETING DIRECTOR Work Phone: [facility] 07-27-2023 09:34-0400 SaO2% (BldA) [Mass fraction] 98 % Parul Elizabeth CLINICAL LAB CLERK.MARKETING DIRECTOR Work Phone: [facility] 07-27-2023 09:34-0400 Systolic blood pressure 138 mm[Hg] Parul Elizabeth CLINICAL LAB CLERK.MARKETING DIRECTOR Work Phone: [facility] 05-27-2023 15:38-0400 Body temperature 98.01 [degF] Chantale Chava CLINICAL LAB CLERK.MARKETING DIRECTOR Work Phone: [facility] 05-27-2023 15:38-0400 Body weight 76.66 kg Chantale Chava CLINICAL LAB CLERK.MARKETING DIRECTOR Work Phone: [facility] 05-27-2023 15:38-0400 Diastolic blood pressure 78 mm[Hg] Chantale Chava CLINICAL LAB CLERK.MARKETING DIRECTOR Work Phone: [facility] 05-27-2023 15:38-0400 Heart rate 67 /min Chantale Chava CLINICAL LAB CLERK.MARKETING DIRECTOR Work Phone: [facility] 05-27-2023 15:38-0400 Respiratory rate 20 /min Chantale Chava CLINICAL LAB CLERK.MARKETING DIRECTOR Work Phone: [facility] 05-27-2023 15:38-0400 SaO2% (BldA) [Mass fraction] 96 % Chantale Chava CLINICAL LAB CLERK.MARKETING DIRECTOR Work Phone: [facility] 05-27-2023 15:38-0400 Systolic blood pressure 142 mm[Hg] Chantale Chava CLINICAL LAB CLERK.MARKETING DIRECTOR Work Phone: [facility] 05-15-2023 14:15-0400 Body height 160.[address] Glen Negron Work Phone: [facility] 05-15-2023 14:15-0400 Body mass index (BMI) [Ratio] 30.3 kg/m2 Dr. Glen Negron Work Phone: [facility] 05-15-2023 14:15-0400 Body weight 77.[address] Glen Negron Work Phone: [facility] 05-15-2023 13:34-0400 Body mass index (BMI) [Ratio] 30.3 kg/m2 Dr. Glen Negron Work Phone: [facility] 05-15-2023 13:34-0400 Body temperature 96.8 [degF] Dr. Glen Negron Work Phone: [facility] 05-15-2023 13:34-0400 Body weight 77.[address] Glen Negron Work Phone: [facility] 05-15-2023 13:34-0400 Diastolic blood pressure 79 mm[Hg] Dr. Glen Negron Work Phone: [facility] 05-15-2023 13:34-0400 Heart rate 52 /min Dr. Glen Negron Work Phone: [facility] 05-15-2023 13:34-0400 Respiratory rate 16 /min Dr. Glen Negron Work Phone: [facility] 05-15-2023 13:34-0400 SaO2% (BldA) [Mass fraction] 97 % Dr. Glen Negron Work Phone: [facility] 05-15-2023 13:34-0400 Systolic blood pressure 133 mm[Hg] Dr. Glen Negron Work Phone: 0(422)994-618439 [place] [address] 05-06-2023 07:06-0400 Body height 160.[address] Glen Negron Work Phone: 1(542)971-369525 [place] [address] 05-06-2023 07:06-0400 Body mass index (BMI) [Ratio] 30.1 kg/m2 Dr. Glen Negron Work Phone: 6(051)447-745237 [address] 05-06-2023 07:06-0400 Body temperature 96.8 [degF] Dr. Glen Negron Work Phone: 6(482)111-950937 [address] 05-06-2023 07:06-0400 Body weight 77.[address] Glen Negron Work Phone: 5(863)986-875825 [place] [address] 05-06-2023 07:06-0400 Diastolic blood pressure 107 mm[Hg] Dr. Glen Negron Work Phone: 1(981)422-260737 [address] 05-06-2023 07:06-0400 Heart rate 63 /min Dr. Glen Negron Work Phone: [facility] 05-06-2023 07:06-0400 Respiratory rate 18 /min Dr. Glen Negron Work Phone: 0(901)533-877739 [place] [address] 05-06-2023 07:06-0400 SaO2% (BldA) [Mass fraction] 100 % Dr. Glen Negron Work Phone: [facility] 05-06-2023 07:06-0400 Systolic blood pressure 194 mm[Hg] Dr. Glen Negron Work Phone: [facility] 05-01-2023 13:18-0400 Body mass index (BMI) [Ratio] 29.9 kg/m2 Dr. Glen Negron Work Phone: [facility] 05-01-2023 13:18-0400 Body weight 76.[address] Glen Negron Work Phone: [facility] 05-01-2023 13:18-0400 Diastolic blood pressure 84 mm[Hg] Dr. Glen Negron Work Phone: [facility] 05-01-2023 13:18-0400 Heart rate 63 /min Dr. Glen Negron Work Phone: [facility] 05-01-2023 13:18-0400 Respiratory rate 18 /min Dr. Glen Negron Work Phone: [facility] 05-01-2023 13:18-0400 SaO2% (BldA) [Mass fraction] 97 % Dr. Glen Negron Work Phone: [facility] 05-01-2023 13:18-0400 Systolic blood pressure 128 mm[Hg] Dr. Glen Negron Work Phone: [facility] 03-10-2023 09:05-0400 Body temperature 97.7 [degF] Baril Older CLINICAL LAB CLERK.MARKETING DIRECTOR Work Phone: [facility] 03-10-2023 09:05-0400 Body weight 77.75 kg Abril Older CLINICAL LAB CLERK.MARKETING DIRECTOR Work Phone: [facility] 03-10-2023 09:05-0400 Diastolic blood pressure 88 mm[Hg] Abril Older CLINICAL LAB CLERK.MARKETING DIRECTOR Work Phone: [facility] 03-10-2023 09:05-0400 Heart rate 60 /min Abril Older CLINICAL LAB CLERK.MARKETING DIRECTOR Work Phone: [facility] 03-10-2023 09:05-0400 Respiratory rate 21 /min Abril Older CLINICAL LAB CLERK.MARKETING DIRECTOR Work Phone: [facility] 03-10-2023 09:05-0400 SaO2% (BldA) [Mass fraction] 97 % Abril Older CLINICAL LAB CLERK.MARKETING DIRECTOR Work Phone: [facility] 03-10-2023 09:05-0400 Systolic blood pressure 140 mm[Hg] Abril Older CLINICAL LAB CLERK.MARKETING DIRECTOR Work Phone: [facility] 12-04-2022 07:50-0500 Body height 160.[address] Glen Negron Work Phone: [facility] 12-04-2022 07:50-0500 Body mass index (BMI) [Ratio] 29.5 kg/m2 Dr. Glen Negron Work Phone: [facility] 12-04-2022 07:50-0500 Body weight 75.[address] Glen Negron Work Phone: [facility] 12-04-2022 07:50-0500 Diastolic blood pressure 68 mm[Hg] Dr. Glen Negron Work Phone: [facility] 12-04-2022 07:50-0500 Heart rate 55 /min Dr. Glen Negron Work Phone: [facility] 12-04-2022 07:50-0500 Respiratory rate 18 /min Dr. Glen Negron Work Phone: [facility] 12-04-2022 07:50-0500 SaO2% (BldA) [Mass fraction] 92 % Dr. Glen Negron Work Phone: [facility] 12-04-2022 07:50-0500 Systolic blood pressure 134 mm[Hg] Dr. Glen Negron Work Phone: [facility] 11-14-2022 13:30-0500 Body mass index (BMI) [Ratio] 29.5 kg/m2 Dr. Glen Negron Work Phone: [facility] 11-14-2022 13:30-0500 Body temperature 98.6 [degF] Dr. Glen Negron Work Phone: [facility] 11-14-2022 13:30-0500 Body weight 75.[address] Glen Negron Work Phone: [facility] 11-14-2022 13:30-0500 Diastolic blood pressure 75 mm[Hg] Dr. Glen Negron Work Phone: [facility] 11-14-2022 13:30-0500 Heart rate 63 /min Dr. Glen Negron Work Phone: [facility] 11-14-2022 13:30-0500 Respiratory rate 16 /min Dr. Glen Negron Work Phone: [facility] 11-14-2022 13:30-0500 SaO2% (BldA) [Mass fraction] 95 % Dr. Glen Negron Work Phone: [facility] 11-14-2022 13:30-0500 Systolic blood pressure 123 mm[Hg] Dr. Glen Negron Work Phone: [facility] 09-13-2022 12:57-0400 Body height 160.02 cm [facility] Work Phone: 05-17-2022 15:40-0400 Body mass index (BMI) [Ratio] 30 kg/m2 Dr. Glen Negron Work Phone: [facility] 04-05-2022 13:37-0400 Body height 160.[address] Aleta Quinn Work Phone: [facility] Work Phone: 04-05-2022 13:37-0400 Body mass index (BMI) [Ratio] 29.2 kg/m2 Dr. Aleta Quinn Work Phone: [facility] Work Phone: 04-05-2022 13:37-0400 Body weight 74.[address] Aleta Quinn Work Phone: [facility] Work Phone: 04-05-2022 13:37-0400 Diastolic blood pressure 68 mm[Hg] Dr. Aleta Quinn Work Phone: [facility] Work Phone: 04-05-2022 13:37-0400 Heart rate 50 /min Dr. Aleta Quinn Work Phone: [facility] Work Phone: 04-05-2022 13:37-0400 Respiratory rate 16 /min Dr. Aleta Quinn Work Phone: [facility] Work Phone: 04-05-2022 13:37-0400 Systolic blood pressure 131 mm[Hg] Dr. Aleta Quinn Work Phone: [facility] Work Phone: 12-28-2021 09:24-0500 Body mass index (BMI) [Ratio] 30.1 kg/m2 Dr. Aleta Quinn Work Phone: [facility] Work Phone: 12-28-2021 09:24-0500 Body weight 77.[address] Aleta Quinn Work Phone: [facility] Work Phone: 12-28-2021 09:24-0500 Diastolic blood pressure 81 mm[Hg] Dr. Aleta Quinn Work Phone: [facility] Work Phone: 12-28-2021 09:24-0500 Heart rate 63 /min Dr. Aleta Quinn Work Phone: [facility] Work Phone: 12-28-2021 09:24-0500 Respiratory rate 18 /min Dr. Aleta Quinn Work Phone: [facility] Work Phone: 12-28-2021 09:24-0500 SaO2% (BldA) [Mass fraction] 96 % Dr. Aleta Quinn Work Phone: [facility] Work Phone: 12-28-2021 09:24-0500 Systolic blood pressure 126 mm[Hg] Dr. Aleta Quinn Work Phone: [facility] Work Phone: 04-05-2021 14:53-0400 Body weight 78.[address] Glen Negron Work Phone: [facility] 12-26-2020 13:16-0500 Body temperature 97.3 [degF] Dr. Glen Negron Work Phone: [facility] 12-26-2020 13:16-0500 Diastolic blood pressure 88 mm[Hg] Dr. Glen Negron Work Phone: [facility] 12-26-2020 13:16-0500 Heart rate 77 /min Dr. Glen Negron Work Phone: [facility] 12-26-2020 13:16-0500 Respiratory rate 16 /min Dr. Glen Negron Work Phone: [facility] 12-26-2020 13:16-0500 SaO2% (BldA) [Mass fraction] 95 % Dr. Glen Negron Work Phone: [facility] 12-26-2020 13:16-0500 Systolic blood pressure 141 mm[Hg] Dr. Glen Negron Work Phone: [facility] 07-30-2017 12:34-0400 BMI (Body Mass Index) 28.87 kg/m2 [facility] Work Phone: 07-30-2017 12:34-0400 BP Diastolic 78 mm[Hg] [facility] Work Phone: 07-30-2017 12:34-0400 BP Systolic 124 mm[Hg] [facility] Work Phone: 07-30-2017 12:34-0400 Height 160.02 cm [facility] Work Phone: 07-30-2017 12:34-0400 Pulse (Heart Rate) 60 /min Lizette Handy [facility] Work Phone: 07-30-2017 12:34-0400 Respiratory Rate 18 /min [facility] Work Phone: 07-30-2017 12:34-0400 Weight 73.94 kg Lizette Handy [facility] Work Phone: 02-23-2016 10:45-0400 BMI (Body Mass Index) 29.4 kg/m2 Rocky Adam PUMPER HELPER [facility] Work Phone: 02-23-2016 10:45-0400 Body Temperature 98.6 [degF] Rocky Adam PUMPER HELPER [facility] Work Phone: 02-23-2016 10:45-0400 BP Diastolic 82 mm[Hg] Rokcy Adam PUMPER HELPER [facility] Work Phone: 02-23-2016 10:45-0400 BP Systolic 138 mm[Hg] Rocky Adam PUMPER HELPER [facility] Work Phone: 02-23-2016 10:45-0400 BSA (Body Surface Area) 1.79 m2 Rocky Adam PUMPER HELPER [facility] Work Phone: 02-23-2016 10:45-0400 Pulse (Heart Rate) 64 /min Rocky Adam PUMPER HELPER [facility] Work Phone: 02-23-2016 10:45-0400 Respiratory Rate 16 /min Rocky Adam PUMPER HELPER [facility] Work Phone: 02-23-2016 10:45-0400 Weight 75.3 kg Rocky Adam PUMPER HELPER [facility] Work Phone: 07-24-2011 09:50-0400 BP Diastolic 86 mm[Hg] Rocky Adam PUMPER HELPER [facility] Work Phone: 07-24-2011 09:50-0400 BP Systolic 125 mm[Hg] Rocky Adam PUMPER HELPER [facility] Work Phone: 09-28-2010 12:37-0500 Height 160.02 cm Rocky Medina PUMPER HELPER [facility] Work Phone: Encounters Encounter Date Encounter Type Care Provider Facility Start: 09-20-2025 End: 09-20-2025 ambulatory Glen Chi Jamil Facility:[facility] Start: 05-18-2025 End: 05-18-[address] Bryan Guillen MD -[facility] Work Phone: Start: 05-18-2025 End: 05-18-[address] Aleta Quinn DO Work Phone: -[facility] Start: 04-30-2025 End: 04-30-[address] Aleta Quinn DO Work Phone: [facility] Work Phone: Start: 04-30-2025 End: 04-30-[address] Glen Negron MD -Cardiovascular Services Work Phone: Start: 04-30-2025 End: 04-30-2025 ambulatory Glen Chi Jamil Facility:[facility] Start: 04-28-2025 End: 04-28-2025 Emergency department patient visit ISHMAEL PAK DO [facility] Start: 04-27-2025 ambulatory Glen Chi [facility] Facility:[facility] Start: 04-27-[address] Will Browne MD -[facility] Start: 04-26-2025 End: 04-26-2025 Follow-up encounter Pedro Arndt APRN.MARKETING DIRECTOR Work Phone: [facility] Comment on above: Results Start: 04-26-2025 ambulatory PEDRO ARNDT Facilit y:[facility] Start: 04-26-2025 End: 04-26-2025 Subsequent hospital visit by physician [facility] Work Phone: Radiology Comment on above: Pain [R52] Start: 04-25-2025 End: 04-25-2025 Patient encounter procedure Pedro Arndt APRN.MARKETING DIRECTOR Work Phone: [facility] Comment on above: Pain (Primary Dx) Start: 04-25-2025 End: 04-25-2025 ambulatory GLEN CHI JAMIL Facility:[facility] Start: 10-26-2024 End: 10-26-2024 ambulatory Rosana Sarabjit PUMPER HELPER Facility[facility] Start: 10-26-2024 End: 10-26-2024 [facility] Facility[facility] Start: 08-19-2024 End: 08-20-2024 Telephone encounter Nima Granados APRN.MARKETING DIRECTOR Work Phone: [facility] Comment on above: Results Start: 08-18-2024 End: 08-18-[facility] Start: 08-18-2024 End: 08-18-2024 Patient encounter procedure Lainey Zepeda APRN.MARKETING DIRECTOR Work Phone: [facility] Comment on above: Urinary frequency (P rimary Dx) Start: 02-26-2024 End: 02-26-[address] Glen Negron Work Phone: [facility] Work Phone: Start: 02-26-2024 End: 02-26-[address] Glen Negron Work Phone: [facility]-Laboratory Work Phone: Start: 02-19-2024 End: 02-19-[address] Glen Negron Work Phone: [facility] Work Phone: Start: 11-15-[address] Glen estevez Work Phone: [facility] Start: 10-24-2023 End: 10-24-[address] Glen Negron Work Phone: [facility] Work Phone: Start: 10-24-2023 End: 10-24-[address] Glen Negron Work Phone: [facility]-Laboratory, Phy Office 3rd Flr Start: 09-23-2023 End: 09-23-[address] Glen Negron Work Phone: [facility] Work Phone: Start: 09-16-2023 End: 09-16-[address] Glen Negron Work Phone: [facility]-Outpatient Breast Imaging Work Phone: Start: 07-28-2023 Telephone encounter Lainey Napoles CLINICAL LAB CLERK.MARKETING DIRECTOR Work Phone: [facility] Comment on above: Results Start: 07-27-2023 End: 07-27-2023 Patient encounter procedure Parul Clara CLINICAL LAB CLERK.MARKETING DIRECTOR Work Phone: [facility] Comment on above: Dysuria (Primary Dx) Start: 06-07-2023 End: 06-07-[address] Glen Negron Work Phone: [facility] Work Phone: Start: 06-07-2023 End: 06-07-[address] Glen Negron Work Phone: [facility] Work Phone: Start: 05-27-2023 End: 05-27-2023 Patient encounter procedure Chantale Larsen CLINICAL LAB CLERK.MARKETING DIRECTOR Work Phone: [facility] Comment on above: Redness of skin (Ayde sarah Dx) Start: 05-15-[address] Glen estevez Work Phone: [facility] Start: 05-15-2023 End: 05-15-[address] Glen Negron Work Phone: [facility] Work Phone: Start: 05-13-2023 End: 05-13-[address] Glen Negron Work Phone: [facility] Work Phone: Start: 05-13-2023 End: 05-13-[address] [facility] Start: 05-06-2023 End: 05-06-2023 Emergency department patient visit Dr. Glen Negron Work Phone: [facility]-Emergency Department Start: 05-01-2023 End: 05-01-[address] Glen Negron Work Phone: [facility] Start: 04-22-2023 End: 04-22-[address] 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 Glen Negron Work Phone: [facility] Start: 01-01-2023 End: 01-01-[address] Glen Negron Work Phone: [facility] Work Phone: Start: 01-01-2023 End: 01-01-[address] [facility] Start: 12-04-2022 End: 12-04-[address] Glen Negron Work Phone: [facility] Start: 11-14-[address] Glen estevez Work Phone: [facility] Start: 11-14-2022 End: 11-14-[address] Glen Negron Work Phone: [facility] Start: 10-30-2022 End: 10-30-2022 ambulatory [facility] Work Phone: Start: 10-30-2022 End: 10-30-2022 Patient encounter procedure [facility]-Ultrasound, [facility] Start: 10-23-2022 End: 10-23-2022 ambulatory [facility] Work Phone: Start: 10-23-2022 End: 10-23-2022 Patient encounter procedure [facility]-Laboratory, Phy Office 3rd Flr Start: 09-13-2022 End: 09-13-2022 ambulatory [facility] Work Phone: Start: 09-13-2022 End: 09-13-2022 Patient encounter procedure [facility]-Outpatient Bone Densitometry Start: 04-10-2022 End: 04-10-[address] Aleta Quinn Work Phone: [facility]-Laboratory, Phy Office 3rd Flr Start: 04-05-2022 End: 04-05-[address] Aleta Quinn Work Phone: [facility] Start: 04-04-2022 End: 04-04-[address] Aleta Quinn Work Phone: [facility]-Laboratory Start: 12-28-2021 End: 12-28-[address] Aleta Quinn Work Phone: [facility] Procedures Date Procedure Procedure Detail Performing Clinician Start: 04-30-2025 Vitamin D, 25-hydrox y measurement Dr. Aleta Quinn DO Work Phone: Comment on above: Vitamin D StatusDefi ciency: <20 ng/mL (50nmol/L)Insufficiency: 20-30 ng/mL (50-75 nmol/L)Sufficiency: 30-100 ng/mL (75-250 nmol/L)Toxicity: >100 ng/mL (>250 nmol/L) Start: 04-27-[address] Aleta Quinn DO Work Phone: Start: 04-26-2025 Radex ankle complete minimum 3 views Pedro Arndt APRN.MARKETING DIRECTOR Work Phone: Start: 08-18-2024 Urnls dip stick/tabl et rgnt auto w/o microscopy Pedro Arndt CLINICAL LAB CLERK.MARKETING DIRECTOR Work Phone: Start: 05-12-2024 Measurement of renal function Dr. Aleta Quinn DO Work Phone: Comment on above: GFR Calc Start: 09-16-2023 Screening mammography Checo Negron Work Phone: Start: 07-27-2023 Urnls dip stick/tabl et rgnt auto w/o microscopy Lainey Zepeda CLINICAL LAB CLERK.MARKETING DIRECTOR Work Phone: Start: 06-07-2023 CT of head without contrast Dr. Glen Negron Work Phone: Start: 03-10-2023 Urnls dip stick/tabl et rgnt auto w/o microscopy Parul Elizabeth CLINICAL LAB CLERK.MARKETING DIRECTOR Work Phone: Start: 10-30-2022 US urinary tract Start: 09-13-2022 Screening mammography Start: 09-13-2022 Dual energy X-ray absorptiometry Start: 07-30-2017 End: 07-30-2017 DJN Rojas Henry [...] Treatment Date Care Activity Detail Author Start: 11-18-2024 Advance Directive Discussion Advance Directive Discussion [facility] Start: 07-19-2024 Covid-19 Vaccine ( season) Covid-19 Vaccine ( season) [facility] Start: 07-19-2024 Influenza vaccination Influenza Vacc ine (#1) [facility] Start: 11-18-2023 Advance Directive Discussion Advance Directive Discussion [facility] Start: 07-19-2023 Influenza vaccination INFLUENZA (#1) [facility] Start: 01-20-2023 COVID-19 VACCINE (6 - Pfizer series) COVID-19 VACCINE (6 - Pfizer series) [facility] Start: 11-18-2022 ADVANCE DIRECTIVE DISCUSSION ADVANCE DIRECTIVE DISCUSSION [facility] Start: 11-18-2022 DEPRESSION ASSESSMENT DEPRESSION ASS ESSMENT [facility] Start: 2019 RSV Vaccine (1 - 1-d ose 75+ series) RSV Vaccine (1 - 1-dose 75+ series) [facility] Start: 03-03-2018 End: 03-03-2018 Appointment Appointment [employer] Work Phone: Start: 07-30-2017 End: 07-30-2017 Appointment Appointment [employer] Work Phone: Start: 07-30-2017 End: 07-30-2017 DJN DJN [employer] Work Phone: Start: 07-30-2017 End: 07-30-2017 Follow Up Appt 6 months Follow Up Appt 6 months [employer] Work Phone: Start: 09-09-2016 Pneumococcal Vaccine : 65+ (2 of 2 - PPSV23 or PCV20) Pneumococcal Vaccine: 65+ (2 of 2 - PPSV23 or PCV20) [facility] Start: 02-23-2016 End: 07-25-2017 *CBC with Differential *CBC with Differential [employer] Work Phone: Start: 02-23-2016 End: 07-25-2017 *CMP Complete Metabolic Panel *CMP Complete Metabolic Panel [facility] Work Phone: Start: 02-23-2016 End: 07-25-2017 25-Hydroxyvitamin D2+25-Hydroxyvitamin D3 [Mass/volume] in Serum or Plasma *Vitamin D (Calciferol) [employer] Work Phone: Start: 02-23-2016 End: 07-25-2017 DEXA scan DEXA scan [employer] Work Phone: Start: 02-23-2016 End: 07-25-2017 Lipid panel [AGGREGATE] *Lipid Profile [employer] [facility] Work Phone: Start: 02-23-2016 End: 07-25-2017 Mammogram, screening Mammogram, Screening, both breasts [employer] Work Phone: Start: 07-22-2015 End: 08-29-2015 *CMP Complete Metabolic Panel *CMP Complete Metabolic Panel [employer] Work Phone: Start: 07-22-2015 End: 08-29-2015 *UA - Urinalysis w/o Micro *UA - Urinalysis w/o Micro [employer] Work Phone: Start: 07-22-2015 End: 08-29-2015 CBC W Auto Differential panel - Blood *CBC without Diff [employer] Work Phone: Start: 07-22-2015 End: 08-31-2015 Lipid panel [AGGREGATE] *Lipid Profile [employer] Work Phone: Start: 07-22-2015 End: 07-25-2017 Mammogram, Screening, both breasts Mammogram, Screening, both breasts [employer] Work Phone: Start: 09-13-2014 End: 09-13-2014 *BMP *BMP [employer] Work Phone: Start: 03-22-2014 End: 03-22-2014 25-Hydroxyvitamin D2+25-Hydroxyvitamin D3 [Mass/volume] in Serum or Plasma *Vitamin D (Calciferol) [facility] Phone: Start: 03-22-2014 End: 03-22-2014 Bone density scan Bone Density Study [employer] Work Phone: Start: 03-22-2014 End: 03-22-2014 Lipid panel [AGGREGATE] *Lipid Profile [employer] Work Phone: Start: 03-22-2014 End: 07-29-2014 Mammogram, Screening, both breasts Mammogram, Screening, both breasts [employer] Work Phone: Start: 08-11-2013 End: 08-11-2013 *BMP *BMP [employer] Work Phone: Start: 05-13-2013 End: 07-22-2013 Mammogram, Screening, both breasts Mammogram, Screening, both breasts [employer] Work Phone: Start: 04-03-2013 End: 05-13-2013 *CMP Complete Metabolic Panel *CMP Complete Metabolic Panel [employer] Work Phone: Start: 04-03-2013 End: 05-13-2013 *UA - Urinalysis w/o Micro *UA - Urinalysis w/o Micro [facility] Work Phone: Start: 04-03-2013 End: 05-13-2013 CBC W Auto Differential panel - Blood *CBC without Diff [facility] Work Phone: Start: 04-03-2013 End: 05-13-2013 Lipid panel [AGGREGATE] *Lipid Profile [employer] [facility] Work Phone: Start: 05-09-2012 End: 07-18-2012 Mammogram, Screening, both breasts Mammogram, Screening, both breasts [employer] Work Phone: Start: 03-07-2012 End: 05-12-2012 *CMP Complete Metabolic Panel *CMP Complete Metabolic Panel [facility] Work Phone: Start: 03-07-2012 End: 05-12-2012 25-Hydroxyvitamin D2+25-Hydroxyvitamin D3 [Mass/volume] in Serum or Plasma *Vitamin D (Calciferol) [facility] Work Phone: Start: 03-07-2012 End: 03-12-2012 Follow Up Appt 2 months Follow Up Appt 2 months [facility] Work Phone: Start: 03-07-2012 End: 05-12-2012 Lipid panel [AGGREGATE] *Lipid Profile [facility] Work Phone: Start: 07-24-2011 End: 07-26-2011 Assay of vitamin D *Vitamin D (Calciferol) [facility] Work Phone: Start: 07-24-2011 End: 07-24-2011 Follow-up visit Follow Up as needed [facility] Work Phone: Start: 07-24-2011 End: 07-24-2011 Urinalysis nonauto w/o scope UA Dipstick (Office) [facility] Work Phone: Start: 03-29-2011 End: 03-30-2011 Assay of vitamin D *Vitamin D (Calciferol) [employer] Work Phone: Start: 03-29-2011 End: 07-26-2011 Bone density scan Bone Density Study [facility] Phone: Start: 03-29-2011 End: 03-29-2011 Complete cbc, automated *CBC without Diff [employer] Work Phone: Start: 03-29-2011 End: 03-29-2011 Comprehen metabolic panel *CMP Complete Metabolic Panel [facility] Phone: Start: 03-29-2011 End: 03-12-2012 Follow Up Appt 1 year Follow Up Appt 1 year [employer] Work Phone: Start: 03-29-2011 End: 03-29-2011 Follow-up visit Follow Up as needed [facility] Phone: Start: 03-29-2011 End: 03-29-2011 Lipid panel *Lipid Profile [facility] Phone: Start: 03-29-2011 End: 07-26-2011 Mammogram, Screening, both breasts Mammogram, Screening, both breasts [facility] Phone: Start: 03-29-2011 End: 03-29-2011 Urinalysis, nonauto w/scope *Urinalysis [facility] Phone: Start: 2009 BONE DENSITY BONE DENSITY [facility] Start: 2009 PNEUMOCOCCAL: 65+ (1 - PCV) PNEUMOCOCCAL: 65+ (1 - PCV) [facility] Start: 2009 Screening for osteoporosis Bone Density Screening [facility] Start: 1994 SHINGRIX VACCINE (1 of 2) SHINGRIX VACCINE (1 of 2) [facility] Start: 1989 DIABETES SCREEN DIABETES SCREEN [facility] Start: 1989 Diabetes Screening Diabetes Screenin g [facility] Start: 1963 Urine microalbumin profile [facility] Start: 1962 Anxiety Screening Anxiety Screening [facility] Start: 1962 Depression Screening Depression Scre ening [facility] Start: 1962 HEPATITIS C SCREENING HEPATITIS C [facility] Bacteria identified in Urine by Culture URINE CULTURE Microbiology Routine Urinary frequency Ordered: 03/10/2023 [facility] Work Phone: Comment on above: Ordered: 03/10/2023 Bacteria identified in Urine by Culture URINE CULTURE Microbiology Routine Dysuria Ordered: 07/27/2023 [facility] Work Phone: Comment on above: Ordered: 07/27/2023 Bacteria identified in Urine by Culture URINE CULTURE Microbiology Routine Urinary frequency 08/18/2024 11:54 AM EDT [facility] Work Phone: CBC W Auto Different ial panel - Blood [facility] Evaluation of diagnostic study results [facility] MG Breast - bilatera l Screening [facility] Patient Education ED Hematoma [facility] Work Phone: Patient referral [facility] Work Phone: Referral to occupational therapist [facility] End: 05-25-2026 XR Ankle - left AP and Lateral and oblique XR ANKLE GENERAL 3V AP/LAT/OBL LEFT Radiology STAT Pain 1 Occurrences starting 04/25/2025 until 05/25/2026 [facility] Work Phone: Comment on above: 1 Occurrences starti ng 04/25/2025 until 05/25/2026 End: 05-25-2026 XR Foot - left AP and Lateral and oblique XR FOOT GENERAL 3V AP/LAT/OBL LEFT Radiology STAT Pain 1 Occurrences starting 04/25/2025 until 05/25/2026 [facility] Comment on above: 1 Occurrences starti ng 04/25/2025 until 05/25/2026 [facility] Immunizations Immunization Date Immunization Notes Care Provider Kj davis 09-29-2024 pneumococcal conjuga te (PCV20) vaccine, 20 valent (PREVNAR 20) Pedro Arndt APRN.MARKETING DIRECTOR Work Phone: [facility] 09-29-2024 respiratory syncytia l virus (RSV) vaccine, adjuvanted (AREXVY) Pedro Arndt APRN.CNP Work Phone: [facility] 09-08-2024 influenza, seasonal, injectable Pedro Arndt APRN.MARKETING DIRECTOR Work Phone: [facility] 09-09-2023 influenza (HD-IIV4) vaccine, age 65+ yr, high dose, quadrivalent, PF (FLUZONE HIGH-DOSE) Pedro Arndt APRN.MARKETING DIRECTOR Work Phone: [facility] 09-09-2023 influenza virus vaccine, unspecified formulation Lainey Zepeda APRN.MARKETING DIRECTOR Work Phone: [facility] 09-22-2022 influenza (HD-IIV4) vaccine, age 65+ yr, high dose, quadrivalent, PF (FLUZONE HIGH-DOSE) Pedro Arndt APRN.MARKETING DIRECTOR Work Phone: [facility] 04-10-2022 COVID-19 original vaccine, full dose, monovalent (MODERNA) Pedro Arndt APRN.MARKETING DIRECTOR Work Phone: [facility] 08-02-2021 influenza, injectabl e, quadrivalent, contains preservative Pedro Arndt APRN.MARKETING DIRECTOR Work Phone: [facility] 09-19-2020 influenza, injectabl e, quadrivalent, contains preservative Pedro Arndt APRN.MARKETING DIRECTOR Work Phone: [facility] 06-25-2019 influenza, injectabl e, quadrivalent, contains preservative Pedro Arndt APRN.MARKETING DIRECTOR Work Phone: [facility] 09-18-2018 influenza, injectabl e, quadrivalent, preservative free Dr. Glen Negron Work Phone: [facility] 09-18-2018 influenza, seasonal, injectable Dr. Aleta Quinn Work Phone: [facility] 09-18-2018 influenza, seasonal, injectable, preservative free Pedro Arndt APRN.MARKETING DIRECTOR Work Phone: [facility] 09-05-2018 influenza, high dose seasonal, preservative-free Pedro Get CLINICAL LAB CLERK.MARKETING DIRECTOR Work Phone: [facility] 09-18-2017 influenza, seasonal, injectable, preservative free Pedro Arndt CLINICAL LAB CLERK.MARKETING DIRECTOR Work Phone: [facility] 09-17-2016 influenza, high dose seasonal, preservative-free Abril Older CLINICAL LAB CLERK.MARKETING DIRECTOR Work Phone: [facility] 09-09-2015 influenza, high dose seasonal, preservative-free [employer] Get CLINICAL LAB CLERK.MARKETING DIRECTOR Work Phone: [facility] 09-09-2015 pneumococcal conjuga te vaccine, 13 valent Pedro Get CLINICAL LAB CLERK.MARKETING DIRECTOR Work Phone: [facility] 11-07-2009 novel [id number], preservative-free, injectable Pedro Arndt CLINICAL LAB CLERK.MARKETING DIRECTOR Work Phone: [facility] 10-01-2007 influenza virus vaccine, whole virus Pedro Arndt CLINICAL LAB CLERK.MARKETING DIRECTOR Work Phone: [facility] Payers Date Payer Category Payer Private Health Insurance [id number] 2023 Medicare HUMANA MEDICARE HUMANA GOLD PLUS [id number] 2023-Present [phone] [place], [place] [id number] [facility] [id number] 2023 Medicare (Managed Care) HUMANA G OLD PLUS [id number] 2018 Private Health Insurance [id number] 2018 Self-pay [id number] 1945 Unknown [id number] Medicare [id number] Unknown [id number] Unknown [id number] Unknown [id number] Unknown [id number] Unknown [id number] Unknown [id number] Social History Date Type Detail Facility Start: 04-05-2022 End: 02-19-2024 Tobacco smoking status [facility] Unknown if ever smoked [facility] Start: 12-26-2020 Non-smoker;Cigarettes [facility] Start: 1945 Sex Assigned At Female [facility] Start: 03-10-2023 End: 02-19-2024 Tobacco smoking status NHIS Ex-smoker [facility] Start: 11-19-1969 End: 11-19-1985 History of tobacco use Current smoker [facility] Start: 11-19-1969 End: 11-19-1985 History of tobacco use Cigarette Smoker [facility] Start: 10-26-2020 End: 03-10-2023 Cigarettes smoked current (pack per day) - Reported 1 [facility] Start: 03-10-2023 End: 08-18-2024 Tobacco use and exposure Smokeless tobacco non-user [facility] Start: 03-10-2023 End: 08-18-2024 Alcohol intake Not Asked [facility] Start: 1945 Sex Assigned At Not on file [facility] Start: 05-30-2017 None [facility] Start: 05-30-2017 Spouse/ Signif icant Other [facility] Start: 10-26-2020 End: 05-27-2023 Tobacco use panel [facility] National Score (1-10 0), lower number is lower risk Not on file [facility] Tobacco smoking status [facility] Start: 04-28-2025 Sex Female (finding) [facility] Functional Status Date Assessment Result Facility 05-01-2015 Are you deaf, or do you have serious difficulty hearing No 05/01/2015 10:25 AM Maren Najera LPN No [facility] 05-01-2015 Are you blind, or do you have serious difficulty seeing, even when wearing glasses No 05/01/2015 10:25 AM Maren Najera LPN No [facility] 05-01-2015 Do you have serious difficulty walking or climbing stairs No 05/01/2015 10:25 AM Maren Najera LPN No [facility] 05-01-2015 Do you have difficul ty dressing or bathing No 05/01/2015 10:25 AM Maren Najera LPN No [facility] 05-01-2015 Because of a physica l, mental, or emotional condition, do you have difficulty doing errands alone such as visiting a physician's office or shopping No 05/01/2015 10:25 AM Maren Najera LPN No [facility] Mental Status Date Assessment Result Facility 04-27-2025 Cognitive function Voice/Name [facility] Work Phone: 11-15-2023 Cognitive function Voice/Name [facility] Work Phone: 05-15-2023 Cognitive function Awake;Alert;Appropriat e [facility] Work Phone: 05-17-2022 Cognitive function Awake;Alert;A ppropriate; Follows Commands [facility] Work Phone: 04-05-2021 Cognitive function Arousable To Touch/Shaking [facility] Work Phone: 05-01-2015 Because of a physica l, mental, or emotional condition, do you have serious difficulty concentrating, remembering, or making decisions No 05/01/2015 10:25 AM EDT Maren Faith LPN No [facility] Clinical Notes 10-16-2018 to 05-04-2025 Note Date & Type Note Facility 05-04-2025 Note . MICRO - Microbiology PROCEDURE: Blood Culture (bacterial) [*1] SOURCE: Blood BODY SITE: COLLECTED DATE/TIME: 04/28/2025 21:41 EDT RECEIVED DATE/TIME: 04/29/2025 14:26 EDT START DATE/TIME: 04/29/2025 14:27 EDT FREE TEXT SOURCE: FINAL REPORTS Final Report [] Verified Date/Time/Personnel: 05/04/2025 14:59 EDT Blood Culture: No Growth at 5 days. PRELIMINARY REPORTS Preliminary Report [] Verified Date/Time/Personnel: 04/29/2025 14:59 EDT Culture has been received in lab and is no growth to date. Routine cultures are held for 5 days. Performing Locations *1: This test was performed at: [facility], [address] [place] [address], [facility] , [facility] 05-04-2025 Note . MICRO - Microbiology PROCEDURE: Blood Culture (bacterial) [*1] SOURCE: Blood BODY SITE: COLLECTED DATE/TIME: 04/28/2025 21:41 EDT RECEIVED DATE/TIME: 04/29/2025 14:26 EDT START DATE/TIME: 04/29/2025 14:27 EDT FREE TEXT SOURCE: FINAL REPORTS Final Report [] Verified Date/Time/Personnel: 05/04/2025 14:59 EDT Blood Culture: No Growth at 5 days. PRELIMINARY REPORTS Preliminary Report [] Verified Date/Time/Personnel: 04/29/2025 14:59 EDT Culture has been received in lab and is no growth to date. Routine cultures are held for 5 days. Performing Locations *1: This test was performed at: [facility], [address] [place] [address], [id number] , [place] [facility] 04-28-2025 Hospital Discharg e instructions Patient Education 04/28/2025 21:21:22 Cellulitis Skin Infection Cellulitis Cellulitis is an infection of the deep layers of skin. A break in the skin, such as a cut or scratch, can let bacteria under the skin. If the bacteria get to deep layers of the skin, it can be serious. If not treated, cellulitis can get into the bloodstream and lymph nodes. The infection can then spread throughout the body. This causes serious illness. Cellulitis causes the affected skin to become red, swollen, warm, and sore. The reddened areas have a visible border. An open sore may leak fluid (pus). You may have a fever, chills, and pain. Cellulitis is treated with antibiotics taken for 7 to 10 days. An open sore may be cleaned and covered with cool wet gauze. Symptoms should get better 1 to 2 days after treatment is started. Make sure to take all the antibiotics for the full number of days until they are gone. Keep taking the medicine even if your symptoms go away. Home care Follow these tips: Limit the use of the part of your body with cellulitis. If the infection is on your leg, keep your leg raised while sitting. This will help to reduce swelling. Take all of the antibiotic medicine exactly as directed until it is gone. Do not miss any doses, especially during the first 7 days. Don t stop taking the medicine when your symptoms get better. Keep the affected area clean and dry. Wash your hands with soap and warm water before and after touching your skin. Anyone else who touches your skin should also wash his or her hands. Don't share towels. Follow-up care Follow up with your healthcare provider, or as advised. If your infection does not go away on the first antibiotic, your healthcare provider will prescribe a different one. When to seek medical advice Call your healthcare provider right away if any of these occur: Red areas that spread Swelling or pain that gets worse Fluid leaking from the skin (pus) Fever higher of 100.4 F (38.0 C) or higher after 2 days on antibiotics [id number] The [employer]. [address] [place] [address], [place] [address]. All rights reserved. This information is not intended as a substitute for professional medical care. Always follow your healthcare professional's instructions. Follow Up Care 04/28/2025 20:35:41 With:Go to emergency room if symptoms worsen Address:Unknown When:2-4 days With:CLYDE NEGRON MD Address: [facility] [place] [address]- When:2-4 days [facility] 04-28-2025 Note Discharge Instructions Thank you for allowing [facility] to assist you with your healthcare needs. The following is important discharge information regarding your hospital visit. Diagnosis from Today's Visit Cellulitis What to Do Next Instructions from Your Care Team Take doxycycline as prescribed for possible cellulitis. Would recommend close follow-up with your primary care doctor. Follow-up results of your blood culture. Would recommend getting ultrasound of the left lower extremity rule out blood clot. You were given an order for this. Return the emergency department if you have worsening symptoms, fevers, or any other care concern. Discharge ED Outpatient Vascular Lab - Ordered -- Test Requested: doppler left lower extremity, Lower extremity, Left, Test Reason: Swelling, Mon-Fri 8am-4:30pm: Call [phone] at 7:30am to schedule a same day appointment for testing. Please be aware there may be a short wait time., Weekend Holid... Post Acute Orders No qualifying data available. You Need to Schedule the Following Appointments Follow Up with Go to emergency room if symptoms worsen When:Within 2-4 days Follow Up with CLYDE NEGRON MD When:Within 2-4 days Where:[facility] [address] [place] [address]- Allergies NKA Medications Please ask your primary doctor or pharmacist before taking any other medication not listed, including over the counter drugs, herbal medications, vitamins and or supplements as they may interact with your home medications. What How Much When Instructions Last Dose New doxycycline (doxycycline hyclate 100 mg oral capsule) 1 cap by mouth Two (2) times a day Duration: 7 Days Printed Prescription Unchanged potassium chloride (potassium chloride 10 mEq oral capsule, extended release) Unchanged pravastatin (pravastatin 20 mg oral tablet) Unchanged rivaroxaban (Xarelto 20 mg oral tablet) Please take this list to your next doctor s visit. Bring all medications you take, including over the counter medications, herbals and other supplements with you to your doctor s visit. Patients and families are reminded to discard old lists and to update any records with all medication providers or retail pharmacies. Education Materials Cellulitis Cellulitis is an infection of the deep layers of skin. A break in the skin, such as a cut or scratch, can let bacteria under the skin. If the bacteria get to deep layers of the skin, it can be serious. If not treated, cellulitis can get into the bloodstream and lymph nodes. The infection can then spread throughout the body. This causes serious illness. Cellulitis causes the affected skin to become red, swollen, warm, and sore. The reddened areas have a visible border. An open sore may leak fluid (pus). You may have a fever, chills, and pain. Cellulitis is treated with antibiotics taken for 7 to 10 days. An open sore may be cleaned and covered with cool wet gauze. Symptoms should get better 1 to 2 days after treatment is started. Make sure to take all the antibiotics for the full number of days until they are gone. Keep taking the medicine even if your symptoms go away. Home care Follow these tips: Limit the use of the part of your body with cellulitis. If the infection is on your leg, keep your leg raised while sitting. This will help to reduce swelling. Take all of the antibiotic medicine exactly as directed until it is gone. Do not miss any doses, especially during the first 7 days. Don t stop taking the medicine when your symptoms get better. Keep the affected area clean and dry. Wash your hands with soap and warm water before and after touching your skin. Anyone else who touches your skin should also wash his or her hands. Don't share towels. Follow-up care Follow up with your healthcare provider, or as advised. If your infection does not go away on the first antibiotic, your healthcare provider will prescribe a different one. When to seek medical advice Call your healthcare provider right away if any of these occur: Red areas that spread Swelling or pain that gets worse Fluid leaking from the skin (pus) Fever higher of 100.4 F (38.0 C) or higher after 2 days on antibiotics [id number] [employer]. [address] [place] [address], [place] [address]. All rights reserved. This information is not intended as a substitute for professional medical care. Always follow your healthcare professional's instructions. Additional Information VACCINATE! IT SAVES LIVES! Members of the community who have not yet received the COVID-19 vaccine and would like to receive it can visit one of [facility] vaccine clinics. There are many vaccine clinic locations within the [facility]. For locations and available times, please visit www.[email or web address].[email or web address] gov/. It is important to note that some COVID mobile vaccine clinics are held outdoors and may be canceled in rainy or stormy conditions. To learn more about pediatric vaccinations (ages 5-11), we invite you to visit the [facility] webpage. https://[email or web address].org/p ages/[email or web address]-Guegc-Egywpsyeivn-Freq [email or web address].html To learn more about the COVID-19 vaccine, we invite you to visit the CDC website for a list of frequently asked questions. https://www.cdc.gov/coronavirus/ 2019-ncov/vaccines/faq.html [facility] [employer] Patient Portal Access Instructions: Stay connected with your healthcare team and access your personal medical information anytime with the [email or web address] Patient Portal. If you would like a full copy of your medical records please contact the [facility] Medical Records Department Saturday through Saturday between 8a.m. and 4:30p.m. Please follow the directions below to access the portal: 1.Access the email account you provided upon registration to the hospital.2.Look for an invitation email from [facility].3.Open the email and access the invitation link: Accept Invitation to [email or web address].Fill in the required gleason to create your account. Sign into [email or web address] with your username and password that you created in the above steps to stay up to date. You can then view a summary of results, a summary of your visits, and the ability to download your summaries to your computer or send the information securely to a physician. Remember that your healthcare information is confidential, so carefully consider who you will allow to register on the [facility] Patient Portal for access to your information. You can also access the [facility] Patient Portal on the 1-800-DOCTORS neema. Simply click on Health Records under Health Data and then click on the [employer] logo. HOW TO SAFELY DISPOSE OF PRESCRIPTION MEDICATIONS Please use one of the following methods to safely dispose of your unused medications. 1.Use a drug disposal kit: the drug disposal pouch allows you to safely discard your old and unused drugs. Ask your nurse to give you one when you are discharged.2.Visit a local take-back location: Many local pharmacies and police departments have programs that collect old and unwanted prescription drugs. Call your local pharmacy or go to http://[employer]/2S5Wp1x to find one close to you.3.Make use of household items: Use cat litter or old coffee grounds to dispose medications if other options are not available. Mix your drugs with these household products, seal them in an airtight container and throw it into the garbage. Call [facility]: [phone] to be sure your drugs can be disposed of in this way. Some medicines may require a different approach.4.Never flush your medications down the toilet. IF YOU HAVE BEEN PRESCRIBED AN OPIOIDS FOR PAIN If you have been prescribed an opioid (such as hydrocodone, oxycodone or morphine), it is critical to understand the possible side effects and risks of opioid pain medications. Even when taken as directed, opioids can have several side effects including: Tolerance, meaning you might need to take more of a medication for the same pain relief. Nausea, vomiting and/or constipation. Sleepiness, dizziness, dry mouth, confusion, depression or itching. Physical dependence, meaning you have withdrawal symptoms when a medication is stopped ? this can develop within a few days. KNOW YOUR RESPONSIBILITIES It is important to know exactly how much and how often to take the opioid pain medications you are prescribed. Never take opioids in higher amounts or more often than prescribed. Do not combine opioids with alcohol or other drugs that cause drowsiness, such as benzodiazepines, also known as benzos, including diazepam and alprazolam, muscle relaxants or sleep aids. Never sell or share prescription opioids. This is illegal. Store opioids in a secure place and out of reach of others (including children, family, friends and visitors). The last page(s) of this document has been signed and retained as a CHART COPY Signatures Patient Education Materials Cellulitis Skin Infection Medication Leaflets My discharge plan and instructions have been reviewed and explained to me and I,POP PINEDA understand my current condition and have read and understand these discharge instructions. I have received a written copy of the plan/instructions. If I have questions, I am aware that I should contact my doctor. 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 HISTORY: ORDERING SYSTEM PROVIDED HISTORY: Reason for Exam: L foot pain, swelling and redness. states started last week, urgent care did xray. states worse today has pcp appointment Saturday. pain, redness FINDINGS: No acute fracture or dislocation. The visualized joint spaces are maintained. Vlyf-id-[id number] diffuse soft tissue swelling is noted throughout the foot most pronounced dorsally. Plantar calcaneal enthesopathy. IMPRESSION: No acute osseous abnormality. I have personally reviewed the images of this examination and agree with the resident's findings and interpretation. Interpreted by: Rojas Peacock Preliminary Report By: Henry Wiseman Electronically signed By Rojas Peacock Dictated Date: 04/28/2025 10:24:11 PM Prelim Date: 04/28/2025 10:28:45 PM Sign Date: 04/28/2025 10:36:28 PM Ordering Provider: ISHMAEL PAK [facility]06-11-2025 Evaluation + Plan note Diagnostic Tests Pending * Blood Culture (bacterial) 04/28/25 * Blood Culture (bacterial) 04/28/25 [facility] 06-10-2025 Evaluation note* Diagnosis Onset Date Resolution Status Admit Date Breast cancer, right chronic April 27, 2025 2:00pm Osteopenia chronic April 27 2:00pm Educational circumstance resolved April 27, 2025 2:00pm ER+ (estrogen receptor posit fifi status) deleted April 27, 2025 2:00pm [facility] Work Phone: 1(585) 956-196506-09-2025 Telephone encounter Note* Telephone Encounter - Lauren Henson RN - 04/26/2025 2:25 PM EDT Patient returned call and given provider's message below and patient verbalized understanding. Result faxed to pt's PCP , as requested. Brooklynn Henson RN [facility]06-09-2025 Miscellaneous Notes* Telephone Encounter - Lauren Henson RN - 04/26/2025 2:25 PM EDT Patient returned call and given provider's message below and patient verbalized understanding. Result faxed to pt's PCP , as requested. Brooklynn Henson RN * Telephone Encounter - Ro Luz LPN - 04/26/2025 11:44 AM EDT Left message for patient to return call for results and recommendations.Ro Luz LPN * Telephone Encounter - Pedro Arndt APRN.CNP - 04/26/2025 8:38 AM EDT Please call patient and let her know that she has no breaks or fractures. Patient needs to follow-up with primary care. [facility] Telephone encounter Note * Telephone Encounter - Ro Luz LPN - 04/26/2025 11:44 AM EDT Left message for patient to return call for results and recommendations.Ro Luz LPN [facility]06-09-2025 Telephone encounter Note* Telephone Encounter - Pedro Arndt APRN.CNP - 04/26/2025 8:38 AM EDT Please call patient and let her know that she has no breaks or fractures. Patient needs to follow-up with primary care. [facility] Work Phone: 1(401) 694-309006-09-2025 History of Present illness Narrative* Marlen Zavala Tech - 04/26/2025 8:20 AM EDT Radiology Service Progress Note PATIENT NAME: Pop Pineda DATE OF SERVICE: April 26, 2025 TIME: 8:18 AM PATIENT IDENTITY VERIFICATION COMPLETED USING TWO (2) IDENTIFIERS: Name and Date of confirmedby patient verbally. FALL SCREENING: Has the patient had 2 falls in the last year or 1 fall with injury or currently using an Ambulatory Assistive Device (Walker, Cane, Wheelchair, Crutches, etc.)? No PATIENT GENDER DATA: Assigned female at . status: : No status:NO. PATIENT RELEVANT IMPLANT DATA REVIEWED: Not Applicable PATIENT PRESENTS WITH AN IMPLANTABLE OR ATTACHED ASIC VERIFICATION ENGINEER: No RADIOLOGY DEPARTMENT: General X-ray: Exam(s) Completed: Lower Extremity X- Ray(s): Ankle, Left and Foot, Left PERIPHERAL IV DATA: Not applicable SIGNED BY: Yomaira Fernandez April 26, 2025 8:18 AM documented in [facility]25 NoteHNO ID: [id number] Author: MARLEN ZAVALA Tech Service: ? Author Type: Technologist Type: Progress Notes Filed: 04/26/2025 08:30 Note Text: Radiology Service Progress Note PATIENT NAME: Pop Pineda DATE OF SERVICE: April 26, 2025 TIME: 8:18 AM PATIENT IDENTITY VERIFICATION COMPLETED USING TWO (2) IDENTIFIERS: Name and Date of confirmed by patient verbally. FALL SCREENING: Has the patient had 2 falls in the last year or 1 fall with injury or currently using an Ambulatory Assistive Device (Walker, Cane, Wheelchair, Crutches, etc.)? No PATIENT GENDER DATA: Assigned female at . status: : No status: NO. PATIENT RELEVANT IMPLANT DATA REVIEWED: Not Applicable PATIENT PRESENTS WITH AN IMPLANTABLE OR ATTACHED ASIC VERIFICATION ENGINEER: No RADIOLOGY DEPARTMENT: General X-ray: Exam(s) Completed: Lower Extremity X-Ray(s): Ankle, Left and Foot, Left PERIPHERAL IV DATA: Not applicable SIGNED BY: Yomaira Fernandez April 26, 2025 8:18 [facility]06-08-2025 NoteHNO ID: [id number] Author: PEDRO ARNDT APRN.MARKETING DIRECTOR Service: ? Author Type: Nurse Practitioner Type: Progress Notes Filed: 04/25/2025 08:55 Note Text: [facility] Subjective Pop Pineda is a 79 year old female. Patient presents with: Edema: BLAIR swollen feet and some bruising x 3 days Patient came in with swelling of her left ankle and foot. Patient stated that symptoms started 3 days ago. Patient reports that right foot had some swelling yesterday but this has improved. Patient does not recall any injury to her ankle or feet and has never had these symptoms before. Patient does have a-fib and takes a blood thinner. Patient can bare weight on left foot and denies numbness, tingling or changes in sensation. Patient denies new medication, shortness of breath, or fluid retention concerns. The history is provided by the patient. No fashion intern was used. Edema Pertinent negatives include no chest pain, headaches, numbness or weakness. Review of Systems Constitutional: Negative. Respiratory: Negative for shortness of breath. Cardiovascular: Positive for leg swelling. Negative for chest pain. Neurological: Negative for weakness, numbness and headaches. No past medical history on file. No past surgical history on file. ALLERGIES Chlorhexidine MEDICATIONS pravastatin (PRAVACHOL) 20 mg tablet potassium chloride SR (MICRO-K) 10 mEq CR capsule anastrozole (ARIMIDEX) 1 mg tablet Take 1 [...] date: 11/19/1969 Quit date: 11/19/1985 Years since quittin.4 Smokeless tobacco: Never Objective BP 130/84 Pulse 62 Temp 36.3 ?C (97.4 ?F) Resp 20 Wt 82.2 kg (181 lb 3.5 oz) SpO2 95% Physical Exam HENT: Head: Normocephalic and atraumatic. Cardiovascular: Rate and Rhythm: Normal rate and regular rhythm. Heart sounds: Normal heart sounds. Pulmonary: Effort: Pulmonary effort is normal. Breath sounds: Normal breath sounds. Musculoskeletal: General: Swelling and tenderness present. Left ankle: Swelling and ecchymosis present. Tenderness present. Comments: +1 pitting edema around the left ankle Skin: General: Skin is warm and dry. Findings: Bruising present. Comments: Bruising along the left ankle and toes Neurological: Mental Status: She is alert and oriented to person, place, and time. Motor: No weakness. {ASSESSMENT/PLAN: 1. Pain - ICD9: 780.96, ICD10: R52 - Patient educated to return for x-ray tomorrow - Patient denied boot for her leg at this time - Patient educated to rest, ice, and elevate left leg - Patient educated to follow up if symptoms worsen - Will also follow up with PCP to get earlier appointment - Patient agreeable to care plan with no questions at this time - XR ANKLE GENERAL 3V AP/LAT/OBL LEFT - XR FOOT GENERAL 3V AP/LAT/OBL LEFT Jad Finleyuri History and Record Review External record(s) reviewed: no prior records. TEACHING PROVIDER (Physician/PA/CLINICAL LAB CLERK) NOTE OF PERSONAL INVOLVEMENT IN CARE: I have personally seen and examined the patient and performed the medical decision-making components. I have reviewed the Advanced Practice Registered Nurse (CLINICAL LAB CLERK) Student's documentation and verified the findings in the note as written. Any additions or changes are noted in bold/italics. Signature: Pedro Arndt Date: 04/25/2025 Time: 8:54 AM [facility]06-08-2025 History of Present illness Narrative* Pedro Arndt APRN.[facility] - 04/25/2025 8:33 AM EDT [facility] Subjective Pop Pineda is a 79 year old female. Patient presents with: Edema: BLAIR swollen feet and some bruising x 3 days Patient came in with swelling of her left ankle and foot. Patient stated that symptoms started 3 days ago. Patient reports that right foot had some swelling yesterday but this has improved. Patient does not recall any injury to her ankle or feet and has never had these symptoms before. Patient doeshave a-fib and takes a blood thinner. Patient can bare weight on left foot and denies numbness, tingling or changes in sensation. Patient denies new medication, shortness of breath, or fluid retention concerns. The history is provided by the patient. No fashion intern was used. Edema Pertinent negatives include no chest pain, headaches, numbness or weakness. Review of Systems Constitutional: Negative. Respiratory: Negative for shortness of breath. Cardiovascular: Positive for leg swelling. Negative for chest pain. Neurological: Negative for weakness, numbness and headaches. No past medical history on file. No past surgical history on file. ALLERGIES Chlorhexidine MEDICATIONS pravastatin (PRAVACHOL) 20 mg tablet potassium chloride SR (MICRO-K) 10 mEq CR capsule anastrozole (ARIMIDEX) 1 mg tablet Take 1 [...] date: 11/19/1969 Quit date: 11/19/1985 Years since quittin.4 Smokeless tobacco: Never Objective BP 130/84 Pulse 62 Temp 36.3 C (97.4 F) Resp 20 Wt 82.2 kg (181 lb 3.5 oz) SpO2 95% Physical Exam HENT: Head: Normocephalic and atraumatic. Cardiovascular: Rate and Rhythm: Normal rate and regular rhythm. Heart sounds: Normal heart sounds. Pulmonary: Effort: Pulmonary effort is normal. Breath sounds: Normal breath sounds. Musculoskeletal: General: Swelling and tenderness present. Left ankle: Swelling and ecchymosis present. Tenderness present. Comments: +1 pitting edema around the left ankle Skin: General: Skin is warm and dry. Findings: Bruising present. Comments: Bruising along the left ankle and toes Neurological: Mental Status: She is alert and oriented to person, place, and time. Motor: No weakness. {ASSESSMENT/PLAN: 1. Pain - ICD9: 780.96, ICD10: R52 - Patient educated to return for x-ray tomorrow - Patient denied boot for her leg at this time - Patient educated to rest, ice, and elevate left leg - Patient educated to follow up if symptoms worsen - Will also follow up with PCP to get earlier appointment - Patient agreeable to care plan with no questions at this time - XR ANKLE GENERAL 3V AP/LAT/OBL LEFT - XR FOOT GENERAL 3V AP/LAT/OBL LEFT Jad Harkins History and Record Review External record(s) reviewed: no prior records. TEACHING PROVIDER (Physician/PA/CLINICAL LAB CLERK) NOTE OF PERSONAL INVOLVEMENT IN CARE: I have personally seen and examined the patient and performed the medical decision-making components. I have reviewed the Advanced Practice Registered Nurse (CLINICAL LAB CLERK) Student's documentation and verified the findings in the note as written. Any additions or changes are noted in bold/italics. Signature: Pedro Arndt Date: 04/25/2025 Time: 8:54 AM Procedures documented [facility] Telephone encounter Note * Telephone Encounter - Lauren Henson RN - 08/20/2024 2:03 PM EDT Patient returned call and given provider's message below and patient verbalized understanding. Brooklynn Henson RN [facility]10-03-2024 Miscellaneous Notes* Telephone Encounter - Lauren Henson RN - 08/20/2024 2:03 PM EDT Patient returned call and given provider's message below and patient verbalized understanding. Brooklynn Henson RN * Telephone Encounter - Azra Donaldson MA - 08/19/2024 3:10 PM EDT Unable to reach patient. Left VM to return call to office. Please read below and advise. Azra Donaldson MA * Telephone Encounter - Nima Granados APRN.CNP - 08/19/2024 2:05 PM EDT Please inform patient that no significant bacterial infection was noted on urine culture. If symptoms progressively are improving continue antibiotics. Follow- up with PCP for reevaluation. Nima Granados APRN.CNP documented in this encounter[facility]10-[facility]-2024 Telephone encounter Note * Telephone Encounter - Azra Donaldson MA - 08/19/2024 3:10 PM EDT Unable to reach patient. Left VM to return call to office. Please read below and advise. Azra Donaldson MA [facility]10-02-2024 Telephone encounter Note* Telephone Encounter - Nima Granados APRN.CNP - 08/19/2024 2:05 PM EDT Please inform patient that no significant bacterial infection was noted on urine culture. If symptoms progressively are improving continue antibiotics. Follow- up with PCP for reevaluation. Nima Granados APRN.CNP [facility] Work Phone: 1(819) 272-156310-01-2024 Instructions* Patient Instructions* Lainey Zepeda APRN.CNP - 08/18/2024 11:51 AM EDT ASSESSMENT/PLAN: 1. Urinary frequency - ICD9: 788.41, ICD10: R35.0 acute - UA positive for dieudonne esterase, hematuria, proteinuria, and nitrates and trace ketones- patient hasbeen taking AZO. - Send urine for culture [...] Discussed expected course of illness Lainey Zepeda APRN.[facility] PATIENT INFO BLADDER INFECTION OVERVIEW Bladder infections are one of the most common infections, causing symptoms of burning with urination and needing to urinate frequently. A bladder infection is a type of urinary tract infection (UTI).Bladder infections are more common is women than men. Most women have an uncomplicated bladder infection that is easily treated with a short course of antibiotics. In men, bladder infections may alsoaffect the prostate gland, and a longer course [...] symptoms of a bladder infection, but can occurin people with a kidney infection (pyelonephritis). If [...] treatment is usually given for at least 7days. Your symptoms should begin to resolve within [...] UTIs. A similar medication is available without aprescription (eg, Uristat). Both medications change the color of the urine (usually blue or orange)and can interfere with laboratory testing. You should not take these medications for more than 48 hours due to the risk of side effects. These medications do not treat the infection and must be takenalong with an antibiotic. Some providers recommend drinking [...] -- Some adults, especially women, develop bladder infectionsfrequently. In this case, it is important to [...] actually have an infection. documented in this encounterEast [facility]10-[facility]-2024 NoteHNO ID: [id number] Author: LAINEY ZEPEDA APRN.MARKETING DIRECTOR Service: ? Author Type: Nurse Practitioner Type: Progress Notes Filed: 08/18/2024 12:58 Note Text: Subjective HPI Pop Pineda is a 79 year old female [...] Status: She is alert. Patient sees Dr. Negron for PCP- no labs in system. Patient states she has had no concerns regarding kidney function in recent labwork ordered by Dr. Negron. ASSESSMENT/PLAN: 1. Urinary frequency - ICD9: 788.41, [...] Discussed expected course of illness Lainey Zepeda APRN.[facility]10-01-2024 History of Present illness Narrative* Lainey Zepeda APRN.MARKETING DIRECTOR - 08/18/2024 11:41 AM EDT Subjective HPI Pop Pineda is a 79 year old female [...] is no right CVA tenderness, left CVA tendernessor guarding. Skin: General: Skin is warm and dry. Neurological: Mental Status: She is alert. Patient sees Dr. Negron for PCP- no labs in system. Patient states she has had no concerns regarding kidney function in recent labwork ordered by Dr. Negron. ASSESSMENT/PLAN: 1. Urinary frequency - ICD9: 788.41, ICD10: R35.0 acute - UA positive for dieudonne esterase, hematuria, proteinuria, and nitrates and trace ketones- patient hasbeen taking AZO. - Send urine for culture [...] expected course of illness Lainey Zepeda APRN.CNP documented in this encounterEast [facility]09-10-2023 Miscellaneous Notes* Telephone Encounter - Eveline Nunes - 07/28/2023 1:50 PM EDT Patient given results and verbalized understanding of instructions given. Eveline Nunes * Telephone Encounter - Eveline Nunes - 07/28/2023 1:49 PM EDT ----- Message from Lainey Zepeda APRN.CNP sent at 07/28/2023 1:20 PM EDT ----- Urine culture did not show clear evidence of infection. She may continue to take antibiotic if it has been helpful. Recommend follow up with PCP to ensure hematuria has resolved. Lainey Zepeda CNP documented in this encounterEast [facility] Hospital09-09-2023 History of Present illness Narrative* Parul Elizabeth APRN.CNP - 07/27/2023 9:32 AM EDT This note was created using NoteWriter. Subjective Pop Pineda is a 78 year old female. 78 year old female with PMH HTN, right breast CA, afib (on Xarelto) presents with complaints of UTI Acute onset this morning. +dysuria +urinary frequency +urgency +hematuria Denies vaginal bleeding or vaginal discharge. Denies fever or chills Denies abdominal pain Denies back pain that is worse than her baseline. 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 The history is provided by the patient. No fashion intern was used. UTI This is a new problem. The current episode started 3 to 5 hours ago. The problem occurs every urination. The problem has been gradually worsening. The quality of the pain is described as burning. Thepain is at a severity of 5/10. There has been no fever. She is Not sexually active. Associated symptoms include chills, frequency, hematuria and urgency. Pertinent negatives include no sweats, no naus ea, no vomiting, no discharge, no hesitancy, no possible and no flank pain. She has triednothing for the symptoms. Her past medical history [...] CULTURE Parul Elizabeth APRN.CASSANDRA documented in this encounterEast [facility]07-10-2023 History of Present illness Narrative* Chantale Larsen APRN.CNP - 05/27/2023 4:16 PM EDT Images from the original note were not included. Subjective The history is provided by the patient. No fashion intern was used. HPI Pop Pineda is a 78 year old female [...] have confirmed and edited as necessary, the [facility] Review of Systems Constitutional: Negative for chills [...] for higher level of care were discussed indetail warranting prompt ER evaluation. Chantale Larsen APRN.CNP documented in this encounterEast [facility] Hospital07-10-2023 Instructions* Patient Instructions* Chantale Larsen APRN.CNP - 05/27/2023 4:07 PM EDT Warm compresses to area Need to see PCP in next 24-48 hours To ER for further treatment or medication documented in this encounterEast [facility] Hospital04-23-2023 History of Present illness Narrative* Abril Jackman APRN.CNP - 03/10/2023 10:09 AM EDT CC: Patient presents with: UTI: Frequency, burning, pressure x 1 week HPI Pop Pineda is a 77 year old female [...] plan. Abril Jackman APRN.CNP documented in this encounterEast [facility] Hospital04-23-2023 Instructions* Patient Instructions* Abril Jackman APRN.CNP - 03/10/2023 9:17 AM [...] take all the medication prescribed, even if yoursymptoms disappear. If you stop treatment early, the infection may not be fully treated and the symptoms could come back again. 2. Get plenty of rest. You may take acetaminophen for fever and aches. 3. Drink 6 to 8 glasses of fluids, especially water, every day. This helps wash out germs from yoururinary tract. Cranberry juice or other sources of [...] after you finish treatment. documented in this encounterEast [facility] Hospital11-29-2018 Hospital Discharge instructionsAmbulatory Orders* Occupational Therapy Eval Time Frame: 10/16/18, Location: None Selected * ONC: Genetic Counseling Time Frame: 0 Days, Location: None Selected * ONC Referral: Radiation Oncology Time Frame: 0 Days, Location: None Selected * Return to Office Location: None Selected [facility] Work Phone: Discharge summary Author Dr. García [facility] May 06, 2023 7:20am Note Date/Time May 06, 2023 7:15 am [facility] Medical Records Department [address] [place] [address] Emergency Department Summary 05/06/23 MR#: [id number] Acct: [id number] Name: POP PINEDA Rep #:[id number] : [id number] 77 From: Gorge García MD PCP: Dr. Glen Negron MD Status:REG E R Location: ED HPI History of Present Illness Chief Complaint: Lower Extremity Injury Informant: patient and family Narrative Narrative: Patient presents with a minor injury to the right lower leg. She has a who is on hospice and the nurse had called her and told her she was coming in 10minutes and so she was in a hurry to try to clean up and make the bed, and in doing so she rushed around it and accidentally hit her right lower leg above theankle against the side of the frame of the bed. She states it swelled right away and looked purple. She takes Xarelto for atrial fibrillation. She has been able to walk on it without any significant discomfort or difficulty and denies any other injury or bleeding out of the skin. [facility] Medical History Atrial fibrillation with rapid ventricular response (05/29/17) Breast cancer (~08/2018) Breast cancer, right Chronic anticoagulation COVID-19 virus detected Essential hypertension Left ureteral calculus Mixed hyperlipidemia Non-rheumatic tricuspid valve insufficiency Nonrheumatic mitral (valve) insufficiency Osteopenia Osteopenia due to cancer therapy Osteoporosis Paroxysmal atrial fibrillation Psoriasis Pyelonephritis due to Escherichia coli Right bundle branch block Secondary pulmonary arterial hypertension Home Medications multivitamin 1 ea PO DAILY SUPPLEMENT 05/29/17 [History Last Taken 05/27/17] sennosides 8.6 mg-docusate sodium 50 mg tablet 1 ea PO QHS 09/11/18 [History Last Taken Unknown] aspirin 81 mg tablet,delayed release 81 mg PO DAILY 09/26/20 [History Last Taken Unknown] metoprolol tartrate 25 mg tablet 25 mg PO BID 09/26/20 [History Last Taken Unknown] magnesium oxide 250 mg PO DAILY 12/26/20 [History Last Taken Unknown] calcium citrate 200 mg (950 mg) tablet 600 mg PO DAILY 04/05/22 [History Last Taken Unknown] cholecalciferol (vitamin D3) 25 mcg (1,000 unit) capsule 5,000 unit PO DAILY 04/05/22 [History Last Taken Unknown] cranberry concentrate-ascorbic acid 12,600 mg-20 mg capsule cap PO 04/05/22 [History Last Taken Unknown] omega-3 fatty acids 1,000 mg capsule 2,000 mg PO DAILY 04/05/22 [History Last Taken Unknown] potassium gluconate 595 mg (99 mg) tablet 595 mg PO DAILY 04/05/22 [History Last Taken Unknown] pravastatin 20 mg tablet 20 mg PO QHS #90 tabs 10/22/22 [Rx Last Taken Unknown] anastrozole 1 mg tablet 1 mg PO DAILY #90 tabs 11/14/22 [Rx Last Taken Unknown] ascorbate calcium (vitamin C) 500 mg tablet 500 mg PO DAILY 11/14/22 [History Last Taken Unknown] rivaroxaban 20 mg tablet (Xarelto) 20 mg PO DAILY #90 tabs 12/10/22 [Rx Last Taken Unknown] amlodipine 5 mg tablet 5 mg PO DAILY #90 tabs 01/02/23 [Rx Last Taken Unknown] Allergy/AdvReac Type Severity Reaction Status Date / Time chlorhexidine AdvReac Mild rash Verified 05/06/23 07:06 [From [facility]] Family History Mother CAD (coronary artery disease) coronary stents Myocardial infarction age 81 Hypertension CVA (cerebral vascular accident) Brother Seizures Sister Seizures Daughter Thyroid disorder Father No problems noted. Aunt Breast cancer Aunt Breast cancer Surgical History History of total abdominal hysterectomy History of tubal ligation History of vein stripping Social History Smoking Status: Former smoker how long ago did patient quit smokin second hand exposure: No alcohol intake: never substance use type: does not use caffeine: Yes what type of physical activity do you participate in: none frequency: does not exercise seatbelt use: always ROS ROS ED Constitutional Constitutional ED: Denies chills or fever(s) Musculoskeletal Musculoskeletal: Reports extremity pain; Denies neck pain Integumentary Reports as per HPI; Denies Abrasions, rash or wounds Neurologic Neurologic: Denies paresthesias or weakness EXAM Physical Exam Const Vital Signs: 05/06/23 07:06 Temperature 96.8 F L Temperature Source Temporal Pulse Rate 63 Respiratory Rate 18 Blood Pressure 194/107 H Blood Pressure Mean 136 Pulse Ox 100 Oxygen Delivery Method Room Air Positive well nourished and well developed General Appearance ED: well developed and NAD Neck full ROM and supple Back/Spine normal ROM and normal to inspection Extremity full ROM Extremity Narrative: 4 cm proximally acute hematoma lateral aspect of the right lower leg above the lateral malleolus and not involving it. It is mildly tender. There is no surrounding bony tenderness in the fibula or the tibia. Furthermore, with axialloading of the lower leg there is no pain, with forced inversion of the foot there is no pain, and with placing lateral force on the ankle mortise there is no pain. Neuro oriented x3, no focal motor deficits and no sensory deficits noted Sensorium / Orientation: alert Psych mental status grossly normal and thought process normal Skin no wounds Rashes: no rashes MDM MDM MDM Narrative Medical decision making narrative: I reassured this patient, I offered an x-ray, but I do not think she needs it. She declines and states I did not think it was broken, I was worried about a blood clot. I reassured her, there is no reason for her to have a DVT here, penetrating trauma can cause a DVT in a subacute fashion, but DVT formation acutely and blunt trauma does not generally occur. She was given an ice pack and some Tylenol and discharged, and we discussed reasons to return and she is comfortable with that plan. Discharge Plan Triage Chief Complaint: Lower Extremity Injury ED Provider: Gorge García Dx/Rx/DC Orders Clinical Impression: Traumatic hematoma of right lower leg, Anticoagulated Instructions: ED Hematoma Prescriptions: No Action cholecalciferol (vitamin D3) 1,000 unit capsule 25 mcg (1,000 unit) capsule 5,000 unit PO DAILY potassium gluconate 595 mg (99 mg) tablet 595 mg PO DAILY cranberry conc-ascorbic acid 12,600-20 mg capsule PO calcium citrate 200 mg (950 mg) tablet 600 mg PO DAILY omega-3 fatty acids 1,000 mg capsule 2,000 mg PO DAILY ascorbate calcium (vitamin C) 500 mg tablet 500 mg PO DAILY anastrozole 1 mg tablet 1 mg PO DAILY Qty: 90 1RF multivitamin 1 EACH tablet 1 ea PO DAILY sennosides-docusate sodium 1 EACH tablet 1 ea PO QHS aspirin 81 MG tablet,delayed release (DR/EC) 81 mg PO DAILY metoprolol tartrate 25 MG tablet 25 mg PO BID magnesium oxide 250 MG tablet 250 mg PO DAILY pravastatin 20 mg tablet 20 mg PO QHS Qty: 90 3RF Xarelto 20 mg tablet 20 mg PO DAILY Qty: 90 3RF Label Comments: will stop 2 days prior amlodipine 5 mg tablet 5 mg PO DAILY Qty: 90 3RF Primary Care Provider: Glen Negron Chi Referrals: Glen Negron Chi, MD [Primary Care Provider] - As Needed Disposition Disposition: Home, Self Care What to do if you have Problems For any increased pain, shortness of breath, bleeding, nausea or vomiting, chestpain, or any unexpected problems, contact your Primary Care Provider. Call [facility] ([phone]) or report to the closest Emergency Room. Call 911 if necessary. 05/06/23 07 <Electronically signed by Gorge García MD> Cosigner Signature (if applicable): CC: Dr. Glen Negron MD ~ Signed [facility] Work Phone: Evaluation note* Diagnosis Onset Date Resolution Status Essential hypertension acute Mixed hyperlipidemia acute Paroxysmal atrial fibrillation acute Pedal edema acute Non-rheumatic tricuspid valve insufficiency chronic Nonrheumatic mitral (valve) insufficiency chronic Essential hypertension acute Mixed hyperlipidemia acute Paroxysmal atrial fibrillation acute Non-rheumatic tricuspid valve insufficiency chronic Nonrheumatic mitral (valve) insufficiency chronic [facility] Work Phone: Evaluation noteNo assessment information available [facility] Work Phone: Evaluation note* Diagnosis Onset Date Resolution Status Breast cancer, right chronic Osteopenia chronic Osteopenia due to cancer therapy chronic Breast cancer, right chronic Osteopenia chronic Educational circumstance res olved Essential hypertension acute Mixed hyperlipidemia acute Paroxysmal atrial fibrillation acute Non-rheumatic tricuspid valve insufficiency chronic Nonrheumatic mitral (valve) insufficiency chronic [facility] Work Phone: Evaluation note* Diagnosis Urinary frequency- [facility] Onset Date Resolution Status Essential hypertension acute Mixed hyperlipidemia acute Paroxysmal atrial fibrillation acute Non-rheumatic tricuspid valve insufficiency chronic Nonrheumatic mitral (valve) insufficiency chronic [facility] Work Phone: Evaluation note* Diagnosis Onset Date Resolution Status Essential hypertension acute Mixed hyperlipidemia acute Paroxysmal atrial fibrillation acute Non-rheumatic tricuspid valve insufficiency chronic Nonrheumatic mitral (valve) insufficiency chronic Breast cancer, right chronic Osteopenia chronic Osteopenia due to cancer therapy chronic Breast cancer, right chronic Osteopenia chronic Educational circumstance res olved [facility] Work Phone: Evaluation note* Diagnosis Redness of skin- Primary Unspecified erythematous condition [facility] Diagnosis Dysuria- Primary documented in this encounter [facility] note* Diagnosis Onset Date Resolution Status Breast cancer, right chronic Osteopenia chronic Osteopenia due to cancer therapy [facility] Work Phone: Evaluation note* Diagnosis Onset Date Resolution Status Breast cancer, right chronic Osteopenia chronic Educational circumstance res olved Essential hypertension acute Mixed hyperlipidemia acute Paroxysmal atrial fibrillation acute Non-rheumatic tricuspid valve insufficiency chronic Nonrheumatic mitral (valve) insufficiency [facility] Work Phone: Evaluation note* Diagnosis Urinary frequency- Primary documented in this encounter [facility] note* Diagnosis Pain- Primary Generalized pain documented in this encounter [facility] note* Diagnosis Pain Generalized pain documented in this encounter [facility] course Narrative No data available for this section [facility] Reason for referral (narrative)No reason for referral [facility] Work [facility]: [facility] for visit Narrative* Diagnostic Procedure Only (Urgent) - Closed Specialty Diagnoses / Procedures Referred By Contnicolas t Referred To Contact [facility] Diagnoses Pain Procedures XR FOOT GENERAL 3V AP/LAT/OBL LEFT RADEX FOOT COMPLETE MINIMUM 3 VIEWS Pedro Arndt APRN.MARKETING DIRECTOR [address] [place] [address] Phone: tel: fax: [place] [phone] Referral ID Status Reason Start Date Expiration Date V isits Requested Visits Authorized [id number] Closed Auto-Generate d Referral 04/25/2025 05/25/2026 1 1 [facility] Chief Complaint and Reason for Visit Chief Complaint 6 M FU INT LAB 3 M FU Reason for Visit Essential hypertensi on Mixed hyperlipidemia Paroxysmal atrial fibrillation Pedal edema Non-rheumatic tricuspid valve insufficiency Nonrheumatic mitral (valve) insufficiency Essential hypertension Mixed hyperlipidemia Paroxysmal atrial fibrillation Non-rheumatic tricuspid valve insufficiency Nonrheumatic mitral (valve) insufficiency Chief Complaint SCREENING/POST AGATHA Chief Complaint SCREENING/POST AGATHA UTI Chief Complaint SCREENING/POST AGATHA UTI 6 MO - NO LABS - PROLIA ONC/OMD 6 M FU A-FIB/FLUTTER Reason for Visit Breast cancer, right Osteopenia Osteopenia due to cancer therapy Breast cancer, right Osteopenia Educational circumstance Essential hypertension Mixed hyperlipidemia Paroxysmal atrial fibrillation Non-rheumatic tricuspid valve insufficiency Nonrheumatic mitral (valve) insufficiency Chief Complaint Essential (primary) hypertension 1 Y FU leg injury Reason for Visit Essential hypertensi on Mixed hyperlipidemia Paroxysmal atrial fibrillation Non-rheumatic tricuspid valve insufficiency Nonrheumatic mitral (valve) insufficiency Chief Complaint Essential (primary) hypertension 1 Y FU leg injury Edema, unspecified 6MO LABS PROLIA ONC/OMD Reason for Visit Essential hypertensi on Mixed hyperlipidemia Paroxysmal atrial fibrillation Non-rheumatic tricuspid valve insufficiency Nonrheumatic mitral (valve) insufficiency Breast cancer, right Osteopenia Osteopenia due to cancer therapy Breast cancer, right Osteopenia Educational circumstance Chief Complaint Essential (primary) hypertension 1 Y FU leg injury Edema, unspecified 6MO LABS PROLIA ONC/OMD Unspecified injury of head, initial encounter Reason for Visit Essential hypertensi on Mixed hyperlipidemia Paroxysmal atrial fibrillation Non-rheumatic tricuspid valve insufficiency Nonrheumatic mitral (valve) insufficiency Breast cancer, right Osteopenia Osteopenia due to cancer therapy Breast cancer, right Osteopenia Educational circumstance Chief Complaint SCREENING F/U AFTER MAMMO - NO LABS Reason for Visit Breast cancer, right Osteopenia Osteopenia due to cancer therapy Chief Complaint ZOMETA 9 M FU E ORDER Reason for Visit Breast cancer, right Osteopenia Educational circumstance Essential hypertension Mixed hyperlipidemia Paroxysmal atrial fibrillation Non-rheumatic tricuspid valve insufficiency Nonrheumatic mitral (valve) insufficiency Chief Complaint Admit Date labs with IV start April 27, 2025 2:00 pm Other specified soft tissue disorders LE FT LEG April 30, 2025 11:17am Reason for Visit Admit Date Breast cancer, right April 27, 2025 2:0 0pm Osteopenia April 27, 2025 2:00 pm Educational circumstance April 27, 2025 2:00pm ER+ (estrogen receptor positive status) April 27, 2025 2:00pm Chief Complaint Admit Date labs with IV start April 27, 2025 2:00 pm Other specified soft tissue disorders LE FT LEG April 30, 2025 11:17am 9 M FU May 18, 2025 10:31 am Family History No Family History Records Found Relationship Condition Age at Onset Recorded Date/T gabo mother Coronary artery disease Unknown Myocardial infarction Unknown Hypertension Unknown Cerebrovascular accident (CVA) Unknown brother Seizure Unknown sister Seizure Unknown daughter Disorder of thyroid Unknown aunt Malignant neoplasm of breast Unknown Advance Directives No Advanced Directives Records Found Advance Directive Response Recorded Date/ Time Living Will Yes October 02 11:42am Power of Director Medicaid Yes October 02, 2018 11:42am Advance Directive Response Recorded Date/ Time Living Will Yes October 02 10:42am Power of Director Medicaid Yes October 02, 2018 10:42am Advance Directive Response Recorded Date/ Time Name of Medical Power of Director Medicaid Trista Conteh May 06, 2023 7:15am Living Will Yes May 06, 2023 7:15am Power of Director Medicaid Yes May 06 7:15am Advance Directive Response Recorded Date/ Time Living Will Yes May 06, 2023 6:15am Power of Director Medicaid Yes May 06 3 6:15am Advance Directive Response Recorded Date/ Time Living Will Yes May 06, 2023 7:15am Power of Director Medicaid Yes May 06 3 7:15am Advance Directive Response Recorded Date/ Time Living Will Yes October 02 11:42am Do you have a Healthcare Power of Director Medicaid? Yes October 02, 2018 11:42am Summary Purpose Additional Source Comments Goals (unrecognized section and content) Goals may be documented in a n alternate sectionGoals may be documented in an alternate sectionGoals may be documented in an alternate sectionGoals may be documented in an alternate sectionGoals may be documented in an alternate sectionGoals may be documented in an alternate sectionGoals may be documented in an alternate sectionGoals may be documented in an alternate sectionGoals may be documented in an alternate sectionGoals may be documented in an alternate section No data available for this sectionGoals may be documented in an alternate sectionGoals may be documented in an alternate section Care Teams (unrecognized sec tion and content) Team Status: Active Member Role Status Dates Dr. Aleta Quinn DO Family Provider Active Dr. Glen Negron MD Primary Care Provider Active Team Status: Inactive Member Role Status Dates Dr. Glen Negron MD Primary Care Provider, Referring Provider Active Rosana Sarabjit PUMPER HELPER, PUMPER HELPER-C Attending Provider Active Team Status: Inactive Member Role Status Dates Dr. Glen Negron MD Primary Care Provider, Referring Provider Active Maty PAULA PA Attending Provider Active Team Status: Active Member Role Status Dates Dr. Glen Negron MD Primary Care Provider Active Dr. Alex Pardo MD Attending Provider Active Team Status: Active Member Role Status Dates Dr. Aleta Quinn DO Primary Care Provide r, Family Provider, Referring Provider Active Dr. Louis Browne MD Attending Provider Active Team Status: Inactive Member Role Status Dates Dr. Glen Negron MD Primary Care Provider Active Dr. Louis Browne MD Attending Provider Active Team Status: Inactive Member Role Status Dates Dr. Glen Negron MD Primary Care Provider Active Dr. Marya Correa MD Attending Provider Active Team Status: Inactive Member Role Status Dates Dr. Glen Negron MD Primary Care Provider, Attending Provider Active Team Status: Inactive Member Role Status Dates Dr. Glen Negron MD Primary Care Provider Active Maty PAULA PA Attending Provider Active Team Status: Inactive Member Role Status Dates Dr. Glen Negron MD Primary Care Provi lizandro, Attending Provider, Referring Provider Active Team Status: Inactive Member Role Status Dates Dr. Glen Negron MD Primary Care Provider Active Dr. Gorge García MD Emergency Provider Active Team Status: Inactive Member Role Status Dates Dr. Glen Negron MD Primary Care Provider, Referring Provider Active Dr. Louis Browne MD Attending Provider Active Team Status: Active Member Role Status Dates Dr. Aleta Quinn DO Family Provider, Referring Provide r Active Dr. Louis Browne MD Attending Provider Active Dr. Glen Negron MD Primary Care Provider Active Team Status: Inactive Member Role Status Dates Dr. Glen Negron MD Primary Care Provider Active Dr. Gorge García MD Attending Provider, Emergency Provider Active Team Status: Inactive Member Role Status Dates Dr. Glen Negron MD Primary Care Provider Active Dr. Louis Browne MD Attending Provider, Referrin g Provider Active Team Status: Inactive Member Role Status Dates Dr. Glen Negron MD Primary Care Provider Active Maty Harrington PA, PA Attending Provider, Referr ing Provider Active Ceramic Tiler Relationship Specialty Start Date End Date Glen Negron Chi [address] [place], [place] [address] PCP - General Gerontology 08/18/24 Ceramic Tiler Relationship Specialty Start Date End Date Glen Negron Chi [address] [place], [place] [id number] PCP - General Gerontology 08/18/24 Ceramic Tiler Relationship Specialty Start Date End Date Glen Negron Chi [address] [place], [place] [address] PCP - General Gerontology 08/18/24 Ceramic Tiler Relationship Specialty Start Date End Date Glen Negron Chi [address] [place], [place] [id number] PCP - General Gerontology 08/18/24 Ceramic Tiler Relationship Specialty Start Date End Date Glen Negron Chi [address] [place], [place] [address] PCP - General Gerontology 08/18/24 Team Status: Active Member Role Status Dates Dr. Glen Negron MD Primary Care Provider Active Team Status: Active Member Role Status Dates Dr. Aleta Quinn DO Family Provider Active Start : April 27, 2025 Dr. Aleta Quinn DO Referring Provider Active St art: April 27, 2025 Dr. Louis Browne MD Attending Provider Active Start: April 27, 2025 Dr. Glen Negron MD Primary Care Provider Active Start: April 27, 2025 Team Status: Inactive Member Role Status Dates Dr. Glen Negron MD Primary Care Provider Active Start: April 30, 2025 End: April 30, 2025 Dr. Glen Negron MD Attending Provider Active Start: April 30, 2025 End: April 30, 2025 Dr. Glen Negron MD Referring Provider Active Start: April 30, 2025 End: April 30, 2025 Team Status: Active Member Role/Relationship Status Dates Dr. Glen Negron MD Primary Care Provider Active Team Status: Active Member Role/Relationship Status Dates Dr. Aleta Quinn DO Family Provider Active Start : April 27, 2025 Dr. Aleta Quinn DO Referring Provider Active St art: April 27, 2025 Dr. Louis Browne MD Attending Provider Active Start: April 27, 2025 Dr. Glen Negron MD Primary Care Provider Active Start: April 27, 2025 Team Status: Inactive Member Role/Relationship Status Dates Dr. Glen Negron MD Primary Care Provider Active Start: April 30, 2025 End: April 30, 2025 Dr. Glen Negron MD Attending Provider Active Start: April 30, 2025 End: April 30, 2025 Dr. Glen Negron MD Referring Provider Active Start: April 30, 2025 End: April 30, 2025 Team Status: Inactive Member Role/Relationship Status Dates Dr. Glen Negron MD Primary Care Provider Active Start: May 18, 2025 End: May 18, 2025 Dr. Glen Negron MD Referring Provider Active Start: May 18, 2025 End: May 18, 2025 Dr. Bryan Guillen MD Attending Provider Active Start: May 18, 2025 End: May 18, 2025 Source Comments (unrecognize d section and content) In the event this informatio n is protected by the Federal Confidentiality of Alcohol and Drug Abuse Patient Records regulations: The Federal rules restrict any use of the information to criminally investigate or prosecute any alcohol or drug abuse patient.[facility] the event this information is protected by the Federal Confidentiality of Alcohol and Drug Abuse Patient Records regulations: The Federal rules restrict any use of the information to criminally investigate or prosecute any alcohol or drug abuse patient.[facility] the event this information is protected by the Federal Confidentiality of Alcohol and Drug Abuse Patient Records regulations: The Federal rules restrict any use of the information to criminally investigate or prosecute any alcohol or drug abuse patient.[facility] the event this information is protected by the Federal Confidentiality of Alcohol and Drug Abuse Patient Records regulations: The Federal rules restrict any use of the information to criminally investigate or prosecute any alcohol or drug abuse patient.[facility] the event this information is protected by the Federal Confidentiality of Alcohol and Drug Abuse Patient Records regulations: The Federal rules restrict any use of the information to criminally investigate or prosecute any alcohol or drug abuse patient.[facility] the event this information is protected by the Federal Confidentiality of Alcohol and Drug Abuse Patient Records regulations: The Federal rules restrict any use of the information to criminally investigate or prosecute any alcohol or drug abuse patient.[facility] the event this information is protected by the Federal Confidentiality of Alcohol and Drug Abuse Patient Records regulations: The Federal rules restrict any use of the information to criminally investigate or prosecute any alcohol or drug abuse patient.[facility] the event this information is protected by the Federal Confidentiality of Alcohol and Drug Abuse Patient Records regulations: The Federal rules restrict any use of the information to criminally investigate or prosecute any alcohol or drug abuse patient.[facility] the event this information is protected by the Federal Confidentiality of Alcohol and Drug Abuse Patient Records regulations: The Federal rules restrict any use of the information to criminally investigate or prosecute any alcohol or drug abuse patient.[facility] Reason for Visit (unrecogniz ed section and content) Reason Comments UTI Frequency, burning, pressure x 1 week Reason Comments Trauma Bruised right pat x 3 weeks Reason Comments UTI Hematuria, painful u rination started this morning Reason Comments Results Reason Comments Urinary Frequency Frequency, urgency a nd burning x 1 day Reason Comments Edema BLAIR swollen feet and some bruising x 3 days Reason Onset Date Comments Results 04/26/2025 INFORMATION SOURCE (unrecogn ized section and content) DATE CREATED AUTHOR 04/26/2025 [facility] DATE CREATED AUTHOR AUTHOR'S ORGANIZ ATION 05/07/2025 [facility] DATE CREATED AUTHOR AUTHOR'S ORGANIZ ATION 09/30/2025 [facility] FOR RECORDS PERTAINING TO PATIENTS WHO [...] BE BASED ON THE PRIMARY CLINICAL RECORDS. [employer] provides no warranty or guarantee of the accuracy or completeness of information in this document.
== END | disposition home or self-care (01) ==
LOC: LAB 11:30
PROVIDERS: Nurse Practitioner Family; PCP Family Medicine Geriatric Medicine; Referring Provider Family Medicine Geriatric Medicine; Visit Provider Family Medicine Geriatric Medicine
DX: E78.5 Hyperlipidemia, unspecified (principal); E55.9 Vitamin D deficiency, unspecified; I10 Essential (primary) hypertension
CPT/HCPCS: 36415; 80053; 80061; 82306; 84443; 85025